=== PATIENT | male | born 1970 | race Caucasian/White ===

== ENCOUNTER → 2017-11-17 05:54 | Outpatient (CLI) | payer BC, SELFPAY ==
--- NOTE | 2017-11-17 17:54 | STRESSREP ---
Stress Test Report Pharmacologic myocardial perfusion stress test. 47-year-old man with a history of coronary artery disease status post right coronary artery stenting. Stress protocol: Resting EKG demonstrates normal sinus rhythm with rate of 59 beats minute resting blood pressure is 112/82 mmHg. 0.4 mg of regadenoson was infused per usual protocol followed by rapid intravenous saline flush injection. Continuous EKG monitoring was performed. Patient maintained sinus rhythm throughout the recording. At rest there were no ST or T-wave changes noted suggest abnormal flow reserve the maximum heart rate attained was 112 bpm which was 64% of maximum predicted heart rate the maximum workload attained was 1 metabolic equivalent. At rest there were no ST or T-wave changes noted suggest abnormal flow reserve at peak infusion no ST or T-wave changes were noted suggest abnormal flow reserve. The resting blood pressure is 112/82 mmHg. Myocardial perfusion protocol. 14.7 mCi of technetium 99m sestamibi was injected at rest. 0.4 mg of regadenoson was infused per usual protocol. At peak infusion 44.3 mCi of technetium 99m sestamibi was injected stress images were obtained stress and rest images were reconstructed and compared in the short axis vertical long and horizontal long axis. Gated images were also obtained Perfusion SPECT analysis: Review of the stress images demonstrate normal uptake of tracer noted in all areas of the myocardium. The resting images similarly demonstrate normal uptake of tracer noted in all areas of the myocardium. No reversibility is noted suggest ischemia no previous infarct is noted. Gated SPECT analysis: The gated ejection fraction is 71%. Conclusion: Normal pharmacologic myocardial perfusion stress test. Preserved ejection fraction.
== END ==
PROVIDERS: Family Provider Family Medicine; PCP Family Medicine; Visit Provider Physician Assistant Medical
DX: I25.111 Atherosclerotic heart disease of native 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 (principal); R06.00 Dyspnea, unspecified; R06.02 Shortness of breath
CPT/HCPCS: 78452; 93017; A9500; A4216; J2785

== ENCOUNTER → 2018-05-17 10:12 | Outpatient (CLI) | payer BC, SELFPAY ==
[2017-05-09 14:31] VITALS: BMI 34.3
[2018-05-17 10:46] LABS: Erythrocyte Sedimentation Rate 6 mm/hr (0-15)
[2018-05-17 10:49] LABS: Absolute Neutrophil Count 8.4 X10^3/uL (2.0-7.7); Basophil# 0.03 X10^3/uL; Basophil% 0.2 % (0-1); Eosinophil# 0.53 X10^3/uL; Eosinophils% 4.4 % (0-5); Hematocrit 48.1 % (40-54); Hemoglobin 16.3 g/dl (13.0-16.5); Lymphocyte % 16.5 % (19-41); Mean Corp Hgb Conc 33.9 g/gl (32-36); Mean Corpuscular Hgb 30.6 pg (27.0-32.0); Mean Corpuscular Volume 90.4 fL (80-94); Mean Platelet Vol. 10.5 fl (6.2-12.0); Monocyte# 1.13 X10^3/uL; Monocyte% 9.3 % (0-10); Neutrophil # 8.44 X10^3/uL (2.7-7.7); Neutrophil % 69.5 % (47-70); Platelet Count 207 K/mm3 (150-450); RBC Distribution Width CV 12.2 % (11.6-14.6); RBC Distribution Width SD 40.2 fl (35.1-43.9); Red Blood Count 5.32 M/mm3 (4.6-6.2); White Blood Count 12.1 K/mm3 (4.4-11.0)
[2018-05-17 10:50] LABS: POSITIVE COUNT NO; POSITIVE DIFFERENTIAL NO; POSITIVE MORPHOLOGY NO
[2018-05-17 11:13] LABS: CRP < 2.90 mg/L (0.0-3.0)
== END ==
PROVIDERS: Family Provider Family Medicine; PCP Family Medicine; Referring Provider Specialist; Visit Provider Specialist
DX: Z96.651 Presence of right artificial knee joint (principal)
CPT/HCPCS: 36415; 85025; 85652; 86140

== ENCOUNTER 2018-06-19 19:33 | Emergency (ER) | payer BC, SELFPAY ==
[2018-06-19] VITALS (7 sets, daily range): BP systolic 150; BP diastolic 93; PULSE 90–98; RESP 18–28; TEMP 36.6; O2SAT 93–96; BMI 36.3
--- NOTE | 2018-06-19 19:39 | EKG12_ITS ---
Test Reason : SOB Blood Pressure : / mmHG Vent. Rate : 089 BPM Atrial Rate : 089 BPM P-R Int : 152 ms QRS Dur : 092 ms QT Int : 378 ms P-R-T Axes : 031 085 057 degrees QTc Int : 459 ms Normal sinus rhythm Incomplete right bundle branch block Borderline ECG Confirmed by ZUHAIR WILSON, SLIM ([id number]), editor index ANA BYRD ([id number] on 06/22/2018 3:28:15 PM Referred By: VY Confirmed By:SLIM MOFFETT MD
--- NOTE | 2018-06-19 19:57 | RAD_ITS ---
STUDY: X-RAY CHEST REASON FOR EXAM: Male, 48 years old. Shortness of breath TECHNIQUE: Single AP portable view of the chest. COMPARISON: Previous study of 11/04/2016 FINDINGS: The lungs are clear and expanded. There is no demonstrated pleural abnormality. Normal size heart. Normal mediastinum and jalen. Normal visualized pulmonary arteries. Normal visualized aortic arch and descending thoracic aorta. Normal visualized thoracic spine. Normal visualized ribs, clavicles, and shoulders. There is no demonstrated abnormality of the visualized soft tissue structures of the upper abdomen. RAD/Chest 1 View (Portable) IMPRESSION: Normal x-ray examination of the chest. Electronically Signed: Edd Casillas MD at 20:24 EST , Service support ,
--- NOTE | 2018-06-19 19:57 | ED.RN ---
THIS RN CALLS TO NOTIFY RADIOLOGY OF PT X-RAY.
[2018-06-19] MEDS: 0.9% Normal Saline 1,000 ML 999 ML IV (20:30)
[2018-06-19] MEDS: MethylPREDNISolone 125 MG/2 ML Vial IV (20:30)
[2018-06-19] MEDS: Ipratropium/Albuterol Sulfate 3 ML AMPUL.NEB INHALATION (20:40)
[2018-06-19] MEDS: Albuterol 2.5 MG/3 ML VIAL.NEB. INHALATION ×3 (20:40→20:53)
--- NOTE | 2018-06-19 20:48 | ED.VISSUMM ---
- ER Visit Summary Date of Service: 06/19/18 Chief Complaint: Shortness of breath History of Present Illness: The patient is a 48 M presents to the emergency department with cough and shortness of breath. The patient does have a history of prior myocardial infarction. He has had stents placed. He follows with Dr. Michel. Patient is a long-standing smoker. He does not think he is been diagnosed with COPD. He states today, he began to have cough and dyspnea. He had scant production of sputum. He denies any fevers or chills. He just feels like he cannot catch his breath. He states with the change in weather comments made his symptoms worse. He denies orthopnea or leg edema. He has no history of pulmonary embolus. Physical Examination: Vital signs reviewed General: Well-nourished, well-developed Head: Normocephalic, atraumatic Eyes: Pupils equal and reactive, extraocular muscles intact Neck, supple, no lymphadenopathy Heart: Regular rate and rhythm Respiratory: No distress, wheezing in all lu Abdomen: Soft, nontender, nondistended, no peritoneal signs Back: Nontender Extremities: Nontender, no edema, no cords Skin: Normal color no rash Neuro: Alert and oriented, no focal or lateralizing deficits Test Results: [] Emergency Department Course and Treatment: The patient's symptoms do seem primarily respiratory. EKG was obtained. There is no acute ischemic change. The patient had symptoms for greater than 12 hours. His cardiac enzymes are normal. X-ray shows no evidence of volume overload, focal infiltrate, pneumothorax, or other dangerous process. Patient was given nebulized breathing treatments and steroids. On reevaluation, he was markedly improved. He has no tachypnea. He has had no hypoxia. At this time, I do feel the patient is safe for outpatient therapy. I am going to treat him with an inhaler, steroids, and doxycycline. He was counseled concerning symptoms and reasons to return. He will be discharged home. Treatment Plan: [] Disposition: Discharge Impression: 1. Acute infectious bronchitis with bronchospasm This note was generated with [employer] software. It may contain incorrect words, spelling, and punctuation that were not noted in review of the chart prior to signing ED Disposition - Plan for ED Patient: Chief Complaint: Shortness of Breath Instructions: ED Upper Resp Infec Abx Tx Prescriptions: Albuterol Inhaler [Ventolin Hfa] 2 puff INHALATION Q4H PRN PRN #1 inhaler PRN Reason: Wheezing Prednisone [Deltasone] 40 mg PO DAILY #10 tab Doxycycline 100 mg PO BID #20 cap Referrals: Kana Barreto DO [Primary Care Provider] -
[2018-06-19 20:52] LABS: Absolute Lymphocyte Count 1.29 X10^3/ul (0.83-4.51); Absolute Neutrophil Count 8.1 X10^3/uL (2.0-7.7); Basophil# 0.03 X10^3/uL; Basophil% 0.3 % (0-1); Eosinophil# 0.54 X10^3/uL; Hematocrit 46.6 % (40-54); Hemoglobin 15.9 g/dl (13.0-16.5); Lymphocyte # 1.29 X10^3/ul (4.0); Lymphocyte % 11.9 % (19-41); Mean Corp Hgb Conc 34.1 g/gl (32-36); Mean Corpuscular Hgb 30.9 pg (27.0-32.0); Mean Corpuscular Volume 90.5 fL (80-94); Mean Platelet Vol. 10.6 fl (6.2-12.0); Monocyte# 0.89 X10^3/uL; Monocyte% 8.2 % (0-10); Neutrophil # 8.09 X10^3/uL (2.7-7.7); Neutrophil % 74.3 % (47-70); POSITIVE COUNT NO; POSITIVE DIFFERENTIAL NO; POSITIVE MORPHOLOGY NO; Platelet Count 194 K/mm3 (150-450); RBC Distribution Width CV 12.2 % (11.6-14.6); RBC Distribution Width SD 40.3 fl (35.1-43.9); Red Blood Count 5.15 M/mm3 (4.6-6.2); White Blood Count 10.9 K/mm3 (4.4-11.0)
[2018-06-19 21:09] LABS: Anion Gap 8 (5-15); BUN 18 mg/dL (7-18); BUN/Creat Ratio 18.2 RATIO (10-20); Calcium,Total 8.1 mg/dL (8.5-10.1); Chloride 107 mmol/L (98-107); Creatinine, Serum 0.99 mg/dL (0.70-1.30); EST Glomerular Filtration Rate 86 mL/min (>60); Est Glom Filt Rate - Afr Amer 104 mL/min (>60); Estimated Creatinine Clearance 100.16 ml/min; Glucose 105 mg/dL (74-106); Potassium 3.8 mmol/L (3.5-5.1); Sodium Level 140 mmol/L (136-145)
[2018-06-19] MEDS: Doxycycline 100 MG CAPSULE PO (22:08)
== END 2018-06-19 22:09 | disposition home or self-care (01) ==
LOC: ED 21:13
PROVIDERS: Emergency Provider Emergency Medicine; Family Provider Family Medicine; PCP Family Medicine
DX: J20.9 Acute bronchitis, unspecified (principal); I25.10 Atherosclerotic heart disease of native coronary artery without angina pectoris; I10 Essential (primary) hypertension; F17.200 Nicotine dependence, unspecified, uncomplicated; I25.2 Old myocardial infarction; Z95.5 Presence of coronary angioplasty implant and graft
CPT/HCPCS: 71045; 80048; 84484; 85025; 87804; 93005; 94640; 94760; 96361; 96374; 99283; J7030; A4216

== ENCOUNTER → 2019-03-28 12:39 | Outpatient (CLI) | payer BC, SELFPAY ==
[2019-03-28 12:21] VITALS: BMI 35.5
--- NOTE | 2019-03-28 12:42 | RAD_ITS ---
STUDY: X-RAY CHEST REASON FOR EXAM: Male, 49 years old. Cough and chest congestion. TECHNIQUE: PA and lateral views of the chest. COMPARISON: Comparison is made with prior study dated June 19, 2018. FINDINGS: The lungs are clear and expanded. Scattered calcified granulomas. There is no demonstrated pleural abnormality. Normal size heart. Normal mediastinum and jalen. Normal visualized pulmonary arteries. Normal visualized aortic arch and descending thoracic aorta. There are degenerative changes of the visualized thoracic spine. Normal visualized ribs, clavicles, and shoulders. There is no demonstrated abnormality of the visualized soft tissue structures of the upper abdomen. RAD/Chest PA and Lateral IMPRESSION: No acute abnormality is seen. Electronically Signed: Carlos Alberto Burgess, at 13:48 EST , Service support ,
== END ==
LOC: HPRAD 12:39
PROVIDERS: Family Provider Family Medicine; PCP Family Medicine; Referring Provider Physician Assistant; Visit Provider Physician Assistant
DX: R09.89 Other specified symptoms and signs involving the circulatory and respiratory systems (principal)
CPT/HCPCS: 71046

== ENCOUNTER 2019-03-28 14:02 | Observation (INO) | payer BC, SELFPAY ==
[2019-03-28] VITALS (10 sets, daily range): BP systolic 107–139; BP diastolic 70–102; PULSE 54–68; RESP 16–23; TEMP 36.2–36.7; O2SAT 96–100; BMI 35.5; BMI 35.3; BMI 34.9; BMI 35.0
--- NOTE | 2019-03-28 14:44 | EKG12_ITS ---
Test Reason : Blood Pressure : / mmHG Vent. Rate : 060 BPM Atrial Rate : 060 BPM P-R Int : 180 ms QRS Dur : 134 ms QT Int : 498 ms P-R-T Axes : 013 048 074 degrees QTc Int : 498 ms Normal sinus rhythm with sinus arrhythmia Non-specific intra-ventricular conduction block Cannot rule out Septal infarct , age undetermined Abnormal ECG Confirmed by ZUHAIR WILSON, SLIM ([id number]), manuscript editor WENDY CERON ([id number]) on 04/02/2019 2:35:33 PM Referred By: Brady Spencer Confirmed By:SLIM MOFFETT MD
[2019-03-28 14:56] LABS: Absolute Lymphocyte Count 2.32 X10^3/uL (0.83-4.51); Absolute Neutrophil Count 4.6 X10^3/uL (2.0-7.7); Basophil% 1.2 % (0-1); Eosinophil# 0.57 X10^3/uL; Eosinophils% 6.7 % (0-5); Hematocrit 50.1 % (40-54); Hemoglobin 17.1 g/dL (13.0-16.5); Lymphocyte # 2.32 X10^3/ul (4.0); Lymphocyte % 27.3 % (19-41); Mean Corp Hgb Conc 34.1 g/dL (32-36); Mean Corpuscular Hgb 30.9 pg (27.0-32.0); Mean Corpuscular Volume 90.4 fL (80-94); Mean Platelet Vol. 10.6 fl (6.2-12.0); Monocyte# 0.86 X10^3/uL; Monocyte% 10.1 % (0-10); NRBC Flagged by Analyzer 0 % (0-5); Neutrophil # 4.61 X10^3/uL (2.7-7.7); Neutrophil % 54.2 % (47-70); Platelet Count 211 K/mm3 (150-450); RBC Distribution Width CV 11.6 % (11.6-14.6); RBC Distribution Width SD 38.4 fl (35.1-43.9); Red Blood Count 5.54 M/mm3 (4.6-6.2); White Blood Count 8.5 K/mm3 (4.4-11.0)
[2019-03-28 15:10] LABS: Anion Gap 11 (5-15); BUN 14 mg/dL (7-18); BUN/Creat Ratio 14.8 RATIO (10-20); Calcium,Total 8.9 mg/dL (8.5-10.1); Chloride 105 mmol/L (98-107); Creatinine, Serum 0.95 mg/dL (0.70-1.30); EST Glomerular Filtration Rate 90 mL/min (>60); Est Glom Filt Rate - Afr Amer 109 mL/min (>60); Estimated Creatinine Clearance 103.24 ml/min; Glucose 91 mg/dL (74-106); Potassium 4.3 mmol/L (3.5-5.1); Sodium Level 141 mmol/L (136-145)
[2019-03-28] MEDS: 0.9% Normal Saline 1,000 ML 150 ML IV (15:30)
--- NOTE | 2019-03-28 15:55 | EKG12_ITS ---
Test Reason : CP Blood Pressure : / mmHG Vent. Rate : 061 BPM Atrial Rate : 061 BPM P-R Int : 196 ms QRS Dur : 134 ms QT Int : 468 ms P-R-T Axes : 028 056 069 degrees QTc Int : 471 ms Normal sinus rhythm Non-specific intra-ventricular conduction block Cannot rule out Anteroseptal infarct , age undetermined Abnormal ECG Confirmed by ZUHAIR WILSON, SLIM ([id number]), commissioning editor WENDY CERON ([id number]) on 04/02/2019 2:36:05 PM Referred By: Brady Spencer Confirmed By:SLIM MOFFETT MD
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
--- NOTE | 2019-03-28 16:47 | EKG12_ITS ---
Test Reason : CP ADMIT Blood Pressure : / mmHG Vent. Rate : 060 BPM Atrial Rate : 060 BPM P-R Int : 192 ms QRS Dur : 136 ms QT Int : 502 ms P-R-T Axes : 019 046 069 degrees QTc Int : 502 ms Normal sinus rhythm Non-specific intra-ventricular conduction block , LBBB Cannot rule out Anteroseptal infarct , age undetermined Abnormal ECG Confirmed by ZUHAIR WILSON, SLIM ([id number]), video editor WENDY CERON ([id number]) on 04/02/2019 3:04:18 PM Referred By: Brady Spencer Confirmed By:SLIM MOFFETT MD
--- NOTE | 2019-03-28 16:50 | NURSING ---
Pt c/o of chest pressure 5/10. Called for EKG.
[2019-03-28] MEDS: Nitroglycerin (INPATIENT USE) 0.4 MG TAB.SUBL SUBLINGUAL (16:55)
[2019-03-28 17:11] LABS: Magnesium 1.9 mg/dL (1.6-2.6)
[2019-03-28] MEDS: 0.9% Normal Saline 1,000 ML 125 ML IV (17:35)
[2019-03-28] MEDS: Carvedilol 6.25 MG Tablet PO (21:02)
[2019-03-28] MEDS: Atorvastatin Calcium 80 MG Tablet PO (21:02)
[2019-03-29] VITALS (8 sets, daily range): BP systolic 104–140; BP diastolic 51–74; PULSE 51–64; RESP 17–18; TEMP 36.4; O2SAT 93–96
[2019-03-29] MEDS: 0.9% Normal Saline 1,000 ML 125 ML IV (01:38)
--- NOTE | 2019-03-29 05:55 | EKG12_ITS ---
Test Reason : AM EKG Blood Pressure : / mmHG Vent. Rate : 062 BPM Atrial Rate : 062 BPM P-R Int : 214 ms QRS Dur : 124 ms QT Int : 470 ms P-R-T Axes : 041 022 074 degrees QTc Int : 477 ms Sinus rhythm with 1st degree A-V block Anteroseptal infarct , age undetermined Abnormal ECG , LBBB When compared with ECG of 28-MAR-2019 16:56, MANUAL COMPARISON REQUIRED, DATA IS UNCONFIRMED Confirmed by ZUHAIR WILSON, SLIM ([id number]), pictures editor WENDY CERON ([id number]) on 04/02/2019 3:06:55 PM Referred By: Brady Spencer Confirmed By:SLIM MOFFETT MD
[2019-03-29 06:27] LABS: Absolute Lymphocyte Count 1.66 X10^3/uL (0.83-4.51); Basophil# 0.05 X10^3/uL; Basophil% 0.7 % (0-1); Eosinophil# 0.51 X10^3/uL; Eosinophils% 7.2 % (0-5); Hematocrit 46.4 % (40-54); Hemoglobin 15.5 g/dL (13.0-16.5); Lymphocyte # 1.66 X10^3/ul (4.0); Lymphocyte % 23.4 % (19-41); Mean Corp Hgb Conc 33.4 g/dL (32-36); Mean Corpuscular Hgb 30.9 pg (27.0-32.0); Mean Corpuscular Volume 92.4 fL (80-94); Mean Platelet Vol. 10.7 fl (6.2-12.0); Monocyte# 0.83 X10^3/uL; Monocyte% 11.7 % (0-10); NRBC Flagged by Analyzer 0 % (0-5); Neutrophil % 56.6 % (47-70); Platelet Count 174 K/mm3 (150-450); RBC Distribution Width CV 11.9 % (11.6-14.6); RBC Distribution Width SD 40.4 fl (35.1-43.9); Red Blood Count 5.02 M/mm3 (4.6-6.2); White Blood Count 7.1 K/mm3 (4.4-11.0)
[2019-03-29] MEDS: Aspirin E.C. 81 MG Tablet PO (06:33)
[2019-03-29] MEDS: Clopidogrel Bisulfate 75 MG Tablet PO (06:33)
[2019-03-29] MEDS: Lisinopril 5 MG Tablet PO (06:33)
[2019-03-29 06:44] LABS: Anion Gap 9 (5-15); BUN 11 mg/dL (7-18); BUN/Creat Ratio 13.2 RATIO (10-20); Calcium,Total 8.3 mg/dL (8.5-10.1); Chloride 109 mmol/L (98-107); Cholesterol 107 mg/dL (200); Creatinine, Serum 0.83 mg/dL (0.70-1.30); EST Glomerular Filtration Rate 105 mL/min (>60); Est Glom Filt Rate - Afr Amer 126 mL/min (>60); Estimated Creatinine Clearance 118.17 ml/min; Glucose 102 mg/dL (74-106); High Density Lipoprotein 32 mg/dL; Potassium 4.3 mmol/L (3.5-5.1); Sodium Level 142 mmol/L (136-145); Triglycerides 132 mg/dL; Very Low Density Lipoprotein 26 mg/dL (5-40)
--- NOTE | 2019-03-29 11:07 | STRESSREP ---
Stress Test Report Myocardial perfusion stress test. 49-year-old male with a history of chest pain. Stress protocol: Resting EKG demonstrates sinus bradycardia with a rate of 56 bpm left bundle branch block is noted resting blood pressures 136/70 mmHg. The patient exercised according to regular Jamil protocol for a total duration of 6 minutes the maximum heart rate attained was 150 bpm which was 87% of maximum predicted heart rate maximum workload was 7 metabolic equivalents. At rest there were no ST or T wave changes noted suggest ischemia the patient maintained left bundle branch block throughout the recording. The resting blood pressures 136/70 with a peak blood pressure 160/62 no clinical angina was noted. Patient did have severe dyspnea noted necessitating termination of the chest. There was minimal chest discomfort noted. The resting blood pressure was 136/70 peak blood pressure 160/62. Myocardial perfusion protocol. 14.5 mCi of technetium 99m sestamibi was injected at rest. Patient exercised according to regular Jamil protocol for 6 minutes at peak exercise 45.0 mCi of technetium 99 sestamibi was injected stress images were obtained stress and rest images are reconstructed and compared in the short axis vertical and horizontal long axis. Gated images was obtained Perfusion SPECT analysis: Review of the stress images demonstrate normal uptake of tracer noted in all rest myocardium the rest images no demonstrate normal uptake of tracer noted in all rest myocardium. No reversibility is no suggest ischemia no previous infarct is noted per Gated SPECT analysis: The gated ejection fraction is noted to be 73%. Conclusion: Exercise myocardial perfusion stress test with no evidence of ischemia noted at a moderate workload. Preserved ejection fraction. Left bundle branch block. Minimal chest discomfort of unknown significance.
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
[2019-03-29] MEDS: Carvedilol 6.25 MG Tablet PO (12:24)
[2019-03-29] MEDS: Isosorbide Mononitrate 60 MG Tablet PO (12:24)
[2019-03-29] MEDS: Pantoprazole Sodium 40 MG Tablet PO (12:24)
[2019-03-29] MEDS: Celecoxib 200 MG Capsule PO (12:24)
--- NOTE | 2019-03-29 13:19 | DCINST_ITS ---
- Discharge Diagnoses Current Active Problems: Current Active and Chronic Problems (Last Reviewed 03/28/19 @ 16:08 by Salima Almaguer MD) HTN (hypertension) (Chronic) Obesity (BMI 30-39.9) (Chronic) Tobacco use (Chronic) Chest pain (Acute) You will use the following diet at home:: Cardiac Your food should be the consistency of: Regular Your liquids should be the consistency of: Regular/Thin Weight Bearing Status: Weight bearing as tolerated Call your doctor if you observe: Fever of 101 or Higher, Shortness of breath, Swelling in the ankles, Chest pain Instructions: What Is Angina?, Heart Attack, Angina, Taking Long-Acting Nitroglycerin Allergies/Adverse Reactions: Allergies No Known Allergies Allergy (Verified 03/28/19 14:11) Medications to take at Discharge nitroglycerin 0.4 mg sublingual tablet 0.4 mg SUBLINGUAL Q5M PRN #25 tab 01/04/18 carvedilol 6.25 mg tablet 6.25 mg PO BID #180 tab 03/29/18 clopidogrel 75 mg tablet 75 mg PO DAILY #90 tab 03/29/18 lisinopril 5 mg tablet 5 mg PO DAILY #90 tab 03/29/18 pantoprazole 40 mg tablet,delayed release 40 mg PO DAILY #90 tab 03/29/18 Albuterol Inhaler [Ventolin Hfa] 2 puff INHALATION Q4H PRN PRN #1 inhaler 06/19/18 Celecoxib [Celebrex] 200 mg PO DAILY 06/19/18 aspirin 81 mg tablet,delayed release 81 mg PO DAILY 06/28/18 atorvastatin 80 mg tablet 80 mg PO QHS #10 tab 07/27/18 Acetaminophen [Tylenol] 1,000 mg PO Q8H PRN PRN 03/28/19 Isosorbide Mononitrate [Imdur] 60 mg PO DAILY 03/28/19 Please follow up with your Primary Care Physician in: one week Test Results: Test results from this visit will be discussed in further detail at your follow- up appointment, if applicable. Please Follow Up With: Albert Michel MD When: 2-4 weeks; call office for appointment Proposed Discharge Date: 03/29/19
--- NOTE | 2019-03-29 13:21 | PCM.DC.SUM ---
Discharge Date and Diagnosis - Problem List Patient Problems: Active and Suspected Problems (Last Reviewed 03/28/19 @ 16:08 by Salima Almaguer MD) Chest pain (Acute) Date of Admission: 03/28/19 Date of Discharge: 03/29/19 - Primary Discharge Diagnosis Active and Suspected Problems (Last Reviewed 03/28/19 @ 16:08 by Salima Almaguer MD) Chest pain (Acute) - Secondary Discharge Diagnosis Chronic Problems (Last Reviewed 03/28/19 @ 16:08 by Salima Almaguer MD) HTN (hypertension) (Chronic) Obesity (BMI 30-39.9) (Chronic) Tobacco use (Chronic) Presence of stent in coronary artery (Chronic 03/04/16) [id number]-[id number] RCA w/ 4.0 x 23 mm and 4.0 x 12 mm Xience Alpine RX & MERCY-Mid RCA w/ 4.0 x 8 mm Xience Alpine RX Stent 02/23/16 Atherosclerotic heart disease of [place] 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 (Chronic) [id number]-[id number] RCA w/ 4.0 x 23 mm and 4.0 x 12 mm Xience Alpine RX & MERCY-Mid RCA w/ 4.0 x 8 mm Xience Alpine RX Stent 02/23/16 HLD (hyperlipidemia) (Chronic) Hospital Course and Treatment Imaging Results: 03/29/19 05:55 Nuclear Stress Test - Treadmil [NM] AM (NON MEDS) cardiology Operations: None Procedures: Nuclear stress test Summary of Care Provided: The patient is a 49 year old M is a 49-year-old male with an extensive past medical history as listed which includes CAD status post stents times during the RCA, hypertension hyperlipidemia. He was admitted through the ED on 03/28/2019 with a complaint of intermittent retrosternal chest pain of about 48 hours duration which was worsened with exertion and relieved by rest. He had initially thought it was due to bronchitis but symptoms persisted so he came into the ED. Chest x-ray was unremarkable and EKG showed no acute ST changes. He was started on aspirin and sublingual nitroglycerin. Troponins x3 were negative. Patient had a stress test done on 03/29/2019. Stress test was negative but patient however said that during stress test he was having chest pain and after stress test he still complained of having chest pain and chest pressure. Cardiology was therefore consulted in light of the persistent chest pain and history of CAD status post CABG. Cardiology reviewed patient's and thought it was an atypical chest pain and recommended medical management. His lisinopril was increased to 10 mg daily; he is to follow-up with his primary care doctor and cardiology within 1 week. Patient seen and examined prior to discharge. He still complained of mild chest pressure. Review of systems was otherwise negative. Labs and vitals reviewed. Home medications reviewed and reconciled. [] Patient Problems: Active and Suspected Problems (Last Reviewed 03/28/19 @ 16:08 by Salima Almaguer MD) Chest pain (Acute) - Physical Exam Vitals/I&O's: Vital Signs Temp Pulse Resp BP Pulse Ox 97.6 F L 64 18 140/72 H 95 03/29/19 12:05 03/29/19 12:05 03/29/19 12:05 03/29/19 12:05 03/29/19 12:05 Oxygen Flow Rate (L/min) 3 Oxygen Delivery Method Room Air Weight: 258 lb 6.108 oz Body Mass Index (BMI) 34.9 Intake and Output for Last 24 Hours 03/27/19 03/28/19 03/29/19 23:59 23:59 23:59 Intake Total 412.5 / 412.5 2560.00 / 2560.00 Balance 412.5 / 412.5 2560.00 / 2560.00 General: Alert, Oriented x3, Cooperative, No apparent distress HEENT: Atraumatic, PERRLA, EOMI, Normocephalic Oral: Moist Mucosa Neck: Supple, No JVD, Negative Carotid Bruits Lungs: Clear to auscultation, Normal air movement, No rhonchi, No wheeze, No rales Cardiovascular: Regular rate, Regular Rhythm, Normal S1, Normal S2, No murmurs Abdomen: Bowel Sounds Present, Soft, Non Tender, Non-Distended, No Hepato-splenomegaly Extremities: No clubbing, No cyanosis, No edema, Capillary Refill Less than 3 Seconds Skin: No rashes, No breakdown Musculoskeletal: No Tenderness to Palpation of Joints or Extremities Lymphatic: No Cervical, Supraclavicular, or Inguinal Adenopathy Neurological: Cranial nerves II-XII grossly intact, Neuro grossly intact, Motor Exam 5/5 strength throughout Psych/Mental Status: Normal Affect, Appropriate, Alert and oriented to time, place, person, mood and affect Laboratory Results 03/28/19 14:10: WBC 8.5, RBC 5.54, Hgb 17.1 H, Hct 50.1, MCV 90.4, MCH 30.9, MCHC 34.1, RDW Std Deviation 38.4, RDW Coeff of Ivan 11.6, Plt Count 211, MPV 10.6, Immature Gran % (Auto) 0.500, Neut % (Auto) 54.2, Lymph % (Auto) 27.3, [place] % (Auto) 10.1 H, Eos % (Auto) 6.7 H, Baso % (Auto) 1.2 H, Absolute Neuts (auto) 4.6, Absolute Lymphs (auto) 2.32, Nucleated RBC % 0 03/28/19 14:10: Sodium 141, Potassium 4.3, Chloride 105, Carbon Dioxide 25.0, Anion Gap 11, BUN 14, Creatinine 0.95, Estim Creat Clear Calc 103.24, Est GFR (MDRD) Af Amer 109, Est GFR (MDRD) Non-Af 90, BUN/Creatinine Ratio 14.8, Glucose 91, Calcium 8.9, Troponin I < 0.015 03/28/19 14:10: Magnesium 1.9 03/28/19 17:40: Troponin I < 0.015 03/28/19 20:42: Troponin I < 0.015 03/29/19 05:25: WBC 7.1, RBC 5.02, Hgb 15.5, Hct 46.4, MCV 92.4, MCH 30.9, MCHC 33.4, RDW Std Deviation 40.4, RDW Coeff of [place] 11.9, Plt Count 174, MPV 10.7, Immature Gran % (Auto) 0.400, Neut % (Auto) 56.6, Lymph % (Auto) 23.4, [place] % (Auto) 11.7 H, Eos % (Auto) 7.2 H, Baso % (Auto) 0.7, Absolute Neuts (auto) 4.0, Absolute Lymphs (auto) 1.66, Nucleated RBC % 0 03/29/19 05:25: Sodium 142, Potassium 4.3, Chloride 109 H, Carbon Dioxide 24.0, Anion Gap 9, BUN 11, Creatinine 0.83, Estim Creat Clear Calc 118.17, Est GFR (MDRD) Af Amer 126, Est GFR (MDRD) Non-Af 105, BUN/Creatinine Ratio 13.2, Glucose 102, Calcium 8.3 L, Triglycerides 132, Cholesterol 107, LDL Cholesterol 49, VLDL Cholesterol 26, HDL Cholesterol 32 L Current Medications Acetaminophen (Tylenol) 650 mg PO Q6H PRN PRN PRN Reason: Non-cardiac pain (mod-severe) Hydrocodone Bitart/Acetaminophen ([place] 5mg-325mg) 1 - 2 tablet PO Q4H PRN PRN PRN Reason: Pain Score 4-10/10 Al Hydroxide/Mg Hydroxide (Mylanta Ii) 15 - 30 ml PO Q4H PRN PRN PRN Reason: INDIGESTION Albuterol Sulfate (Ventolin Aerosols) 2.5 mg INHALATION Q2H PRN PRN PRN Reason: dyspnea, wheezing Aspirin (Ecotrin) 81 mg PO DAILYCM [facility] Last Admin: 03/29/19 06:33 Dose: 81 mg Documented by: Atorvastatin Calcium (Lipitor) 80 mg PO QHS [facility] Last Admin: 03/28/19 21:02 Dose: 80 mg Documented by: Carvedilol (Coreg) 6.25 mg PO BID [facility] Last Admin: 03/29/19 12:24 Dose: 6.25 mg Documented by: Celecoxib (Celebrex) 200 mg PO DAILY [facility] Last Admin: 03/29/19 12:24 Dose: 200 mg Documented by: Clopidogrel Bisulfate (Plavix) 75 mg PO DAILY [facility] Last Admin: 03/29/19 06:33 Dose: 75 mg Documented by: Dextrose (D50w Syringe) 0 gm IV X1 PRN; Protocol PRN Reason: Hypoglycemia Enoxaparin Sodium (Lovenox) 40 mg SC DAILY@1000 [facility] Last Admin: 03/29/19 12:19 Dose: Not Given Documented by: Glucagon () 1 mg IM .X1 PRN PRN Reason: Hypoglycemia Hydralazine HCl (Apresoline Iv) 10 mg IV Q4H PRN PRN PRN Reason: SBP > 160 Sodium Chloride () 1,000 mls @ 125 mls/hr IV .Q8H [facility] Last Infusion: 03/29/19 12:20 Dose: Infused Documented by: Isosorbide Mononitrate (Imdur) 60 mg PO DAILY [facility] Last Admin: 03/29/19 12:24 Dose: 60 mg Documented by: Lisinopril (Zestril) 10 mg PO DAILY [facility] Magnesium Hydroxide (Milk Of Magnesia) 30 ml PO DAILY PRN PRN Reason: Constipation Melatonin (Melatonin) 3 mg PO QHS PRN PRN PRN Reason: INSOMNIA Morphine Sulfate () 1 - 2 mg IV Q4H PRN PRN PRN Reason: Pain Score 1-10/10 Nitroglycerin (Nitrostat) 0.4 mg SUBLINGUAL Q5M PRN PRN Reason: CARDIAC/CHEST PAIN Last Admin: 03/28/19 16:55 Dose: 0.4 mg Documented by: Ondansetron HCl (Zofran) 4 mg IV Q8H PRN PRN PRN Reason: NAUSEA/VOMITING Pantoprazole Sodium (Protonix) 40 mg PO DAILY [facility] Last Admin: 03/29/19 12:24 Dose: 40 mg Documented by: Sodium Chloride () 10 - 40 ml IV UD PRN PRN Reason: SALINE FLUSH Throat Lozenges (Cepacol Sore Throat Lozenge) 1 lozenge MUCOUS MEM Q2H PRN PRN PRN Reason: Sore Throat/Cough Discharge Diet: Low fat/ Low Cholesterol Discharge Activity: Return to Normal Activity Weight Bearing Status: Weight bearing as tolerated Call your doctor if you observe: Fever of 101 or Higher, Shortness of breath, Swelling in the ankles, Chest pain Home Medications: Medications to take at Discharge nitroglycerin 0.4 mg sublingual tablet 0.4 mg SUBLINGUAL Q5M PRN #25 tab 01/04/18 carvedilol 6.25 mg tablet 6.25 mg PO BID #180 tab 03/29/18 clopidogrel 75 mg tablet 75 mg PO DAILY #90 tab 03/29/18 Albuterol Inhaler [Ventolin Hfa] 2 puff INHALATION Q4H PRN PRN #1 inhaler 06/19/18 Celecoxib [Celebrex] 200 mg PO DAILY 06/19/18 aspirin 81 mg tablet,delayed release 81 mg PO DAILY 06/28/18 atorvastatin 80 mg tablet 80 mg PO QHS #10 tab 07/27/18 Acetaminophen [Tylenol] 1,000 mg PO Q8H PRN PRN 03/28/19 Lisinopril [Zestril] 10 mg PO DAILY #30 tab 03/29/19 isosorbide mononitrate ER 60 mg tablet,extended release 24 hr 60 mg PO DAILY #90 tab 03/29/19 pantoprazole 40 mg tablet,delayed release 40 mg PO DAILY #90 tab 03/29/19 Following Prescrptions Were Given to Patient: Lisinopril [Zestril] 10 mg PO DAILY #30 tab Transmission Status: Sent to [facility]/pharmacy #[id number] Primary Care Physician: Kana Barreto DO [Primary Care Provider] - Please follow up with your Primary Care Physician in: one week Please Follow Up With: Albert Michel MD When: 2-4 weeks; call office for appointment Patient Instructions: What Is Angina?, Taking Long-Acting Nitroglycerin, Angina, Heart Attack Disposition: Home Minutes spent on discharge:: 40 Patient Condition:: Stable Medical Necessity - Tobacco Use Smoking Status: Current every day smoker Tobacco Use: Cigarettes Meaningful Use Info Meaningful Use Diagnoses (Choose all that apply): None applicable Code Visit OBSV E&M: 40193 Observation care discharge
== END 2019-03-29 13:20 | disposition home or self-care (01) ==
LOC: ED 16:03 → PCU 16:27
PROVIDERS: Admitting Provider Family Medicine; Emergency Provider Emergency Medicine; Family Provider Family Medicine; PCP Family Medicine; Visit Provider Student in an Organized Health Care Education/Training Program
DX: R07.89 Other chest pain (principal); I10 Essential (primary) hypertension; K21.9 Gastro-esophageal reflux disease without esophagitis; R06.09 Other forms of dyspnea; E78.5 Hyperlipidemia, unspecified; E66.9 Obesity, unspecified; I25.111 Atherosclerotic heart disease of native 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; M13.832 Other specified arthritis, left wrist; F17.210 Nicotine dependence, cigarettes, uncomplicated; I25.2 Old myocardial infarction; Z95.5 Presence of coronary angioplasty implant and graft; Z68.34 Body mass index [BMI] 34.0-34.9, adult; Z71.3 Dietary counseling and surveillance; Z79.899 Other long term (current) drug therapy; Z79.82 Long term (current) use of aspirin; Z79.02 Long term (current) use of antithrombotics/antiplatelets
CPT/HCPCS: 36415; 78452; 80048; 80061; 83735; 84484; 85025; 93005; 93017; 96360; 96361; 99218; 99251; 99283; A9500; J7030; A4216; G0378; G0463

== ENCOUNTER → 2020-07-02 15:07 | Outpatient (CLI) | payer BC, SELFPAY ==
[2020-07-02 14:38] VITALS: BMI 34.5
[2020-07-02 16:51] LABS: Absolute Lymphocyte Count 1.96 X10^3/uL (0.83-4.51); Absolute Neutrophil Count 4.1 X10^3/uL (2.0-7.7); Basophil# 0.07 X10^3/uL; Basophil% 0.9 % (0-1); Eosinophil# 0.61 X10^3/uL; Eosinophils% 7.9 % (0-5); Hematocrit 49.5 % (40-54); Hemoglobin 16.9 g/dL (13.0-16.5); Lymphocyte # 1.96 X10^3/ul (4.0); Lymphocyte % 25.5 % (19-41); Mean Corp Hgb Conc 34.1 g/dL (32-36); Mean Corpuscular Hgb 30.6 pg (27.0-32.0); Mean Corpuscular Volume 89.5 fL (80-94); Mean Platelet Vol. 10.8 fl (6.2-12.0); Monocyte% 11.7 % (0-10); NRBC Flagged by Analyzer 0 % (0-5); Neutrophil # 4.12 X10^3/uL (2.7-7.7); Neutrophil % 53.5 % (47-70); Platelet Count 251 K/mm3 (150-450); RBC Distribution Width CV 11.7 % (11.6-14.6); RBC Distribution Width SD 38.1 fl (35.1-43.9); Red Blood Count 5.53 M/mm3 (4.6-6.2); White Blood Count 7.7 K/mm3 (4.4-11.0)
[2020-07-02 17:40] LABS: AST(SGOT) 23 U/L (15-37); Alanine Aminotransfer ALT/SGPT 46 U/L (16-61); Alkaline Phosphatase 124 U/L (45-117); BUN 18 mg/dL (7-18); BUN/Creat Ratio 17.8 RATIO (10-20); Bilirubin, Direct 0.26 mg/dL (0.00-0.30); Chloride 107 mmol/L (98-107); Cholesterol 109 mg/dL (200); Creatinine, Serum 1.01 mg/dL (0.70-1.30); EST Glomerular Filtration Rate 83 mL/min (>60); Est Glom Filt Rate - Afr Amer 100 mL/min (>60); Globulin 3.2 g/dL (2.2-4.2); Glucose 86 mg/dL (74-106); Potassium 4.6 mmol/L (3.5-5.1); Protein, Total 7.2 g/dL (6.4-8.2); Sodium Level 137 mmol/L (136-145); Triglycerides 187 mg/dL
[2020-07-02 17:41] LABS: Anion Gap 4 (5-15); High Density Lipoprotein 41 mg/dL; Very Low Density Lipoprotein 37 mg/dL (5-40)
== END ==
LOC: LAB 15:09
PROVIDERS: PCP Family Medicine; Referring Provider Internal Medicine Cardiovascular Disease; Visit Provider Internal Medicine Cardiovascular Disease
DX: R07.9 Chest pain, unspecified (principal); E78.5 Hyperlipidemia, unspecified; Z95.5 Presence of coronary angioplasty implant and graft
CPT/HCPCS: 36415; 80048; 80061; 80076; 85025

== ENCOUNTER → 2020-07-15 07:04 | Outpatient (CLI) | payer BC, SELFPAY ==
[2020-07-02 14:38] VITALS: BMI 34.5
--- NOTE | 2020-07-15 12:45 | STRESSREP ---
Stress Test Report Exercise myocardial perfusion stress test. 50-year-old man with a history of coronary disease status post previous angioplasty and stenting of the right coronary artery, history of hypertension, hyperlipidemia. Stress protocol: Resting KG demonstrates normal sinus rhythm with a rate of 67 bpm normal intervals are noted resting blood pressure is 102/70 mmHg. The patient exercised according to regular Jmail protocol for a total duration of 7 minutes and 15 seconds. The maximum heart rate attained was 142 bpm which was 83% of maximum predicted heart rate the maximum workload was 8.9 metabolic equivalents. Patient maintained sinus rhythm throughout the recording. He did develop a rate dependent bundle branch block. EKG changes noted with a bundle branch block were present the test was terminated due to knee pain and dyspnea. Patient however did experience mild chest discomfort. The peak blood pressure was 140/80 mmHg with was a good blood pressure response to exercise. Myocardial perfusion protocol. 15.0 mCi of technetium 99m sestamibi was injected at rest. The patient exercised according to regular Jamil protocol for a total duration of 7 minutes and 15 seconds at peak exercise 44.0 mCi of technetium 99m sestamibi was injected stress images were obtained stress and rest images were reconstructed and compared in the short axis vertical long horizontal long axis. Gated images were also obtained Perfusion SPECT analysis: Review of the stress images demonstrate a mild amount of perfusion defect noted in the mid anterior wall. This is present on the stress and resting images to a similar extent. No obvious reversibility is noted suggest ischemia. The above is likely secondary to the bundle branch block defect. No previous infarct is noted. Gated SPECT analysis: The gated ejection fraction is 66%. Conclusion: Exercise myocardial perfusion stress test with no obvious ischemia noted. Rate dependent bundle branch block noted. Mild chest discomfort of questionable significance.
== END ==
LOC: CVS 07:06
PROVIDERS: Referring Provider Internal Medicine Cardiovascular Disease; Visit Provider Internal Medicine Cardiovascular Disease
DX: R07.9 Chest pain, unspecified (principal); Z95.5 Presence of coronary angioplasty implant and graft
CPT/HCPCS: 78452; 93017; A9500; A4216

== ENCOUNTER → 2020-07-23 11:48 | Outpatient (CLI) | payer BC, SELFPAY ==
--- NOTE | 2020-07-23 11:52 | RAD_ITS ---
STUDY: X-RAY - CERVICAL SPINE REASON FOR EXAM: Male, 50 years old. Cervical pain, radicular pain right TECHNIQUE: 3 view(s) of the cervical spine were obtained. COMPARISON: None FINDINGS: Normal anterior atlantoaxial articulation. Normal odontoid process. There is straightening of the normal cervical lordosis. Spondylolysis at the C5-C6 and C6-C7 levels. There is multi-level degenerative disc disease with multilevel disc space narrowing. Normal visualized intervertebral neuroforamina. The soft tissue structures are unremarkable. RAD/Cerv Spine 2 or 3 Views IMPRESSION: Straightening of the normal cervical lordosis. Spondylosis at the C5-C6 and C6-7 level with disc space narrowing at the C5-C6 and C6-C7 levels. Electronically Signed: Carlos Alberto Burgess MD at 15:32 EST , Service support ,
--- NOTE | 2020-07-23 11:55 | RAD_ITS ---
STUDY: X-RAY CHEST REASON FOR EXAM: Male, 50 years old. Shoulder pain TECHNIQUE: PA and lateral views of the chest. COMPARISON: Comparison is made with prior study dated 03/28/2019. FINDINGS: Hyperinflation. The lungs are clear. Scattered calcified granulomas. There is no demonstrated pleural abnormality. Normal size heart. Normal mediastinum and jalen. Normal visualized pulmonary arteries. Normal visualized aortic arch and descending thoracic aorta. There are degenerative changes of the visualized thoracic spine. Normal visualized ribs, clavicles, and shoulders. There is no demonstrated abnormality of the visualized soft tissue structures of the upper abdomen. RAD/Chest PA and Lateral IMPRESSION: Hyperinflation. The lungs are clear. Electronically Signed: Carlos Alberto Burgess MD at 15:30 EST , Service support ,
== END ==
PROVIDERS: PCP Internal Medicine; Referring Provider Internal Medicine; Visit Provider Internal Medicine
DX: M54.12 Radiculopathy, cervical region (principal); M54.2 Cervicalgia; M25.519 Pain in unspecified shoulder
CPT/HCPCS: 71046; 72040

== ENCOUNTER 2020-12-05 09:32 | Emergency (ER) | payer BC, SELFPAY ==
[2020-12-05 09:34] VITALS: BP 148/107; PULSE 71; RESP 16; TEMP 36.7; O2SAT 94; BMI 34.5
--- NOTE | 2020-12-05 10:27 | RAD_ITS ---
STUDY: X-RAY - RIGHT HAND REASON FOR EXAM: Male, 50 years old. pain TECHNIQUE: 3 view(s) of the hand. COMPARISON: None. FINDINGS: Normal radiocarpal articulation. Normal distal radioulnar joint. Demineralized visualized carpal bones. Normal carpal articulations Normal carpometacarpal articulation of the thumb. Normal second through fifth carpometacarpal joints. Demineralized metacarpi. Normal metacarpophalangeal joint of the thumb. Normal interphalangeal joint of the thumb. Normal proximal and distal phalanges of the thumb. Normal metacarpophalangeal joints of the second through fifth fingers. There is diffuse articular joint space narrowing of the proximal and distal interphalangeal joints of the second through fifth fingers, but without erosive changes or periarticular soft tissue swelling. Normal phalanges of the second through fifth fingers. The soft tissue structures are unremarkable. RAD/Hand Min 3 Views IMPRESSION: No evidence of acute osseous abnormality. Degenerative changes as above. Electronically Signed: Rony Diaz DO at 10:47 EDT , Service support ,
--- NOTE | 2020-12-05 11:20 | EDS_ITS ---
HPI History of Present Illness Chief Complaint: Upper Extremity Injury Narrative Narrative: Patient presenting for evaluation secondary to right hand pain. Patient states that while he was at work today where he frequently uses his hands he started to notice that he had some swelling and pain over the dorsum of his right hand. This is located between the metacarpals of his long digit and index finger. There are some swelling and pinpoint pain. No numbness, no weakness. Patient denies that there was any sort of specific injury that may have caused this. Patient also states that he deals with significant neck issues from cervical radiculopathy, but does not state that this pain radiates from his neck or his shoulder but rather is located directly in his hand. He denies any infectious signs or symptoms. Review of systems otherwise negative. PFSH PFSH Medical History Acute non-ST segment elevation myocardial infarction Atherosclerotic heart disease of [place] coronary artery without angina pectoris BBB (bundle branch block) Chest pain Essential (primary) hypertension HLD (hyperlipidemia) Obesity Obesity (BMI 30-39.9) Tobacco use Home Medications albuterol sulfate 2 puff INHALATION Q4H PRN PRN #1 inhaler 06/19/18 [Rx Last Taken 03/28/19] celecoxib 200 mg PO DAILY 06/19/18 [History Last Taken 03/28/19] aspirin 81 mg tablet,delayed release 81 mg PO DAILY 06/28/18 [History Last Taken 03/28/19] acetaminophen 1,000 mg PO Q8H PRN PRN 03/28/19 [History Last Taken 03/28/19] isosorbide mononitrate 60 mg tablet,extended release 24 hr 60 mg PO DAILY #90 tab 03/17/20 [Rx Last Taken Unknown] pantoprazole 40 mg tablet,delayed release 40 mg PO DAILY #90 tab 03/17/20 [Rx Last Taken Unknown] atorvastatin 80 mg tablet 80 mg PO QHS #90 tab 04/15/20 [Rx Last Taken Unknown] carvedilol 6.25 mg tablet 6.25 mg PO BID #180 tab 04/15/20 [Rx Last Taken Unknown] clopidogrel 75 mg tablet 75 mg PO DAILY #90 tab 04/17/20 [Rx Last Taken Unknown] prednisone 10 mg tablet 10 mg PO DAILY #21 tab 07/22/20 [Rx Last Taken Unknown] lisinopril 10 mg tablet 10 mg PO DAILY #90 tab 08/03/20 [Rx Last Taken Unknown] nitroglycerin 0.4 mg sublingual tablet See Rx Instructions .ROUTE .COMPLEX #25 tab 10/22/20 [Rx Last Taken Unknown] tramadol 50 mg PO Q8H PRN 3 Days #9 tab 12/05/20 [Rx Last Taken Unknown] Allergy/AdvReac Type Severity Reaction Status Date / Time No Known Allergies Allergy Verified 12/05/20 09:48 Family History Father CAD (coronary artery disease) Mother CVA (cerebral vascular accident) CAD (coronary artery disease) Surgical History History of carpal tunnel release History of knee replacement History of left heart catheterization (11/04/16) Presence of stent in coronary artery (03/04/16) Social History Smoking Status: Current every day smoker tobacco type: cigarettes alcohol intake: never substance use type: does not use 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 ROS ROS ED Constitutional Constitutional ED: Denies chills or fever(s) ENT ENT ED: Denies rhinorrhea Cardiovascular Cardiovascular: Denies chest pain Respiratory/Chest Respiratory/Chest: Denies cough or dyspnea Gastrointestinal Gastrointestinal: Denies abdominal pain, diarrhea, nausea or vomiting Genitourinary Genitourinary ED: Denies dysuria or hematuria Musculoskeletal Musculoskeletal: Reports other Details: Right hand pain ; Denies back pain Integumentary Denies rash Neurologic Neurologic: Denies paresthesias or weakness Psychiatric Psychiatric: Denies depression Endocrine Endocrinology: Denies fatigue Allergic/Immunologic Allergic/Immunologic ED: Denies urticaria EXAM Physical Exam Const Vital Signs: 12/05/20 09:34 Temperature 98.0 F Temperature Source Temporal Pulse Rate 71 Respiratory Rate 16 Blood Pressure 148/107 H Blood Pressure Mean 120 Pulse Ox 94 Oxygen Delivery Method Room Air Positive well nourished and well developed General Appearance ED: well developed and NAD HEENT Reports moist mucous membranes Negative for trauma or tenderness Eyes EOMs intact bilaterally Neck no lymphadenopathy, supple and no JVD Chest Wall inspection of chest normal Resp normal respiratory effort and clear to auscultation bilaterally Cardio regular rate, regular rhythm, no murmurs and peripheral pulses 2+ throughout GI normal to inspection, nondistended, normoactive bowel sounds, non-tender and no masses Palpation: soft Back/Spine normal to inspection Extremity Extremity Narrative: Examination the patient's right hand shows a focal area of swelling and tenderness between the metacarpals for the long digit and index finger on the dorsum of the hand. There is no evidence of fluctuance or induration. No skin changes. No lymphangitic streaking. Normal range of motion of the fingers although the patient does have some increased pain with hyperflexion of the fingers. Normal capillary refill, normal pulses. General Extremety ED: Negative for tenderness Neuro oriented x3 and no sensory deficits noted Sensorium / Orientation: alert Motor Exam: strength 5/5 throughout Psych mental status grossly normal Skin no rashes or lesions noted MDM MDM MDM Narrative Medical decision making narrative: Patient presented secondary to right hand pain. Radiographs are obtained by my personal review as well as radiology these did not demonstrate any evidence of acute fracture. Patient has some focal swelling of his hand, this does not seem to be a vascular issue and infectious issue and there is no fracture on x-ray this likely is more soft tissue and more associated with maybe has frequent use or an element of some arthritis. Patient was placed in an Ap wrap for comfort. Patient is already on Celebrex, and has a history of heart disease will be placed on a short course of tramadol for pain control. Patient will follow up as needed. Radiography Diagnostic Testing: Radiology Impression Hand X-Ray 12/05/20 10:27 IMPRESSION: No evidence of acute osseous abnormality. Degenerative changes as above. Electronically Signed: Rony Diaz DO at 10:47 EDT , Service support , Discharge Plan Triage Chief Complaint: Upper Extremity Injury ED Provider: Hussein Hernandez Dx/Rx/DC Orders Clinical Impression: Contusion of hand, right Instructions: ED Contusion, Upper Extremity Prescriptions: New tramadol 50 mg tablet 50 mg PO Q8H PRN (Reason: pain) 3 Days Qty: 9 RF: 0 No Action aspirin [Adult Low Dose Aspirin] 81 mg tablet,delayed release (DR/EC) 81 mg PO DAILY RF: 0 prednisone 10 mg tablet 10 mg PO DAILY Qty: 21 RF: 0 celecoxib 200 MG capsule 200 mg PO DAILY RF: 0 albuterol sulfate 1 INHALER inhaler 2 puff inhalation Q4H PRN PRN (Reason: Wheezing) Qty: 1 RF: 0 acetaminophen 500 MG tablet 1,000 mg PO Q8H PRN PRN (Reason: Pain Score 1-10/10) RF: 0 pantoprazole 40 mg tablet,delayed release (DR/EC) 40 mg PO DAILY Qty: 90 RF: 3 isosorbide mononitrate 60 mg tablet extended release 24 hr 60 mg PO DAILY Qty: 90 RF: 3 carvedilol 6.25 mg tablet 6.25 mg PO BID Qty: 180 RF: 3 atorvastatin 80 mg tablet 80 mg PO QHS Qty: 90 RF: 3 clopidogrel 75 mg tablet 75 mg PO DAILY Qty: 90 RF: 3 lisinopril 10 mg tablet 10 mg PO DAILY Qty: 90 RF: 3 nitroglycerin 0.4 mg tablet, sublingual See Rx Instructions .ROUTE .COMPLEX Qty: 25 RF: 3 Primary Care Provider: Alyse Bui Referrals: Alyse Bui MD [Primary Care Provider] - As Needed Disposition Disposition: Home, Self Care
== END 2020-12-05 11:31 | disposition home or self-care (01) ==
PROVIDERS: Emergency Provider Emergency Medicine; PCP Internal Medicine
DX: S60.221A Contusion of right hand, initial encounter (principal); X58.XXXA Exposure to other specified factors, initial encounter; Y93.9 Activity, unspecified; Y92.9 Unspecified place or not applicable; Y99.9 Unspecified external cause status; M54.12 Radiculopathy, cervical region; I25.10 Atherosclerotic heart disease of native coronary artery without angina pectoris; I10 Essential (primary) hypertension; E78.5 Hyperlipidemia, unspecified; E66.9 Obesity, unspecified; F17.210 Nicotine dependence, cigarettes, uncomplicated; Z79.82 Long term (current) use of aspirin; Z79.02 Long term (current) use of antithrombotics/antiplatelets; Z79.52 Long term (current) use of systemic steroids; Z79.1 Long term (current) use of non-steroidal anti-inflammatories (NSAID); Z79.899 Other long term (current) drug therapy; I25.2 Old myocardial infarction; Z95.5 Presence of coronary angioplasty implant and graft
CPT/HCPCS: 73130; 99282

== ENCOUNTER → 2021-10-27 | Outpatient (CLI) | payer BC, SELFPAY ==
[2021-10-27 09:34] LABS: AST(SGOT) 17 U/L (15-37); Alanine Aminotransfer ALT/SGPT 43 U/L (16-61); Albumin, Serum 3.7 g/dL (3.2-5.0); Alkaline Phosphatase 122 U/L (45-117); Cholesterol 124 mg/dL (200); Globulin 3.1 g/dL (2.2-4.2); High Density Lipoprotein 40 mg/dL; Protein, Total 6.8 g/dL (6.4-8.2); Triglycerides 120 mg/dL; Very Low Density Lipoprotein 24 mg/dL (5-40)
== END | disposition home or self-care (01) ==
PROVIDERS: PCP Internal Medicine; Referring Provider Internal Medicine Cardiovascular Disease; Visit Provider Internal Medicine Cardiovascular Disease
DX: E78.00 Pure hypercholesterolemia, unspecified (principal)
CPT/HCPCS: 36415; 80061; 80076

== ENCOUNTER → 2022-03-28 | Outpatient (CLI) | payer BC, SELFPAY ==
--- NOTE | 2022-03-28 14:07 | VDLE_ITS ---
Reason For Study: Pain RIGHT GSV is normal. CFV is compressible, spontaneous, phasic, competent and demonstrates normal augmentation. FV is compressible, spontaneous, phasic, competent and demonstrates normal augmentation. POP V is compressible, spontaneous, phasic, competent and demonstrates normal augmentation. T/P Trunk is compressible. PTV is compressible. RT PerV is compressible. Procedure This is a venous duplex using B-mode, color flow and spectral Doppler. Exam performed in department. A preliminary report was called and/or faxed to Mariana FISHER. VL/Venous Duplex US, Unilateral Interpretation Summary There is no evidence of right lower extremity deep vein thrombosis. Right great saphenous vein appears patent and compressible segmentally. Ordering Physician: Mariana Allen Referring Physician: Alyse Bui Performed By: Ashwini Barreto, RASHMI, RVT
[2022-03-28 14:16] LABS: Absolute Lymphocyte Count 2.11 X10^3/uL (0.83-4.51); Absolute Neutrophil Count 4.9 X10^3/uL (2.0-7.7); Basophil# 0.06 X10^3/uL; Basophil% 0.7 % (0-1); Eosinophil# 0.37 X10^3/uL; Eosinophils% 4.5 % (0-5); Hematocrit 47.4 % (40-54); Hemoglobin 16.5 g/dL (13.0-16.5); Lymphocyte # 2.11 X10^3/ul (0.83-4.51); Lymphocyte % 25.4 % (19-41); Mean Corp Hgb Conc 34.8 g/dL (32-36); Mean Corpuscular Hgb 31.8 pg (27.0-32.0); Mean Corpuscular Volume 91.3 fL (80-94); Mean Platelet Vol. 9.6 fl (6.2-12.0); Monocyte# 0.83 X10^3/uL; NRBC Flagged by Analyzer 0 % (0-5); Neutrophil % 58.9 % (47-70); Platelet Count 234 K/mm3 (150-450); RBC Distribution Width SD 40.2 fl (35.1-43.9); Red Blood Count 5.19 M/mm3 (4.6-6.2); White Blood Count 8.3 K/mm3 (4.4-11.0)
[2022-03-28 14:20] LABS: Erythrocyte Sedimentation Rate 11 mm/hr (0-20)
[2022-03-28 14:47] LABS: CRP < 2.90 mg/L (0.0-3.0)
== END | disposition home or self-care (01) ==
PROVIDERS: PCP Internal Medicine; Referring Provider Physician Assistant Surgical; Visit Provider Physician Assistant Surgical
DX: M17.11 Unilateral primary osteoarthritis, right knee (principal); M25.461 Effusion, right knee; M79.661 Pain in right lower leg; Z96.651 Presence of right artificial knee joint
CPT/HCPCS: 36415; 85025; 85652; 86140; 93971

== ENCOUNTER → 2022-11-15 | Outpatient (CLI) | payer BC, SELFPAY ==
[2022-11-15 12:09] LABS: AST(SGOT) 23 U/L (15-37); Alanine Aminotransfer ALT/SGPT 46 U/L (16-61); Albumin, Serum 3.9 g/dL (3.2-5.0); Alkaline Phosphatase 128 U/L (45-117); Bilirubin, Direct 0.33 mg/dL (0.00-0.30); Cholesterol 114 mg/dL (200); Globulin 3.5 g/dL (2.2-4.2); High Density Lipoprotein 37 mg/dL; Protein, Total 7.4 g/dL (6.4-8.2); Triglycerides 159 mg/dL; Very Low Density Lipoprotein 32 mg/dL (5-40)
== END | disposition home or self-care (01) ==
LOC: LAB 10:47
PROVIDERS: PCP Internal Medicine; Referring Provider Nurse Practitioner Gerontology; Visit Provider Nurse Practitioner Gerontology
DX: E78.00 Pure hypercholesterolemia, unspecified (principal)
CPT/HCPCS: 36415; 80061; 80076

== ENCOUNTER → 2023-01-06 | Outpatient (CLI) | payer BC, SELFPAY ==
[2023-01-06 15:00] LABS: Absolute Lymphocyte Count 1.79 X10^3/uL (0.83-4.51); Absolute Neutrophil Count 5.5 X10^3/uL (2.0-7.7); Basophil# 0.05 X10^3/uL; Basophil% 0.6 % (0-1); Eosinophil# 0.46 X10^3/uL; Eosinophils% 5.2 % (0-5); Hematocrit 48.9 % (40-54); Hemoglobin 16.1 g/dL (13.0-16.5); Lymphocyte # 1.79 X10^3/ul (0.83-4.51); Lymphocyte % 20.1 % (19-41); Mean Corp Hgb Conc 32.9 g/dL (32-36); Mean Corpuscular Hgb 30.6 pg (27.0-32.0); Mean Corpuscular Volume 92.8 fL (80-94); Mean Platelet Vol. 10.3 fl (6.2-12.0); Monocyte# 1.02 X10^3/uL; Monocyte% 11.5 % (0-10); NRBC Flagged by Analyzer 0 % (0-5); Neutrophil # 5.49 X10^3/uL (2.7-7.7); Neutrophil % 61.7 % (47-70); Platelet Count 212 K/mm3 (150-450); RBC Distribution Width CV 12.1 % (11.6-14.6); RBC Distribution Width SD 41.5 fl (35.1-43.9); Red Blood Count 5.27 M/mm3 (4.6-6.2); White Blood Count 8.9 K/mm3 (4.4-11.0)
[2023-01-06 15:11] LABS: Erythrocyte Sedimentation Rate 8 mm/hr (0-20)
[2023-01-06 15:31] LABS: CRP < 2.90 mg/L (0.0-3.0)
== END | disposition home or self-care (01) ==
LOC: LAB 14:03
PROVIDERS: PCP Internal Medicine; Referring Provider Physician Assistant Surgical; Visit Provider Physician Assistant Surgical
DX: T84.84XA Pain due to internal orthopedic prosthetic devices, implants and grafts, initial encounter (principal); Z96.651 Presence of right artificial knee joint; M25.461 Effusion, right knee; X58.XXXA Exposure to other specified factors, initial encounter
CPT/HCPCS: 36415; 85025; 85652; 86140

== ENCOUNTER → 2023-01-09 | Outpatient (CLI) | payer BC, SELFPAY ==
--- NOTE | 2023-01-09 10:22 | RAD_ITS ---
INDICATION: pain -- STAT EXAMINATION/TECHNIQUE: X-RAY - XR Spine Lumbar 2 or 3 Views COMPARISON: No relevant prior comparison study available FINDINGS: VERTEBRAE: Preserved vertebral body height. There is multilevel endplate spondylosis. No fracture. No spondylolisthesis. Preservation of the normal lumbar lordosis. No significant facet arthropathy. DISCS: There is multilevel degenerative disc disease. INCLUDED ABDOMEN: Included bowel gas pattern is non-obstructive. RAD/Lumbar Spine 2 or 3 Views IMPRESSION: Multilevel degenerative disc disease. Electronically Signed: Beatris Mendieta MD at 11:17 EDT ,
--- NOTE | 2023-01-09 10:22 | RAD_ITS ---
INDICATION: pain -- STAT EXAMINATION/TECHNIQUE: X-RAY - XR Hip Unilateral with Pelvis when performed; 2-3 Views COMPARISON: Lumbar spine dated January 09, 2023 FINDINGS: PELVIC BONES: No displaced fracture, destructive or sclerotic lesions. Note that overlapping bowel shadows may however obscure fine detail. There are degenerative changes of the sacroiliac joints. No widening of the pubic symphysis. HIPS: There are degenerative changes of the hips. SOFT TISSUES: No soft tissue swelling or gas. RAD/HIP, UNI W/ Pelvis 2-3 Views IMPRESSION: Degenerative changes. Electronically Signed: Beatris Mendieta MD at 11:20 EDT ,
== END | disposition home or self-care (01) ==
PROVIDERS: PCP Internal Medicine; Referring Provider Physician Assistant; Visit Provider Physician Assistant
DX: M54.50 Low back pain, unspecified (principal); M25.551 Pain in right hip
CPT/HCPCS: 72100; 73502

== ENCOUNTER → 2023-02-28 | Outpatient (CLI) | payer BC, SELFPAY ==
--- NOTE | 2023-02-28 06:37 | MRI_ITS ---
INDICATION: SPINAL STENOSIS, RADICULOPATHY EXAMINATION: MRI - MR Spine Lumbar W/O Contrast TECHNIQUE: Multiplanar and multisequence MR images of the lumbar spine. IV Contrast Dosage and Agent: None. COMPARISON: None. FINDINGS: VERTEBRAE: Vertebral body heights are preserved. Moderate spondylosis throughout the lumbar spine. VERTEBRAL ALIGNMENT: No spondylolisthesis. There is preservation of the normal lumbar lordosis. CORD: Normal position and signal intensity of the conus medullaris. L1/L2: Moderate disc desiccation and loss of disc space height, mild disc bulging, mild bilateral facet arthropathy, moderate bilateral neural foraminal encroachment. L2/L3: Moderate disc desiccation and loss of disc space height, moderate disc bulging, mild bilateral facet arthropathy and ligamentous hypertrophy, mild central stenosis, moderate bilateral neural foraminal encroachment. L3/L4: Moderate disc desiccation, mild loss of disc space height, moderate disc bulging, moderate bilateral facet arthropathy and ligamentous hypertrophy, moderate central stenosis, severe right and moderate left neural foraminal encroachment. L4/L5: Moderate disc desiccation and loss of disc space height, mild disc bulging, moderate bilateral facet arthropathy and ligamentous hypertrophy, mild central stenosis, moderate bilateral neural foraminal encroachment. L5/S1: Moderate disc desiccation, slight retrolisthesis L5 on S1, severe loss of disc space height, mild pseudobulge, moderate bilateral facet arthropathy, severe bilateral neural foraminal encroachment. SOFT TISSUES: Unremarkable. MRI/Spine Lumbar (Routine) IMPRESSION: Mild disc bulging L1-2, moderate disc bulging L2-3, moderate disc bulging L3-4, mild disc bulging L4-5 and mild pseudobulge L5-S1. Multilevel degenerative disc disease, central stenosis, facet arthropathy and neural foraminal encroachment as above. Electronically Signed: Fransico Verdugo MD at 10:23 EDT ,
== END | disposition home or self-care (01) ==
PROVIDERS: PCP Internal Medicine; Referring Provider Orthopaedic Surgery; Visit Provider Orthopaedic Surgery
DX: M48.061 Spinal stenosis, lumbar region without neurogenic claudication (principal); M54.16 Radiculopathy, lumbar region; M51.36 Other intervertebral disc degeneration, lumbar region
CPT/HCPCS: 72148

== ENCOUNTER 2023-09-13 16:08 | Emergency (ER) | payer BC, SELFPAY ==
[2023-09-13 16:11] VITALS: BP 111/79; PULSE 76; RESP 15; TEMP 36.8; O2SAT 94; BMI 35.2
--- NOTE | 2023-09-13 17:16 | EDS_ITS ---
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 BBB (bundle branch block) Contusion of hand, right Essential (primary) hypertension HLD (hyperlipidemia) Lumbosacral radiculopathy Lumbosacral strain Obesity Staphylococcal infection of skin Strain of right hip Tobacco use Home Medications albuterol sulfate 90 mcg/actuation aerosol inhaler 2 puff inhalation Q4H PRN PRN Wheezing ##1 06/19/18 [Rx Last Taken 03/28/19] celecoxib 200 mg capsule 200 mg PO DAILY 06/19/18 [History Last Taken 03/28/19] aspirin 81 mg tablet,delayed release (Adult Low Dose Aspirin) 81 mg PO DAILY 06/28/18 [History Last Taken 03/28/19] acetaminophen 500 mg tablet 1,000 mg PO Q8H PRN PRN Pain Score 1-02/2803/28/19 [History Last Taken 03/28/19] nitroglycerin 0.4 mg sublingual tablet See Rx Instructions .Route .COMPLEX #25 tabs 07/25/22 [Rx Last Taken Unknown] lisinopril 10 mg tablet 10 mg PO DAILY #90 tabs 10/03/22 [Rx Last Taken Unknown] atorvastatin 80 mg tablet 80 mg PO QHS #90 tabs 10/24/22 [Rx Last Taken Unknown] isosorbide mononitrate 60 mg tablet,extended release 24 hr See Rx Instructions .Route .COMPLEX #90 tabs 11/11/22 [Rx Last Taken Unknown] carvedilol 6.25 mg tablet 6.25 mg PO BID blood pressure #180 tabs 11/15/22 [Rx Last Taken Unknown] prednisone 10 mg tablet 10 mg PO DIRECTED #30 tabs 01/09/23 [Rx Last Taken Unknown] cyclobenzaprine 10 mg tablet 10 mg PO TID PRN muscle spasm #20 tabs 01/16/23 [Rx Last Taken Unknown] pantoprazole 40 mg tablet,delayed release See Rx Instructions .Route .COMPLEX #90 tabs 03/02/23 [Rx Last Taken Unknown] oxycodone-acetaminophen 5 mg-325 mg tablet (Percocet) 1 tab PO Q6H PRN pain 3 days #12 tabs 09/13/23 [Rx Last Taken Unknown] Allergy/AdvReac Type Severity Reaction Status Date / Time No Known Allergies Allergy Verified 09/13/23 16:14 Family History (Reviewed 05/08/23 @ 11:06 by Tiffany Dyson ADJUNCT SOCIOLOGY PROFESSOR, ADJUNCT SOCIOLOGY PROFESSOR-C) Father CAD (coronary artery disease) Mother CVA (cerebral vascular accident) CAD (coronary artery disease) Surgical History History of carpal tunnel release History of fusion of cervical spine History of knee replacement History of left heart catheterization (11/04/16) Social History Smoking Status: Current every day smoker tobacco type: cigarettes alcohol intake: never substance use type: does not use additional 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 States he was getting of his car he noted severe back pain. No trauma or falls. Denies recent surgery to the back. Denies fully catheterization. States he was supposed to follow-up with a surgeon at the end of 2022 but never scheduled an appointment. Patient denies any saddle anesthesia, urinary tension, bowel or bladder incontinence, lower extremity weakness, fever or IV drug use, no recent spinal manipulation or surgery, no recent urinary catheterization. REVIEW OF SYSTEMS: All other systems reviewed and are negative except as noted in the history of present illness. At least 10 review of systems reviewed and are negative except as noted in history of present illness. PHYSICAL EXAM: Nursing triage notes reviewed, Vital signs reviewed Constitutional: please see mdm HENT: MMM Eyes: Pupils equal round and reactive to light, Extraocular muscles intact Neck: No stridor, no JVD, full neck ROM Lungs: Clear to auscultation, No wheezing or rales. No increased work of breathing, no conversational dyspnea, no accessory muscle use, no nasal flaring. No respiratory distress noted Heart: Regular rate and rhythm, No murmurs, No rubs and No gallops, 2+ distal pulses (radial, femoral, posterior tibial) in all extremities Abdomen: Soft, there is no tenderness, rigidity, rebound or guarding, no obvious peritoneal signs, no palpable pulsatile abdominal masses, no auscultated abdominal bruit : No CVAT Extremities: No edema Back: No midline step-offs or deformities Neuro: Intact sensation L1-S1 dermatomal distributions. Intact 5/5 strength in hip flexion (T12-L3). Knee extension (L2-L4). Ankle dorsiflexion (L4-L5). Ankle plantar flexion (S1). Great toe extension (L5). 2+ patellar and Achilles DTRs. Skin: No rash or lesions noted MEDICAL DECISION MAKING: Chief Complaint: Back pain External records reviewed: Imaging reviewed: MRI of the lumbar spine from February 2023 shows mild disc bulging at L1-L4, mild degenerative disc disease, central stenosis, facet arthropathy and neuroforaminal encroachment Factors affecting care: Herniated disc, chronic back pain, hypertension Social determinants of health: No IV drug use History obtained from others: none Consults: none ALL IMAGES (IF OBTAINED) HAVE BEEN PERSONALLY REVIEWED AND INTERPRETED BY MYSELF. MDM Narrative: The patient was hemodynamically stable, afebrile nontoxic-appearing. No focal neurologic deficits noted in the lower extremities. No IV step-offs deformities noted to the spine. Patient was treated with symptomatic therapy with oral narcotics, IM corticosteroids and topical lidocaine. I considered the following differential diagnosis: Musculoskeletal back pain, space-occupying lesion of the spinal (epidural abscess, epidural hematoma), cauda equina, conus medullaris, fracture dislocation, AAA, nephrolithiasis, pyelonephritis, aortic dissection I consider obtaining advanced imaging of the spine including MRI however thought this was not clinically indicated given low Red flag score and no focal deficits. The patient presented complaining of back pain. There was no history of recent fall or trauma. There was no evidence to support genitourinary etiology. There is also no evidence to suggest vascular pathology such as AAA dissection. No fevers or other evidence to suspect infectious processes, abscess, osteomyelitis etc. The patient?s neurological exam is normal with normal motor and sensory. There is no saddle paresthesias reported and no bowel or bladder incontinence or retention. I suspect the pain is mechanical in nature. Clinical suspicion, plan of care and management was discussed with the patient. The patient was instructed to follow up with their health care provider. The patient was also instructed to return if the pain worsened, changed, or developed weakness or bowel or bladder trouble. The patient agreed with plan. I completed a structured, evidence-based clinical evaluation to screen for acute non-traumatic spinal emergencies. The patient has a normal detailed neurologic exam and red flag historical factors were negative. The evidence indicates that the patient is very low risk for an acute spinal emergency and this is consistent with my clinical intuition. The risk of further workup is higher than the likelihood of the patient having a spinal epidural abscess or other dangerous emergency spinal condition. It is, therefore, in the patient?s best interest not to do additional emergent testing at this time. Shared Decision-Making I have discussed with the patient my clinical impression and the result of an evidence-based clinical evaluation to screen for spinal epidural abscess and other spinal emergencies, as well as the risk of further testing and hospitalization. The evidence shows that the risk for an acute spinal emergency is less than 1%. Although the risk of an acute spinal emergency has not been completely eliminated, the risks of further testing likely exceed any potential benefit, and the patient agrees with not pursuing further emergent evaluation for causes of back pain at this time. The patient and/or family, caregivers express understanding. The patient and/or family, caregivers agrees with the plan. Total critical care time today provided was at least 0 minutes. This excludes separately billable procedures. Critical care time (if documented) is secondary to the patient having high probability of clinically significant/life threatening deterioration in the patient's condition which required my urgent intervention. Impression: 1. Acute on chronic low back pain 2. Lumbar herniated disc Disposition: Discharge home Wellington Sage DO Discharge Plan Triage Chief Complaint: Back ED Provider: Wellington Sage Dx/Rx/DC Orders Clinical Impression: Herniated disc Instructions: ED Herniated Intervertebral Disk Prescriptions: New oxycodone-acetaminophen [Percocet] 5-325 mg tablet 1 tab PO Q6H PRN (Reason: pain) 3 Days Qty: 12 0RF No Action aspirin [Adult Low Dose Aspirin] 81 mg tablet,delayed release (DR/EC) 81 mg PO DAILY prednisone 10 mg tablet 10 mg PO DIRECTED Qty: 30 0RF Rx Instructions: 4 tablets daily x3 days, then 3 tablets daily x3 days, then 2 tablets daily x3 days, then 1 tablet daily x3 days. cyclobenzaprine 10 mg tablet 10 mg PO TID PRN (Reason: muscle spasm) Qty: 20 0RF Rx Instructions: To be taken only AFTER work hours on workdays; no driving or operating heavy equipment while on this medication celecoxib 200 MG capsule 200 mg PO DAILY albuterol sulfate 1 INHALER inhaler 2 puff inhalation Q4H PRN PRN (Reason: Wheezing) Qty: 1 0RF acetaminophen 500 MG tablet 1,000 mg PO Q8H PRN PRN (Reason: Pain Score 1-10/10) nitroglycerin 0.4 mg tablet, sublingual See Rx Instructions .ROUTE .COMPLEX Qty: 25 3RF Dose Instruction: DISSOLVE 1 TABLET UNDER TONGUE EVERY 5 MINUTES NEEDED FOR CHEST PAIN Rx Instructions: DISSOLVE 1 TABLET UNDER TONGUE EVERY 5 MINUTES NEEDED FOR CHEST PAIN lisinopril 10 mg tablet 10 mg PO DAILY Qty: 90 3RF atorvastatin 80 mg tablet 80 mg PO QHS Qty: 90 3RF isosorbide mononitrate 60 mg tablet extended release 24 hr See Rx Instructions .ROUTE .COMPLEX Qty: 90 3RF Dose Instruction: TAKE 1 TABLET DAILY Rx Instructions: TAKE 1 TABLET DAILY carvedilol 6.25 mg tablet 6.25 mg PO BID Qty: 180 3RF pantoprazole 40 mg tablet,delayed release (DR/EC) See Rx Instructions .ROUTE .COMPLEX Qty: 90 3RF Dose Instruction: TAKE 1 TABLET DAILY FOR INDIGESTION Rx Instructions: TAKE 1 TABLET DAILY FOR INDIGESTION Stand Alone Forms: ED Work / School Excuse Primary Care Provider: Alyse Bui Referrals: Brady Bradshaw MD [Med Staff - Active Staff] - Activity Restrictions/Additional Instructions: Thank you for trusting us with your care today! Your presentation today is likely secondary to herniated disc. Please take Tylenol (2 pills, 650 mg), ibuprofen (2 pills, 400 mg) every 6 hours as needed for pain and fever control. If this above regimen does not control your pain please take Percocet as often every 6 hours for breakthrough pain. Please return to the emergency department if your symptoms change or worsen. Specifically develop bowel or bladder incontinence, urinary retention, loss of movement or sensation in the legs. Please follow with your orthopedic surgery for further outpatient evaluation and management. Disposition Disposition: Home, Self Care Discharge Date/Time: 09/13/23 19:17
[2023-09-13 17:17] VITALS: BP 121/98; PULSE 76
[2023-09-13] MEDS: Oxycodone/Apap 5/325 Tablet PO (17:27)
[2023-09-13] MEDS: Lidocaine 5% Patch 1 PATCH TOPICAL (17:27)
[2023-09-13] MEDS: dexAMETHasone 10 MG/ML Vial 6 MG IM (17:28)
[2023-09-13 18:31] VITALS: BP 127/89; PULSE 61; RESP 14; TEMP 36.1; O2SAT 100
== END 2023-09-13 19:17 | disposition home or self-care (01) ==
PROVIDERS: Emergency Provider Emergency Medicine; PCP Internal Medicine; Visit Provider Emergency Medicine
DX: M51.26 Other intervertebral disc displacement, lumbar region (principal); M51.36 Other intervertebral disc degeneration, lumbar region; G89.29 Other chronic pain; I10 Essential (primary) hypertension; E78.5 Hyperlipidemia, unspecified; I25.2 Old myocardial infarction; F17.210 Nicotine dependence, cigarettes, uncomplicated; Z79.82 Long term (current) use of aspirin; Z79.899 Other long term (current) drug therapy
CPT/HCPCS: 96372; 99282

== ENCOUNTER → 2023-11-30 | Outpatient (CLI) | payer BC, SELFPAY ==
--- NOTE | 2023-11-30 16:00 | CT_ITS ---
INDICATION: R hepatic lobe lesion, left complex renal cyst -- Multiphasic CT to evaluate lesions liver, left kid COMPARISON: None provided. IV Contrast dosage and agent: 100 cc Isovue-300 IV. A radiation dose optimization technique was used for this scan. RADIATION DOSAGE (If Supplied By Facility): CTDIvol/DLP = ( 25.55 ) / ( 3093.83 ) mGy/mGycm FINDINGS: Multiphase serial CT axial images through the abdomen only, pelvis excluded, with coronal and sagittal reformatted series. Noncontrast, arterial, venous, and delayed axial series provided. PANCREAS: No peripancreatic fat stranding. BOWEL/MESENTERY: No dilated bowel loops. No significant free fluid. No free air. GALLBLADDER: No pericholecystic fat stranding. LIVER/STOMACH: There is a large multilobulated hypoattenuating posterior hepatic lesion measuring up to 8 x 5 cm, with peripheral filling of contrast which fills in on delayed imaging which appears most consistent with hemangioma. Similar appearing subtle 3 cm central hepatic lobe lesion, with similar enhancement characteristics. Anterior hepatic cyst. URINARY COLLECTING SYSTEM/ KIDNEYS: No obstructing ureteral calculus. Hypoattenuating left 5 cm interpolar renal lesion containing heterogeneously enhancing soft tissue components. APPENDIX: Normal caliber gas containing appendix. LUNG BASES: Unremarkable. BONES: T10 left posterior vertebral body subtle [address]/Abdomen W/WO IV Contrast IMPRESSION: 5 cm left renal lesion suspicious for possible multicystic malignancy as above, to include renal cell carcinoma. T10 left posterior vertebral body subtle 8 mm sclerotic lesion, to include possible metastatic process. 8 cm and 3 cm lesions with enhancement characteristics consistent with hepatic hemangiomas. Electronically Signed: Nav Peck MD at 23:25 EDT ,
[2023-11-30 16:19] LABS: CREATININE FINGERSTICK < 1.0 mg/dL (0.70-1.30); EGFR FINGERSTICK > 60.0000 mL/min (>60)
== END | disposition home or self-care (01) ==
LOC: CT 15:43
PROVIDERS: PCP Internal Medicine; Referring Provider Internal Medicine; Visit Provider Internal Medicine
DX: K76.9 Liver disease, unspecified (principal); N28.9 Disorder of kidney and ureter, unspecified
CPT/HCPCS: 74170; Q9967

== ENCOUNTER → 2024-01-15 | Outpatient (CLI) | payer BC, SELFPAY ==
--- NOTE | 2024-01-15 08:08 | NM_ITS ---
CLINICAL: 53-year-old male with history of renal cell carcinoma. WHOLE BODY 99m Tc MDP RADIONUCLIDE BONE SCINTIGRAPHY COMPARISON: None available FINDINGS: Following the intravenous administration of 26.6 mCi of 99m Tc MDP, whole body bone images reveal: 1. Increased tracer uptake is noted in the 11th rib posteriorly on the right. 2. Facilitated radiopharmaceutical concentration is noted in the acromioclavicular compartments of both shoulders, the glenohumeral compartment of the left shoulder, the bilateral wrists and hands, the ninth and 10th thoracic vertebra posteriorly on the right, the dorsal medial compartments of both ankles. 3. Enhanced radiotracer is defined in the distal left femoral diaphysis. 4. The remaining skeletal structures are scintigraphically unremarkable with normal-appearing renal images and urinary bladder activity identified. Relatively intense uptake is noted in the primarily medial compartment of the left knee articulation. The presumed asymptomatic right knee arthroplasty appears relatively scintigraphically unremarkable. There is increased uptake noted in the left anterior chest wall at the costochondral junction consistent with trauma-focal inflammation. NM/Bone Scan Whole Body IMPRESSION: 1. The increase in tracer uptake noted in the right 11th posterior rib and distal left femoral diaphysis likely represent previous trauma-fracture. Plain film radiography correlation may be of benefit. 2. Degenerative arthritis is defined in the bilateral shoulders, right and left wrists, the hands bilaterally, the lower thoracic spine and bilateral ankle articulations. 3. Large articulation synovitis, internal derangement is demonstrated in the left knee. 4. There is no definitive scintigraphic evidence of skeletal metastatic disease on the current examination. Electronically Signed: Damir Peña DO at 9:40 EDT ,
== END | disposition home or self-care (01) ==
LOC: NM 08:08
PROVIDERS: PCP Internal Medicine; Referring Provider Urology; Visit Provider Urology
DX: R93.7 Abnormal findings on diagnostic imaging of other parts of musculoskeletal system (principal)
CPT/HCPCS: 78306; A9503

== ENCOUNTER → 2024-01-16 | Outpatient (CLI) | payer BC, SELFPAY ==
[2024-01-16 15:11] LABS: AST(SGOT) 20 U/L (15-37); Alanine Aminotransfer ALT/SGPT 41 U/L (16-61); Albumin, Serum 3.7 g/dL (3.2-5.0); Alkaline Phosphatase 114 U/L (45-117); Bilirubin, Direct 0.31 mg/dL (0.00-0.30); Cholesterol 120 mg/dL (200); Globulin 3.3 g/dL (2.2-4.2); High Density Lipoprotein 41 mg/dL; Triglycerides 132 mg/dL; Very Low Density Lipoprotein 26 mg/dL (5-40)
== END | disposition home or self-care (01) ==
LOC: LAB 13:39
PROVIDERS: PCP Internal Medicine; Referring Provider Nurse Practitioner Gerontology; Visit Provider Nurse Practitioner Gerontology
DX: E78.5 Hyperlipidemia, unspecified (principal)
CPT/HCPCS: 36415; 80061; 80076

== ENCOUNTER 2024-01-31 15:10 | Observation (INO) | payer BC, SELFPAY ==
[2024-01-19 16:04] LABS: Hematocrit 44.5 % (40-54); Hemoglobin 14.9 g/dL (13.0-16.5); Mean Corp Hgb Conc 33.5 g/dL (32-36); Mean Corpuscular Hgb 30.2 pg (27.0-32.0); Mean Corpuscular Volume 90.1 fL (80-94); Platelet Count 226 K/mm3 (150-450); RBC Distribution Width CV 12.3 % (11.6-14.6); Red Blood Count 4.94 M/mm3 (4.6-6.2); White Blood Count 8.3 K/mm3 (4.4-11.0)
[2024-01-19 16:34] LABS: Anion Gap 3 (5-15); BUN 17 mg/dL (7-18); BUN/Creat Ratio 16.7 RATIO (10-20); Calcium,Total 9.1 mg/dL (8.5-10.1); Chloride 110 mmol/L (98-107); Creatinine, Serum 1.02 mg/dL (0.70-1.30); EST Glomerular Filtration Rate 81 mL/min (>60); Est Glom Filt Rate - Afr Amer 98 mL/min (>60); Glucose 123 mg/dL (74-106); Sodium Level 139 mmol/L (136-145)
[2024-01-31] VITALS (19 sets, daily range): BP systolic 80–103; BP diastolic 53–72; PULSE 52–80; RESP 14–20; TEMP 35.9–36.8; O2SAT 87–99; BMI 35.1; BMI 36.1
[2024-01-31] MEDS: Lactated Ringers 1,000 ML 15 ML IV ×2 (06:40→11:16)
--- NOTE | 2024-01-31 07:19 | PCM.PRE.AN2 ---
ASA Classification* ASA Classification ASA Classification: 3 Assessment & Plan Anesthesia* Anesthesia Assessment Anesthesia Assessment: Discussed sedation and/or anesthesia options, risks, benefits, and alternatives with patient/parents/legal guardian/POA. Questions invited. The patient/parents/legal guardian/POA seems to understand and agrees to proceed with anesthesia plan. Reviewed the physical assessment, medical history, allergy history and patient home medications list prior to surgery/procedure/anesthetic and documented any changes. Performed airway and anesthesia risk assessments. Anesthesia Type Anesthesia Type: General Anesthesia Focused Assessment* Temperature: 97.5 F Pulse Rate: 80 Blood Pressure: 102/72 Respiratory Rate: 16 Pulse Ox: 95 Airway Assessment Mouth opens: >3 cm Mallampati Score: II Focused Labs Anesthesia Preop lab: CBC WBC 8.3 K/mm3 (4.4-11.0) 01/19/24 15:47 RBC 4.94 M/mm3 (4.6-6.2) 01/19/24 15:47 Hgb 14.9 g/dL (13.0-16.5) 01/19/24 15:47 Hct 44.5 % (40-54) 01/19/24 15:47 Plt Count 226 K/mm3 (150-450) 01/19/24 15:47 CHEMISTRY Potassium 4.0 mmol/L (3.5-5.1) 01/19/24 15:47 Sodium 139 mmol/L (136-145) 01/19/24 15:47 Magnesium 1.9 mg/dL (1.6-2.6) 03/28/19 14:10 BUN 17 mg/dL (7-18) 01/19/24 15:47 Creatinine 1.02 mg/dL (0.70-1.30) 01/19/24 15:47 Glucose 123 mg/dL (74-106) H 01/19/24 15:47 COAG PT 12.5 SECONDS (11.7-14.9) 02/22/16 10:40 Pre-Assessment Diagnosis/Proposed Procedure Planned Operative Procedure(s): LAP ROBOTIC PARTIAL NEPHRECTOMY LEFT Anesthesia History Anesthesia History - advertising designer: Anesthesia History - advertising designer Hx Hospitalization No 01/17/24 09:02 Any Problems With Anesthesia No 01/17/24 09:02 Cholinesterase deficiency No 01/17/24 09:02 You/Your Family Experience No 01/17/24 09:02 fever (hyperthermia) with Relationship Recent Exposure to Contagious No 01/31/24 06:27 Disease Does patient have nerve No 01/17/24 09:02 stimulator Patient instructed to have device shut off --Does patient have Pacemaker No 01/31/24 06:29 or ICD? When Was Last Pacemaker Check QUESTION #4 FULL TEXT: You/Your Family Experience fever (hyperthermia) with Anesthesia Last Oral Intake Last Oral intake: Last Oral Intake NPO since 04:30 01/31/24 06:29 Meds taken in AM with sips of Yes 01/31/24 06:29 water? Meds patient instructed to SEE MAR 01/31/24 06:29 take am of surgery PONV PONV - advertising designer: PONV - advertising designer Female No 01/17/24 09:02 HX of Motion Sickness No 01/17/24 09:02 HX of N/V After Surgery No 01/17/24 09:02 Non-Smoker No 01/17/24 09:02 Duration of Surgery greater Yes 01/17/24 09:02 than 60 minutes Number of Risk Factors 1 01/17/24 09:02 PONV Score Low Risk 01/17/24 09:02 Height & Weight Height & Weight: Anesthesia: Height & Weight Height 6 ft 01/31/24 06:29 Weight: 117.48 kg 01/31/24 06:29 Body Mass Index (BMI) 35.1 01/31/24 06:29 Respiratory Assessment Respiratory Assessment - advertising designer: Respiratory Tract Infection Hx - advertising designer Hx Respiratory Tract Infection No 01/17/24 09:02 STOP Sleep Apnea STOP Sleep Apnea - advertising designer: STOP Sleep Apnea - advertising designer Hx Hypertension Yes: CONTROLLED WITH MEDS 01/17/24 09:02 Hx Sleep Apnea No 01/17/24 09:02 CPAP BIPAP Do you snore loudly (louder Yes 01/17/24 09:02 than talking or can be heard Do you often feel tired/ No 01/17/24 09:02 fatigued/ sleepy during daytime? Has anyone observed you stop No 01/17/24 09:02 breathing during sleep? STOP Results Positive 01/17/24 09:02 QUESTION #5 FULL TEXT : Do you snore loudly (louder than talking or can be heard through closed doors)? Tobacco Use History Tobacco Use History - advertising designer: Tobacco Use History - advertising designer Tobacco Use Smoking Status Current every day smoker 01/17/24 09:02 Hx Tobacco Use Yes 01/17/24 09:02 Years Smoking Packs Smoked per Day Smoking Cessation Date was within the last 15 years Hx Smoking Cessation Date Hx Smoking Cessation Yes 01/17/24 09:02 Counseling Hematologic Medial History Hematologic Hx - advertising designer: Hematologic Medical Hx - stripping shovel oiler Hx of Blood Transfusion No 01/17/24 09:02 Hx of Transfusion in last 3 No 01/17/24 09:02 Months Date of Last Transfusion (if within last 3 months) Ever experience any problems No 01/17/24 09:02 with transfusion(s)? Specify any problems Hx of Preganancy in last 3 N/A 01/17/24 09:02 Months Nurse Filling Out Transfusion DSCHRIBER 01/17/24 09:02 & Questions: Date: 01/17/24 01/17/24 09:02 Time: 09:03 01/17/24 09:02 Patient unable to answer at this time (ie. confused, unrespo /Reproduction History /Reproductive History - advertising designer: /Reproductive Hx- advertising designer Hx Now No 01/17/24 09:02 Gestational Age (in weeks): EDC: Hx Hx Para Hx Section SAB No 01/17/24 09:02 Active Medications Active Medications: Current Medications Generic Name Dose Route Start Last Admin Trade Name Freq PRN Reason Stop Dose Admin Cefazolin Sodium 3 gm/ Sodium 115 mls @ 150 mls/hr 01/31/24 08:00 Chloride IV 01/31/24 08:45 PREOP ONE Lactated Ringer's 1,000 mls @ 15 mls/hr 01/31/24 06:30 01/31/24 06:40 IV 15 mls/hr .Q48H MARIE Administration PFSH Medical History (Updated 01/17/24 @ 09:14 by Kira Browning) Wears glasses Cancer History of steroid therapy Arthritis History of renal disease High cholesterol Injury of head and neck Gastric reflux Smoker Injury of back Leg cramps History of pain when walking History of edema History of stress test Cardiology follow-up encounter Hypertension Pain Liver hemangioma Strain of right hip Lumbosacral radiculopathy Lumbosacral strain Arthritis of right hand Contusion of hand, right BBB (bundle branch block) Staphylococcal infection of skin Atherosclerotic heart disease of [place] coronary artery without angina pectoris Essential (primary) hypertension Tobacco use Obesity Acute non-ST segment elevation myocardial infarction HLD (hyperlipidemia) Home Medications ?Medication ?Instructions ?Recorded ?Last Taken ?Type albuterol sulfate 90 mcg/actuation 2 puff inhalation Q4H PRN PRN 06/19/18 03/28/19 Rx aerosol inhaler Wheezing ##1 aspirin 81 mg tablet,delayed 81 mg PO DAILY 06/28/18 01/21/24 History release (Adult Low Dose Aspirin) acetaminophen 500 mg tablet 1,000 mg PO Q8H PRN PRN Pain Score 03/28/19 03/28/19 History 1-02/28 atorvastatin 80 mg tablet 80 mg PO QHS #90 TABLETS 10/27/23 Unknown Rx carvedilol 6.25 mg tablet 6.25 mg PO BID for blood pressure 10/27/23 01/31/24 04:30 Rx #180 TABLETS lisinopril 10 mg tablet 10 mg PO DAILY #90 TABLETS 10/27/23 01/31/24 04:30 Rx isosorbide mononitrate 60 mg 60 mg PO DAILY #90 TABLETS 12/05/23 Unknown Rx tablet,extended release 24 hr gabapentin 300 mg capsule 300 mg PO TID PRN PRN pain 01/16/24 Unknown History nitroglycerin 0.4 mg sublingual 0.4 mg sublingual PRN PRN chest 01/17/24 Unknown History tablet pain pantoprazole 40 mg tablet,delayed 40 mg PO DAILY 01/17/24 01/31/24 04:30 History release Allergy/AdvReac Type Severity Reaction Status Date / Time No Known Allergies Allergy Verified 01/31/24 06:25 Family History (Reviewed 01/16/24 @ 13:04 by Tiffany Dyson HOTSHOT SUPERINTENDENT, HOTSHOT SUPERINTENDENT-C) Father CAD (coronary artery disease) Mother CVA (cerebral vascular accident) CAD (coronary artery disease) Surgical History (Updated 01/17/24 @ 09:14 by Kira Browning) History of coronary artery stent placement Hx of hand surgery History of fusion of cervical spine History of left heart catheterization (11/04/16) History of knee replacement History of carpal tunnel release Social History (Reviewed 01/16/24 @ 13:04 by Tiffany Dyson HOTSHOT SUPERINTENDENT, HOTSHOT SUPERINTENDENT-C) Smoking Status: Current every day smoker tobacco type: cigarettes alcohol intake: never substance use type: does not use 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
--- NOTE | 2024-01-31 08:00 | KID_PTH ---
PATIENT: ELMER ARBOLEDA LOC: MS3 U#:[id number] AGE/SX: 53/M ROOM: LA319 RE01/31/[address]: Dr. Dallas Chapin MD : 1970 BED: 1 DIS: 02/02/2024 SPEC #: [id number] RECD: 01/31/24 11:44 STATUS: ALEXANDRE ZAIDI #: [id number] MARCELINO: 01/31/24 08:[address]: Dallas Chapin DEPT: SURGICAL PATHOLOGY RECD BY: Becka Horner ENTERED: 01/31/24 12:11 SP TYPE: KIDNEY OTHR DR: Dr. Alyse Bui MD Tissues: Kidney, NOS Procedures: Surgery Specimen Level V HEADER OPERATION: Laparoscopic robotic partial nephrectomy PRE-OP DIAGNOSIS: Left renal mass TISSUE SUBMITTED: Left renal mass, ruptured on removal MICROSCOPIC DIAGNOSIS Left renal mass, partial nephrectomy: Clear cell renal cell carcinoma. Mature adipose tissue, free of carcinoma. See cancer synoptic report below. 02/02/2024 COMMENT RENAL CANCER SUMMARY Procedure - Partial nephrectomy Specimen laterality - Left kidney Tumor size - 4.0 x 2.0 x 1.5cm Tumor focality - Single focus of carcinoma Histologic type - Clear cell renal cell carcinoma Sarcomatoid features- Not identified Rhabdoid features- Not identified Associated epithelial lesions - None Histologic grade - Grade 1 (G1) Necrosis- Not present Tumor extension- Tumor confined to kidney Tumor configuration - Cystic Margins - Uninvolved by carcinoma Lymph vascular invasion - Not identified Regional lymph nodes - No lymph nodes found Non-neoplastic kidney- Mild chronic inflammation NOTE: The tumor has a cystic component. PATHOLOGIC STAGE: p1a Nx Mx The above summary is in compliance with [employer] [employer] (CAP) Cancer Protocols Checklist and [place] Joint Committee on Cancer (AJCC), Staging Manual, 8th Ed. Case has been reviewed in consultation with Dr. Contreras who concurs with the above diagnosis. IDC:[id number] MICROSCOPIC DESCRIPTION Slides are reviewed. GROSS DESCRIPTION Received in fixative is one container labeled with the patient's name and designated Left renal mass. The specimen consists of an irregular portion of kidney measuring 4.0 x 3.0 x 2.5cm. Also present in the container is a detached piece of adipose tissue measuring 4.5 x 2.5 x 1.0cm. Also present in the container are multiple blood clots mixed with a fragment of black stone. The blood clot measures 1.5 x 1.0 x 0.1cm and the black stone measures 0.4cm in greatest dimension. Presumed parenchymal resection margin is inked black. The rest of the specimen is inked blue. Sections reveal a multilobulated cystic mass measuring 4.0 x 2.0 x 1.5cm. A section of the detached adipose tissue do not reveal any mass lesions. Market Development Director sections are submitted in nine cassettes as follows: 1-8- partial nephrectomy specimen from one end to another, entirely submitted, 9- detached piece of adipose tissue. 02/01/2024 TC:0 CPT:58141
[2024-01-31] MEDS: Cefazolin 3 GM in 0.9% Normal Saline (100mL Bag) 100 ML IV (08:12)
--- NOTE | 2024-01-31 08:21 | HP.PCM_ITS ---
HPI - General General Date of Service: 01/31/24 Chief Complaint: Left renal mass HPI Narrative ELMER ARBOLEAD, is a 53 M who presents for a left partial nephrectomy for a solid left renal mass. [facility] Medical History (Updated 01/17/24 @ 09:14 by Kira Browning) Wears glasses Cancer History of steroid therapy Arthritis History of renal disease High cholesterol Injury of head and neck Gastric reflux Smoker Injury of back Leg cramps History of pain when walking History of edema History of stress test Cardiology follow-up encounter Hypertension Pain Liver hemangioma Strain of right hip Lumbosacral radiculopathy Lumbosacral strain Arthritis of right hand Contusion of hand, right BBB (bundle branch block) Staphylococcal infection of skin Atherosclerotic heart disease of [place] coronary artery without angina pectoris Essential (primary) hypertension Tobacco use Obesity Acute non-ST segment elevation myocardial infarction HLD (hyperlipidemia) Home Medications ?Medication ?Instructions ?Recorded ?Last Taken ?Type albuterol sulfate 90 mcg/actuation 2 puff inhalation Q4H PRN PRN 06/19/18 03/28/19 Rx aerosol inhaler Wheezing ##1 aspirin 81 mg tablet,delayed 81 mg PO DAILY 06/28/18 01/21/24 History release (Adult Low Dose Aspirin) acetaminophen 500 mg tablet 1,000 mg PO Q8H PRN PRN Pain Score 03/28/19 03/28/19 History 1-02/28 atorvastatin 80 mg tablet 80 mg PO QHS #90 TABLETS 10/27/23 Unknown Rx carvedilol 6.25 mg tablet 6.25 mg PO BID for blood pressure 10/27/23 01/31/24 04:30 Rx #180 TABLETS lisinopril 10 mg tablet 10 mg PO DAILY #90 TABLETS 10/27/23 01/31/24 04:30 Rx isosorbide mononitrate 60 mg 60 mg PO DAILY #90 TABLETS 12/05/23 Unknown Rx tablet,extended release 24 hr gabapentin 300 mg capsule 300 mg PO TID PRN PRN pain 01/16/24 Unknown History nitroglycerin 0.4 mg sublingual 0.4 mg sublingual PRN PRN chest 01/17/24 Unknown History tablet pain pantoprazole 40 mg tablet,delayed 40 mg PO DAILY 01/17/24 01/31/24 04:30 History release Allergy/AdvReac Type Severity Reaction Status Date / Time No Known Allergies Allergy Verified 01/31/24 06:25 Family History (Reviewed 01/16/24 @ 13:04 by Tiffany Dyson [employer], REPRESENTATIVE [employer]) Father CAD (coronary artery disease) Mother CVA (cerebral vascular accident) CAD (coronary artery disease) Surgical History (Updated 01/17/24 @ 09:14 by Kira Browning) History of coronary artery stent placement Hx of hand surgery History of fusion of cervical spine History of left heart catheterization (11/04/16) History of knee replacement History of carpal tunnel release Social History (Reviewed 01/16/24 @ 13:04 by Tiffany Dyson [employer]PRESENT[employer], REPRESENTATIVE [employer]-C) Smoking Status: Current every day smoker tobacco type: cigarettes alcohol intake: never substance use type: does not use additional 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
[2024-01-31] MEDS: Bupivacaine Mpf 0.5% 30 ML VIAL (10:40)
--- NOTE | 2024-01-31 10:50 | OP.PCM_ITS ---
Report of Operation Date of Procedure: 01/31/24 Pre-Operative Diagnosis: Left renal mass Post-Operative Diagnosis: The same Surgery/Procedure Performed:: Laparoscopic robotic assisted left partial nephrectomy Description of Surgical Findings:: Patient presented to [facility] for a laparoscopic robotic assisted left partial nephrectomy. We talked about the options of management for the patient's renal mass. The patient had a renal mass. We discussed with the patient that there is always a possible metastatic disease development after this procedure and the patient understands that more treatments such as chemotherapy or oral chemotherapy may be necessary for further development of metastatic disease which may not be curable. We discussed the risks of the procedure including the risk of general anesthetic, bleeding, infection, blood transfusion, formation of hernias, recurrence of cancer in the local area, development of lymphoceles, chylous ascites, and lymph fluid collection in the renal bed. After full discussion with the patient, the patient was marked, and the patient was taken back to the operating room. Patient was taken back to the operating room was placed for supine on the table and underwent general endotracheal intubation. A Clarke catheter was placed into the bladder. The patient side was recognized and marked. A timeout procedure was performed. I identified the patient the side of the surgery and the surgery that was planned to be performed. Once the patient was under general anesthetic then the patient was placed in modified lateral flank position on the patient and I had the patient's. I then infiltrated the skin with 1/2 percent Marcaine and a small incision in the skin and use a Veress needle to introduce the Veress needle into the peritoneal cavity and filled the peritoneal cavity with CO2 gas. I then placed the camera trocar under direct visualization. I then placed a right arm robotic trocar. Then if necessary scissors were used to dissect any adhesions. And then the left arm trocar was placed and a fourth robotic trocar was placed. After the trocars were placed I placed an air seal port between the #1 arm and the camera for the pizza hut assistant to use during the case. Then the robot was docked and I placed scissors and prograsp and the robotic arms and proceeded first by incising the white line of Toldt and reflecting the colon off the kidney I started superiorly above the kidney reflecting the spleen of the kidney and worked all the way inferiorly after the colon was completely reflected off the kidneys fascia was grabbed and elevated and we started reflecting the mesentery of the colon off the kidney until I was able to get underneath the kidney and the inferior tail of the Gerota's fascia and I could see the gonadal vein and the ureter I went underneath the gonadal vein and the ureter and then start tracing up towards the hilum of the kidney. At this point then the fourth arm was docked and used the long Fenestrated grasper on the fourth arm to allow retraction of the kidney superiorly this allowed me to use the right and left arm to then continue the meticulous dissection toward the renal hilum it came across the gonadal vein and this was taken with clips. I dissected until I encountered the renal vein and saw bound pulse of the renal artery. A cross lumbar vein was then transected and ligated with clips. Then behind the renal vein I dissected extensive and meticulous dissection was done to identify the main renal artery. The renal artery was then prepared for temporary bulldog placement by complete dissection of the main renal artery. I then proceeded with the dissection of the kidney and proceeded with identifying the left renal mass. First the Gerota fascia was incised over the area of the renal mass and then dissected down to the capsule of the kidney and then reflected the fat off the kidney all the way superiorly until I was able to get all the fat off the kidney surrounding the mass. Then we used endoscopic ultrasound an ultrasound probe was dropped into the patient's abdomen using the ProGrasp I then carefully did ultrasonography of the kidney to identify the renal mass. Once the mass was identified then I circumferentially scored around the mass edges making sure the edges were there rescored were clear of any tumor inferior to the ultrasound. Then once the tumor was identified the ultrasound confirmed the location and all the edges of the tumor were scored, Then we went for the dissection of the tumor using sharp dissection left and electrocautery dissection I dissected deep into the parenchyma underneath the tumor major with a wide dissection and then came underneath the tumor reflecting the tumor off the kidney as we went underneath the tumor and on the other side of the dissection. Once the tumor was removed in its entirety then the tumor was placed in an Endo Catch bag. This off clamp resection. We then used extensive cauterization to cauterize the base of resection site and then I ran the base of the resection site with a V-Loc stitch and also closed any potential opening into the collecting system while this was done. Then at this point then we closed the kidney over itself using 0 Vicryl stitch in a running fashion using interrupted clips to allow compression of the parenchyma together as we ran the suture from end and then we placed a clip and we would perform a renophary repair of the kidney pulling the edges together using the large clips. Once this was completed then the whole defect was closed then at this point time was marked and we removed, we checked the excision site and there was no bleeding from the excision site. The tumor was then also placed in an Endo Catch bag immediately. We then positioned the kidney back up in the lateral side making sure that it was properly secured and then we extracted the tumor through the extraction site. The extraction site was then closed primarily we went back inside the abdomen after 10 minutes of extraction to check for any bleeding and there was no bleeding from the kidney. We all the sponges and needles were accounted for. We then undocked the robot we removed all the ports under direct visualization and then we closed any ports that were 10 to 12 mm in size. We then closed all the subcuticular incisions with stitches patient's anesthetic is currently being reversed and he is being taken back to the PACU in good condition. Surgeon: Dallas Chapin Type of Anesthesia: General Specimen's removed: left renal mass Estimated Blood Loss (mL): 700 Admit VTE Documentation VTE Present on Admission: No VTE Mechan Device Prophylaxis: SCD's VTE Pharm Prophylaxis ordered?: No
--- NOTE | 2024-01-31 10:53 | PCM.DC ---
Discharge Instructions Diet Discharge Diet: No restrictions Activity Discharge Activity: May Not Drive (while taking narcotic pain medications.) Lifting Restrictions: no lifting for 6 weeks. Dressing / Incision Call your doctor if you observe: Fever of 101 or Higher Follow Up Care Please Follow Up With: Dallas Chapin MD When: Call [phone] for an appointment Test Results: Test results from this visit will be discussed in further detail at your follow-up appointment, if applicable. Discharge Plan Admission Primary Reason for Your Visit: Left partial nephrectomy Attending Provider: Dallas Chapin Primary Care Provider: Alyse Bui Instructions Print Language: Citizen Of [place] Discharge Orders/Prescriptions Prescriptions: Continued gabapentin 300 mg capsule 300 mg PO TID PRN PRN (Reason: pain) albuterol sulfate 1 INHALER inhaler 2 puff inhalation Q4H PRN PRN (Reason: Wheezing) Qty: 1 0RF acetaminophen 500 MG tablet 1,000 mg PO Q8H PRN PRN (Reason: Pain Score 1-10/10) pantoprazole 40 mg tablet,delayed release (DR/EC) 40 mg PO DAILY Rx Instructions: TAKE 1 TABLET DAILY FOR INDIGESTION nitroglycerin 0.4 mg tablet, sublingual 0.4 mg sublingual PRN PRN (Reason: chest pain) Rx Instructions: DISSOLVE 1 TABLET UNDER TONGUE EVERY 5 MINUTES NEEDED FOR CHEST PAIN carvedilol 6.25 mg tablet 6.25 mg PO BID Qty: 180 3RF lisinopril 10 mg tablet 10 mg PO DAILY Qty: 90 3RF atorvastatin 80 mg tablet 80 mg PO QHS Qty: 90 3RF isosorbide mononitrate 60 mg tablet extended release 24 hr 60 mg PO DAILY Qty: 90 3RF Held aspirin [Adult Low Dose Aspirin] 81 mg tablet,delayed release (DR/EC) 81 mg PO DAILY Hold Instructions: Resume on 02/14/24. Referrals / Follow Up: Dallas Chapin MD [Med Staff - Active Staff] - Alyse Bui MD [Primary Care Provider] - Disposition Disposition (needs filled in before D/C Order can be placed): Home, Self Care
--- NOTE | 2024-01-31 11:20 | PCM.POST.ANE ---
Anesthesia: Postop Eval I Current Vital Signs Temperature: 97.1 F Pulse Rate: 72 Blood Pressure: 85/57 Respiratory Rate: 16 Pulse Ox: 90 Oxygen Delivery Method: Nasal Cannula Oxygen Flow Rate (L/min): 4 Assessment Airway patent: Yes Spontaneous unlabored respirations: Yes Mental status: Awake nausea: No Vomiting: No Anesthesia Complication: No Fluid Hydration Crystalloid volume administer (ml): 1,400 Total IV fluid infused: 1,400 Progress Note Anesthesia document: Postop Eval 1 completed: Yes
--- NOTE | 2024-01-31 12:41 | PCM.POSTANE2 ---
Anesthesia Postop Eval I Sum Postop Eval Completion status Anesthesia document: Postop Eval 1 completed: Yes Anesthesia Postop Eval I Summary Anesthesia Postop Eval I Summary: Anesthesia Postop Eval I: Assessment Summary Airway patent Yes 01/31/24 11:22 [email or web address] Spontaneous unlabored Yes 01/31/24 11:22 [email or web address] respirations Mental status Awake 01/31/24 11:22 [email or web address] nausea No 01/31/24 11:22 [email or web address] Vomiting No 01/31/24 11:22 [email or web address] Anesthesia Postop Eval I: Fluid Summary Crystalloid volume administer 1,400 01/31/24 11:22 [email or web address] (ml) Colloids volume administered ( ml) Blood Product volume administered (ml) Total IV fluid infused 1,400 01/31/24 11:22 [email or web address] Anesthesia Postop Eval I: Summary Notes Anesthesia Complication No 01/31/24 11:22 [email or web address] Anesthesia Complication Comment: Post-operative progress note Anesthesia: Postop Eval II Evaluation Mental status: Awake Pain Level: 0 nausea: No Vomiting: No
[2024-01-31] MEDS: 0.9% Normal Saline (1000mL) 1,000 ML 125 ML IV ×3 (13:12→21:28)
[2024-01-31] MEDS: Ketorolac 15 MG/ML Vial IV ×3 (13:12→23:43)
[2024-01-31] MEDS: Ondansetron 4 MG/2 ML Vial IV (13:35)
[2024-01-31] MEDS: oxyCODONE 5 MG Tablet PO ×2 (14:03→22:12)
[2024-01-31] MEDS: Lactated Ringers 1,000 ML 999 ML IV (15:05)
[2024-01-31] MEDS: Atorvastatin Calcium 80 MG Tablet PO (21:28)
[2024-01-31] MEDS: Docusate Sodium 100 MG Capsule 200 MG PO (21:28)
[2024-01-31] MEDS: Gabapentin 300 MG Capsule PO (22:11)
[2024-01-31] MEDS: Acetaminophen 500 MG Tablet 1000 MG PO (22:12)
[2024-01-31] MEDS: Albuterol 2.5 MG/3 ML VIAL.NEB. INHALATION (22:29)
[2024-02-01] VITALS (9 sets, daily range): BP systolic 95–116; BP diastolic 57–70; PULSE 67–101; RESP 16–24; TEMP 36.3–37.2; O2SAT 94–97
[2024-02-01] MEDS: oxyCODONE 5 MG Tablet PO ×2 (03:02→21:12)
[2024-02-01] MEDS: Ketorolac 15 MG/ML Vial IV ×4 (05:56→23:49)
[2024-02-01] MEDS: Albuterol 2.5 MG/3 ML VIAL.NEB. INHALATION ×3 (06:39→21:38)
[2024-02-01 07:20] LABS: Hematocrit 40.6 % (40-54); Hemoglobin 13.1 g/dL (13.0-16.5); Mean Corp Hgb Conc 32.3 g/dL (32-36); Mean Corpuscular Hgb 30.2 pg (27.0-32.0); Mean Corpuscular Volume 93.5 fL (80-94); Mean Platelet Vol. 10.5 fl (6.2-12.0); Platelet Count 191 K/mm3 (150-450); RBC Distribution Width CV 12.4 % (11.6-14.6); RBC Distribution Width SD 42.7 fl (35.1-43.9); Red Blood Count 4.34 M/mm3 (4.6-6.2); White Blood Count 13.4 K/mm3 (4.4-11.0)
--- NOTE | 2024-02-01 07:27 | PCM.PN.GU ---
Subjective Subjective Status post left partial nephrectomy complete removal of tumor, this morning has more gas pain than anything hemoglobin is stable blood pressure is coming back up back up. We can Hep-Lock IV fluids ambulate DC Clarke. Dulcolax suppository to get the bowels moving regular diet as tolerated may be home tomorrow Objective Data Objective Data Vital Signs: Vital Signs Temp Pulse Resp BP Pulse Ox O2 Del Method O2 Flow Rate 98.2 F 68 18 106/70 97 Nasal Cannula 2 02/01/24 05:55 02/01/24 06:40 02/01/24 06:40 02/01/24 05:55 02/01/24 06:40 02/01/24 06:40 02/01/24 06:40 Oxygen Flow Rate (L/min) 2 Oxygen Delivery Method Nasal Cannula Weight: 120.9 kg Body Mass Index (BMI) 36.1 Intake & Output: Intake and Output for Last 24 Hours 01/30/24 01/31/24 02/01/24 23:59 23:59 23:59 Intake Total 3548.33 / 3548.33 300 / 300 Output Total 450 / 450 450 / 450 Balance 3098.33 / 3098.33 -150 / -150 Lab / Micro Data 02/01/24 06:52 01/19/24 15:47 Labs: Laboratory Results - last 24 hr 02/01/24 06:52: WBC 13.4 H, RBC 4.34 L, Hgb 13.1, Hct 40.6, MCV 93.5, MCH 30.2, MCHC 32.3, RDW Std Deviation 42.7, RDW Coeff of Ivan 12.4, Plt Count 191, MPV 10.5
[2024-02-01 07:48] LABS: Anion Gap 5 (5-15); BUN 19 mg/dL (7-18); BUN/Creat Ratio 19.9 RATIO (10-20); Calcium,Total 8.7 mg/dL (8.5-10.1); Chloride 106 mmol/L (98-107); Creatinine, Serum 0.95 mg/dL (0.70-1.30); EST Glomerular Filtration Rate 88 mL/min (>60); Est Glom Filt Rate - Afr Amer 106 mL/min (>60); Estimated Creatinine Clearance 120.73 ml/min; Glucose 141 mg/dL (74-106); Potassium 4.4 mmol/L (3.5-5.1); Sodium Level 135 mmol/L (136-145)
[2024-02-01] MEDS: Pantoprazole Sodium 40 MG Tablet PO (10:50)
[2024-02-01] MEDS: Carvedilol 6.25 MG Tablet PO ×2 (10:59→21:02)
[2024-02-01] MEDS: 0.9% Saline Lock 10 ML Syringe IV ×3 (12:08→23:50)
--- NOTE | 2024-02-01 12:14 | NURSING ---
pt's abd noted to be softer, less firm but remains distended. pt states feels abd gurgling more states passing flatus. encouraged ambulation
[2024-02-01] MEDS: Acetaminophen 500 MG Tablet 1000 MG PO (13:20)
--- NOTE | 2024-02-01 15:09 | CHAPLAIN ---
Type of Pastoral Visit _x__ Initial Visit ___ Follow-up Visit ___ On-call Visit ___ General Patient Visit ___ Spiritual Assessment ___ Family Conference ___ Bereavement ___ Rapid Response ___ Code Blue ___ Other (describe below) Pastoral Care Referral From _x__ Patient ___ Family ___ Nurse ___ Physician ___ [place] [facility] Technician ___ Watch Dial Stoner ___ Other (describe below) Sacrament/Intervention _x__ Active listening ___ Anointing ___ Protestant ___ Bereavement ___ Communion ___ Deborah exploration ___ _x__ Life review ___ Prayer ___ Reconciliation ___ Sacrament of Sick _x__ Supportive presence ___ Wedding ___ Other (describe below) Pastoral Comments patient is sleepy but asks for time to talk since I am so bored; pt speaks of having family and friends send out prayer requests for his recovery so I am good; pt acknowledges that his concern is for 'not finding cancer anywhere else'; pt is expressive of thankfulness for support given
[2024-02-01] MEDS: Atorvastatin Calcium 80 MG Tablet PO (21:02)
[2024-02-01] MEDS: Docusate Sodium 100 MG Capsule 200 MG PO (21:02)
[2024-02-02 03:00] VITALS: BP 111/65; PULSE 81; RESP 18; TEMP 36.6; O2SAT 94
[2024-02-02] MEDS: 0.9% Saline Lock 10 ML Syringe IV (05:11)
[2024-02-02] MEDS: Ketorolac 15 MG/ML Vial IV (05:11)
[2024-02-02 07:38] VITALS: O2SAT 94
--- NOTE | 2024-02-02 07:56 | PCM.DC.SUM ---
Providers Date of Admission: 01/31/24 Date of Discharge: 02/02/24 Primary Care Physician: Dr. Alyse Bui MD Reason For Visit: Lap Robotic Partial Nephrectomy Medications at Discharge Home Medications albuterol sulfate 90 mcg/actuation aerosol inhaler 2 puff inhalation Q4H PRN PRN Wheezing ##1 06/19/18 aspirin 81 mg tablet,delayed release (Adult Low Dose Aspirin) 81 mg PO DAILY 06/28/18 acetaminophen 500 mg tablet 1,000 mg PO Q8H PRN PRN Pain Score 1-02/2803/28/19 atorvastatin 80 mg tablet 80 mg PO QHS #90 TABLETS 10/27/23 carvedilol 6.25 mg tablet 6.25 mg PO BID for blood pressure #180 TABLETS 10/27/23 lisinopril 10 mg tablet 10 mg PO DAILY #90 TABLETS 10/27/23 isosorbide mononitrate 60 mg tablet,extended release 24 hr 60 mg PO DAILY #90 TABLETS 12/05/23 gabapentin 300 mg capsule 300 mg PO TID PRN PRN pain 01/16/24 nitroglycerin 0.4 mg sublingual tablet 0.4 mg sublingual PRN PRN chest pain 01/17/24 pantoprazole 40 mg tablet,delayed release 40 mg PO DAILY 01/17/24 Hospital Course Summary of Care Provided Hospital Course: pt had a left partial nephrectomy, discharge on post op day # 2 in stable condition, amsha reg diet, vital stable, passing flatus. Physical Exam Const alert and oriented x3 General Appearance: cooperative HEENT normocephalic and head/scalp atraumatic Eyes PERRL and EOMs intact bilaterally Neck supple, no JVD and no carotid bruits Resp normal respiratory effort, normal air movement and clear to auscultation bilaterally Cardio regular rate and no murmurs GI normal to inspection, nondistended, normoactive bowel sounds and soft to palpation Extremity normal capillary refill General Extremity: no tenderness to palpation of joints or extremities; Negative for edema Skin no rashes or lesions noted and no wounds General Skin Exam: no breakdown Neuro CN's II-XII intact bilaterally Psych affect normal Appearance: appropriate Weight / BMI Weight Weight: 120.9 kg Body Mass Index (BMI) 36.1 ABG / Lab / Microbiology Data 02/01/24 06:52 02/01/24 06:52 D/C Instructions Discharge Diet: No restrictions May resume sexual activity in: No Restrictions Lifting Restrictions: no heavy lifting Call your doctor if you observe: Fever of 101 or Higher Cleanse incision/area with: Soap & Water Please Follow Up With: Dallas Chapin MD When: Call [phone] for an appointment Meaningful Use Info Meaningful Use Meaningful Use Diagnoses (Choose all that apply): None applicable Ischemic Stroke Statin Dosing Therapy Reference: STATIN DOSE THERAPY REFERENCE: * Patients > 75 years receive moderate or high dose statin therapy. * Patients 75 years or YOUNGER should receive HIGH intensity statin dose unless contraindicated. You will be required to document reason for non-treatment if statin daily dose does not meet guidelines. HIGH DOSE STATIN THERAPY DAILY Atorvastatin > than or = to 40 mg Rosuvastatin > than or = to 20 mg Amlodipine + Atorvastatin > than or = to 2.5/40 mg Ezetimibe + Simvastatin 10/80 mg Simvastatin 80mg Discharge Plan Admission Admit Date/Time: 01/31/24 15:10 Primary Reason for Your Visit: Left partial nephrectomy Attending Provider: Dallas Chapin Primary Care Provider: Alyse Bui Discharge Orders/Prescriptions Prescriptions: Continued gabapentin 300 mg capsule 300 mg PO TID PRN PRN (Reason: pain) albuterol sulfate 1 INHALER inhaler 2 puff inhalation Q4H PRN PRN (Reason: Wheezing) Qty: 1 0RF acetaminophen 500 MG tablet 1,000 mg PO Q8H PRN PRN (Reason: Pain Score 1-10/10) pantoprazole 40 mg tablet,delayed release (DR/EC) 40 mg PO DAILY Rx Instructions: TAKE 1 TABLET DAILY FOR INDIGESTION nitroglycerin 0.4 mg tablet, sublingual 0.4 mg sublingual PRN PRN (Reason: chest pain) Rx Instructions: DISSOLVE 1 TABLET UNDER TONGUE EVERY 5 MINUTES NEEDED FOR CHEST PAIN carvedilol 6.25 mg tablet 6.25 mg PO BID Qty: 180 3RF lisinopril 10 mg tablet 10 mg PO DAILY Qty: 90 3RF atorvastatin 80 mg tablet 80 mg PO QHS Qty: 90 3RF isosorbide mononitrate 60 mg tablet extended release 24 hr 60 mg PO DAILY Qty: 90 3RF Held aspirin [Adult Low Dose Aspirin] 81 mg tablet,delayed release (DR/EC) 81 mg PO DAILY Hold Instructions: Resume on 02/14/24. Referrals / Follow Up: Dallas Chapin MD [Med Staff - Active Staff] - Alyse Bui MD [Primary Care Provider] - Disposition Disposition (needs filled in before D/C Order can be placed): Home, Self Care
--- NOTE | 2024-02-02 07:59 | DCINST_ITS ---
Discharge Instructions Diet Discharge Diet: No restrictions Activity May resume sexual activity in: No Restrictions Lifting Restrictions: no heavy lifting Additional Activity Instructions:: use OTC tylenol and Ibuprofen for pain prn Dressing / Incision Call your doctor if you observe: Fever of 101 or Higher Cleanse incision/area with: Soap & Water Follow Up Care Please Follow Up With: Dallas Chapin MD Test Results: Test results from this visit will be discussed in further detail at your follow- up appointment, if applicable. Discharge Plan Admission Admit Date/Time: 01/31/24 15:10 Primary Reason for Your Visit: Left partial nephrectomy Attending Provider: Dallas Chapin Primary Care Provider: Alyse Bui Discharge Orders/Prescriptions Prescriptions: Continued gabapentin 300 mg capsule 300 mg PO TID PRN PRN (Reason: pain) albuterol sulfate 1 INHALER inhaler 2 puff inhalation Q4H PRN PRN (Reason: Wheezing) Qty: 1 0RF acetaminophen 500 MG tablet 1,000 mg PO Q8H PRN PRN (Reason: Pain Score 1-10/10) pantoprazole 40 mg tablet,delayed release (DR/EC) 40 mg PO DAILY Rx Instructions: TAKE 1 TABLET DAILY FOR INDIGESTION nitroglycerin 0.4 mg tablet, sublingual 0.4 mg sublingual PRN PRN (Reason: chest pain) Rx Instructions: DISSOLVE 1 TABLET UNDER TONGUE EVERY 5 MINUTES NEEDED FOR CHEST PAIN carvedilol 6.25 mg tablet 6.25 mg PO BID Qty: 180 3RF lisinopril 10 mg tablet 10 mg PO DAILY Qty: 90 3RF atorvastatin 80 mg tablet 80 mg PO QHS Qty: 90 3RF isosorbide mononitrate 60 mg tablet extended release 24 hr 60 mg PO DAILY Qty: 90 3RF Held aspirin [Adult Low Dose Aspirin] 81 mg tablet,delayed release (DR/EC) 81 mg PO DAILY Hold Instructions: Resume on 02/14/24. Referrals / Follow Up: Dallas Chapin MD [Med Staff - Active Staff] - Alyse Bui MD [Primary Care Provider] - Disposition Disposition (needs filled in before D/C Order can be placed): Home, Self Care
[2024-02-02] MEDS: Docusate Sodium 100 MG Capsule 200 MG PO (08:31)
[2024-02-02] MEDS: Pantoprazole Sodium 40 MG Tablet PO (08:32)
[2024-02-02] MEDS: Carvedilol 6.25 MG Tablet PO (08:32)
[2024-02-02] MEDS: Isosorbide Mononitrate 60 MG Tablet PO (08:32)
[2024-02-02] MEDS: Lisinopril 10 MG Tablet PO (08:32)
[2024-02-02 08:54] VITALS: BP 126/89; PULSE 81; RESP 18; TEMP 36.7; O2SAT 94
--- NOTE | 2024-02-02 10:34 | PHA.DC.MR.R ---
[facility] has performed discharge medication reconciliation for this patient. The patient's discharge medication list was reviewed for discrepancies and discrepancies were resolved. Medications at Discharge Home Medications albuterol sulfate 90 mcg/actuation aerosol inhaler 2 puff inhalation Q4H PRN PRN Wheezing ##1 06/19/18 aspirin 81 mg tablet,delayed release (Adult Low Dose Aspirin) 81 mg PO DAILY 06/28/18 acetaminophen 500 mg tablet 1,000 mg PO Q8H PRN PRN Pain Score 1-02/2803/28/19 atorvastatin 80 mg tablet 80 mg PO QHS #90 TABLETS 10/27/23 carvedilol 6.25 mg tablet 6.25 mg PO BID for blood pressure #180 TABLETS 10/27/23 lisinopril 10 mg tablet 10 mg PO DAILY #90 TABLETS 10/27/23 isosorbide mononitrate 60 mg tablet,extended release 24 hr 60 mg PO DAILY #90 TABLETS 12/05/23 gabapentin 300 mg capsule 300 mg PO TID PRN PRN pain 01/16/24 nitroglycerin 0.4 mg sublingual tablet 0.4 mg sublingual PRN PRN chest pain 01/17/24 pantoprazole 40 mg tablet,delayed release 40 mg PO DAILY 01/17/24
[2024-02-02 10:35] VITALS: O2SAT 92; O2SAT 94
--- NOTE | 2024-02-02 11:20 | CASEMGMT ---
LOLY JIMENEZ NOTE: Discharge order is in. LOLY JIMENEZ to room. Introduced self and role. Pt resting in bed. Questions answered. He has been using a walker while in the hospital and wrapping his knees w/kerri wraps. He states he uses a cane @ home and gets around okay w/use of unloading brace to lt knee. He states he eventually will be getting a knee replacement at some time, but nothing is scheduled yet. He denies wanting/needing a walker, stating he may get one in the future but does not want to get one now. He has been working w/PT @ his workplace a couple times a week and plans to resume with them once he is back to work. His will be taking him home today. He denies having any discharge needs. Shelley VELA RN, CM
[2024-02-02] MEDS: Acetaminophen 500 MG Tablet 1000 MG PO (12:16)
== END 2024-02-02 12:20 | disposition home or self-care (01) ==
LOC: MS3 15:24
PROVIDERS: Anesthesiology; Admitting Provider Urology; PCP Internal Medicine; Referring Provider Urology; Visit Provider Urology
PROC: (CPT 50543; principal; 2024-01-31 07:40)
DX: C64.2 Malignant neoplasm of left kidney, except renal pelvis (principal); E78.00 Pure hypercholesterolemia, unspecified; Z79.82 Long term (current) use of aspirin; I10 Essential (primary) hypertension; I25.10 Atherosclerotic heart disease of native coronary artery without angina pectoris; K21.9 Gastro-esophageal reflux disease without esophagitis; E66.9 Obesity, unspecified; Z79.899 Other long term (current) drug therapy; F17.210 Nicotine dependence, cigarettes, uncomplicated; Z68.35 Body mass index [BMI] 35.0-35.9, adult
CPT/HCPCS: 50543; S2900; 00862; 36415; 80048; 85027; 88307; 94640; 94668; 96361; 96374; 96375; 96376; 99221; J7030; J7120; A4216; G0378; J2405

== ENCOUNTER 2024-02-20 10:25 | Day surgery (SDC) | payer BC, SELFPAY ==
[2024-02-20] VITALS (21 sets, daily range): BP systolic 98–123; BP diastolic 50–95; PULSE 70–101; RESP 10–26; TEMP 36.1–36.7; O2SAT 90–96; BMI 35.9; BMI 35.2
--- NOTE | 2024-02-20 10:52 | CT_ITS ---
STUDY: CT ABDOMEN AND PELVIS WITH CONTRAST REASON FOR EXAM: Male, 54 years old. ACUTE POST PROCEDURAL PAIN RADIATION DOSAGE (If Supplied By Facility): CTDIvol = ( 18.96 ) mGy, DLP = ( 2593.29 ) mGycm TECHNIQUE: Transaxial images were obtained from the dome of the diaphragm to the symphysis pubis without oral contrast. IV 100mL Isovue-300 was administered. Sagittal and coronal images were reconstructed. Individualized dose optimization techniques were used for this CT. COMPARISON: Comparison is made with prior study November 30, 2023. FINDINGS: The visualized lung bases are unremarkable. Coronary artery calcification. Stable 8 signed by 5 cm multilobulated hypoechoic nodular density in the posterior aspect of the right lobe of the liver inferiorly and medially. There is peripheral filling suggestive of possible hemangioma. Similar-appearing enhancing nodular density seen in the central aspect of the right lobe of the liver. Stable small anterior medial cyst in the right lobe of the liver. Normal gallbladder and extrahepatic biliary system. Normal spleen. Normal pancreas. Normal bilateral adrenal glands. Normal right kidney. Postoperative changes are seen along the lateral aspect of the left kidney. There is a large 18.5 cm x 11 cm x 14.2 cm fluid collection in the left retroperitoneum. With the patient''s history of recent surgery, this most likely represents a urinoma. There is a small hiatal hernia. Normal small intestine. There are scattered colonic diverticula consistent with diverticulosis. The appendix is visualized and appears normal. Normal abdominal aorta. Normal inferior vena cava. Normal retroperitoneum. Normal urinary bladder. Normal abdominal wall. Stable 8mm sclerotic density in the left posterior aspect of the T10 vertebrae. CT/Abdomen/Pelvis WITH Contrast IMPRESSION: Status post partial nephrectomy along the lateral aspect of the left kidney with evidence of a 18.5 cm x 11 cm x 14.2 cm fluid collection in the left retroperitoneum suggestive of a postoperative urinoma. The remainder of the examination is unchanged. Electronically Signed: Carlos Alberto Burgess MD at 12:13 EDT ,
[2024-02-20] MEDS: 0.9% Normal Saline (250mL Bag) 250 ML 15 ML IV (14:12)
[2024-02-20] MEDS: Midazolam 2 MG/2 ML Syringe IV ×2 (14:13→14:33)
[2024-02-20] MEDS: fentaNYL 100 MCG/2 ML Ampul IV ×2 (14:15→14:35)
[2024-02-20] MEDS: Lidocaine 2% (20 ml mdv) 20 ML Vial INFILT (14:25)
--- NOTE | 2024-02-20 15:06 | PRO.PCM_ITS ---
Procedure Report Date of Procedure: 02/20/24 Assessment & Plan Assessment/Plan (1) Urinoma: PLAN: PROCEDURE: CT DIRECTED ABSCESS DRAINAGE, left abdominal urinoma ORDERING PROVIDER: Dr. Chapin INDICATION: Male, 54 years old. Urinoma. PROVIDER: EMMA Toussaint CONSENT: Written informed consent was obtained having explained the risks, benefits and alternatives in detail with the patient and who accepted the risks and agreed to proceed. Laboratory review and clinical assessment was performed. PRE-PROCEDURE SEDATION ASSESSMENT: Current history and physical dictated by referring physician and reviewed. No clinical changes since date of exam. Patient has a Mallampati Score of Class 2 and ASA Class of 3. PROCEDURAL SEDATION PROTOCOL: The Drugs used were: 3 mg Versed, IV, and 75 mcg Fentanyl, IV. The sedation time was: 42 minutes, starting at 1413 and terminated at 1455. The procedural sedation protocol was independently monitored by the department nurse. RADIATION DOSAGE (Supplied By Facility): CTDIvol = 38.89 mGy, DLP = 1102.09 mGy.cm Individualized dose optimization techniques were used for this CT. TECHNIQUE CT sections were made through the abdomen and pelvis revealing a urinoma occupying the left side of the abdominal cavity. The skin surface was prepped with chlorhexidine and draped in a sterile fashion. Puncture of this collection was performed with a 8 Mont[place]atian catheter and fluid was aspirated. Drainage catheter was then inserted into the collection and formed into position. Additional fluid was aspirated for a total of approximately 2000 cc of clear yellow colored fluid. The catheter was sutured into position to allow for continued drainage. Followup CT sections reveals good position of the catheter. IMPRESSION: CT directed drainage of a left abdominal urinoma using CT image guidance and image documentation as described. Procedural Sedation protocol utilized with independent monitoring by the department nurse. Procedures Radiology Radiology CT Procedures: 87169 Image guided catheter drainage
[2024-02-20] MEDS: Lactated Ringers 1,000 ML 15 ML IV (15:32)
--- NOTE | 2024-02-20 15:46 | PRE.ANES_ITS ---
ASA Classification* ASA Classification ASA Classification: 3 and E Assessment & Plan Anesthesia* Anesthesia Assessment Anesthesia Assessment: Discussed sedation and/or anesthesia options, risks, benefits, and alternatives with patient/parents/legal guardian/POA. Questions invited. The patient/parents/legal guardian/POA seems to understand and agrees to proceed with anesthesia plan. Reviewed the physical assessment, medical history, allergy history and patient home medications list prior to surgery/procedure/anesthetic and documented any changes. Performed airway and anesthesia risk assessments. Anesthesia Type Anesthesia Type: MAC History Source History Obtained from:: Patient and Chart Anesthesia Focused Assessment* Temperature: 98.1 F Pulse Rate: 70 Blood Pressure: 121/59 Respiratory Rate: 16 Pulse Ox: 94 Oxygen Delivery Method: Room Air Airway Assessment Mouth opens: 2 cm Mallampati Score: IV Teeth Condition: Intact Neck Range of motion (ROM): Limited ROM (Patient has cervical spine fusion. Does not recall exact levels.) Focused Labs Anesthesia Preop lab: CBC WBC 13.4 K/mm3 (4.4-11.0) H 02/01/24 06:52 RBC 4.34 M/mm3 (4.6-6.2) L 02/01/24 06:52 Hgb 13.1 g/dL (13.0-16.5) 02/01/24 06:52 Hct 40.6 % (40-54) 02/01/24 06:52 Plt Count 191 K/mm3 (150-450) 02/01/24 06:52 CHEMISTRY Potassium 4.4 mmol/L (3.5-5.1) 02/01/24 06:52 Sodium 135 mmol/L (136-145) L 02/01/24 06:52 Magnesium 1.9 mg/dL (1.6-2.6) 03/28/19 14:10 BUN 19 mg/dL (7-18) H 02/01/24 06:52 Creatinine 0.95 mg/dL (0.70-1.30) 02/01/24 06:52 Glucose 141 mg/dL (74-106) H 02/01/24 06:52 COAG PT 12.5 SECONDS (11.7-14.9) 02/22/16 10:40 Pre-Assessment Diagnosis/Proposed Procedure Planned Operative Procedure(s): CYSTOSCOPY LEFT, WILLOUGHBY INSERTION Anesthesia History Anesthesia History - hospitality coordinator: Anesthesia History - hospitality coordinator Hx Hospitalization Yes: 01/31/24-02/02/24 FOR 02/20/24 12:33 SURGERY Any Problems With Anesthesia No 02/20/24 12:33 Cholinesterase deficiency No 02/20/24 12:33 You/Your Family Experience No 02/20/24 12:33 fever (hyperthermia) with Relationship Recent Exposure to Contagious No 02/20/24 15:33 Disease Does patient have nerve No 02/20/24 12:33 stimulator Patient instructed to have device shut off --Does patient have Pacemaker No 02/20/24 15:33 or ICD? When Was Last Pacemaker Check QUESTION #4 FULL TEXT: You/Your Family Experience fever (hyperthermia) with Anesthesia Last Oral Intake Last Oral intake: Last Oral Intake NPO since 07:45 02/20/24 15:33 Meds taken in AM with sips of Yes 02/20/24 15:33 water? Meds patient instructed to take am of surgery Any additional information?: Yes NPO since: 07:45 (Patient has cereal at 7:45 AM) PONV PONV - hospitality coordinator: PONV - hospitality coordinator Female No 02/20/24 12:33 HX of Motion Sickness No 02/20/24 12:33 HX of N/V After Surgery No 02/20/24 12:33 Non-Smoker No 02/20/24 12:33 Duration of Surgery greater Yes 02/20/24 12:33 than 60 minutes Number of Risk Factors 1 02/20/24 12:33 PONV Score Low Risk 02/20/24 12:33 Height & Weight Height & Weight: Anesthesia: Height & Weight Height 6 ft 02/20/24 15:33 Weight: 118.026 kg 02/20/24 15:33 Body Mass Index (BMI) 35.2 02/20/24 15:33 Respiratory Assessment Respiratory Assessment - hospitality coordinator: Respiratory Tract Infection Hx - hospitality coordinator Hx Respiratory Tract Infection No 02/20/24 12:33 STOP Sleep Apnea STOP Sleep Apnea - hospitality coordinator: STOP Sleep Apnea - hospitality coordinator Hx Hypertension Yes 02/20/24 12:33 Hx Sleep Apnea No 02/20/24 12:33 CPAP BIPAP Do you snore loudly (louder Yes 02/20/24 12:33 than talking or can be heard Do you often feel tired/ Yes 02/20/24 12:33 fatigued/ sleepy during daytime? Has anyone observed you stop No 02/20/24 12:33 breathing during sleep? STOP Results Positive 02/20/24 12:33 QUESTION #5 FULL TEXT : Do you snore loudly (louder than talking or can be heard through closed doors)? Tobacco Use History Tobacco Use History - hospitality coordinator: Tobacco Use History - hospitality coordinator Tobacco Use Smoking Status Current every day smoker 02/20/24 13:34 Hx Tobacco Use Yes 02/20/24 12:33 Years Smoking Packs Smoked per Day Smoking Cessation Date was within the last 15 years Hx Smoking Cessation Date Hx Smoking Cessation Yes 02/20/24 12:33 Counseling Hematologic Medial History Hematologic Hx - hospitality coordinator: Hematologic Medical Hx - summer counselor Hx of Blood Transfusion No 02/20/24 12:33 Hx of Transfusion in last 3 No 02/20/24 12:33 Months Date of Last Transfusion (if within last 3 months) Ever experience any problems No 02/20/24 12:33 with transfusion(s)? Specify any problems Hx of Preganancy in last 3 N/A 02/20/24 12:33 Months Nurse Filling Out Transfusion [id number] 02/20/24 12:33 & Questions: Date: 02/20/24 02/20/24 12:33 Time: 12:43 02/20/24 12:33 Patient unable to answer at this time (ie. confused, unrespo /Reproduction History /Reproductive History - hospitality coordinator: /Reproductive Hx- hospitality coordinator Hx Now No 02/20/24 12:33 Gestational Age (in weeks): EDC: Hx Hx Para Hx Section SAB No 02/20/24 12:33 Active Medications Active Medications: Current Medications Generic Name Dose Route Start Last Admin Trade Name Freq PRN Reason Stop Dose Admin Fentanyl Citrate 25 - 50 mcg 02/20/24 13:14 02/20/24 14:35 Fentanyl 100 Mcg/2 Ml Ampul IV 02/20/24 23:59 25 mcg UD PRN Administration Procedural Pain Control Flumazenil 0.2 mg 02/20/24 13:14 Flumazenil 0.5 Mg/5 Ml Vial IV Q1M PRN Respirations <10 per minute Sodium Chloride 250 mls @ 15 mls/hr 02/20/24 13:15 02/20/24 14:12 IV 02/20/24 23:59 15 mls/hr .[id number] MARIE Administration Lactated Ringer's 1,000 mls @ 15 mls/hr 02/20/24 15:30 02/20/24 15:32 IV 15 mls/hr .Q48H MARIE Administration Midazolam HCl 1 - 2 mg 02/20/24 13:14 02/20/24 14:33 Midazolam 2 Mg/2 Ml Syringe IV 02/20/24 23:59 1 mg UD PRN Administration Procedural Sedation Naloxone HCl 0.02 mg 02/20/24 13:14 Naloxone 0.02mg/0.5ml Syringe Kit IV Q1M PRN Respiratory Depression Ondansetron HCl 4 mg 02/20/24 13:14 Ondansetron 4 Mg/2 Ml Vial IV X1 PRN NAUSEA/VOMITING Sodium Chloride 10 - 40 ml 02/20/24 13:32 0.9% Saline Lock 10 Ml Syringe IV UD PRN SALINE FLUSH PFSH Medical History Wears glasses Cancer History of steroid therapy Arthritis History of renal disease High cholesterol Injury of head and neck Gastric reflux Smoker Injury of back Leg cramps History of pain when walking History of edema History of stress test Cardiology follow-up encounter Hypertension Pain Liver hemangioma Strain of right hip Lumbosacral radiculopathy Lumbosacral strain Arthritis of right hand Contusion of hand, right BBB (bundle branch block) Staphylococcal infection of skin Atherosclerotic heart disease of [place] coronary artery without angina pectoris Essential (primary) hypertension Tobacco use Obesity Acute non-ST segment elevation myocardial infarction HLD (hyperlipidemia) Home Medications ?Medication ?Instructions ?Recorded ?Last Taken ?Type albuterol sulfate 90 mcg/actuation 2 puff inhalation Q4H PRN PRN 06/19/18 03/28/19 Rx aerosol inhaler Wheezing ##1 aspirin 81 mg tablet,delayed 81 mg PO DAILY 06/28/18 01/21/24 History release (Adult Low Dose Aspirin) acetaminophen 500 mg tablet 1,000 mg PO Q8H PRN PRN Pain Score 03/28/19 03/28/19 History 1-02/28 atorvastatin 80 mg tablet 80 mg PO QHS #90 TABLETS 10/27/23 Unknown Rx carvedilol 6.25 mg tablet 6.25 mg PO BID for blood pressure 10/27/23 02/20/24 07:30 Rx #180 TABLETS lisinopril 10 mg tablet 10 mg PO DAILY #90 TABLETS 10/27/23 02/20/24 07:30 Rx isosorbide mononitrate 60 mg 60 mg PO DAILY #90 TABLETS 12/05/23 02/20/24 07:30 Rx tablet,extended release 24 hr gabapentin 300 mg capsule 300 mg PO TID PRN PRN pain 01/16/24 01/31/24 History nitroglycerin 0.4 mg sublingual 0.4 mg sublingual PRN PRN chest 01/17/24 Unknown History tablet pain pantoprazole 40 mg tablet,delayed 40 mg PO DAILY 01/17/24 02/20/24 07:30 History release Allergy/AdvReac Type Severity Reaction Status Date / Time No Known Allergies Allergy Verified 02/20/24 12:29 Family History Father CAD (coronary artery disease) Mother CVA (cerebral vascular accident) CAD (coronary artery disease) Surgical History History of coronary artery stent placement Hx of hand surgery History of fusion of cervical spine History of left heart catheterization (11/04/16) History of knee replacement History of carpal tunnel release Social History Smoking Status: Current every day smoker tobacco type: cigarettes alcohol intake: never substance use type: does not use 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
[2024-02-20] MEDS: Cefazolin 2 GM in 0.9% Normal Saline (100mL Bag) 100 ML IV (16:16)
[2024-02-20] MEDS: Lidocaine Jelly 2% 20 ML Syringe (URO-JET) 1 APPLIC (16:25)
--- NOTE | 2024-02-20 16:43 | HP.PCM_ITS ---
HPI - General General Date of Service: 02/20/24 Chief Complaint: Urine leak HPI Narrative ELMER ARBOLEDA, is a 54 M who presents back to my office today with severe pain we have a CAT scan that demonstrated he had a large urinoma and ureteral leak he had a partial nephrectomy 3 weeks for a cancer of the kidney and he is developed the postop urine leak today we placed the drain percutaneously by radiology and IR placed a stent and a Clarke catheter to decompress the kidney system and hopefully the leak will heal on its own with decompression. FORMERLY [facility], [facility] Medical History Wears glasses Cancer History of steroid therapy Arthritis History of renal disease High cholesterol Injury of head and neck Gastric reflux Smoker Injury of back Leg cramps History of pain when walking History of edema History of stress test Cardiology follow-up encounter Hypertension Pain Liver hemangioma Strain of right hip Lumbosacral radiculopathy Lumbosacral strain Arthritis of right hand Contusion of hand, right BBB (bundle branch block) Staphylococcal infection of skin Atherosclerotic heart disease of [place] coronary artery without angina pectoris Essential (primary) hypertension Tobacco use Obesity Acute non-ST segment elevation myocardial infarction HLD (hyperlipidemia) Home Medications ?Medication ?Instructions ?Recorded ?Last Taken ?Type albuterol sulfate 90 mcg/actuation 2 puff inhalation Q4H PRN PRN 06/19/18 03/28/19 Rx aerosol inhaler Wheezing ##1 aspirin 81 mg tablet,delayed 81 mg PO DAILY 06/28/18 01/21/24 History release (Adult Low Dose Aspirin) acetaminophen 500 mg tablet 1,000 mg PO Q8H PRN PRN Pain Score 03/28/19 03/28/19 History -02/28 atorvastatin 80 mg tablet 80 mg PO QHS #90 TABLETS 10/27/23 Unknown Rx carvedilol 6.25 mg tablet 6.25 mg PO BID for blood pressure 10/27/23 02/20/24 07:30 Rx #180 TABLETS lisinopril 10 mg tablet 10 mg PO DAILY #90 TABLETS 10/27/23 02/20/24 07:30 Rx isosorbide mononitrate 60 mg 60 mg PO DAILY #90 TABLETS 12/05/23 02/20/24 07:30 Rx tablet,extended release 24 hr gabapentin 300 mg capsule 300 mg PO TID PRN PRN pain 08/27/24 09/11/24 History nitroglycerin 0.4 mg sublingual 0.4 mg sublingual PRN PRN chest 01/17/24 Unknown History tablet pain pantoprazole 40 mg tablet,delayed 40 mg PO DAILY 01/17/24 02/20/24 07:30 History release ciprofloxacin HCl 500 mg tablet 500 mg PO DAILY #14 tabs 02/20/24 Unknown Rx (Cipro) oxycodone 5 mg tablet 5 mg PO Q6H PRN pain 7 days #20 02/20/24 Unknown Rx tabs Allergy/AdvReac Type Severity Reaction Status Date / Time No Known Allergies Allergy Verified 02/20/24 12:29 Family History Father CAD (coronary artery disease) Mother CVA (cerebral vascular accident) CAD (coronary artery disease) Surgical History History of coronary artery stent placement Hx of hand surgery History of fusion of cervical spine History of left heart catheterization (11/04/16) History of knee replacement History of carpal tunnel release Social History Smoking Status: Current every day smoker tobacco type: cigarettes alcohol intake: never substance use type: does not use 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 Vital Signs Vital Signs Vital Signs: 02/20/24 13:34 02/20/24 13:34 02/20/24 14:12 Temperature Temperature Source Pulse Rate 71 71 Respiratory Rate 17 26 H Respiratory Effort Normal Non-Labored Respiratory Pattern Normal Blood Pressure 98/70 123/83 H Blood Pressure Mean 79 Blood Pressure Source Monitor Blood Pressure Position Semi-Fowlers Blood Pressure Location Right Arm Baseline BP 98/70 Pulse Ox 94 Oxygen Delivery Method Room Air Room Air Oxygen Flow Rate (L/min) EtCo2 (Normal 35-45 , high quality CPR 10-20 & ROSC>/=40mmHg 32 33 02/20/24 14:15 02/20/24 14:20 02/20/24 14:25 Temperature Temperature Source Pulse Rate 71 80 79 Respiratory Rate 24 H 18 19 H Respiratory Effort Respiratory Pattern Blood Pressure 123/81 H 114/84 H 112/82 H Blood Pressure Mean Blood Pressure Source Blood Pressure Position Blood Pressure Location Baseline BP Pulse Ox Oxygen Delivery Method Room Air Room Air Nasal Cannula Oxygen Flow Rate (L/min) 2 EtCo2 (Normal 35-45 , high quality CPR 10-20 & ROSC>/=40mmHg 32 33 30 02/20/24 14:30 02/20/24 14:35 02/20/24 14:40 Temperature Temperature Source Pulse Rate 74 84 79 Respiratory Rate 12 20 H 13 Respiratory Effort Respiratory Pattern Blood Pressure 116/87 H 115/86 H 114/77 Blood Pressure Mean Blood Pressure Source Blood Pressure Position Blood Pressure Location Baseline BP Pulse Ox Oxygen Delivery Method Nasal Cannula Nasal Cannula Nasal Cannula Oxygen Flow Rate (L/min) 2 2 2 EtCo2 (Normal 35-45 , high quality CPR 10-20 & ROSC>/=40mmHg 30 33 34 02/20/24 14:45 02/20/24 14:50 02/20/24 14:55 Temperature Temperature Source Pulse Rate 81 78 79 Respiratory Rate 16 25 H 10 L Respiratory Effort Respiratory Pattern Blood Pressure 113/82 H 115/79 109/81 H Blood Pressure Mean Blood Pressure Source Blood Pressure Position Blood Pressure Location Baseline BP Pulse Ox Oxygen Delivery Method Nasal Cannula Nasal Cannula Nasal Cannula Oxygen Flow Rate (L/min) 2 2 2 EtCo2 (Normal 35-45 , high quality CPR 10-20 & ROSC>/=40mmHg 33 33 30 02/20/24 15:00 02/20/24 15:05 02/20/24 15:10 Temperature Temperature Source Pulse Rate Respiratory Rate Respiratory Effort Respiratory Pattern Normal Blood Pressure Blood Pressure Mean Blood Pressure Source Blood Pressure Position Blood Pressure Location Baseline BP 98/70 Pulse Ox Oxygen Delivery Method Room Air Room Air Oxygen Flow Rate (L/min) EtCo2 (Normal 35-45 , high quality CPR 10-20 & ROSC>/=40mmHg 31 34 02/20/24 15:10 02/20/24 15:33 02/20/24 15:33 Temperature 98.1 F Temperature Source Temporal Pulse Rate 70 Respiratory Rate 16 Respiratory Effort Respiratory Pattern Normal Blood Pressure 121/59 H Blood Pressure Mean 79 Blood Pressure Source Monitor Blood Pressure Position Semi-Fowlers Blood Pressure Location Right Arm Baseline BP Pulse Ox 94 Oxygen Delivery Method Room Air Room Air Oxygen Flow Rate (L/min) EtCo2 (Normal 35-45 , high quality CPR 10-20 & ROSC>/=40mmHg 30 02/20/24 16:05 Temperature 98.1 F Temperature Source Pulse Rate 70 Respiratory Rate 16 Respiratory Effort Respiratory Pattern Blood Pressure 121/59 H Blood Pressure Mean Blood Pressure Source Blood Pressure Position Blood Pressure Location Baseline BP Pulse Ox 94 Oxygen Delivery Method Room Air Oxygen Flow Rate (L/min) 2 EtCo2 (Normal 35-45 , high quality CPR 10-20 & ROSC>/=40mmHg Weight Weight: 118.026 kg Body Mass Index (BMI) 35.2 Results Imaging Radiology Impression Abdomen/Pelvis CT 02/20/24 10:52 IMPRESSION: Status post partial nephrectomy along the lateral aspect of the left kidney with evidence of a 18.5 cm x 11 cm x 14.2 cm fluid collection in the left retroperitoneum suggestive of a postoperative urinoma. The remainder of the examination is unchanged. Electronically Signed: Carlos Alberto Burgess MD at 12:13 EDT ,
--- NOTE | 2024-02-20 16:44 | DCINST_ITS ---
Discharge Instructions Diet Discharge Diet: No restrictions and Light diet - advance as tolerated Activity Discharge Activity: May Not Drive and May Not Shower Weight Bearing Status: Weight bearing as tolerated Additional Activity Instructions:: no lifting Dressing / Incision Catheter: Clarke to leg bag and Clarke to large bag Drain: [place] Additional Dressing/Incision Instructions:: JAREN drain care, keep to suction and keep dry keep track of JAREN output Follow Up Care Please Follow Up With: Dallas Chapin MD When: call [phone] for follow up appt. Test Results: Test results from this visit will be discussed in further detail at your follow- up appointment, if applicable. Discharge Plan Admission Primary Reason for Your Visit: urine leak Attending Provider: Dallas Chapin Primary Care Provider: Alyse Bui Instructions Patient Instructions: Demian Chávez Drain Tube Dc, Post Op Drain Emptying Steps Print Language: Syriac Discharge Orders/Prescriptions Prescriptions: New ciprofloxacin HCl [Cipro] 500 mg tablet 500 mg PO DAILY Qty: 14 0RF oxycodone 5 mg tablet 5 mg PO Q6H PRN (Reason: pain) 7 Days Qty: 20 0RF Continued aspirin [Adult Low Dose Aspirin] 81 mg tablet,delayed release (DR/EC) 81 mg PO DAILY gabapentin 300 mg capsule 300 mg PO TID PRN PRN (Reason: pain) albuterol sulfate 1 INHALER inhaler 2 puff inhalation Q4H PRN PRN (Reason: Wheezing) Qty: 1 0RF acetaminophen 500 MG tablet 1,000 mg PO Q8H PRN PRN (Reason: Pain Score 1-10/10) pantoprazole 40 mg tablet,delayed release (DR/EC) 40 mg PO DAILY Rx Instructions: TAKE 1 TABLET DAILY FOR INDIGESTION nitroglycerin 0.4 mg tablet, sublingual 0.4 mg sublingual PRN PRN (Reason: chest pain) Rx Instructions: DISSOLVE 1 TABLET UNDER TONGUE EVERY 5 MINUTES NEEDED FOR CHEST PAIN carvedilol 6.25 mg tablet 6.25 mg PO BID Qty: 180 3RF lisinopril 10 mg tablet 10 mg PO DAILY Qty: 90 3RF atorvastatin 80 mg tablet 80 mg PO QHS Qty: 90 3RF isosorbide mononitrate 60 mg tablet extended release 24 hr 60 mg PO DAILY Qty: 90 3RF Referrals / Follow Up: Dallas Chapin MD [Med Staff - Active Staff] - Alyse Bui MD [Primary Care Provider] - Disposition Disposition (needs filled in before D/C Order can be placed): Home, Self Care
--- NOTE | 2024-02-20 16:45 | PCM.OPRPT ---
Report of Operation Date of Procedure: 02/20/24 Pre-Operative Diagnosis: Urinoma and urine leak Post-Operative Diagnosis: The same Surgery/Procedure Performed:: Cystoscopy retrograde pyelogram and left stent placement Description of Surgical Findings:: Indication is a 54-year-old male who had a solid mass in the left kidney underwent a left robotic partial nephrectomy about 3 weeks ago he was discharged in good condition 2 days after the surgery he then presented to my office a week later was more pain than usual we decided to watch it and then he called back still having severe pain so we did a CAT scan of the follow-up and the CAT scan demonstrated he had a large urinoma consistent with a urine leak he underwent a CT-guided placement of a drain in the fluid pocket neck to the kidney and today working to place a stent and a Murphy catheter to decompress his urinary system to allow the leak to heal spontaneously Patient was taken back to the operating room after smooth induction of anesthesia he was placed supine on the table and is then placed in dorsolithotomy position. The urethro and penis were prepped and draped in usual sterile fashion placed lidocaine jelly into the urethra went into the bladder with a 21 Cameroonian rigid cystourethroscope the entire length urethra prostate was normal I then cannulated the left ureteral orifice with a wire and a Pollick catheter performed a retrograde pyelogram to see contrast going up to the kidney it filled the renal pelvis initially and then as a filled the mucousy contrast extra extravasating from the top of the upper pole of the left kidney where the leak was. I then advanced a wire and I coiled the wire in the kidney renal pelvis and then over the wire I placed a stent on the left side it was a 6 Cameroonian by 26 cm stent and then pulled the wire and the stent coiled in the kidney renal pelvis and in the bladder once the stent was in good position then we confirmed by fluoroscopy the stent was in the renal pelvis and also stent in the bladder and then I put a Murphy catheter in the bladder to decompress everything and the patient will go home with a Murphy catheter and the stent for at least 10 days to let this decompress and hopefully heal the urine leak he will be home sent home with antibiotics and instructions to take care of the MYLES drain and the Murphy catheter.. Surgeon: Dallas Chapin Type of Anesthesia: General Drains: myles drain and stent and murphy Admit VTE Documentation VTE Present on Admission: No VTE Mechan Device Prophylaxis: SCD's VTE Pharm Prophylaxis ordered?: No
--- NOTE | 2024-02-20 16:51 | PCM.POST.ANE ---
Anesthesia: Postop Eval I Current Vital Signs Temperature: 97.3 F Pulse Rate: 100 Blood Pressure: 117/95 Respiratory Rate: 18 Pulse Ox: 95 Oxygen Delivery Method: Room Air Assessment Airway patent: Yes Spontaneous unlabored respirations: Yes Mental status: Awake and Calm nausea: No Vomiting: No Anesthesia Complication: No Fluid Hydration Crystalloid volume administer (ml): 250 Total IV fluid infused: 250 Progress Note Anesthesia document: Postop Eval 1 completed: Yes
--- NOTE | 2024-02-20 18:04 | POSTOPAN2_ITS ---
Anesthesia Postop Eval I Sum Postop Eval Completion status Anesthesia document: Postop Eval 1 completed: Yes Anesthesia Postop Eval I Summary Anesthesia Postop Eval I Summary: Anesthesia Postop Eval I: Assessment Summary Airway patent Yes 02/20/24 16:52 STATION [email or web address] Spontaneous unlabored Yes 02/20/24 16:52 STATION [email or web address].DANNY respirations Mental status Awake,Calm 02/20/24 16:52 STATION INSTALLER.ОЛЕГOBY nausea No 02/20/24 16:52 STATION INSTALLER.ОЛЕГOBGabriela Vomiting No 02/20/24 16:52 STATION INSTALLER.ОЛЕГOBGabriela Anesthesia Postop Eval I: Fluid Summary Crystalloid volume administer 250 02/20/24 16:52 STATION [email or web address] (ml) Colloids volume administered ( ml) Blood Product volume administered (ml) Total IV fluid infused 250 02/20/24 16:52 STATION [email or web address].DANNY Anesthesia Postop Eval I: Summary Notes Anesthesia Complication No 02/20/24 16:52 STATION [email or web address].DANNY Anesthesia Complication Comment: Post-operative progress note Anesthesia: Postop Eval II Evaluation Mental status: Awake and Calm Pain Level: 1 nausea: No Vomiting: No Complications Anesthesia Complication: No
--- NOTE | 2024-02-20 18:04 | PCM.POSTANE2 ---
Anesthesia Postop Eval I Sum Postop Eval Completion status Anesthesia document: Postop Eval 1 completed: Yes Anesthesia Postop Eval I Summary Anesthesia Postop Eval I Summary: Anesthesia Postop Eval I: Assessment Summary Airway patent Yes 02/20/24 16:52 CARE TRANSITION [email or web address] Spontaneous unlabored Yes 02/20/24 16:52 CARE TRANSITION [email or web address].[email or web address] respirations Mental status Awake,Calm 02/20/24 16:52 CARE TRANSITION MGR.ОЛЕГOBY nausea No 02/20/24 16:52 CARE TRANSITION MGR.ОЛЕГOBGabriela Vomiting No 02/20/24 16:52 CARE TRANSITION MGR.ОЛЕГOBGabriela Anesthesia Postop Eval I: Fluid Summary Crystalloid volume administer 250 02/20/24 16:52 CARE TRANSITION [email or web address] (ml) Colloids volume administered ( ml) Blood Product volume administered (ml) Total IV fluid infused 250 02/20/24 16:52 CARE TRANSITION [email or web address].[email or web address] Anesthesia Postop Eval I: Summary Notes Anesthesia Complication No 02/20/24 16:52 CARE TRANSITION MGR.DANNY Anesthesia Complication Comment: Post-operative progress note Anesthesia: Postop Eval II Evaluation Mental status: Awake and Calm Pain Level: 1 nausea: No Vomiting: No Complications Anesthesia Complication: No
== END 2024-02-20 18:17 | disposition home or self-care (01) ==
LOC: CT 11:46 → SDC 11:57 → AC 13:30
PROVIDERS: PCP Internal Medicine; Referring Provider Urology; Visit Provider Urology
PROC: (CPT 52332; principal; 2024-02-20 13:50)
DX: N36.8 Other specified disorders of urethra (principal); I25.10 Atherosclerotic heart disease of native coronary artery without angina pectoris; I25.2 Old myocardial infarction; I10 Essential (primary) hypertension; E78.00 Pure hypercholesterolemia, unspecified; F17.210 Nicotine dependence, cigarettes, uncomplicated; Z90.5 Acquired absence of kidney; Z95.5 Presence of coronary angioplasty implant and graft; Z79.82 Long term (current) use of aspirin; Z79.899 Other long term (current) drug therapy
CPT/HCPCS: 52332; 00910; 49406; 20501; 74177; 76000; 77012; 87070; 87075; 87205; 99156; 99157; J7050; J7120; Q9967; A4216; C1769; C2617; J2405

== ENCOUNTER 2024-02-24 09:32 | Emergency (ER) | payer BC, SELFPAY ==
[2024-02-24 09:33] VITALS: BP 146/74; PULSE 109; RESP 16; TEMP 36.5; O2SAT 100; BMI 34.9
--- NOTE | 2024-02-24 10:05 | CT_ITS ---
HISTORY: left flank pain, partial nephrectomy, urinoma drn. TECHNIQUE: Helically acquired images were obtained of the abdomen and pelvis after the intravenous administration of 100 mL Isovue-370. A radiation dose optimization technique was used for this scan. 470 images. COMPARISON: 02/20/2024, 11/30/2023. FINDINGS: LOWER CHEST: Lung bases clear. BOWEL: Bowel appendix nondilated. No significant focal inflammatory change observed. PERITONEUM: No significant ascites. LIVER: Stable 1.7 cm cyst in the left lobe. Unchanged 2.4 cm central and 6.7 cm right lobe hemangiomas. GALLBLADDER/BILIARY TREE: Gallbladder present. SPLEEN/PANCREAS/ADRENAL GLANDS: Unremarkable. KIDNEYS: 3.5 x 4.6 cm postoperative fluid collection in the left renal cortex, previously 3.8 x 4.3 cm, with a contiguous left lateral perinephric fluid collection extending posteriorly now with mild rim enhancement and drainage catheter placed. Left retroperitoneal fluid collection measures approximately 9.2 x 16.5 x 19.7 cm with persistent anterior displacement of the left kidney, previously 11 x 18.5 x 22.9 cm. Mild left perinephric and periureteral stranding with interval placement of left double-J ureteral stent. No hydronephrosis. Subcentimeter cortical cyst again seen more inferiorly. Small retroperitoneal lymph nodes without pathologic enlargement. Unremarkable right kidney. VESSELS: No abdominal aortic aneurysm. Mild atherosclerosis. PELVIC ORGANS: Clarke catheter in the partially decompressed bladder. ABDOMINAL WALL: Mild subcutaneous and intramuscular edema of the left flank. Small fat-containing inguinal hernias. BONES: Stable small sclerotic lesion in the left aspect of the T10 vertebral body. Degenerative change. CT/Abdomen/Pelvis W IV Cont ONLY IMPRESSION: Mildly decreased size of large left retroperitoneal postoperative fluid collection status post drainage catheter placement, which may represent a urinoma or abscess with mild rim enhancement and surrounding edema. Interval placement of left ureteral stent. No hydronephrosis. Electronically Signed: Rosa Vasquez MD at 11:40 EDT ,
--- NOTE | 2024-02-24 10:07 | ED.VIS.GI ---
HPI HPI - GI History of Present Illness Chief Complaint: Complaint Informant: patient and spouse/S.O. Narrative Narrative: 54-year-old male recently had a partial nephrectomy for a tumor on the left complicated by a urinoma that was drained with a CT-guided JAREN drain placement, then 4 days ago he had ureteral stent placement in order to help drain the kidney and allow the urine leak to heal. Over the past 2 days he has developed pain and now swelling in the left flank that he did not have after the stent placement. He has a Clarke catheter in and there is good flow of nonbloody urine, and he has been emptying the JAREN drain 3 or 4 times a day, with yellow nonbloody urine in that as well despite this pain and swelling developing. Today he had some sweats when the pain worsened, but he has had no nausea, vomiting, or fevers that he knows of. No anterior abdominal pain. [facility] Medical History Wears glasses Cancer History of steroid therapy Arthritis History of renal disease High cholesterol Injury of head and neck Gastric reflux Smoker Injury of back Leg cramps History of pain when walking History of edema History of stress test Cardiology follow-up encounter Hypertension Pain Liver hemangioma Strain of right hip Lumbosacral radiculopathy Lumbosacral strain Arthritis of right hand Contusion of hand, right BBB (bundle branch block) Staphylococcal infection of skin Atherosclerotic heart disease of alutiiq coronary artery without angina pectoris Essential (primary) hypertension Tobacco use Obesity Acute non-ST segment elevation myocardial infarction HLD (hyperlipidemia) Home Medications ?Medication ?Instructions ?Recorded ?Last Taken ?Type albuterol sulfate 90 mcg/actuation 2 puff inhalation Q4H PRN PRN 06/19/18 03/28/19 Rx aerosol inhaler Wheezing ##1 aspirin 81 mg tablet,delayed 81 mg PO DAILY 06/28/18 01/21/24 History release (Adult Low Dose Aspirin) acetaminophen 500 mg tablet 1,000 mg PO Q8H PRN PRN Pain Score 03/28/19 03/28/19 History 1-02/28 atorvastatin 80 mg tablet 80 mg PO QHS #90 TABLETS 10/27/23 Unknown Rx carvedilol 6.25 mg tablet 6.25 mg PO BID for blood pressure 10/27/23 02/20/24 07:30 Rx #180 TABLETS lisinopril 10 mg tablet 10 mg PO DAILY #90 TABLETS 10/27/23 02/20/24 07:30 Rx isosorbide mononitrate 60 mg 60 mg PO DAILY #90 TABLETS 12/05/23 02/20/24 07:30 Rx tablet,extended release 24 hr gabapentin 300 mg capsule 300 mg PO TID PRN PRN pain 01/16/24 01/31/24 History nitroglycerin 0.4 mg sublingual 0.4 mg sublingual PRN PRN chest 01/17/24 Unknown History tablet pain pantoprazole 40 mg tablet,delayed 40 mg PO DAILY 01/17/24 02/20/24 07:30 History release ciprofloxacin HCl 500 mg tablet 500 mg PO DAILY #14 tabs 02/20/24 Unknown Rx (Cipro) oxycodone 5 mg tablet 5 mg PO Q6H PRN pain 7 days #20 02/20/24 Unknown Rx tabs Allergy/AdvReac Type Severity Reaction Status Date / Time No Known Allergies Allergy Verified 02/24/24 09:35 Family History Father CAD (coronary artery disease) Mother CVA (cerebral vascular accident) CAD (coronary artery disease) Surgical History History of coronary artery stent placement Hx of hand surgery History of fusion of cervical spine History of left heart catheterization (11/04/16) History of knee replacement History of carpal tunnel release Social History Smoking Status: Current every day smoker tobacco type: cigarettes alcohol intake: never substance use type: does not use additional social history: 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 ROS ROS ED Constitutional Constitutional ED: Denies chills or fever(s) Eyes Eyes: Denies change in vision or diplopia ENT ENT ED: Denies rhinorrhea or sore throat Cardiovascular Cardiovascular: Denies chest pain or palpitations Respiratory/Chest Respiratory/Chest: Denies cough or dyspnea Gastrointestinal Gastrointestinal: Denies abdominal pain, diarrhea, nausea or vomiting Genitourinary Genitourinary ED: Reports as per HPI and flank pain; Denies dysuria or hematuria Musculoskeletal Musculoskeletal: Denies back pain or neck pain Integumentary Denies abscess or rash Neurologic Neurologic: Denies headache(s), paresthesias or weakness Psychiatric Psychiatric: Denies anxiety or suicidal thoughts EXAM Physical Exam Const Vital Signs: 02/24/24 09:33 02/24/24 11:32 02/24/24 13:00 Temperature 97.7 F L Temperature Source Oral Pulse Rate 109 H 76 81 Respiratory Rate 16 18 16 Blood Pressure 146/74 H 108/76 91/61 Blood Pressure Mean 98 86 71 Pulse Ox 100 90 94 Oxygen Delivery Method Room Air Room Air Room Air 02/24/24 15:00 Temperature Temperature Source Pulse Rate 76 Respiratory Rate 16 Blood Pressure 94/63 Blood Pressure Mean 73 Pulse Ox 95 Oxygen Delivery Method Room Air Positive well nourished and well developed General Appearance ED: well developed and NAD HEENT Reports moist mucous membranes normocephalic and atraumatic Eyes PERRL and EOMs intact bilaterally Neck full ROM and supple Resp normal respiratory effort and clear to auscultation bilaterally Cardio regular rate, regular rhythm and no murmurs GI non-tender and non-distended GI Narrative: Clarke catheter in place with transparent yellow urine flowing. JAREN drain in the left lateral abdomen, the site is benign and there is some small amount of clotted blood in the tubing and transparent yellow nonbloody urine in the JAREN bulb. There is some tenderness at the posterior aspect where this drain in search, and further back in the flank which is otherwise normal-appearing. The patient states that this area is swollen compared to normal. Auscultation: normoactive bowel sounds Palpation: soft Back/Spine General Back: CVA tenderness left (Normal on inspection) and other FROM Extremity normal to inspection General Extremety ED: Negative for edema, pulses abnormal or tenderness General Extremity: Negative for edema or pulses abnormal Neuro oriented x3, CN's II-XII intact bilaterally and no sensory deficits noted Sensorium / Orientation: awake and alert Motor Exam: strength 5/5 throughout Psych mental status grossly normal and thought process normal Skin no rashes or lesions noted and no wounds MDM MDM MDM Narrative Medical decision making narrative: Labs show mild leukocytosis, I performed a CT of the abdomen/pelvis with IV contrast given his recent urinoma, it shows that he has a large urinoma now, the drain is within it appropriately, when I revisit him clinically there is more urine in the bulb but only 5 or 10 cc, where the volume of the urinoma is probably a liter or more. There is some blood clot in the tubing of the drain, nursing tried to squeeze some of this out first, but this did not result in continued filling of the drain bulb. On the CT, the kidney is not distended, the stent is likely functioning well as he continues to have flow of urine from the Clarke. I reviewed the reports and the imaging of the CT and I agree with it. I think there is a problem with the drain is the bottom line. He presents on Monday when we do not have interventional radiology and urology is not available for consultation. Therefore, the patient requires transfer for interventional radiology to place a new drain. I discussed this with staff including medicine and urology at [facility], and they agree with me but they do not have interventional radiology on the weekends either and [place] [facility] [facility] who I then discussed with. Urology Dr. John at asked if I would try to unclog the drain by flushing it. I did this in a sterile fashion, after disconnecting the stopcock and the JAREN bulb from the tubing and then attempting to flush the tubing which I was unable to do, consistent with it being clogged on the inside. Everything was reattached. I discussed with Dr. Brady in the ED who accepts the patient ED to ED transfer. The wants to drive him, uncomfortable but that he is clinically and hemodynamically stable not septic. History & Record Review Additional record(s) reviewed:: Prior outpatient record (Operative reports) Lab Data Attestation: I reviewed the patient's lab results. Labs: Laboratory Results - last 24 hr 02/24/24 10:15 WBC 13.5 H RBC 4.51 L Hgb 13.3 Hct 39.8 L MCV 88.2 MCH 29.5 MCHC 33.4 RDW Std Deviation 40.3 RDW Coeff of Ivan 12.5 Plt Count 326 MPV 9.6 Immature Gran % (Auto) 1.000 H Neut % (Auto) 75.9 H Lymph % (Auto) 8.2 L Lea % (Auto) 11.9 H Eos % (Auto) 2.7 Baso % (Auto) 0.3 Absolute Neuts (auto) 10.3 H Absolute Lymphs (auto) 1.11 Nucleated RBC % 0 Differential Comment SCANNED Diff Path Review May foll Platelet Estimate ADEQUATE RBC Morphology NORM C+C Sodium 133 L Potassium 4.1 Chloride 100 Carbon Dioxide 26.0 Anion Gap 7 BUN 15 Creatinine 0.83 Estim Creat Clear Calc 134.21 Est GFR (MDRD) Af Amer 125 Est GFR (MDRD) Non-Af 103 BUN/Creatinine Ratio 18.2 Glucose 128 H Calcium 9.1 Radiography Diagnostic Testing: Clinical Impression(s) from Imaging Studies Abdomen/Pelvis CT 02/24/24 10:05 IMPRESSION: Mildly decreased size of large left retroperitoneal postoperative fluid collection status post drainage catheter placement, which may represent a urinoma or abscess with mild rim enhancement and surrounding edema. Interval placement of left ureteral stent. No hydronephrosis. 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 (mult) Discharge Plan Triage Chief Complaint: Complaint ED Provider: Matthew Trinh Dx/Rx/DC Orders Clinical Impression: Pararenal urinoma, Broken Demian-Chávez drain Prescriptions: No Action aspirin [Adult Low Dose Aspirin] 81 mg tablet,delayed release (DR/EC) 81 mg PO DAILY gabapentin 300 mg capsule 300 mg PO TID PRN PRN (Reason: pain) albuterol sulfate 1 INHALER inhaler 2 puff inhalation Q4H PRN PRN (Reason: Wheezing) Qty: 1 0RF acetaminophen 500 MG tablet 1,000 mg PO Q8H PRN PRN (Reason: Pain Score 1-10/10) pantoprazole 40 mg tablet,delayed release (DR/EC) 40 mg PO DAILY Rx Instructions: TAKE 1 TABLET DAILY FOR INDIGESTION nitroglycerin 0.4 mg tablet, sublingual 0.4 mg sublingual PRN PRN (Reason: chest pain) Rx Instructions: DISSOLVE 1 TABLET UNDER TONGUE EVERY 5 MINUTES NEEDED FOR CHEST PAIN ciprofloxacin HCl [Cipro] 500 mg tablet 500 mg PO DAILY Qty: 14 0RF oxycodone 5 mg tablet 5 mg PO Q6H PRN (Reason: pain) 7 Days Qty: 20 0RF carvedilol 6.25 mg tablet 6.25 mg PO BID Qty: 180 3RF lisinopril 10 mg tablet 10 mg PO DAILY Qty: 90 3RF atorvastatin 80 mg tablet 80 mg PO QHS Qty: 90 3RF isosorbide mononitrate 60 mg tablet extended release 24 hr 60 mg PO DAILY Qty: 90 3RF Primary Care Provider: Alyse Bui Referrals: Alyse Bui MD [Primary Care Provider] - Print Language: Indonesian Disposition Disposition: Acute Care Hospital Discharge Location: [facility]
[2024-02-24] MEDS: Ondansetron 4 MG/2 ML Vial IV (10:22)
[2024-02-24] MEDS: Morphine 4 MG/ML Syringe IV (10:23)
[2024-02-24 10:31] LABS: Absolute Lymphocyte Count 1.11 X10^3/uL (0.83-4.51); Absolute Neutrophil Count 10.3 X10^3/uL (2.0-7.7); Basophil# 0.04 X10^3/uL; Basophil% 0.3 % (0-1); Eosinophil# 0.37 X10^3/uL; Eosinophils% 2.7 % (0-5); Hematocrit 39.8 % (40-54); Hemoglobin 13.3 g/dL (13.0-16.5); Lymphocyte # 1.11 X10^3/ul (0.83-4.51); Lymphocyte % 8.2 % (19-41); Mean Corp Hgb Conc 33.4 g/dL (32-36); Mean Corpuscular Hgb 29.5 pg (27.0-32.0); Mean Corpuscular Volume 88.2 fL (80-94); Mean Platelet Vol. 9.6 fl (6.2-12.0); Monocyte# 1.61 X10^3/uL; Monocyte% 11.9 % (0-10); NRBC Flagged by Analyzer 0 % (0-5); Neutrophil # 10.28 X10^3/uL (2.7-7.7); Neutrophil % 75.9 % (47-70); POSITIVE DIFFERENTIAL YES; Platelet Count 326 K/mm3 (150-450); RBC Distribution Width CV 12.5 % (11.6-14.6); RBC Distribution Width SD 40.3 fl (35.1-43.9); Red Blood Count 4.51 M/mm3 (4.6-6.2); White Blood Count 13.5 K/mm3 (4.4-11.0)
[2024-02-24 10:35] LABS: Differential Indicated SCAN CRITERIA MET
[2024-02-24 10:44] LABS: Anion Gap 7 (5-15); BUN 15 mg/dL (7-18); BUN/Creat Ratio 18.2 RATIO (10-20); Calcium,Total 9.1 mg/dL (8.5-10.1); Chloride 100 mmol/L (98-107); Creatinine, Serum 0.83 mg/dL (0.70-1.30); EST Glomerular Filtration Rate 103 mL/min (>60); Est Glom Filt Rate - Afr Amer 125 mL/min (>60); Estimated Creatinine Clearance 134.21 ml/min; Glucose 128 mg/dL (74-106); Potassium 4.1 mmol/L (3.5-5.1); Sodium Level 133 mmol/L (136-145)
[2024-02-24 11:32] VITALS: BP 108/76; PULSE 76; RESP 18; O2SAT 90
[2024-02-24 11:32] LABS: Differential Comment SCANNED
[2024-02-24 11:33] LABS: Platelet Estimate ADEQUATE (ADEQ); Red Cell Morphology NORM C+C NORMAL (NORM C&C)
[2024-02-24 13:00] VITALS: BP 91/61; PULSE 81; RESP 16; O2SAT 94
--- NOTE | 2024-02-24 13:54 | NURSING ---
CALLED [facility] FOR TRANSFER TO [facility]
--- NOTE | 2024-02-24 13:57 | NURSING ---
FAXED FACESHEET TO [facility]
--- NOTE | 2024-02-24 14:21 | NURSING ---
CALLED [facility]
[2024-02-24 15:00] VITALS: BP 94/63; PULSE 76; RESP 16; O2SAT 95
[2024-02-24] MEDS: fentaNYL 100 MCG/2 ML Ampul 50 MCG IV (15:14)
[2024-02-24 17:00] VITALS: BP 97/67; PULSE 79; RESP 14; TEMP 36.8; O2SAT 96
--- NOTE | 2024-02-24 17:02 | NURSING ---
TRANSFER TO [facility]
[2024-02-26 13:56] LABS: Pathologist Review Reviewed
== END 2024-02-24 17:19 | disposition short-term general hospital (02) ==
PROVIDERS: Emergency Provider Emergency Medicine; PCP Internal Medicine; Visit Provider Emergency Medicine
DX: N28.89 Other specified disorders of kidney and ureter (principal); Z48.03 Encounter for change or removal of drains; I25.10 Atherosclerotic heart disease of native coronary artery without angina pectoris; I25.2 Old myocardial infarction; I10 Essential (primary) hypertension; E78.00 Pure hypercholesterolemia, unspecified; F17.210 Nicotine dependence, cigarettes, uncomplicated; Z90.5 Acquired absence of kidney; Z95.5 Presence of coronary angioplasty implant and graft; Z79.82 Long term (current) use of aspirin; Z79.899 Other long term (current) drug therapy
CPT/HCPCS: 74177; 80048; 85025; 96374; 96375; 99283; Q9967; A4216; J2405

== ENCOUNTER 2024-03-01 09:27 | Emergency (ER) | payer BC, SELFPAY ==
[2024-03-01 09:28] VITALS: BP 130/81; PULSE 99; RESP 18; TEMP 36.6; O2SAT 100
[2024-03-01 09:31] VITALS: BMI 35.4
[2024-03-01 09:44] LABS: Bacteria 0 SEEN /hpf (None Seen); Mucous, Urine 0 SEEN /hpf (<or=2+)
[2024-03-01 09:49] LABS: Color, Urine Yellow (Yellow); Glucose, Dipstick Normal (Normal); Ketone-Dipstick Negative (Negative); Leukocyte Esterase-Dipstick 100 /ul (Negative); Nitrite-Dipstick Negative (Negative); Occult Blood-Urine 25 /ul (Negative); Protein-Dipstick 15 mg/dl (Negative); Specific Gravity, Urine 1.015 (1.002-1.030); Urine Bilirubin Dipstick Negative (Negative); Urine Clarity Sl. Cloudy (Clear); Urine Urobilinogen Normal (Normal)
[2024-03-01 09:56] LABS: Red Blood Cells-Urine 0-5 SEEN /hpf (0-5); White Blood Cells 0-5 SEEN /hpf (0-5)
[2024-03-01 09:57] LABS: Squamous Epithelial Cells - UA 0-5 SEEN /hpf (0-5)
--- NOTE | 2024-03-01 10:06 | CT_ITS ---
STUDY: CT ABDOMEN AND PELVIS WITH CONTRAST REASON FOR EXAM: Male, 54 years old. hx of nephro tube, left flank pain. History of drainage of air are normal. RADIATION DOSAGE (If Supplied By Facility): CTDIvol = ( 18.51 ) mGy, DLP = ( 2227.39 ) mGycm TECHNIQUE: Transaxial images were obtained from the dome of the diaphragm to the symphysis pubis without oral contrast. IV 100mL Isovue-300 was administered. Sagittal and coronal images were reconstructed. Individualized dose optimization techniques were used for this CT. COMPARISON: Comparison made with prior study February 24, 2024. FINDINGS: The visualized lung bases are unremarkable. The visualized portions of the heart are within normal limits. Stable heterogeneous enhancement of the posterior aspect of the inferior right lobe of the liver suggestive of hemangioma. Normal gallbladder and extrahepatic biliary system. Normal spleen. Normal pancreas. Normal bilateral adrenal glands. Normal right kidney. A drainage catheter seen in the posterior left para renal space. The urinoma has decreased in size as compared to prior study. It presently measures 3.6 cm x 8.6 cm. Postsurgical changes are seen along the lateral midportion of the left kidney. A double-J stent catheter is seen with the proximal tip in the left renal pelvis and distal tip in the urinary bladder. Normal visualized stomach. Normal small intestine. There are multiple colonic diverticula consistent with diverticulosis. The appendix is visualized and appears normal. There is scattered atherosclerotic calcification of the abdominal aorta, without a demonstrated aneurysm. Normal inferior vena cava. Normal retroperitoneum. Normal urinary bladder. Prostatic enlargement with indentation of the bladder base. Normal abdominal wall. There are degenerative changes of the visualized lumbar spine. CT/Abdomen/Pelvis W IV Cont ONLY IMPRESSION: Interval decrease in size of the previously seen left posterior pararenal space are normal. A catheter drainage is seen at that site. Electronically Signed: Carlos Alberto Burgess MD at 11:41 EDT ,
[2024-03-01 10:26] LABS: Absolute Lymphocyte Count 1.58 X10^3/uL (0.83-4.51); Absolute Neutrophil Count 6.7 X10^3/uL (2.0-7.7); Basophil# 0.12 X10^3/uL; Basophil% 1.2 % (0-1); Eosinophil# 0.76 X10^3/uL; Eosinophils% 7.4 % (0-5); Hematocrit 38.8 % (40-54); Hemoglobin 12.3 g/dL (13.0-16.5); Lymphocyte # 1.58 X10^3/ul (0.83-4.51); Lymphocyte % 15.4 % (19-41); Mean Corp Hgb Conc 31.7 g/dL (32-36); Mean Corpuscular Volume 88.2 fL (80-94); Mean Platelet Vol. 9.3 fl (6.2-12.0); Monocyte# 1.01 X10^3/uL; Monocyte% 9.8 % (0-10); NRBC Flagged by Analyzer 0 % (0-5); Neutrophil # 6.67 X10^3/uL (2.7-7.7); Neutrophil % 64.8 % (47-70); Platelet Count 380 K/mm3 (150-450); RBC Distribution Width CV 12.9 % (11.6-14.6); RBC Distribution Width SD 41.9 fl (35.1-43.9); White Blood Count 10.3 K/mm3 (4.4-11.0)
[2024-03-01 10:45] LABS: ALB/GLOB Ratio 0.6 RATIO (0.9-2.4); AST(SGOT) 26 U/L (15-37); Alanine Aminotransfer ALT/SGPT 51 U/L (16-61); Albumin, Serum 2.7 g/dL (3.2-5.0); Alkaline Phosphatase 115 U/L (45-117); Anion Gap 5 (5-15); BUN 12 mg/dL (7-18); Calcium,Total 9.2 mg/dL (8.5-10.1); Chloride 105 mmol/L (98-107); Creatinine, Serum 0.75 mg/dL (0.70-1.30); EST Glomerular Filtration Rate 115 mL/min (>60); Est Glom Filt Rate - Afr Amer 139 mL/min (>60); Estimated Creatinine Clearance 149.51 ml/min; Globulin 4.2 g/dL (2.2-4.2); Glucose 102 mg/dL (74-106); Lipase 25 U/L (13-75); Potassium 4.3 mmol/L (3.5-5.1); Protein, Total 6.9 g/dL (6.4-8.2); Sodium Level 137 mmol/L (136-145); Troponin-I HS 4 pg/mL (3.0-78.0)
--- NOTE | 2024-03-01 11:13 | CON.PCM_ITS ---
Consult Date of Consult: 03/01/24 Reason for Consult 54-year-old male history of a renal mass which was cancer he underwent a partial nephrectomy, unfortunately developed a urine leak after the surgery and had a nephrostomy tube put in and then he was transferred to [facility] I was out of town and he had a larger tube put in which is draining much better however he can call me this morning he feels like he is has some more accumulation of fluid inside and on repeat CAT scan he does have a rim of urine fluid that is not being drained by the other nephrostomy tube so organ to have him come back to place the tube on Monday, there is no radiologist available to do the tube today I do not think it is an emergency situation I will do need to transfer him to another hospital have a tube put in but I have an arrangement done to have an outpatient procedure on Monday to have a guided placement of a another nephrostomy tube into that second urine spot. With drainage of both the spots and with the stent in and a Clarke catheter drainage were hoping to get him cured and get those urine leak to heal on its own spontaneously with drainage. Patient was agreeable with this plan he can go home and I will put an order and talk to radiology about having come back for a CT-guided placement of a drainage tube
[2024-03-01 11:15] VITALS: BP 167/146; PULSE 69; RESP 16; TEMP 37.1; O2SAT 98
[2024-03-01 12:00] VITALS: BP 102/86; PULSE 69; RESP 16; TEMP 36.6; O2SAT 98
--- NOTE | 2024-03-01 12:20 | EX.ED.DYSGE1 ---
HPI History of Present Illness Chief Complaint: Complaint Narrative Narrative: Patient is a 54-year-old male with a past medical history of renal cancer with recent partial nephrectomy by Dr. Chapin, hypertension, hyperlipidemia who presented to the emergency department the chief complaint of left-sided swelling. He states that he feels like his nephrostomy tube is not adequately working again. He states that he was recently had to be transferred up to [facility] Where they placed a larger nephrostomy tube. He states that he started noticed last night which prompted him to come here. He states that he did call Dr. Chapin office who advised him to come here for further evaluation management. Patient denies any fevers. [facility] Medical History Wears glasses Cancer History of steroid therapy Arthritis History of renal disease High cholesterol Injury of head and neck Gastric reflux Smoker Injury of back Leg cramps History of pain when walking History of edema History of stress test Cardiology follow-up encounter Hypertension Pain Liver hemangioma Strain of right hip Lumbosacral radiculopathy Lumbosacral strain Arthritis of right hand Contusion of hand, right BBB (bundle branch block) Staphylococcal infection of skin Atherosclerotic heart disease of eek coronary artery without angina pectoris Essential (primary) hypertension Tobacco use Obesity Acute non-ST segment elevation myocardial infarction HLD (hyperlipidemia) Home Medications ?Medication ?Instructions ?Recorded ?Last Taken ?Type albuterol sulfate 90 mcg/actuation 2 puff inhalation Q4H PRN PRN 06/19/18 03/28/19 Rx aerosol inhaler Wheezing ##1 aspirin 81 mg tablet,delayed 81 mg PO DAILY 06/28/18 01/21/24 History release (Adult Low Dose Aspirin) acetaminophen 500 mg tablet 1,000 mg PO Q8H PRN PRN Pain Score 03/28/19 03/28/19 History 1-02/28 atorvastatin 80 mg tablet 80 mg PO QHS #90 TABLETS 10/27/23 Unknown Rx carvedilol 6.25 mg tablet 6.25 mg PO BID for blood pressure 10/27/23 02/20/24 07:30 Rx #180 TABLETS lisinopril 10 mg tablet 10 mg PO DAILY #90 TABLETS 10/27/23 02/20/24 07:30 Rx isosorbide mononitrate 60 mg 60 mg PO DAILY #90 TABLETS 12/05/23 02/20/24 07:30 Rx tablet,extended release 24 hr gabapentin 300 mg capsule 300 mg PO TID PRN PRN pain 01/16/24 01/31/24 History nitroglycerin 0.4 mg sublingual 0.4 mg sublingual PRN PRN chest 01/17/24 Unknown History tablet pain pantoprazole 40 mg tablet,delayed 40 mg PO DAILY 01/17/24 02/20/24 07:30 History release ciprofloxacin HCl 500 mg tablet 500 mg PO DAILY #14 tabs 02/20/24 Unknown Rx (Cipro) oxycodone 5 mg tablet 5 mg PO Q6H PRN pain 7 days #20 02/20/24 Unknown Rx tabs Allergy/AdvReac Type Severity Reaction Status Date / Time No Known Allergies Allergy Verified 03/01/24 09:31 Family History Father CAD (coronary artery disease) Mother CVA (cerebral vascular accident) CAD (coronary artery disease) Surgical History History of coronary artery stent placement Hx of hand surgery History of fusion of cervical spine History of left heart catheterization (11/04/16) History of knee replacement History of carpal tunnel release Social History Smoking Status: Current every day smoker tobacco type: cigarettes alcohol intake: never substance use type: does not use additional 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 Patient states that his Clarke catheter and his nephrostomy tube is adequately draining Neurological: Denies numbness, weakness, tingling Musculoskeletal: Complains of left-sided swelling as noted above Skin: Denies rashes or lesions EXAM Physical Exam Narrative Exam Narrative: General: Patient lying in bed rest comfortably did not appear to be in acute distress Head: Atraumatic, normocephalic Eyes: PERRL bilateral, EOMI bilateral, no conjunctival injection noted Neck: Soft, supple, trach midline Cardiovascular: Regular rate and rhythm no murmurs gallops abdomen Respiratory: Clear to auscultation bilaterally no rales rhonchi or wheeze noted Abdomen: Soft, nondistended, nontender to palpation, bowel sounds present x 4 Extremities: +5/5 strength noted in the bilateral upper and lower extremities, no pedal edema on exam Neurological: Patient following commands knew that he was at [facility] years 24 Skin: Warm, dry, tact Const Vital Signs: 03/01/24 09:28 03/01/24 11:15 03/01/24 12:00 Temperature 98 F 98.8 F 98 F Temperature Source Oral Oral Oral Pulse Rate 99 69 69 Respiratory Rate 18 16 16 Blood Pressure 130/81 H 167/146 H 102/86 H Blood Pressure Mean 97 153 91 Pulse Ox 100 98 98 Oxygen Delivery Method Room Air Room Air Room Air MDM MDM MDM Narrative Medical decision making narrative: Patient is a 54-year-old male who presents to the emerged part with concern of nephrostomy tube complication. Once again he spoke with Dr. Chapin's office prior to arrival here. Patient will have workup performed here on the differential diagnose includes but not limited to UTI, pyelonephritis, dislodgment of the nephrostomy tube. Once workup obtained reviewed he will be reevaluated. Patient's CBC was reviewed and was largely unremarkable no evidence leukocytosis white blood cell normal at 10.3, hemoglobin stable 12.3, platelet count noted to be normal at 380. Patient's PT normal at 14 with a normal INR 1.1. Patient's sodium normal at 137, potassium was normal at 4.3, creatinine normal at 0.75. Patient's AST and ALT were 26 and 51 respectively. Patient's troponin normal at 4. Patient's EKG reviewed and showed evidence of a left bundle branch block with a rate of 81 bpm no scar Bosa criteria were met. Did compare this to a previous EKG from 07/02/2020. EKG at that point in time had similar appearance largely unchanged. Patient's CT abdomen pelvis with IV contrast reviewed and showed interval decrease in the size of the previously seen left posterior precarinal space are normal at catheter drainage is seen at that site. Patient's urine was reviewed and showed 100 leukocyte esterase 0-5 white cells and no bacteria seen no evidence of infection. Patient's urologist Dr. Chapin came down evaluated the patient at bedside and states that they will plan on having nephrostomy tube replacement on Monday and states that he can go home. Patient is agreeable this plan he was encouraged to return with worsening symptoms or any concerns. All question concerns answered he was discharged home in stable condition. Lab Data Labs: Laboratory Results - last 24 hr 03/01/24 03/01/24 09:39 10:18 WBC 10.3 RBC 4.40 L Hgb 12.3 L Hct 38.8 L MCV 88.2 MCH 28.0 MCHC 31.7 L RDW Std Deviation 41.9 RDW Coeff of Ivan 12.9 Plt Count 380 MPV 9.3 Immature Gran % (Auto) 1.400 H Neut % (Auto) 64.8 Lymph % (Auto) 15.4 L [place] % (Auto) 9.8 Eos % (Auto) 7.4 H Baso % (Auto) 1.2 H Absolute Neuts (auto) 6.7 Absolute Lymphs (auto) 1.58 Nucleated RBC % 0 Sodium 137 Potassium 4.3 Chloride 105 Carbon Dioxide 27.0 Anion Gap 5 BUN 12 Creatinine 0.75 Estim Creat Clear Calc 149.51 Est GFR (MDRD) Af Amer 139 Est GFR (MDRD) Non-Af 115 BUN/Creatinine Ratio 16.0 Glucose 102 Calcium 9.2 Total Bilirubin 0.30 AST 26 ALT 51 Alkaline Phosphatase 115 Troponin I High Sens 4 Total Protein 6.9 Albumin 2.7 L Globulin 4.2 Albumin/Globulin Ratio 0.6 L Lipase 25 Urine Color Yellow Urine Clarity Sl. Cloudy Urine pH 6.0 Ur Specific [place] 1.015 Urine Protein 15 H Urine Glucose (UA) Normal Urine Ketones Negative Urine Occult Blood 25 H Urine Nitrite Negative Urine Bilirubin Negative Urine Urobilinogen Normal Ur Leukocyte Esterase 100 H Urine RBC 0-5 SEEN Urine WBC 0-5 SEEN Ur Squamous Epith Cells 0-5 SEEN Urine Bacteria 0 SEEN Urine Mucus 0 SEEN Radiography Diagnostic Testing: Clinical Impression(s) from Imaging Studies Abdomen/Pelvis CT 03/01/24 10:06 IMPRESSION: Interval decrease in size of the previously seen left posterior pararenal space are normal. A catheter drainage is seen at that site. Electronically Signed: Carlos Alberto Burgess MD at 11:41 EDT , Discharge Plan Triage Chief Complaint: Complaint ED Provider: Carlos Villegas Dx/Rx/DC Orders Clinical Impression: Back pain Prescriptions: No Action aspirin [Adult Low Dose Aspirin] 81 mg tablet,delayed release (DR/EC) 81 mg PO DAILY gabapentin 300 mg capsule 300 mg PO TID PRN PRN (Reason: pain) albuterol sulfate 1 INHALER inhaler 2 puff inhalation Q4H PRN PRN (Reason: Wheezing) Qty: 1 0RF acetaminophen 500 MG tablet 1,000 mg PO Q8H PRN PRN (Reason: Pain Score 1-10/10) pantoprazole 40 mg tablet,delayed release (DR/EC) 40 mg PO DAILY Rx Instructions: TAKE 1 TABLET DAILY FOR INDIGESTION nitroglycerin 0.4 mg tablet, sublingual 0.4 mg sublingual PRN PRN (Reason: chest pain) Rx Instructions: DISSOLVE 1 TABLET UNDER TONGUE EVERY 5 MINUTES NEEDED FOR CHEST PAIN ciprofloxacin HCl [Cipro] 500 mg tablet 500 mg PO DAILY Qty: 14 0RF oxycodone 5 mg tablet 5 mg PO Q6H PRN (Reason: pain) 7 Days Qty: 20 0RF carvedilol 6.25 mg tablet 6.25 mg PO BID Qty: 180 3RF lisinopril 10 mg tablet 10 mg PO DAILY Qty: 90 3RF atorvastatin 80 mg tablet 80 mg PO QHS Qty: 90 3RF isosorbide mononitrate 60 mg tablet extended release 24 hr 60 mg PO DAILY Qty: 90 3RF Primary Care Provider: Alyse Bui Referrals: Alyse Bui MD [Primary Care Provider] - Activity Restrictions/Additional Instructions: Return with worsening symptoms or any other concerns. Follow-up on Monday to have your nephrostomy tube replaced. Follow-up with Print Language: Citizen Of [place] Disposition Disposition: Home, Self Care
[2024-03-01 12:21] LABS: International Normalized Ratio 1.1
[2024-03-01 12:22] LABS: Partial Thromboplast Time 33.3 Seconds (24.1-36.2)
[2024-03-01 12:32] VITALS: BP 102/86; PULSE 69; RESP 16; TEMP 36.6; O2SAT 98
== END 2024-03-01 12:37 | disposition home or self-care (01) ==
PROVIDERS: Emergency Provider Emergency Medicine; PCP Internal Medicine; Visit Provider Emergency Medicine
DX: Z43.6 Encounter for attention to other artificial openings of urinary tract (principal); I25.10 Atherosclerotic heart disease of native coronary artery without angina pectoris; I25.2 Old myocardial infarction; I10 Essential (primary) hypertension; E78.00 Pure hypercholesterolemia, unspecified; F17.210 Nicotine dependence, cigarettes, uncomplicated; Z90.5 Acquired absence of kidney; Z95.5 Presence of coronary angioplasty implant and graft; Z79.82 Long term (current) use of aspirin; Z79.899 Other long term (current) drug therapy
CPT/HCPCS: 74177; 80053; 81001; 83690; 84484; 85025; 85610; 85730; 87086; 93005; 99282; Q9967; A4216

== ENCOUNTER 2024-03-04 08:56 | Outpatient (CLI) | payer BC, SELFPAY ==
[2024-03-04] VITALS (17 sets, daily range): BP systolic 89–111; BP diastolic 55–79; PULSE 78–89; RESP 11–28; TEMP 36.2; O2SAT 92–96; BMI 34.5
[2024-03-04] MEDS: Midazolam 2 MG/2 ML Syringe IV ×3 (10:08→10:35)
[2024-03-04] MEDS: fentaNYL 100 MCG/2 ML Ampul IV ×3 (10:11→10:37)
[2024-03-04] MEDS: 0.9% Saline Lock 10 ML Syringe IV ×6 (10:11→10:37)
[2024-03-04] MEDS: Lidocaine 2% (20 ml mdv) 20 ML Vial INFILT (10:30)
--- NOTE | 2024-03-04 11:09 | PRO.PCM_ITS ---
Procedure Report Date of Procedure: 03/04/24 Assessment & Plan Assessment/Plan (1) Urinoma: PLAN: PROCEDURE: CT DIRECTED LEFT URINOMA DRAINAGE ORDERING PROVIDER: Dr. Chapin INDICATION: Male, 54 years old. Left sided urinoma PROVIDER: EMMA Toussaint CONSENT: Written informed consent was obtained having explained the risks, benefits and alternatives in detail with the patient who accepted the risks and agreed to proceed. Laboratory review and clinical assessment was performed. PRE-PROCEDURE SEDATION ASSESSMENT: Current history and physical dictated by referring physician and reviewed. No clinical changes since date of exam. Patient has a Mallampati Score of Class 3 and ASA Class of 3. PROCEDURAL SEDATION PROTOCOL: The Drugs used were: 4 mg Versed, IV, and 100 mcg Fentanyl, IV. The sedation time was: 42 minutes, starting at 1008 and terminated at 1050. The procedural sedation protocol was independently monitored by the department nurse. RADIATION DOSAGE (Supplied By Facility): CTDIvol = 21.23 mGy, DLP = 2178.28 mGy.cm Individualized dose optimization techniques were used for this CT. TECHNIQUE CT sections were made through the abdomen and pelvis revealing the left side urinoma. The skin surface was prepped with chlorhexidine and draped in a sterile fashion. Puncture of this collection was performed with a 10 Tamazight catheter. Confirmation of catheter placement was verified with CT sections; however, fluid was unable to be aspirated despite catheter repositioning. The catheter was removed and an OpSite was placed over the insertion tract. Suspect this collection to be loculated and more viscous. The patient's existing pigtail drain was also redressed with Skin-Prep and a stay fix dressing. Patient tolerated well. IMPRESSION: Attempted drainage of left abdominal urinoma using CT guidance. A telephone conversation was had with Dr. Chapin relaying this information. Procedural Sedation protocol utilized with independent monitoring by the department nurse. Procedures Radiology Radiology CT Procedures: 03160 Image guided catheter drainage
== END 2024-03-04 23:59 | disposition home or self-care (01) ==
PROVIDERS: PCP Internal Medicine; Referring Provider Urology; Visit Provider Urology
DX: N28.89 Other specified disorders of kidney and ureter (principal); Z90.5 Acquired absence of kidney; I25.10 Atherosclerotic heart disease of native coronary artery without angina pectoris; I25.2 Old myocardial infarction; I10 Essential (primary) hypertension; F17.210 Nicotine dependence, cigarettes, uncomplicated; Z95.5 Presence of coronary angioplasty implant and graft; Z79.82 Long term (current) use of aspirin; Z79.899 Other long term (current) drug therapy
CPT/HCPCS: 49406; 77012; 99156; 99157; A4216

== ENCOUNTER 2024-04-09 13:32 | Emergency (ER) | payer BC, SELFPAY ==
[2024-04-09 13:33] VITALS: BP 128/77; PULSE 83; RESP 18; TEMP 36.6; O2SAT 97; BMI 35.2
--- NOTE | 2024-04-09 14:15 | CT_ITS ---
STUDY: CT ABDOMEN AND PELVIS WITH CONTRAST REASON FOR EXAM: Male, 54 years old. Recent nephro tube removal now swelling in side RADIATION DOSAGE (If Supplied By Facility): CTDIvol = ( 16.40 ) mGy, DLP = ( 801853 ) mGycm TECHNIQUE: Transaxial images were obtained from the dome of the diaphragm to the symphysis pubis without oral contrast. IV 100mL Isovue-300 was administered. Sagittal and coronal images were reconstructed. Individualized dose optimization techniques were used for this CT. COMPARISON: Comparison is made with prior study March 01, 2024. FINDINGS: The visualized lung bases are unremarkable. Coronary artery calcifications. Stable heterogeneous enhancement along the posterior aspect of the inferior aspect of the right lobe of the liver suggestive of hemangioma. This is unchanged. Stable 1.4 cm cyst in the medial aspect of the right lobe of the liver anteriorly. Normal gallbladder and extrahepatic biliary system. Normal spleen. Normal pancreas. Normal bilateral adrenal glands. Normal right kidney. Stable postoperative changes are seen in the mid lateral portion of the left kidney with prior partial nephrectomy. A left-sided double-J stent catheter is seen. No significant hydronephrosis is seen. Mild degree of increased left perinephric stranding suggestive of postoperative change and prior percutaneous drainage. No evidence of pararenal fluid collection at this time. Normal visualized stomach. Normal small intestine. There are multiple colonic diverticula consistent with diverticulosis. The appendix is visualized and appears normal. Normal abdominal aorta. Normal inferior vena cava. Normal retroperitoneum. Diffuse bladder wall thickening. Normal abdominal wall. Normal osseous structures. CT/Abdomen/Pelvis W IV Cont ONLY IMPRESSION: The previously seen fluid collection the posterior left pararenal space has resolved. Minimal postoperative changes are seen in the surrounding perinephric fat. A left-sided double-J stent catheter is seen. No hydronephrosis present. Stable postoperative changes in the lateral midportion of the left kidney. Stable findings in the liver. Electronically Signed: Carlos Alberto Burgess MD at 15:01 EST ,
--- NOTE | 2024-04-09 14:16 | EDS_ITS ---
HPI History of Present Illness Chief Complaint: Flank Pain Narrative Narrative: Patient is a 54-year-old male with past medical history of hyperlipidemia, hypertension, renal cancer with removal and had nephrostomy tube in place that was removed last week he follows with Dr. Chapin who presents to the [facility] part with a chief complaint of left-sided swelling and pain. Patient states that on Monday they noted that he developed some swelling that had progressively worsened over the past few days. He states that he is having increasing pain as well he called his urologist and they advised him to come here for a CAT scan. Patient otherwise feels okay. [facility] Medical History Wears glasses Cancer History of steroid therapy Arthritis History of renal disease High cholesterol Injury of head and neck Gastric reflux Smoker Injury of back Leg cramps History of pain when walking History of edema History of stress test Cardiology follow-up encounter Hypertension Pain Liver hemangioma Strain of right hip Lumbosacral radiculopathy Lumbosacral strain Arthritis of right hand Contusion of hand, right BBB (bundle branch block) Staphylococcal infection of skin Atherosclerotic heart disease of [place] coronary artery without angina pectoris Essential (primary) hypertension Tobacco use Obesity Acute non-ST segment elevation myocardial infarction HLD (hyperlipidemia) Home Medications ?Medication ?Instructions ?Recorded ?Last Taken ?Type albuterol sulfate 90 mcg/actuation 2 puff inhalation Q4H PRN PRN 06/19/18 03/28/19 Rx aerosol inhaler Wheezing ##1 aspirin 81 mg tablet,delayed 81 mg PO DAILY 06/28/18 01/21/24 History release (Adult Low Dose Aspirin) acetaminophen 500 mg tablet 1,000 mg PO Q8H PRN PRN Pain Score 03/28/19 03/28/19 History 1-02/28 atorvastatin 80 mg tablet 80 mg PO QHS #90 TABLETS 10/27/23 Unknown Rx carvedilol 6.25 mg tablet 6.25 mg PO BID for blood pressure 10/27/23 02/20/24 07:30 Rx #180 TABLETS lisinopril 10 mg tablet 10 mg PO DAILY #90 TABLETS 10/27/23 02/20/24 07:30 Rx isosorbide mononitrate 60 mg 60 mg PO DAILY #90 TABLETS 12/05/23 02/20/24 07:30 Rx tablet,extended release 24 hr gabapentin 300 mg capsule 300 mg PO TID PRN PRN pain 01/16/24 01/31/24 History nitroglycerin 0.4 mg sublingual 0.4 mg sublingual PRN PRN chest 01/17/24 Unknown History tablet pain ciprofloxacin HCl 500 mg tablet 500 mg PO DAILY #14 tabs 02/20/24 Unknown Rx (Cipro) oxycodone 5 mg tablet 5 mg PO Q6H PRN pain 7 days #20 02/20/24 Unknown Rx tabs pantoprazole 40 mg tablet,delayed 40 mg PO DAILY for indigestion #90 03/04/24 Unknown Rx release TABLETS cephalexin 500 mg capsule 500 mg PO Q12H 5 days #10 caps 04/09/24 Unknown Rx Allergy/AdvReac Type Severity Reaction Status Date / Time No Known Allergies Allergy Verified 04/09/24 13:33 Family History Father CAD (coronary artery disease) Mother CVA (cerebral vascular accident) CAD (coronary artery disease) Surgical History History of coronary artery stent placement Hx of hand surgery History of fusion of cervical spine History of left heart catheterization (11/04/16) History of knee replacement History of carpal tunnel release Social History Smoking Status: Current every day smoker tobacco type: cigarettes alcohol intake: never substance use type: does not use 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 ROS ROS ED ROS Narrative Constitutional:, Chills denies any fevers, headaches, lightness, dizziness Cardiovascular: Denies chest pain or palpitations Respiratory: Denies coughing wheezing shortness of breath Abdomen: Denies abdominal pain nausea vomit diarrhea : Denies any urinary symptoms Neurological: Denies numbness, exam tingling Musculoskeletal: Complains of left-sided back pain and swelling as noted above Skin: Denies rashes or lesions EXAM Physical Exam Narrative Exam Narrative: General: Patient lying in bed rest comfortably did not appear to be in acute distress Head: Atraumatic, normocephalic Eyes: PERRL bilateral, EOMI blood, no conjunctival injection noted Neck: Soft, supple, trachea midline Cardiovascular: Regular rate and rhythm no murmurs gallops rubs noted Respiratory: Clear to auscultation bilaterally no rales rhonchi or wheezes noted Abdomen: Soft, nondistended, nontender to palpation, bowel sounds present x 4 Musculoskeletal: Patient had CVA tenderness noted on the left side, no midline tenderness palpation of the thoracolumbar spine no right-sided CVA tenderness Extremities: +5/5 strength noted in the bilateral lower extremities, no pedal edema noted on exam Neurological: Patient is following commands knew that he was at [facility] years Skin: Warm, dry, intact no rashes or lesions noted Const Vital Signs: 04/09/24 13:33 Temperature 97.8 F Temperature Source Temporal Pulse Rate 83 Respiratory Rate 18 Blood Pressure 128/77 H Blood Pressure Mean 94 Pulse Ox 97 Oxygen Delivery Method Room Air MDM MDM MDM Narrative Medical decision making narrative: Patient is a 54-year-old male who presents to the Emergency Department with a concern for needing a CAT scan from his urologist is a recommendation for swelling on the left side after nephrostomy tube removal. Patient's will have a workup performed here on the differential diagnose includes but not limited to UTI, pyelonephritis, abscess. Once workup is obtained reviewed he will be reevaluated Patient CBC reviewed and showed no evidence leukocytosis white blood count normal at 9.7, hemoglobin was 13.8, platelet count normal at 335. Patient's sodium normal at 137, potassium normal 4.4, creatinine normal at 0.86. Patient's AST and ALT are 23 and 40 respectively. Patient's lipase normal at 25, urinalysis reviewed and was significant for positive nitrates 500 leukocyte esterase with 25-50 white cells and 1+ bacteria we will place him on Keflex and this will be sent for culture he was advised to follow-up on this culture result with his urologist. Patient CT on pelvis IV contrast reviewed and showed previously seen fluid collection in the posterior left pararenal space has resolved. Minimal postoperative changes seen surrounding perinephric fat. A left-sided double-J stent catheter is seen. No hydronephrosis present. Stable postoperative changes in the lateral midportion of the left kidney. Stable findings in the liver. Did discuss case with Dr. Chapin who reviewed the scan and states that he feels that the swelling in sensation that he is feeling is distended. He states that he will have his office call the patient this week for stent removal. I discussed the results with the patient and he would like to go home at this point time. He states he does have an appointment on with Dr. Chapin and he is advised to follow-up at that appointment. He is encouraged return with worsening symptoms or other concerns. All question concerns answered he is discharged home in stable condition. Lab Data Labs: Laboratory Results - last 24 hr 04/09/24 04/09/24 13:46 14:40 WBC 9.7 RBC 4.98 Hgb 13.8 Hct 42.9 MCV 86.1 MCH 27.7 MCHC 32.2 RDW Std Deviation 42.0 RDW Coeff of Ivan 13.3 Plt Count 335 MPV 10.0 Immature Gran % (Auto) 0.600 Neut % (Auto) 61.9 Lymph % (Auto) 19.2 [place] % (Auto) 11.8 H Eos % (Auto) 5.9 H Baso % (Auto) 0.6 Absolute Neuts (auto) 6.0 Absolute Lymphs (auto) 1.86 Nucleated RBC % 0 Sodium 137 Potassium 4.4 Chloride 107 Carbon Dioxide 27.0 Anion Gap 4 L BUN 16 Creatinine 0.86 Estim Creat Clear Calc 130.06 Est GFR (MDRD) Af Amer 119 Est GFR (MDRD) Non-Af 98 BUN/Creatinine Ratio 18.5 Glucose 99 Calcium 9.2 Total Bilirubin 0.50 AST 23 ALT 40 Alkaline Phosphatase 123 H Total Protein 7.2 Albumin 3.1 L Globulin 4.1 Albumin/Globulin Ratio 0.8 L Lipase 25 Urine Color Yellow Urine Clarity Cloudy Urine pH 6.0 Ur Specific [place] 1.020 Urine Protein 30 H Urine Glucose (UA) Normal Urine Ketones Negative Urine Occult Blood 25 H Urine Nitrite Positive H Urine Bilirubin Negative Urine Urobilinogen Normal Ur Leukocyte Esterase 500 H Urine RBC 0-5 SEEN Urine WBC 25-50 SEEN Ur Squamous Epith Cells 0 SEEN Ur Renal Epithelial Cell 0-5 SEEN Urine Bacteria 1+ Urine Mucus 1+ Radiography Diagnostic Testing: Clinical Impression(s) from Imaging Studies Abdomen/Pelvis CT 04/09/24 14:15 IMPRESSION: The previously seen fluid collection the posterior left pararenal space has resolved. Minimal postoperative changes are seen in the surrounding perinephric fat. A left-sided double-J stent catheter is seen. No hydronephrosis present. Stable postoperative changes in the lateral midportion of the left kidney. Stable findings in the liver. Electronically Signed: Carlos Alberto Burgess MD at 15:01 EST , Discharge Plan Triage Chief Complaint: Flank Pain ED Provider: Carlos Villegas Dx/Rx/DC Orders Clinical Impression: Acute left flank pain, Urinary tract infection Prescriptions: New cephalexin 500 mg capsule 500 mg PO Q12H 5 Days Qty: 10 0RF No Action aspirin [Adult Low Dose Aspirin] 81 mg tablet,delayed release (DR/EC) 81 mg PO DAILY gabapentin 300 mg capsule 300 mg PO TID PRN PRN (Reason: pain) albuterol sulfate 1 INHALER inhaler 2 puff inhalation Q4H PRN PRN (Reason: Wheezing) Qty: 1 0RF acetaminophen 500 MG tablet 1,000 mg PO Q8H PRN PRN (Reason: Pain Score 1-10/10) nitroglycerin 0.4 mg tablet, sublingual 0.4 mg sublingual PRN PRN (Reason: chest pain) Rx Instructions: DISSOLVE 1 TABLET UNDER TONGUE EVERY 5 MINUTES NEEDED FOR CHEST PAIN ciprofloxacin HCl [Cipro] 500 mg tablet 500 mg PO DAILY Qty: 14 0RF oxycodone 5 mg tablet 5 mg PO Q6H PRN (Reason: pain) 7 Days Qty: 20 0RF carvedilol 6.25 mg tablet 6.25 mg PO BID Qty: 180 3RF lisinopril 10 mg tablet 10 mg PO DAILY Qty: 90 3RF atorvastatin 80 mg tablet 80 mg PO QHS Qty: 90 3RF isosorbide mononitrate 60 mg tablet extended release 24 hr 60 mg PO DAILY Qty: 90 3RF pantoprazole 40 mg tablet,delayed release (DR/EC) 40 mg PO DAILY Qty: 90 3RF Primary Care Provider: Alyse Bui Referrals: Alyse Bui MD [Primary Care Provider] - Activity Restrictions/Additional Instructions: Follow-up with Dr. Chapin at your scheduled appointment on . Follow-up on urine culture results with him or your primary care physician. Take antibiotics as prescribed. Return if worsening symptoms or other concerns. Your kidney does not appear to be leaking your CT showed no leak. Print Language: Welsh Disposition Disposition: Home, Self Care
[2024-04-09 14:18] LABS: Absolute Lymphocyte Count 1.86 X10^3/uL (0.83-4.51); Basophil# 0.06 X10^3/uL; Basophil% 0.6 % (0-1); Eosinophil# 0.57 X10^3/uL; Eosinophils% 5.9 % (0-5); Hematocrit 42.9 % (40-54); Hemoglobin 13.8 g/dL (13.0-16.5); Lymphocyte # 1.86 X10^3/ul (0.83-4.51); Lymphocyte % 19.2 % (19-41); Mean Corp Hgb Conc 32.2 g/dL (32-36); Mean Corpuscular Hgb 27.7 pg (27.0-32.0); Mean Corpuscular Volume 86.1 fL (80-94); Monocyte# 1.14 X10^3/uL; Monocyte% 11.8 % (0-10); NRBC Flagged by Analyzer 0 % (0-5); Neutrophil # 5.99 X10^3/uL (2.7-7.7); Neutrophil % 61.9 % (47-70); Platelet Count 335 K/mm3 (150-450); RBC Distribution Width CV 13.3 % (11.6-14.6); Red Blood Count 4.98 M/mm3 (4.6-6.2); White Blood Count 9.7 K/mm3 (4.4-11.0)
[2024-04-09 14:39] LABS: ALB/GLOB Ratio 0.8 RATIO (0.9-2.4); AST(SGOT) 23 U/L (15-37); Alanine Aminotransfer ALT/SGPT 40 U/L (16-61); Albumin, Serum 3.1 g/dL (3.2-5.0); Alkaline Phosphatase 123 U/L (45-117); Anion Gap 4 (5-15); BUN 16 mg/dL (7-18); BUN/Creat Ratio 18.5 RATIO (10-20); Calcium,Total 9.2 mg/dL (8.5-10.1); Chloride 107 mmol/L (98-107); Creatinine, Serum 0.86 mg/dL (0.70-1.30); EST Glomerular Filtration Rate 98 mL/min (>60); Est Glom Filt Rate - Afr Amer 119 mL/min (>60); Estimated Creatinine Clearance 130.06 ml/min; Globulin 4.1 g/dL (2.2-4.2); Glucose 99 mg/dL (74-106); Lipase 25 U/L (13-75); Potassium 4.4 mmol/L (3.5-5.1); Protein, Total 7.2 g/dL (6.4-8.2); Sodium Level 137 mmol/L (136-145)
[2024-04-09 14:51] LABS: Squamous Epithelial Cells - UA 0 SEEN /hpf (0-5)
[2024-04-09 14:52] LABS: Color, Urine Yellow (Yellow); Glucose, Dipstick Normal (Normal); Ketone-Dipstick Negative (Negative); Leukocyte Esterase-Dipstick 500 /ul (Negative); Nitrite-Dipstick Positive (Negative); Occult Blood-Urine 25 /ul (Negative); Protein-Dipstick 30 mg/dl (Negative); Urine Bilirubin Dipstick Negative (Negative); Urine Clarity Cloudy (Clear); Urine Urobilinogen Normal (Normal)
[2024-04-09 15:32] LABS: Bacteria 1+ /hpf (None Seen); Mucous, Urine 1+ /hpf (<or=2+); Red Blood Cells-Urine 0-5 SEEN /hpf (0-5); Renal Epithelial Cells 0-5 SEEN /hpf (0-5); White Blood Cells 25-50 SEEN /hpf (0-5)
[2024-04-09 15:33] VITALS: BP 107/69; PULSE 75; RESP 16; O2SAT 97
[2024-04-09 15:59] VITALS: BP 107/67; PULSE 75; RESP 16; TEMP 36.3; O2SAT 97
== END 2024-04-09 16:01 | disposition home or self-care (01) ==
PROVIDERS: Emergency Provider Emergency Medicine; PCP Internal Medicine; Visit Provider Emergency Medicine
DX: N39.0 Urinary tract infection, site not specified (principal); I10 Essential (primary) hypertension; I25.10 Atherosclerotic heart disease of native coronary artery without angina pectoris; I25.2 Old myocardial infarction; E78.00 Pure hypercholesterolemia, unspecified; F17.210 Nicotine dependence, cigarettes, uncomplicated; Z95.5 Presence of coronary angioplasty implant and graft; Z79.82 Long term (current) use of aspirin; Z79.899 Other long term (current) drug therapy; Z85.528 Personal history of other malignant neoplasm of kidney
CPT/HCPCS: 74177; 80053; 81001; 83690; 85025; 87077; 87086; 87088; 87186; 99283; Q9967

== ENCOUNTER 2024-04-26 10:21 | Day surgery (SDC) | payer BC, SELFPAY ==
[2024-04-26] VITALS (8 sets, daily range): BP systolic 83–113; BP diastolic 60–75; PULSE 77–89; RESP 16–18; TEMP 36.3–36.6; O2SAT 88–97; BMI 35.2
--- NOTE | 2024-04-26 11:46 | PCM.HP.STD ---
HPI - General General Date of Admission: 04/26/24 Chief Complaint: Urine leak HPI Narrative ELMER ARBOLEDA, is a 54 M who presents for removal of his stent he had a stent placed and a drain placed for urine leak after a partial nephrectomy the leak is now sealed off and jeb remove the stent today in the operating room. [facility] Medical History (Updated 04/17/24 @ 00:01 by Background Daeboni) Hx of malignant carcinoid tumor of kidney Wears glasses Cancer Arthritis History of renal disease High cholesterol Injury of head and neck Gastric reflux Smoker Injury of back Leg cramps History of pain when walking History of edema History of stress test Cardiology follow-up encounter Hypertension Pain Liver hemangioma Strain of right hip Lumbosacral radiculopathy Lumbosacral strain Arthritis of right hand Contusion of hand, right BBB (bundle branch block) Staphylococcal infection of skin Atherosclerotic heart disease of [place] coronary artery without angina pectoris Essential (primary) hypertension Tobacco use Obesity Acute non-ST segment elevation myocardial infarction HLD (hyperlipidemia) Home Medications ?Medication ?Instructions ?Recorded ?Last Taken ?Type albuterol sulfate 90 mcg/actuation 2 puff inhalation Q4H PRN PRN 06/19/18 03/28/19 Rx aerosol inhaler Wheezing ##1 aspirin 81 mg tablet,delayed 81 mg PO DAILY 06/28/18 04/12/24 History release (Adult Low Dose Aspirin) acetaminophen 500 mg tablet 1,000 mg PO Q8H PRN PRN Pain Score 03/28/19 03/28/19 History 1-02/28 atorvastatin 80 mg tablet 80 mg PO QHS #90 TABLETS 10/27/23 Unknown Rx carvedilol 6.25 mg tablet 6.25 mg PO BID for blood pressure 10/27/23 04/26/24 Rx #180 TABLETS lisinopril 10 mg tablet 10 mg PO DAILY #90 TABLETS 10/27/23 04/26/24 Rx isosorbide mononitrate 60 mg 60 mg PO DAILY #90 TABLETS 12/05/23 04/26/24 Rx tablet,extended release 24 hr gabapentin 300 mg capsule 300 mg PO TID PRN PRN pain 01/16/24 01/31/24 History nitroglycerin 0.4 mg sublingual 0.4 mg sublingual PRN PRN chest 01/17/24 Unknown History tablet pain pantoprazole 40 mg tablet,delayed 40 mg PO DAILY for indigestion #90 03/04/24 04/26/24 Rx release TABLETS Allergy/AdvReac Type Severity Reaction Status Date / Time No Known Allergies Allergy Verified 04/26/24 10:38 Family History Father CAD (coronary artery disease) Mother CVA (cerebral vascular accident) CAD (coronary artery disease) Surgical History (Updated 04/15/24 @ 08:43 by Kira Browning) History of cystoscopy History of coronary artery stent placement Hx of hand surgery History of fusion of cervical spine History of left heart catheterization (11/04/16) History of knee replacement History of carpal tunnel release Social History Smoking Status: Current every day smoker tobacco type: cigarettes alcohol intake: never substance use type: does not use 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
--- NOTE | 2024-04-26 11:50 | PRE.ANES_ITS ---
ASA Classification* ASA Classification ASA Classification: 3 Assessment & Plan Anesthesia* Anesthesia Assessment Anesthesia Assessment: Discussed sedation and/or anesthesia options, risks, benefits, and alternatives with patient/parents/legal guardian/POA. Questions invited. The patient/parents/legal guardian/POA seems to understand and agrees to proceed with anesthesia plan. Reviewed the physical assessment, medical history, allergy history and patient home medications list prior to surgery/procedure/anesthetic and documented any changes. Performed airway and anesthesia risk assessments. Anesthesia Type Anesthesia Type: MAC (GA bkup) Anesthesia Focused Assessment* Temperature: 97.9 F Pulse Rate: 89 Blood Pressure: 113/75 Respiratory Rate: 16 Pulse Ox: 97 Airway Assessment Mouth opens: >3 cm Mallampati Score: II Focused Labs Anesthesia Preop lab: CBC WBC 9.7 K/mm3 (4.4-11.0) 04/09/24 13:46 RBC 4.98 M/mm3 (4.6-6.2) 04/09/24 13:46 Hgb 13.8 g/dL (13.0-16.5) 04/09/24 13:46 Hct 42.9 % (40-54) 04/09/24 13:46 Plt Count 335 K/mm3 (150-450) 04/09/24 13:46 CHEMISTRY Potassium 4.4 mmol/L (3.5-5.1) 04/09/24 13:46 Sodium 137 mmol/L (136-145) 04/09/24 13:46 Magnesium 1.9 mg/dL (1.6-2.6) 03/28/19 14:10 BUN 16 mg/dL (7-18) 04/09/24 13:46 Creatinine 0.86 mg/dL (0.70-1.30) 04/09/24 13:46 Glucose 99 mg/dL (74-106) 04/09/24 13:46 COAG PT 14.0 SECONDS (11.7-14.9) 03/01/24 12:00 Pre-Assessment Diagnosis/Proposed Procedure Planned Operative Procedure(s): CYSTO RETROGRADE STENT REMOVAL LEFT Anesthesia History 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 When Was Last Pacemaker Check QUESTION #4 FULL TEXT: You/Your Family Experience fever (hyperthermia) with Anesthesia Last Oral Intake Last Oral intake: Last Oral Intake NPO since 07:45 04/26/24 10:41 Meds taken in AM with sips of Yes 04/26/24 10:41 water? Meds patient instructed to protonix, isosorbide, 04/26/24 10:41 take am of surgery lisinopril, coreg PONV PONV - petroleum geology faculty member: PONV - petroleum geology faculty member Female No 04/15/24 08:15 HX of Motion Sickness No 04/15/24 08:15 HX of N/V After Surgery No 04/15/24 08:15 Non-Smoker No 04/15/24 08:15 Duration of Surgery greater No 04/15/24 08:15 than 60 minutes Number of Risk Factors PONV Score Height & Weight Height & Weight: Anesthesia: Height & Weight Height 6 ft 04/26/24 10:41 Weight: 117.7 kg 04/26/24 10:41 Body Mass Index (BMI) 35.2 04/26/24 10:41 Respiratory Assessment Respiratory Assessment - petroleum geology faculty member: Respiratory Tract Infection Hx - petroleum geology faculty member Hx Respiratory Tract Infection No 04/15/24 08:15 STOP Sleep Apnea STOP Sleep Apnea - petroleum geology faculty member: STOP Sleep Apnea - petroleum geology faculty member Hx Hypertension Yes: CONTROLLED WITH MED 04/15/24 08:15 Hx Sleep Apnea No 04/15/24 08:15 CPAP BIPAP Do you snore loudly (louder Yes 04/15/24 08:15 than talking or can be heard Do you often feel tired/ No 04/15/24 08:15 fatigued/ sleepy during daytime? Has anyone observed you stop No 04/15/24 08:15 breathing during sleep? STOP Results Positive 04/15/24 08:15 QUESTION #5 FULL TEXT : Do you snore loudly (louder than talking or can be heard through closed doors)? 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 Specify any problems Hx of Preganancy in last 3 N/A 04/15/24 08:15 Months Nurse Filling Out Transfusion DSCHRIBER 04/15/24 08:15 & Questions: Date: 04/15/24 04/15/24 08:15 Time: 04/15/24 08:15 Patient unable to answer at this time (ie. confused, unrespo /Reproduction History /Reproductive History - petroleum geology faculty member: /Reproductive Hx- petroleum geology faculty member Hx Now Gestational Age (in weeks): EDC: Hx Hx Para Hx Section SAB No 04/15/24 08:15 Active Medications Active Medications: Current Medications Generic Name Dose Route Start Last Admin Trade Name Freq PRN Reason Stop Dose Admin Cefazolin Sodium 2 gm/ N/A 20 mls @ 400 mls/hr 04/26/24 12:35 IV 04/26/24 12:37 PREOP ONE PFSH Medical History Hx of malignant carcinoid tumor of kidney Wears glasses Cancer Arthritis History of renal disease High cholesterol Injury of head and neck Gastric reflux Smoker Injury of back Leg cramps History of pain when walking History of edema History of stress test Cardiology follow-up encounter Hypertension Pain Liver hemangioma Strain of right hip Lumbosacral radiculopathy Lumbosacral strain Arthritis of right hand Contusion of hand, right BBB (bundle branch block) Staphylococcal infection of skin Atherosclerotic heart disease of [place] coronary artery without angina pectoris Essential (primary) hypertension Tobacco use Obesity Acute non-ST segment elevation myocardial infarction HLD (hyperlipidemia) Home Medications ?Medication ?Instructions ?Recorded ?Last Taken ?Type albuterol sulfate 90 mcg/actuation 2 puff inhalation Q4H PRN PRN 06/19/18 03/28/19 Rx aerosol inhaler Wheezing ##1 aspirin 81 mg tablet,delayed 81 mg PO DAILY 06/28/18 04/12/24 History release (Adult Low Dose Aspirin) acetaminophen 500 mg tablet 1,000 mg PO Q8H PRN PRN Pain Score 03/28/19 03/28/19 History 1-02/28 atorvastatin 80 mg tablet 80 mg PO QHS #90 TABLETS 10/27/23 Unknown Rx carvedilol 6.25 mg tablet 6.25 mg PO BID for blood pressure 10/27/23 04/26/24 Rx #180 TABLETS lisinopril 10 mg tablet 10 mg PO DAILY #90 TABLETS 10/27/23 04/26/24 Rx isosorbide mononitrate 60 mg 60 mg PO DAILY #90 TABLETS 12/05/23 04/26/24 Rx tablet,extended release 24 hr gabapentin 300 mg capsule 300 mg PO TID PRN PRN pain 01/16/24 01/31/24 History nitroglycerin 0.4 mg sublingual 0.4 mg sublingual PRN PRN chest 01/17/24 Unknown History tablet pain pantoprazole 40 mg tablet,delayed 40 mg PO DAILY for indigestion #90 03/04/24 04/26/24 Rx release TABLETS Allergy/AdvReac Type Severity Reaction Status Date / Time No Known Allergies Allergy Verified 04/26/24 10:38 Family History Father CAD (coronary artery disease) Mother CVA (cerebral vascular accident) CAD (coronary artery disease) Surgical History History of cystoscopy History of coronary artery stent placement Hx of hand surgery History of fusion of cervical spine History of left heart catheterization (11/04/16) History of knee replacement History of carpal tunnel release Social History Smoking Status: Current every day smoker tobacco type: cigarettes alcohol intake: never substance use type: does not use 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
[2024-04-26] MEDS: Cefazolin 2 GM in Syringe IV (12:05)
--- NOTE | 2024-04-26 12:22 | PCM.DC ---
Discharge Instructions Diet Discharge Diet: No restrictions DC O2, CPAP, BIPAP needs Additional Home O2 Discharge instructions: No Dressing / Incision Discharge Activity: Return to Normal Activity and May Not Drive (while taking narcotic pain medications.) Dressing / Incision Call your doctor if you observe: Fever of 101 or Higher Follow Up Care Please Follow Up With: Dallas Chapin MD When: Call [phone] for an appointment Test Results: Test results from this visit will be discussed in further detail at your follow-up appointment, if applicable. Discharge Plan Admission Primary Reason for Your Visit: stent removal Attending Provider: Dallas Chapin Primary Care Provider: Alyse Bui Instructions Print Language: [place] Discharge Orders/Prescriptions Prescriptions: Continued aspirin [Adult Low Dose Aspirin] 81 mg tablet,delayed release (DR/EC) 81 mg PO DAILY gabapentin 300 mg capsule 300 mg PO TID PRN PRN (Reason: pain) albuterol sulfate 1 INHALER inhaler 2 puff inhalation Q4H PRN PRN (Reason: Wheezing) Qty: 1 0RF acetaminophen 500 MG tablet 1,000 mg PO Q8H PRN PRN (Reason: Pain Score 1-10/10) nitroglycerin 0.4 mg tablet, sublingual 0.4 mg sublingual PRN PRN (Reason: chest pain) Rx Instructions: DISSOLVE 1 TABLET UNDER TONGUE EVERY 5 MINUTES NEEDED FOR CHEST PAIN carvedilol 6.25 mg tablet 6.25 mg PO BID Qty: 180 3RF lisinopril 10 mg tablet 10 mg PO DAILY Qty: 90 3RF atorvastatin 80 mg tablet 80 mg PO QHS Qty: 90 3RF isosorbide mononitrate 60 mg tablet extended release 24 hr 60 mg PO DAILY Qty: 90 3RF pantoprazole 40 mg tablet,delayed release (DR/EC) 40 mg PO DAILY Qty: 90 3RF Referrals / Follow Up: Alyse Bui MD [Primary Care Provider] - Disposition Disposition (needs filled in before D/C Order can be placed): Home, Self Care
--- NOTE | 2024-04-26 12:22 | PCM.OPRPT ---
Operative Report (Standard) Operative Information Date of Procedure: 04/26/24 Pre-Operative Diagnosis: Status post left partial nephrectomy and urine leak with stent Post-Operative Diagnosis: The same Surgery/Procedure Performed: Cystoscopy and left stent removal product accountant: No Type of Anesthesia: MAC RN Documented Start/Stop Times: Operation Date: 04/26/24 12:35 Case Time Into Pre-Op 04/26/24 10:26 Anesthesia Start 04/26/24 12:05 Into Room 04/26/24 12:05 Procedure Start 04/26/24 12:17 Procedure End 04/26/24 12:20 Procedure Start Time: 12:17 Procedure Stop Time: 12:22 Select all DRAINS/GRAFTS/IMPLANTS that apply: None Estimated Blood Loss: None Specimen collected: No Description of surgery: This is a 54-year-old gentleman who underwent a partial nephrectomy about 8 weeks ago postop he developed a urine leak and required a drainage tube to control the leak and we also placed a stent after the leak stopped with the drainage tube was removed and the stent has now been and left in place to the kidney is healed up from the partial nephrectomy and the leak is healed up so remove the stent today, he was taken back to the operating room after smooth induction of a MAC local he was placed upon on the table the penis testicles were prepped and draped in usual sterile fashion went into the bladder with a 21 American rigid cystourethroscope I did have to dilate the meatus is very tight meatal area and then went to get through the meatus with the scope that I got inside the bladder I grabbed the stent with a grasper and then gently pulled the stent out of the bladder and the kidney. Patient anesthetic reversed and he is takeback to PACU condition I will see him for follow-up in about 6 weeks Surgical Findings: Very tight meatus had to dilate the meatus and then as did a cystoscopy and remove the left stent Complications Complications: No Admit VTE Documentation VTE Present on Admission: No VTE Mechan Device Prophylaxis: SCD's VTE Pharm Prophylaxis ordered?: No
--- NOTE | 2024-04-26 12:29 | PCM.POST.ANE ---
Anesthesia: Postop Eval I Current Vital Signs Temperature: 97.9 F Pulse Rate: 87 Blood Pressure: 83/69 Respiratory Rate: 18 Pulse Ox: 94 Assessment Airway patent: Yes Spontaneous unlabored respirations: Yes nausea: No Vomiting: No Anesthesia Complication: No Fluid Hydration Crystalloid volume administer (ml): 0 Total IV fluid infused: 0 Progress Note Anesthesia document: Postop Eval 1 completed: Yes
[2024-04-26] MEDS: Ketorolac 15 MG/ML Vial IV (13:08)
--- NOTE | 2024-04-26 13:33 | POSTOPAN2_ITS ---
Anesthesia Postop Eval I Sum Postop Eval Completion status Anesthesia document: Postop Eval 1 completed: Yes Anesthesia Postop Eval I Summary Anesthesia Postop Eval I Summary: Anesthesia Postop Eval I: Assessment Summary Airway patent Yes 04/26/24 12:29 CONDUCTOR AND ENGINEER.CSIR Spontaneous unlabored Yes 04/26/24 12:29 CONDUCTOR AND ENGINEER.CSIR respirations Mental status nausea No 04/26/24 12:29 CONDUCTOR AND ENGINEER.CSIR Vomiting No 04/26/24 12:29 CONDUCTOR AND ENGINEER.CSIR Anesthesia Postop Eval I: Fluid Summary Crystalloid volume administer 0 04/26/24 12:29 CONDUCTOR AND ENGINEER.CSIR (ml) Colloids volume administered ( ml) Blood Product volume administered (ml) Total IV fluid infused 0 04/26/24 12:29 CONDUCTOR AND ENGINEER.CSIR Anesthesia Postop Eval I: Summary Notes Anesthesia Complication No 04/26/24 12:29 CONDUCTOR AND ENGINEER.CSIR Anesthesia Complication Comment: Post-operative progress note Anesthesia: Postop Eval II Evaluation Mental status: Awake Pain Level: 0 nausea: No Vomiting: No
--- NOTE | 2024-04-26 13:33 | PCM.POSTANE2 ---
Anesthesia Postop Eval I Sum Postop Eval Completion status Anesthesia document: Postop Eval 1 completed: Yes Anesthesia Postop Eval I Summary Anesthesia Postop Eval I Summary: Anesthesia Postop Eval I: Assessment Summary Airway patent Yes 04/26/24 12:29 BRANCH CUSTOMER SERVICE REPRESENTATIVE.CSIR Spontaneous unlabored Yes 04/26/24 12:29 BRANCH CUSTOMER SERVICE REPRESENTATIVE.CSIR respirations Mental status nausea No 04/26/24 12:29 BRANCH CUSTOMER SERVICE REPRESENTATIVE.CSIR Vomiting No 04/26/24 12:29 BRANCH CUSTOMER SERVICE REPRESENTATIVE.CSIR Anesthesia Postop Eval I: Fluid Summary Crystalloid volume administer 0 04/26/24 12:29 BRANCH CUSTOMER SERVICE REPRESENTATIVE.CSIR (ml) Colloids volume administered ( ml) Blood Product volume administered (ml) Total IV fluid infused 0 04/26/24 12:29 BRANCH CUSTOMER SERVICE REPRESENTATIVE.CSIR Anesthesia Postop Eval I: Summary Notes Anesthesia Complication No 04/26/24 12:29 BRANCH CUSTOMER SERVICE REPRESENTATIVE.CSIR Anesthesia Complication Comment: Post-operative progress note Anesthesia: Postop Eval II Evaluation Mental status: Awake Pain Level: 0 nausea: No Vomiting: No
== END 2024-04-26 13:23 | disposition home or self-care (01) ==
LOC: SDC 10:22 → AC 10:27
PROVIDERS: PCP Internal Medicine; Referring Provider Urology; Visit Provider Urology
PROC: (CPT 52332; principal; 2024-04-26 12:25)
DX: Z46.6 Encounter for fitting and adjustment of urinary device (principal); I25.10 Atherosclerotic heart disease of native coronary artery without angina pectoris; E78.00 Pure hypercholesterolemia, unspecified; I10 Essential (primary) hypertension; I25.2 Old myocardial infarction; F17.210 Nicotine dependence, cigarettes, uncomplicated; Z90.5 Acquired absence of kidney; Z95.5 Presence of coronary angioplasty implant and graft; Z79.82 Long term (current) use of aspirin; Z79.899 Other long term (current) drug therapy
CPT/HCPCS: 52310; A4216; J2405

== ENCOUNTER 2024-06-17 14:09 | Observation (INO) | payer BC, SELFPAY ==
[2024-06-17] VITALS (23 sets, daily range): BP systolic 89–121; BP diastolic 51–73; PULSE 70–109; RESP 14–33; TEMP 36.8–37.7; O2SAT 88–94; BMI 35.5; BMI 34.9
[2024-06-17 15:33] LABS: Absolute Lymphocyte Count 0.54 X10^3/uL (0.83-4.51); Absolute Neutrophil Count 3.3 X10^3/uL (2.0-7.7); Basophil# 0.03 X10^3/uL; Basophil% 0.6 % (0-1); Eosinophil# 0.01 X10^3/uL; Eosinophils% 0.2 % (0-5); Hematocrit 43.6 % (40-54); Hemoglobin 14.4 g/dL (13.0-16.5); Lymphocyte # 0.54 X10^3/ul (0.83-4.51); Lymphocyte % 10.5 % (19-41); Mean Corpuscular Hgb 27.7 pg (27.0-32.0); Mean Corpuscular Volume 83.8 fL (80-94); Mean Platelet Vol. 9.5 fl (6.2-12.0); Monocyte# 1.23 X10^3/uL; Monocyte% 23.8 % (0-10); NRBC Flagged by Analyzer 0 % (0-5); Neutrophil # 3.31 X10^3/uL (2.7-7.7); Neutrophil % 64.1 % (47-70); POSITIVE DIFFERENTIAL YES; Platelet Count 204 K/mm3 (150-450); RBC Distribution Width CV 15.8 % (11.6-14.6); RBC Distribution Width SD 47.8 fl (35.1-43.9); White Blood Count 5.2 K/mm3 (4.4-11.0)
[2024-06-17 15:54] LABS: Anion Gap 6 (5-15); BUN 16 mg/dL (7-18); BUN/Creat Ratio 13.3 RATIO (10-20); Calcium,Total 9.2 mg/dL (8.5-10.1); Chloride 100 mmol/L (98-107); EST Glomerular Filtration Rate 67 mL/min (>60); Est Glom Filt Rate - Afr Amer 81 mL/min (>60); Estimated Creatinine Clearance 93.66 ml/min; Glucose 98 mg/dL (74-106); Potassium 3.9 mmol/L (3.5-5.1); Sodium Level 133 mmol/L (136-145)
--- NOTE | 2024-06-17 16:30 | EDS_ITS ---
HPI History of Present Illness Chief Complaint: Shortness of Breath PFSH [facility] Medical History Hx of malignant carcinoid tumor of kidney Wears glasses Cancer Arthritis History of renal disease High cholesterol Injury of head and neck Gastric reflux Smoker Injury of back Leg cramps History of pain when walking History of edema History of stress test Cardiology follow-up encounter Hypertension Pain Liver hemangioma Strain of right hip Lumbosacral radiculopathy Lumbosacral strain Arthritis of right hand Contusion of hand, right BBB (bundle branch block) Staphylococcal infection of skin Atherosclerotic heart disease of [place] coronary artery without angina pectoris Essential (primary) hypertension Tobacco use Obesity Acute non-ST segment elevation myocardial infarction HLD (hyperlipidemia) Home Medications ?Medication ?Instructions ?Recorded ?Last Taken ?Type aspirin 81 mg tablet,delayed 81 mg PO DAILY 06/28/18 06/17/24 History release (Adult Low Dose Aspirin) acetaminophen 500 mg tablet 1,000 mg PO Q8H PRN Pain Score 03/28/19 03/28/19 History 1 atorvastatin 80 mg tablet 80 mg PO QHS #90 TABLETS 10/27/23 06/16/24 Rx carvedilol 6.25 mg tablet 6.25 mg PO BID for blood pressure 10/27/23 06/17/24 Rx #180 TABLETS lisinopril 10 mg tablet 10 mg PO DAILY #90 TABLETS 10/27/23 06/17/24 Rx isosorbide mononitrate 60 mg 60 mg PO DAILY #90 TABLETS 12/05/23 06/17/24 Rx tablet,extended release 24 hr gabapentin 300 mg capsule 300 mg PO TID PRN pain 01/16/24 06/17/24 History nitroglycerin 0.4 mg sublingual 0.4 mg sublingual PRN PRN chest 01/17/24 Unknown History tablet pain pantoprazole 40 mg tablet,delayed 40 mg PO DAILY for indigestion #90 03/04/24 06/17/24 Rx release TABLETS dibucaine 1 % rectal ointment 1 applic SC TID PRN hemorrhoids 06/13/24 06/17/24 Rx #28.4 grams albuterol sulfate 90 mcg/actuation 2 puff inhalation Q4H PRN Wheezing 06/17/24 Unknown History aerosol inhaler Allergy/AdvReac Type Severity Reaction Status Date / Time No Known Allergies Allergy Verified 05/30/24 11:18 Family History Father CAD (coronary artery disease) Mother CVA (cerebral vascular accident) CAD (coronary artery disease) Surgical History History of cystoscopy History of coronary artery stent placement Hx of hand surgery History of fusion of cervical spine History of left heart catheterization (11/04/16) History of knee replacement History of carpal tunnel release Social History Smoking Status: Current every day smoker tobacco type: cigarettes alcohol intake: never substance use type: does not use additional 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 EXAM Physical Exam Const Vital Signs: 06/17/24 14:10 06/17/24 16:44 06/17/24 16:44 Temperature 99.7 F H 100 F H Temperature Source Oral Oral Pulse Rate 109 H 98 Respiratory Rate 24 H 19 H Respiratory Effort Respiratory Depth Respiratory Pattern Blood Pressure 105/73 114/69 Blood Pressure Mean 83 84 Pulse Ox 91 92 Oxygen Delivery Method Room Air Room Air Room Air Oxygen Flow Rate (L/min) 06/17/24 16:44 06/17/24 16:46 06/17/24 17:05 Temperature Temperature Source Pulse Rate Respiratory Rate 20 H Respiratory Effort Short of Breath Respiratory Depth Shallow Respiratory Pattern Tachypnea Blood Pressure Blood Pressure Mean Pulse Ox 92 88 Oxygen Delivery Method Room Air Room Air Room Air Oxygen Flow Rate (L/min) 06/17/24 17:05 06/17/24 17:16 06/17/24 17:45 Temperature Temperature Source Pulse Rate 90 86 Respiratory Rate 16 16 Respiratory Effort Respiratory Depth Respiratory Pattern Blood Pressure 100/58 L Blood Pressure Mean 72 Pulse Ox 94 Oxygen Delivery Method Nasal Cannula Oxygen Flow Rate (L/min) 2 06/17/24 18:00 06/17/24 18:15 06/17/24 18:30 Temperature Temperature Source Pulse Rate 84 84 79 Respiratory Rate 14 14 23 H Respiratory Effort Respiratory Depth Respiratory Pattern Blood Pressure 89/58 L 108/51 L 98/64 Blood Pressure Mean 69 68 74 Pulse Ox Oxygen Delivery Method Oxygen Flow Rate (L/min) 06/17/24 18:45 06/17/24 19:00 06/17/24 19:00 Temperature Temperature Source Pulse Rate 79 84 83 Respiratory Rate 24 H 16 32 H Respiratory Effort Respiratory Depth Respiratory Pattern Blood Pressure 98/53 L 104/63 108/63 Blood Pressure Mean 68 76 77 Pulse Ox 93 Oxygen Delivery Method Oxygen Flow Rate (L/min) 06/17/24 19:15 06/17/24 19:30 06/17/24 19:45 Temperature Temperature Source Pulse Rate 84 79 80 Respiratory Rate 27 H 26 H 22 H Respiratory Effort Respiratory Depth Respiratory Pattern Blood Pressure 99/58 L Blood Pressure Mean 71 Pulse Ox Oxygen Delivery Method Oxygen Flow Rate (L/min) 06/17/24 19:47 06/17/24 20:00 06/17/24 20:15 Temperature Temperature Source Pulse Rate 82 78 77 Respiratory Rate 30 H 33 H 22 H Respiratory Effort Respiratory Depth Respiratory Pattern Blood Pressure 112/65 104/58 L 100/57 L Blood Pressure Mean 77 72 70 Pulse Ox Oxygen Delivery Method Oxygen Flow Rate (L/min) 06/17/24 20:30 06/17/24 20:45 06/17/24 20:45 Temperature 98.6 F Temperature Source Pulse Rate 75 75 73 Respiratory Rate 28 H 22 H 27 H Respiratory Effort Respiratory Depth Respiratory Pattern Blood Pressure 108/58 L 100/58 L 100/58 L Blood Pressure Mean 72 72 71 Pulse Ox 91 Oxygen Delivery Method Oxygen Flow Rate (L/min) 06/17/24 21:00 Temperature Temperature Source Pulse Rate 78 Respiratory Rate 24 H Respiratory Effort Respiratory Depth Respiratory Pattern Blood Pressure 102/73 Blood Pressure Mean 83 Pulse Ox Oxygen Delivery Method Oxygen Flow Rate (L/min) [facility] MDM MDM Narrative Medical decision making narrative: HISTORY OF PRESENT ILLNESS: 54-year-old male presents with shortness of breath, productive cough, fever and nausea. Notes began in the last 24 hours. He notes symptoms are worse with exertion. Denies leg swelling. Denies any bleeding diathesis. The patient denies recent surgery in the last 4 weeks or immobilization in the last 3 days, denies previous diagnosis of DVT or PE, hemoptysis, unilateral leg swelling or malignancy with treatment the last 6 months or palliative. No estrogen use noted. REVIEW OF SYSTEMS: Pertinent positives: As per HPI Pertinent negatives: Chest pain PHYSICAL EXAM: Nursing triage notes reviewed, Vital signs reviewed Constitutional: please see mdm HENT: MMM Eyes: Pupils equal round and reactive to light, Extraocular muscles intact Neck: No stridor, no JVD, full neck ROM Lungs: Clear to auscultation, No wheezing or rales. No increased work of breathing, no conversational dyspnea, no accessory muscle use, no nasal flaring. No respiratory distress noted Heart: Regular rate and rhythm, No murmurs, No rubs and No gallops, 2+ distal pulses (radial, femoral, posterior tibial) in all extremities Abdomen: Soft, there is no tenderness, rigidity, rebound or guarding, no obvious peritoneal signs, no palpable pulsatile abdominal masses, no auscultated abdominal bruit : No CVAT Extremities: No edema Neuro: Alert, no new focal neurological deficits, cranial nerves II through XII intact, 5/5 strength in all present extremities. Intact sensation to light touch in all present extremities Skin: No rash or lesions noted MEDICAL DECISION MAKING: Chief Complaint: As per HPI External records reviewed: Reviewed prior cardiovascular testing. Stress test from 2020 showed no obvious ischemia Factors affecting care: hypertension, lipidemia, kidney cancer, CAD status post stents Social determinants of health: Tobacco abuse History obtained from others: none Consults: Internal medicine MDM Narrative: Patient was initially tachycardic with a rate of 109, tachypneic with a respiratory rate of 24, borderline febrile. Saturating 91% room air at rest. Exam with out focal lung findings During the patient's ED course he desaturated to 88%. Which necessitated supplemental oxygen. The patient is not on supple oxygen at home. I considered the following differential diagnosis: COVID/flu/RSV/pneumo kate/other viral URI ALL IMAGES (IF OBTAINED) HAVE BEEN PERSONALLY REVIEWED AND INTERPRETED BY MYSELF. Labs including BMP, CBC, COVID flu RSV were obtained in triage secondary to poor department of dynamics including high volume and high acuity. CBC with no leukocytosis, no anemia or thrombocytopenia BMP with mild hyponatremia otherwise no significant electrolyte abnormalities, no sign of metabolic acidosis or endorgan hypoperfusion, no ABDON COVID flu RSV are positive for flu A. Is the likely etiology of his complaints. I added a chest x-ray, troponin biomarkers. Treat the patient initially with albuterol breathing treatment per his request, Toradol, Zofran, 500 cc bolus. Initial troponin negative Delta troponin also negative. I have personally reviewed the patient's chest x-ray. Chest x-ray is unremarkable for pulmonary edema, pneumothorax, pneumonia or focal cardiopulmonary abnormality. Given hypoxia and influenza A he is high risk. Will attempt admit the patient to the hospitalist. Gave Tamiflu. Discussed case with hospitalist accepted patient's case. Recommended MedSurg observation. The patient and/or family, caregivers express understanding. The patient and/or family, caregivers agrees with the plan. Shared decision making: I will have a discussion with the patient and or visitors regarding risk/benefits of further testing or admission. They will be made aware of of the risk/benefits inherent in this decision they will be given the opportunity to voice understanding. Total critical care time today provided was at least 0 minutes. This excludes separately billable procedures. Critical care time (if documented) is secondary to the patient having high probability of clinically significant/life threatening deterioration in the patient's condition which required my urgent intervention. Impression: 1. Cough 2. Dyspnea 3. Influenza A Dispo: admit This note was generated with [employer] dictation software. It may contain incorrect words, spelling, and punctuation that were not noted in review of the chart prior to signing. Lab Data Labs: Laboratory Results - last 24 hr 06/17/24 06/17/24 06/17/24 15:20 17:16 19:37 WBC 5.2 RBC 5.20 Hgb 14.4 Hct 43.6 MCV 83.8 MCH 27.7 MCHC 33.0 RDW Std Deviation 47.8 H RDW Coeff of Ivan 15.8 H Plt Count 204 MPV 9.5 Immature Gran % (Auto) 0.800 Neut % (Auto) 64.1 Lymph % (Auto) 10.5 L [place] % (Auto) 23.8 H Eos % (Auto) 0.2 Baso % (Auto) 0.6 Absolute Neuts (auto) 3.3 Absolute Lymphs (auto) 0.54 L Nucleated RBC % 0 Sodium 133 L Potassium 3.9 Chloride 100 Carbon Dioxide 27.0 Anion Gap 6 BUN 16 Creatinine 1.20 Estim Creat Clear Calc 93.66 Est GFR (MDRD) Af Amer 81 Est GFR (MDRD) Non-Af 67 BUN/Creatinine Ratio 13.3 Glucose 98 Calcium 9.2 Troponin I High Sens 18 18 TSH 0.142 L Radiography Diagnostic Testing: Clinical Impression(s) from Imaging Studies Chest X-Ray 06/17/24 19:40 IMPRESSION: No acute findings in the chest. Electronically Signed: Barbara Bergman MD at 21:46 EST , Discharge Plan Disposition Disposition: Acute Care Hospital [facility] Discharge Date/Time: 06/17/24 21:53
--- NOTE | 2024-06-17 16:46 | EKG12_ITS ---
Test Reason : GENERAL Blood Pressure : */* mmHG Vent. Rate : 89 BPM Atrial Rate : 89 BPM P-R Int : 156 ms QRS Dur : 124 ms QT Int : 382 ms P-R-T Axes : * 48 74 degrees QTcB Int : 464 ms Normal sinus rhythm Anteroseptal infarct , age undetermined Abnormal ECG Confirmed by BRITNEY WILSON, JOSELO ([id number]), publication editor SHEBA FLORES ([id number]) on 06/19/2024 6:26:21 AM Referred By: Confirmed By: JOSELO TAN MD
[2024-06-17] MEDS: 0.9% Normal Saline (500mL Bag) 500 ML 999 ML IV (16:55)
[2024-06-17] MEDS: Ondansetron 4 MG/2 ML Vial IV (16:55)
[2024-06-17] MEDS: Ketorolac 15 MG/ML Vial IV (16:55)
[2024-06-17] MEDS: Ipratropium/Albuterol Sulfate 3 ML AMPUL.NEB INHALATION (17:15)
[2024-06-17 17:43] LABS: Troponin-I HS (w/2H Reflex) 18 pg/mL (3.0-78.0)
[2024-06-17 19:21] LABS: Reflex Troponin-HS? (from REC) Y
--- NOTE | 2024-06-17 19:40 | RAD_ITS ---
EXAM: XR CHEST, 1 VIEW CLINICAL INDICATION: SOB TECHNIQUE: Frontal view of the chest. COMPARISON: July 23, 2020, March 28, 2019. FINDINGS: LUNGS AND PLEURAL SPACES: Unremarkable. No consolidation or edema. No pneumothorax. No effusion. HEART: Unremarkable. Cardiac silhouette not enlarged. MEDIASTINUM: Central airways and mediastinal contour are unremarkable. BONES/JOINTS: A cervical spine and stabilization plate is partially included. No acute fracture. SOFT TISSUES: Unremarkable. RAD/Chest 1 View (Portable) IMPRESSION: No acute findings in the chest. Electronically Signed: Barbara Bergman MD at 21:46 EST ,
[2024-06-17 19:59] LABS: Troponin-I HS 18 pg/mL (3.0-78.0)
[2024-06-17] MEDS: Oseltamivir Phosphate 75 MG Capsule PO (20:16)
--- NOTE | 2024-06-17 20:29 | HP.PCM.HOS_ITS ---
[facility] - General General Date of Admission: 06/17/24 Date of Service: 06/17/24 Chief Complaint: SOB and Cough. HPI Narrative ELMER KERN, is a 54 M with a past medical history of essential hypertension; on carvedilol and lisinopril, hyperlipidemia; on atorvastatin, obesity; with BMI of 35.5 this admission, history of tobacco abuse, CAD; s/p non-ST elevation AR with previous stents x 3 (2016) on daily baby aspirin, ISMO and as needed sublingual NTG, history of negative NST (2020), history of neuropathy; on gabapentin 3 times daily, history of malignant carcinoid tumor of Left kidney; s/p resection (01/2024), history of cystoscopy; with nephrostomy tube placed due to urine leak into abdomen after surgery, history of liver hemangioma, history of hemorrhoids, history of staphylococcal skin infection, GERD; on pantoprazole and OA; with history of lumbosacral radiculopathy plus fusion of the cervical spine and strain who presents to [facility] ER complaining of shortness of breath and cough. Mr. Kern reports his symptoms began approximately 1 day prior to admission with a gradual-onset of dyspnea on exertion that progressed to shortness of breath at rest. He also admits to productive cough and mild fever of 100 ?F confirmed in ER along with nausea. He denies associated chills, vomiting, diarrhea, constipation, chest pain or headache but he does admit to being able to only smoke 2 cigarettes a day due to worsening dyspnea. In the ER his viral assay returned positive for influenza A along with clinical evidence of respiratory insufficiency with oxygen saturation of 88% at rest requiring initiation of supplemental oxygen in the setting of ongoing chronic tobacco abuse and he was then admitted to the general medical floor under observation status for ongoing care for status expected to be less than 2 midnights. [facility] Medical History Hx of malignant carcinoid tumor of kidney Wears glasses Cancer Arthritis History of renal disease High cholesterol Injury of head and neck Gastric reflux Smoker Injury of back Leg cramps History of pain when walking History of edema History of stress test Cardiology follow-up encounter Hypertension Pain Liver hemangioma Strain of right hip Lumbosacral radiculopathy Lumbosacral strain Arthritis of right hand Contusion of hand, right BBB (bundle branch block) Staphylococcal infection of skin Atherosclerotic heart disease of [place] coronary artery without angina pectoris Essential (primary) hypertension Tobacco use Obesity Acute non-ST segment elevation myocardial infarction HLD (hyperlipidemia) Home Medications ?Medication ?Instructions ?Recorded ?Last Taken ?Type aspirin 81 mg tablet,delayed 81 mg PO DAILY 06/28/18 06/17/24 History release (Adult Low Dose Aspirin) acetaminophen 500 mg tablet 1,000 mg PO Q8H PRN Pain Score 03/28/19 03/28/19 History 1 atorvastatin 80 mg tablet 80 mg PO QHS #90 TABLETS 10/27/23 06/16/24 Rx carvedilol 6.25 mg tablet 6.25 mg PO BID for blood pressure 10/27/23 06/17/24 Rx #180 TABLETS lisinopril 10 mg tablet 10 mg PO DAILY #90 TABLETS 10/27/23 06/17/24 Rx isosorbide mononitrate 60 mg 60 mg PO DAILY #90 TABLETS 12/05/23 06/17/24 Rx tablet,extended release 24 hr gabapentin 300 mg capsule 300 mg PO TID PRN pain 01/16/24 06/17/24 History nitroglycerin 0.4 mg sublingual 0.4 mg sublingual PRN PRN chest 01/17/24 Unknown History tablet pain pantoprazole 40 mg tablet,delayed 40 mg PO DAILY for indigestion #90 03/04/24 06/17/24 Rx release TABLETS dibucaine 1 % rectal ointment [address] TID PRN hemorrhoids 06/13/24 06/17/24 Rx #28.4 grams albuterol sulfate 90 mcg/actuation 2 puff inhalation Q4H PRN Wheezing 06/17/24 Unknown History aerosol inhaler Allergy/AdvReac Type Severity Reaction Status Date / Time No Known Allergies Allergy Verified 05/30/24 11:18 Family History Father CAD (coronary artery disease) Mother CVA (cerebral vascular accident) CAD (coronary artery disease) Surgical History History of cystoscopy History of coronary artery stent placement Hx of hand surgery History of fusion of cervical spine History of left heart catheterization (11/04/16) History of knee replacement History of carpal tunnel release Social History Smoking Status: Current every day smoker tobacco type: cigarettes alcohol intake: never substance use type: does not use additional 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 Eyes: Patient denies changes in vision or discharge from eyes. ENT: Patient denies runny nose, sore throat or ear pain. Resp: Patient admits to dyspnea on exertion that progressed to shortness of breath at rest complicated by productive cough as per HPI. CV: Patient denies chest pain, palpitations, heart racing or lower extremity edema. GI: Patient admits to nausea but he denies abdominal pain, vomiting, diarrhea or constipation. : Patient denies dysuria, hematuria or urinary frequency. MSK: Patient denies arthralgias or myalgias. Skin: Patient denies rash, abscess, wound or jaundice. Psych: Patient denies symptoms of uncontrolled depression or anxiety. Neuro: Patient admits to chronic sciatic-type pain with ambulation but he denies headache or focal neurologic deficits. Allergy: Patient denies lip swelling, tongue swelling or urticaria. Hematology: Patient denies easy bleeding or easy bruisability. Endocrinology: Patient denies polyuria, polydipsia or polyphagia. 14 point review of systems otherwise negative except for positives noted above in HPI. Vital Signs Vital Signs Vital Signs: 06/17/24 14:10 06/17/24 16:44 06/17/24 16:44 Temperature 99.7 F H 100 F H Temperature Source Oral Oral Pulse Rate 109 H 98 Respiratory Rate 24 H 19 H Respiratory Effort Respiratory Depth Respiratory Pattern Blood Pressure 105/73 114/69 Blood Pressure Mean 83 84 Pulse Ox 91 92 Oxygen Delivery Method Room Air Room Air Room Air Oxygen Flow Rate (L/min) 06/17/24 16:44 06/17/24 16:46 06/17/24 17:05 Temperature Temperature Source Pulse Rate Respiratory Rate 20 H Respiratory Effort Short of Breath Respiratory Depth Shallow Respiratory Pattern Tachypnea Blood Pressure Blood Pressure Mean Pulse Ox 92 88 Oxygen Delivery Method Room Air Room Air Room Air Oxygen Flow Rate (L/min) 06/17/24 17:05 06/17/24 17:16 06/17/24 19:00 Temperature Temperature Source Pulse Rate 90 84 Respiratory Rate 16 16 Respiratory Effort Respiratory Depth Respiratory Pattern Blood Pressure 104/63 Blood Pressure Mean 76 Pulse Ox 94 93 Oxygen Delivery Method Nasal Cannula Oxygen Flow Rate (L/min) 2 Weight Weight: 262 lb Body Mass Index (BMI) 35.5 Physical Exam Const alert, oriented x3 and no apparent distress Constitutional Narrative: Obese. General Appearance: cooperative HEENT normocephalic, head/scalp atraumatic, hearing grossly normal bilaterally and moist oral mucous membranes Eyes PERRL, EOMs intact bilaterally and conjunctivae normal Neck no lymphadenopathy and supple Resp Resp Narrative: Diminished breath sounds throughout. Cardio regular rate and regular rhythm GI normal to inspection, nondistended, normoactive bowel sounds, soft to palpation, non-tender and non-distended GI Narrative: Obese. Extremity normal to inspection, full ROM and no clubbing, cyanosis or edema Skin Skin Narrative: Patient has evidence of rash, abscess, wound or jaundice. Neuro oriented x3, CN's II-XII intact bilaterally, moves all extremities and no focal motor deficits Sensorium / Orientation: awake, alert, oriented to person, oriented to place and oriented to time Speech: speech normal Psych affect normal Results Medical Records Data Attestation: I reviewed the patient's medical records Lab / Micro Data Attestation: I reviewed the patient's lab results. 06/17/24 15:20 06/17/24 15:20 Labs: Laboratory Results - last 24 hr 06/17/24 15:20: WBC 5.2, RBC 5.20, Hgb 14.4, Hct 43.6, MCV 83.8, MCH 27.7, MCHC 33.0, RDW Std Deviation 47.8 H, RDW Coeff of Ivan 15.8 H, Plt Count 204, MPV 9.5, Immature Gran % (Auto) 0.800, Neut % (Auto) 64.1, Lymph % (Auto) 10.5 L, [place] % (Auto) 23.8 H, Eos % (Auto) 0.2, Baso % (Auto) 0.6, Absolute Neuts (auto) 3.3, A bsolute Lymphs (auto) 0.54 L, Nucleated RBC % 0, Sodium 133 L, Potassium 3.9, Chloride 100, Carbon Dioxide 27.0, Anion Gap 6, BUN 16, Creatinine 1.20, Estim Creat Clear Calc 93.66, Est GFR (MDRD) Af Amer 81, Est GFR (MDRD) Non-Af 67, BUN/Creatinine Ratio 13.3, Glucose 98, Calcium 9.2 06/17/24 17:16: Troponin I High Sens 18 06/17/24 19:37: Troponin I High Sens 18 Micro: Microbiology 06/17/24 15:04 Mucosa - Nose SARS-CoV-2, Influenza & RSV (PCR) - Final Influenzae A Assessment & Plan Assessment/Plan (1) Influenza A: (2) Respiratory insufficiency: (3) Tobacco abuse: (4) Obesity (BMI 30-39.9): (5) History of coronary artery stent placement: (6) Essential (primary) hypertension: PLAN: Plan 1. Acute Influenza A - Admit to general medical floor under observation status plus enact droplet and contact precautions. Continue Tamiflu per protocol. Give vitamin D3, vitamin C and zinc to help boost immunity and hopefully speed recovery. Give Tylenol as needed for [id number] (level 1-5/10) pain or fever. Give [place] as needed for severe (level 6-10/10) pain. 2. Respiratory Insufficiency arising from #1 - Wean supplemental oxygen as tolerated. 3. Chronic Tobacco Abuse complicating #1 & #2 - Tobacco Cessation will be strongly encouraged with Nicotine patch offered to control cravings. 4. Obesity; with BMI of 35.5 this admission adding to the medical complexity of #1 - #3 - Weight loss will be recommended. Check TSH. This complicates his case and may hamper recovery. 5. CAD; s/p non-ST elevation AR with previous stents x 3 (2016) on daily baby aspirin, ISMO and as needed sublingual NTG with subsequent history of negative NST (2020) - Noted. Serailize troponin. Continue home medications as before. 6. Essential Hypertension; on carvedilol and lisinopril - Maintain current regimen pluys give hydralazine IV prn for systolic blood pressure > 160 mmHg. 7. Hyperlipidemia; on atorvastatin - Resume statin as previous. 8. History of neuropathy; on gabapentin 3 times daily - Continue gabapentin as before. 9. History of malignant carcinoid tumor of Left kidney; s/p resection (01/2024) - Noted. 10. History of cystoscopy; with nephrostomy tube placed due to urine leak into abdomen after surgery - Noted. 11. History of liver hemangioma - Noted. 12. History of hemorrhoids - Stable. 13. History of staphylococcal skin infection - Noted with no signs of recurrence. 14. GERD; on pantoprazole - Continue PPI. 15. OA; with history of lumbosacral radiculopathy plus fusion of the cervical spine and strain - Give Tylenol prn. 16. DVT prophylaxis - Lovenox 40 mg sq daily. Total time: Approximately (but not less than) 70 minutes. Charges/Coding Visit Charges OBSV E&M: 16094 Observ/hosp same date L2
[2024-06-17 21:38] LABS: Thyroid Stim Hormone (TSH) 0.142 uIU/mL (0.358-3.740)
[2024-06-17] MEDS: Acetaminophen 325 MG Tablet 650 MG PO (23:34)
[2024-06-17] MEDS: 0.9% Normal Saline (1000mL) 1,000 ML 70 ML IV (23:34)
[2024-06-17] MEDS: Atorvastatin Calcium 80 MG Tablet PO (23:35)
[2024-06-17 23:38] LABS: Troponin-I HS 14 pg/mL (3.0-78.0)
[2024-06-17] MEDS: 0.9% Saline Lock 10 ML Syringe IV (23:40)
[2024-06-18] VITALS (8 sets, daily range): BP systolic 104–143; BP diastolic 63–93; PULSE 73–98; RESP 14–18; TEMP 36.6–36.7; O2SAT 90–95; BMI 34.8
[2024-06-18] MEDS: guaiFENesin 10 ML UDC (200MG/10ML) 20 ML PO ×2 (03:48→09:51)
[2024-06-18 07:57] LABS: Absolute Lymphocyte Count 0.72 X10^3/uL (0.83-4.51); Absolute Neutrophil Count 2.3 X10^3/uL (2.0-7.7); Basophil# 0.02 X10^3/uL; Basophil% 0.5 % (0-1); Eosinophil# 0.03 X10^3/uL; Eosinophils% 0.8 % (0-5); Hematocrit 41.6 % (40-54); Hemoglobin 13.3 g/dL (13.0-16.5); Lymphocyte # 0.72 X10^3/ul (0.83-4.51); Lymphocyte % 19.3 % (19-41); Mean Corpuscular Hgb 27.1 pg (27.0-32.0); Mean Corpuscular Volume 84.7 fL (80-94); Mean Platelet Vol. 9.9 fl (6.2-12.0); Monocyte# 0.69 X10^3/uL; Monocyte% 18.5 % (0-10); NRBC Flagged by Analyzer 0 % (0-5); Neutrophil # 2.25 X10^3/uL (2.7-7.7); Neutrophil % 60.4 % (47-70); Platelet Count 171 K/mm3 (150-450); RBC Distribution Width CV 15.9 % (11.6-14.6); RBC Distribution Width SD 49.6 fl (35.1-43.9); Red Blood Count 4.91 M/mm3 (4.6-6.2); White Blood Count 3.7 K/mm3 (4.4-11.0)
[2024-06-18 08:41] LABS: ALB/GLOB Ratio 0.8 RATIO (0.9-2.4); AST(SGOT) 46 U/L (15-37); Alanine Aminotransfer ALT/SGPT 39 U/L (16-61); Albumin, Serum 2.8 g/dL (3.2-5.0); Alkaline Phosphatase 101 U/L (45-117); Anion Gap 8 (5-15); BUN 17 mg/dL (7-18); BUN/Creat Ratio 17.5 RATIO (10-20); Calcium,Total 8.4 mg/dL (8.5-10.1); Chloride 105 mmol/L (98-107); Creatinine, Serum 0.97 mg/dL (0.70-1.30); EST Glomerular Filtration Rate 85 mL/min (>60); Est Glom Filt Rate - Afr Amer 103 mL/min (>60); Estimated Creatinine Clearance 114.81 ml/min; Globulin 3.5 g/dL (2.2-4.2); Glucose 98 mg/dL (74-106); Magnesium 2.1 mg/dL (1.6-2.6); Phosphorus 3.8 mg/dL (2.5-4.9); Potassium 3.6 mmol/L (3.5-5.1); Protein, Total 6.3 g/dL (6.4-8.2); Sodium Level 136 mmol/L (136-145)
[2024-06-18] MEDS: Pantoprazole Sodium 40 MG Tablet PO (08:58)
[2024-06-18] MEDS: Cholecalciferol (Vit D3) 125 MCG CAPSULE (5,000 UNITS) PO (08:58)
[2024-06-18] MEDS: Isosorbide Mononitrate 60 MG Tablet PO (08:58)
[2024-06-18] MEDS: Ascorbic Acid 500 MG Tablet 1000 MG PO (08:58)
[2024-06-18] MEDS: Carvedilol 6.25 MG Tablet PO (08:58)
[2024-06-18] MEDS: Aspirin E.C. 81 MG Tablet PO (08:58)
[2024-06-18] MEDS: Zinc Sulfate 50 mg zinc (220 mg) ORAL capsule PO (08:58)
[2024-06-18] MEDS: Lisinopril 10 MG Tablet PO (08:58)
[2024-06-18] MEDS: Enoxaparin 40 MG/0.4 ML Syringe SC (08:59)
[2024-06-18] MEDS: Oseltamivir Phosphate 75 MG Capsule PO (08:59)
[2024-06-18 09:05] LABS: Free T3 1.8 pg/mL (2.18-3.98); T4 Free Direct 1.15 ng/dL (0.76-1.46)
[2024-06-18] MEDS: Acetaminophen 325 MG Tablet 650 MG PO (09:51)
--- NOTE | 2024-06-18 11:28 | CASEMGMT ---
Pt did not qualify for home oxygen. 6 cl=24. Pt to dc this date.
--- NOTE | 2024-06-18 11:32 | DCINST_ITS ---
Discharge Instructions Diet Discharge Diet: No restrictions DC O2, CPAP, BIPAP needs RN Home O2 Qualification: Home O2 Qualification: Is the patient on home oxygen No 06/18/24 08:24 Home O2 Qualification: AT REST 1- Pulse Ox at rest 94 06/18/24 08:24 Home O2 Qualification: WITH AMBULATION 1- Pulse Ox with ambulation 90 06/18/24 08:24 1- Oxygen Flow Rate with 0 06/18/24 08:24 ambulation Home O2 Discharge instructions: No Dressing / Incision Discharge Activity: Return to Normal Activity Return to work on:: 06/22/24 Weight Bearing Status: Full weight bearing Follow Up Care Test Results: Test results from this visit will be discussed in further detail at your follow- up appointment, if applicable. Discharge Plan Admission Admit Date/Time: 06/17/24 21:06 Primary Reason for Your Visit: influenza A Attending Provider: Fransico Cassidy Primary Care Provider: Alyse Bui Consulting Providers: Rich Pedraza Instructions Forms: Work / School Excuse Discharge Orders/Prescriptions Prescriptions: New oseltamivir 75 mg Capsule 75 mg PO BID Qty: 9 0RF Rx Instructions: start tonight prednisone 20 mg tablet 40 mg PO DAILY Qty: 14 0RF Rx Instructions: start today Continued aspirin [Adult Low Dose Aspirin] 81 mg tablet,delayed release (DR/EC) 81 mg PO DAILY gabapentin 300 mg capsule 300 mg PO TID PRN (Reason: pain) acetaminophen 500 MG tablet 1,000 mg PO Q8H PRN (Reason: Pain Score 1-10/10) nitroglycerin 0.4 mg tablet, sublingual 0.4 mg sublingual PRN PRN (Reason: chest pain) Rx Instructions: DISSOLVE 1 TABLET UNDER TONGUE EVERY 5 MINUTES NEEDED FOR CHEST PAIN albuterol sulfate 1 INHALER inhaler 2 puff inhalation Q4H PRN (Reason: Wheezing) carvedilol 6.25 mg tablet 6.25 mg PO BID Qty: 180 3RF lisinopril 10 mg tablet 10 mg PO DAILY Qty: 90 3RF atorvastatin 80 mg tablet 80 mg PO QHS Qty: 90 3RF isosorbide mononitrate 60 mg tablet extended release 24 hr 60 mg PO DAILY Qty: 90 3RF pantoprazole 40 mg tablet,delayed release (DR/EC) 40 mg PO DAILY Qty: 90 3RF dibucaine 1 % ointment 1 applic LA TID PRN (Reason: hemorrhoids) Qty: 28.4 1RF Referrals / Follow Up: Alyse Bui MD [Primary Care Provider] - See Referral Note (At your regular appointment time) Disposition Disposition (needs filled in before D/C Order can be placed): Home, Self Care
--- NOTE | 2024-06-18 11:41 | DS.PCM_ITS ---
Providers Date of Admission: 06/17/24 Date of Discharge: 06/18/24 Primary Care Physician: Dr. Alyse Bui MD Reason For Visit: ACUTE INFLUENZA A WITH RESPIRATORY INSUFFICIENCY Diagnosis Discharge Diagnosis (1) Influenza A: Status: Acute Code(s): J10.1 - Influenza due to other identified influenza virus with other respiratory manifestations (2) Respiratory insufficiency: Status: Acute Code(s): R06.89 - Other abnormalities of breathing (3) Tobacco abuse: Status: Acute Code(s): Z72.0 - Tobacco use (4) Obesity (BMI 30-39.9): Status: Acute Code(s): E66.9 - Obesity, unspecified (5) History of coronary artery stent placement: Status: Acute Code(s): Z95.5 - Presence of coronary angioplasty implant and graft (6) Essential (primary) hypertension: Status: Chronic Code(s): I10 - Essential (primary) hypertension Plan 1. Acute influenza A infection #2 hypoxia secondary to influenza A #3 coronary artery disease #4 essential hypertension Medications at Discharge Home Medications aspirin 81 mg tablet,delayed release (Adult Low Dose Aspirin) 81 mg PO DAILY 06/28/18 acetaminophen 500 mg tablet 1,000 mg PO Q8H PRN Pain Score 1-02/2803/28/19 atorvastatin 80 mg tablet 80 mg PO QHS #90 TABLETS 10/27/23 carvedilol 6.25 mg tablet 6.25 mg PO BID for blood pressure #180 TABLETS 10/27/23 lisinopril 10 mg tablet 10 mg PO DAILY #90 TABLETS 10/27/23 isosorbide mononitrate 60 mg tablet,extended release 24 hr 60 mg PO DAILY #90 TABLETS 12/05/23 gabapentin 300 mg capsule 300 mg PO TID PRN pain 01/16/24 nitroglycerin 0.4 mg sublingual tablet 0.4 mg sublingual PRN PRN chest pain 01/17/24 pantoprazole 40 mg tablet,delayed release 40 mg PO DAILY for indigestion #90 TABLETS 03/04/24 dibucaine 1 % rectal ointment 1 applic LA TID PRN hemorrhoids #28.4 grams 06/13/24 albuterol sulfate 90 mcg/actuation aerosol inhaler 2 puff inhalation Q4H PRN Wheezing 06/17/24 oseltamivir 75 mg capsule 75 mg PO BID #9 caps 06/18/24 prednisone 20 mg tablet 40 mg (2 x 20 mg) PO DAILY #14 tabs 06/18/24 Hospital Course Operations None Procedures None Summary of Care Provided Minutes Spent on Discharge: 30 Hospital Course: This 54-year-old white male was seen in emergency room at [facility] with a chief complaint of shortness of breath, productive cough, fever and nausea. His symptoms had started 24 hours prior. Labs obtained showed a normal CBC, patient's chemistry profile was remarkable for a sodium of 133 but was otherwise normal, patient's TSH was low at 0.142. Chest x-ray was obtained and showed no acute findings. Patient's pulse ox in the emergency room was noted to be 88% and he was placed on supplemental oxygen. Testing was positive for influenza A. Patient was placed in observation status on MedSurg 3, his oxygen was able to be weaned off and he was placed on Tamiflu. On 06/18/2024, patient was seen and examined: On examination he appeared in good health and spirits. Vital signs as documented. Skin warm and dry and without overt rashes. Neck without JVD, neck was supple, trachea midline, thyroid was normal. Lungs clear bilaterally, normal air movement was noted. Heart exam notable for regular rhythm, normal sounds and absence of murmurs, rubs or gallops. Abdomen unremarkable and without evidence of organomegaly, masses, or abdominal aortic enlargement. Bowel sounds are present, abdomen is not distended. Extremities nonedematous, no cyanosis was noted, no clubbing was noted. Neuro: Cranial nerves II through XII are grossly intact, no focal motor deficits were noted, sensation to light touch and pinprick intact, motor exam 5/5 throughout. Psych: Patient is alert and oriented x3, he does not appear anxious or depressed, he does not appear agitated. Patient was discharged home in stable condition on 06/18/2024 Weight / BMI Weight Weight: 116.7 kg Body Mass Index (BMI) 34.8 ABG / Lab / Microbiology Data 06/18/24 07:06 06/18/24 07:06 Laboratory: Laboratory Results - last 24 hr 06/17/24 15:20: TSH 0.142 L 06/17/24 19:37: Troponin I High Sens 18 06/17/24 23:10: Troponin I High Sens 14 06/18/24 07:06: WBC 3.7 L, RBC 4.91, Hgb 13.3, Hct 41.6, MCV 84.7, MCH 27.1, MCHC 32.0, RDW Std Deviation 49.6 H, RDW Coeff of Ivan 15.9 H, Plt Count 171, MPV 9.9, Immature Gran % (Auto) 0.500, Neut % (Auto) 60.4, Lymph % (Auto) 19.3, [place] % (Auto) 18.5 H, Eos % (Auto) 0.8, Baso % (Auto) 0.5, Absolute Neuts (auto) 2.3, Absolute Lymphs (auto) 0.72 L, Nucleated RBC % 0, Sodium 136, Potassium 3.6, Chloride 105, Carbon Dioxide 23.0, Anion Gap 8, BUN 17, Creatinine 0.97, Estim Creat Clear Calc 114.81, Est GFR (MDRD) Af Amer 103, Est GFR (MDRD) Non-Af 85, BUN/Creatinine Ratio 17.5, Glucose 98, Calcium 8.4 L, Phosphorus 3.8, Magnesium 2.1, Total Bilirubin 0.50, AST 46 H, ALT 39, Alkaline Phosphatase 101, Total Protein 6.3 L, Albumin 2.8 L, Globulin 3.5, Albumin/Globulin Ratio 0.8 L, Free T4 1.15, Free T3 pg/dL 1.8 L Microbiology: Microbiology 06/17/24 15:04 Mucosa - Nose SARS-CoV-2, Influenza & RSV (PCR) - Final Influenzae A Radiography Diagnostic Testing: Radiology Impression Chest X-Ray 06/17/24 19:40 IMPRESSION: No acute findings in the chest. Electronically Signed: Barbara Bergman MD at 21:46 EST , D/C Instructions Discharge Diet: No restrictions Return to work on: 06/22/24 Weight Bearing Status: Full weight bearing DC O2, CPAP, BIPAP Needs RN Home O2 Qualification: Home O2 Qualification: Is the patient on home oxygen No 06/18/24 08:24 Home O2 Qualification: AT REST 1- Pulse Ox at rest 94 06/18/24 08:24 Home O2 Qualification: WITH AMBULATION 1- Pulse Ox with ambulation 90 06/18/24 08:24 1- Oxygen Flow Rate with 0 06/18/24 08:24 ambulation Home O2 Discharge instructions: No Meaningful Use Info Meaningful Use Meaningful Use Diagnoses (Choose all that apply): None applicable Ischemic Stroke Statin Dosing Therapy Reference: STATIN DOSE THERAPY REFERENCE: * Patients > 75 years receive moderate or high dose statin therapy. * Patients 75 years or YOUNGER should receive HIGH intensity statin dose unless contraindicated. You will be required to document reason for non-treatment if statin daily dose does not meet guidelines. HIGH DOSE STATIN THERAPY DAILY Atorvastatin > than or = to 40 mg Rosuvastatin > than or = to 20 mg Amlodipine + Atorvastatin > than or = to 2.5/40 mg Ezetimibe + Simvastatin 10/80 mg Simvastatin 80mg Discharge Plan Admission Admit Date/Time: 06/17/24 21:06 Primary Reason for Your Visit: influenza A Attending Provider: Fransico Cassidy Primary Care Provider: Alyse Bui Consulting Providers: Rich Pedraza Instructions Forms: Work / School Excuse Discharge Orders/Prescriptions Prescriptions: New oseltamivir 75 mg Capsule 75 mg PO BID Qty: 9 0RF Rx Instructions: start tonight prednisone 20 mg tablet 40 mg PO DAILY Qty: 14 0RF Rx Instructions: start today Continued aspirin [Adult Low Dose Aspirin] 81 mg tablet,delayed release (DR/EC) 81 mg PO DAILY gabapentin 300 mg capsule 300 mg PO TID PRN (Reason: pain) acetaminophen 500 MG tablet 1,000 mg PO Q8H PRN (Reason: Pain Score 1-10/10) nitroglycerin 0.4 mg tablet, sublingual 0.4 mg sublingual PRN PRN (Reason: chest pain) Rx Instructions: DISSOLVE 1 TABLET UNDER TONGUE EVERY 5 MINUTES NEEDED FOR CHEST PAIN albuterol sulfate 1 INHALER inhaler 2 puff inhalation Q4H PRN (Reason: Wheezing) carvedilol 6.25 mg tablet 6.25 mg PO BID Qty: 180 3RF lisinopril 10 mg tablet 10 mg PO DAILY Qty: 90 3RF atorvastatin 80 mg tablet 80 mg PO QHS Qty: 90 3RF isosorbide mononitrate 60 mg tablet extended release 24 hr 60 mg PO DAILY Qty: 90 3RF pantoprazole 40 mg tablet,delayed release (DR/EC) 40 mg PO DAILY Qty: 90 3RF dibucaine 1 % ointment 1 applic LA TID PRN (Reason: hemorrhoids) Qty: 28.4 1RF Referrals / Follow Up: Alyse Bui MD [Primary Care Provider] - 06/20/24 9:30 am () Disposition Disposition (needs filled in before D/C Order can be placed): Home, Self Care Charges/Coding Visit Charges Inpatient E&M: 29146 Disch Hosp
--- NOTE | 2024-06-18 11:51 | PHA.DC_ITS ---
Pharmacy [facility] has performed discharge medication reconciliation and counseling for this patient. Patient counseled via telephone due to droplet precautions. Patient's prescriptions were sent to [facility] but he would like them filled at out retail pharmacy. I called retail and spoke to [place], he will call to transfer if able based on insurance and arrange meds to beds if necessary. 1. OSELTAMIVIR 75MG PO BID X 9 DOSES 2. PREDNISONE 40MG PO DAILYCM X 7 DAYS The patient's discharge medication list was reviewed for discrepancies and discrepancies were resolved. The patient was counseled on the following discharge medications and changes in medications for homegoing were reviewed. The Reason for Use, instructions for use, and potential side effects were reviewed for all new medications. The patient's questions regarding all of their medications were answered. The patient was able to verbally demonstrate an understanding of their discharge medications. Medications at Discharge Home Medications aspirin 81 mg tablet,delayed release (Adult Low Dose Aspirin) 81 mg PO DAILY 06/28/18 acetaminophen 500 mg tablet 1,000 mg PO Q8H PRN Pain Score 1-02/2803/28/19 atorvastatin 80 mg tablet 80 mg PO QHS #90 TABLETS 10/27/23 carvedilol 6.25 mg tablet 6.25 mg PO BID for blood pressure #180 TABLETS 10/27/23 lisinopril 10 mg tablet 10 mg PO DAILY #90 TABLETS 10/27/23 isosorbide mononitrate 60 mg tablet,extended release 24 hr 60 mg PO DAILY #90 TA BLETS 12/05/23 gabapentin 300 mg capsule 300 mg PO TID PRN pain 01/16/24 nitroglycerin 0.4 mg sublingual tablet 0.4 mg sublingual PRN PRN chest pain 01/17/24 pantoprazole 40 mg tablet,delayed release 40 mg PO DAILY for indigestion #90 TABLETS 03/04/24 dibucaine 1 % rectal ointment 1 applic MT TID PRN hemorrhoids #28.4 grams 06/13/24 albuterol sulfate 90 mcg/actuation aerosol inhaler 2 puff inhalation Q4H PRN Wheezing 06/17/24 oseltamivir 75 mg capsule 75 mg PO BID #9 caps 06/18/24 prednisone 20 mg tablet 40 mg (2 x 20 mg) PO DAILY #14 tabs 06/18/24
== END 2024-06-18 14:36 | disposition home or self-care (01) ==
LOC: ED 16:38 → MS3 21:18
PROVIDERS: Admitting Provider Internal Medicine; Emergency Provider Emergency Medicine; PCP Internal Medicine; Visit Provider Internal Medicine
DX: J10.1 Influenza due to other identified influenza virus with other respiratory manifestations (principal); E66.9 Obesity, unspecified; E78.00 Pure hypercholesterolemia, unspecified; I10 Essential (primary) hypertension; Z95.5 Presence of coronary angioplasty implant and graft; Z79.82 Long term (current) use of aspirin; Z68.35 Body mass index [BMI] 35.0-35.9, adult; E87.1 Hypo-osmolality and hyponatremia; I25.10 Atherosclerotic heart disease of native coronary artery without angina pectoris; K21.9 Gastro-esophageal reflux disease without esophagitis; Z79.899 Other long term (current) drug therapy; F17.210 Nicotine dependence, cigarettes, uncomplicated; R06.89 Other abnormalities of breathing
CPT/HCPCS: 99283; 36415; 71045; 80048; 80053; 83735; 84100; 84439; 84443; 84481; 84484; 85025; 87631; 93005; 94640; 94668; 94760; 96361; 96372; 96374; 96375; 99221; 99406; A4216; G0378; J2405

== ENCOUNTER → 2024-07-11 | Outpatient (CLI) | payer BC, SELFPAY ==
--- NOTE | 2024-07-11 10:31 | RAD_ITS ---
PROCEDURE: HAND MIN 3 VIEWS REASON FOR EXAM: Nontraumatic swelling and redness. TECHNIQUE: 3 view(s) of the left hand COMPARISON: None. FINDINGS: No visible fracture. No suspicious bone lesion. Normal alignment. Soft tissue swelling. Joint space narrowing of the proximal and distal interphalangeal joints as well as the 2nd and 3rd metacarpophalangeal joints in keeping with osteoarthritis. RAD/Hand Min 3 Views IMPRESSION: Soft tissue swelling. Osteoarthritis. Reading Location: [id number]
== END | disposition home or self-care (01) ==
LOC: MTRAD 10:30
PROVIDERS: PCP Internal Medicine; Referring Provider Physician Assistant Surgical; Visit Provider Physician Assistant Surgical
DX: S69.92XA Unspecified injury of left wrist, hand and finger(s), initial encounter (principal)
CPT/HCPCS: 73130

== ENCOUNTER → 2024-11-05 | Outpatient (CLI) | payer BC, SELFPAY ==
--- OUTSIDE RECORDS SUMMARY | 2024-11-05 06:27 | XMS RPT_ITS | CCD ---
Author Organization [facility] Care Team Providers Care Nail Expert Name Role Phone Harmeet Llamas Unavailable Unavailable Kana Barreto Unavailable Unavailable Kana Barreto Unavailable Unavailable TEOFILO MICHEL Primary Care Physician Dr. Damon Bui Primary Care Provider Dr. Damon Bui Referring Provider Dr. Albert Michel Attending Provider Dr. Damon Bui Primary Care Provider Dr. Damon Bui Referring Provider JUANI Dyson NP Attending Provider Tj FISHER, NATALIA Oneill Attending Provider Dr. Damon Bui Attending Provider DAMON BUI MD Primary Care Physician ZAK MUNIZ DO Attending UnavailDAMON Goldman MD Primary Care Unavailable ZAK MUNIZ DO Attending UnavailDAMON Goldman MD Primary Care Unavailable ZAK MUNIZ DO Attending UnavailDAMON Goldman MD Primary Care Unavailable Rod Saenz Attending Unavailable Damon Bui Primary Care Unavailable Damon Bui Referring Unavailable Damon Bui Primary Care Unavailable Tiffany Dyson NP Attending Unavailable Damon Bui Referring Unavailable Damon Bui Primary Care Unavailable Damon Bui Referring Unavailable Tiffany Dyson NP Attending Unavailable Dallas Chapin Consulting Unavailable Dallas Chapin Referring Unavailable Damon Bui Primary Care Unavailable Ursula Mcwilliams Attending Unavailable Ramya, Damon Primary Care Unavailable Kiel SETTER INDUCTION HEATING EQUIPMENT, Tiffany Attending Unavailable Kiel SETTER INDU[employer] HEATING EQUIPMENT, Tiffany Referring Unavailable Ramya, Damon Primary Care Unavailable Matthew Trinh Attending Unavailable Ramya, Damon Attending Unavailable Ramya, Damon Primary Care Unavailable Ramya, Damon Referring Unavailable Tavares, Dallas Bone Attending Unavailable Tavares, Teofilo Referring Unavailable Ramya, Damon Primary Care Unavailable Tavares, Dallas Bone Consulting Unavailable Tavares, Teofilo Referring Unavailable Ramya, Damon Primary Care Unavailable Ursula Mcwilliams Attending Unavailable Ramya, Damon Primary Care Unavailable Rich Pedraza Attending Unavailable Rich Pedraza Consulting Unavailable Rich Pedraza Admitting Unavailable Fransico Cassidy Attending Unavailable Fransico Cassidy Unavailable Rod Saenz Attending Unavailable Ramya, Damon Primary Care Unavailable Ramya, Damon Referring Unavailable Carlos Villegas Attending Unavailable Ramya, Damon Primary Care Unavailable Wellington Sage Attending Unavailable Ramya, Damon Primary Care Unavailable Ramya, Damon Primary Care Unavailable Carlos Villegas Attending Unavailable Rod Saenz Referring Unavailable Rod Saenz Attending Unavailable Ramya, Damon Primary Care Unavailable Ramya, Damon Primary Care Unavailable Rich Pedraza Consulting Unavailable Rich Pedraza Admitting Unavailable Fransico Cassidy Attending Unavailable TavaresDallas Admitting Unavailable Tavares, Dallas Bone Referring Unavailable Ramya, Damon Primary Care Unavailable TavaresDallas Attending Unavailable TavaresDallas Attending Unavailable Tavares, Teofilo Referring Unavailable Ramya, Damon Primary Care Unavailable Tavares, Dallas Bone Attending Unavailable Tavares, Teofilo Referring Unavailable Ramya, Damon Primary Care Unavailable Tavares, Dallas Bone Attending Unavailable Tavares, Teofilo Referring Unavailable Ramya, Damon Primary Care Unavailable RamyaDamon Attending Unavailable Ramya, Damon Primary Care Unavailable RamyaDamon Attending Unavailable Ramya, Damon Primary Care Unavailable Ramya, Damon Primary Care Unavailable RamyaLeelaen Attending Unavailable YVROSE WALLACE II Admitting Unavailable EDD HORTON Attending Unavailable RAMYADAMON Primary Care Unavailable Medications Current Medications Medication Drug Class(es) Dates Sig (Normalized) Sig (Original) acetaminophen 500 mg oral tablet (14 sources) Start: 10-05-2021 Tylenol Extra Strength 500 mg oral tablet Dose : 500 mg = 1 tab(s), Oral, q4h, PRN as needed for pain, # 100 tab(s), 0 Refill(s) Start Date: 10/05/21 Status: Ordered Start: 05-10-2017 End: 03-28-2019 take 1000 mg by mouth every eight hours as needed Acetaminophen Active 1000 MG PO EVERY 8 HOURS NEEDED March 28, 2019 4:14pm acetaminophen 325 mg / oxyCODONE hydrochloride 5 mg oral tablet (1 source) Opioid Agonist Start: 09-13-2023 take 1 tablet by mouth every six hours Oxycodone-Acetaminophen (Percocet) 5-325 mg tablet Active 1 TABLET PO EVERY 6 HOURS 12 September 13, 2023 Albuterol Sulfate (6 sources) beta2-Adrene rgic Agonist Start: 06-19-2018 take 1 puff(s) by inhalation every four hours as needed Albuterol Sulfate Active 2 PUFF INHALATION EVERY 4 HOURS NEEDED June 19, 2018 10:39pm Start: 06-19-2018 take 1 puff(s) by in halation every four hours as needed Albuterol Sulfate Active 2 PUFF INHALATION EVERY 4 HOURS NEEDED June 19, 2018 1:00am aspirin 81 mg delayed release oral tablet (18 sources) Platelet Aggregation Inhibitor, Nonsteroidal Anti-inflammatory Drug Start: 06-28-2018 Aspirin (Adult Lo w Dose Aspirin) 81 mg tablet,delayed release (DR/EC) Active 81 MG PO DAILY June 28, 2018 1:00am Start: 05-10-2017 End: 06-28-2018 take 325 mg by mouth twice daily at mealtime Aspirin Discontinued 325 MG PO TWICE DAILY WITH MEALS May 10, 2017 1:00am June 28, 2018 4:35pm Start: 02-27-2016 End: 05-10-2017 take 81 mg by mouth once daily Aspirin Discontinued 81 MG PO DAILY@0800 February 27, 2016 12:00am May 10, 2017 8:00am celecoxib 200 mg oral capsule (8 sources) Nonsteroidal Anti-inflammatory Drug Start: 06-19-2018 take 200 mg by mouth once daily Celecoxib Active 200 MG PO DAILY June 19, 2018 1:00am cyclobenzaprine hydrochloride 10 mg oral tablet (6 sources) Muscle Relaxant Start: 01-09-2023 End: 01-16-2023 take 10 mg by mouth once daily Cyclobenzaprine Active 10 MG PO THREE TIMES A DAY January 16, 2023 10:29am To be taken only AFTER work hours on workdays; no driving or operating heavy equipment while on this medication predniSONE 10 mg oral tablet (16 sources) Start: 07-22-2020 End: 01-16-2023 take 4 tablets by mouth once daily, then take 3 tablets by mouth once daily, then take 2 tablets by mouth once daily, then take 1 tablet by mouth once daily Prednisone Active 10 MG PO As Directed January 09, 2023 12:00am 4 tablets daily x3 days, then 3 tablets daily x3 days, then 2 tablets daily x3 days, then 1 tablet daily x3 days. Start: 06-19-2018 End: 06-28-2018 take 40 mg by mouth once daily at mealtime Prednisone Discontinued 40 MG PO DAILY June 19, 2018 1:00am June 28, 2018 4:35pm With food Completed/Discontinued Medications Medication Drug Class(es) Dates Sig (Normalized) Sig (Original) atorvastatin 80 mg oral tablet (20 sources) HMG-CoA Reductase Inhibitor Start: 02-27-2016 End: 10-24-2022 take 80 mg by mouth at bedtime Atorvastatin Discontinued 80 MG PO AT BEDTIME 90 April 29, 2021 2:02pm October 21, 2021 10:41am carvedilol 6.25 mg oral tablet (20 sources) alpha-Adrenergic Cristhian, beta-Adrenergic Cristhian Start: 02-27-2016 End: 11-15-2022 take 6.25 mg by mouth twice daily Carvedilol Discontinued 6.25 MG PO TWICE A DAY April 29, 2021 2:02pm October 21, 2021 10:41am cephalexin 500 mg oral capsule (6 sources) Cephalosporin Antibacterial Start: 06-29-2020 End: 07-06-2020 take 500 mg by mouth every twelve hours Cephalexin Discontinued 500 MG PO Q12H 14 June 29, 2020 1:00am July 06, 2020 1:03am clopidogrel 75 mg oral tablet (20 sources) P2Y12 Platelet Inhibitor Start: 07-31-2016 End: 05-08-2023 take 75 mg by mouth once daily Clopidogrel Discontinued 75 MG PO DAILY November 15, 2022 1:04pm May 08, 2023 12:09pm doxycycline monohydrate 100 mg oral capsule (6 sources) Tetracycline-class Drug Start: 05-10-2017 End: 06-28-2018 take 100 mg by mouth twice daily Doxycycline Monohydrate Discontinued 100 MG PO TWICE A DAY May 10, 2017 1:00am June 28, 2018 4:49pm 24 hr isosorbide mononitrate 60 mg extended release oral tablet (20 sources) Nitrate Vasodilator Start: 03-28-2019 End: 11-11-2022 take 60 mg by mouth once daily Isosorbide Mononitrate Discontinued 60 MG PO DAILY March 12, 2021 4:24pm October 21, 2021 10:41am Start: 03-29-2018 End: 06-28-2018 take 60 mg by mouth once daily Isosorbide Mononitrate Discontinued 60 MG PO DAILY March 29, 2018 5:51pm June 28, 2018 4:37pm Start: 07-31-2016 End: 03-29-2018 take 60 mg by mouth once daily Isosorbide Mononitrate Discontinued 60 MG PO DAILY March 29, 2018 5:49pm March 29, 2018 5:50pm lisinopril 10 mg oral tablet (20 sources) Angiotensin Converting Enzyme Inhibitor Start: 10-05-2021 lisinopril 5 mg oral tablet Dose : 5 mg = 1 tab(s), Oral, qDay, # 30 tab(s), 0 Refill(s) Start Date: 10/05/21 Status: Ordered Start: 03-29-2019 End: 10-03-2022 take 10 mg by mouth once daily Lisinopril Discontinued 10 MG PO DAILY September 01, 2022 8:18am October 03, 2022 12:44pm Start: 02-27-2016 End: 03-29-2019 take 5 mg by mouth once daily Lisinopril Discontinued 5 MG PO DAILY March 29, 2019 2:31pm March 29, 2019 2:55pm nitroglycerin 0.4 mg sublingual tablet (20 sources) Nitrate Vasodilator Start: 02-27-2016 End: 07-25-2022 Nitroglycerin Discontinued 0 .ROUTE .COMPLEX October 22, 2020 1:56pm July 25, 2022 5:59pm DISSOLVE 1 TABLET UNDER TONGUE EVERY 5 MINUTES NEEDED FOR CHEST PAIN oxyCODONE hydrochloride 5 mg oral tablet (6 sources) Opioid Agonist Start: 05-10-2017 End: 06-28-2018 take 5-10 mg by mouth every four hours as needed Oxycodone Discontinued 5 - 10 MG PO EVERY 4 HOURS NEEDED 80 May 10, 2017 1:00am June 28, 2018 4:36pm pantoprazole 40 mg delayed release oral tablet (20 sources) Proton Pump Inhibitor Start: 02-27-2016 End: 03-02-2023 take 40 mg by mouth once daily Pantoprazole Discontinued 40 MG PO DAILY 90 March 07, 2022 12:12pm March 02, 2023 8:11am ticagrelor 90 mg oral tablet (6 sources) Start: 06-28-2018 End: 06-28-2018 take 90 mg by mouth twice daily Ticagrelor Discontinued 90 MG PO TWICE A DAY June 28, 2018 1:00am June 28, 2018 4:49pm traMADol hydrochloride 50 mg oral tablet (6 sources) Opioid Agonist Start: 12-05-2020 End: 01-06-2021 take 50 mg by mouth every eight hours Tramadol Discontinued 50 MG PO Q8H 9 3 December 05, 2020 12:00am January 06, 2021 9:01am Problems Active Problems Problem Classification Problem Date Documented Date Episodic/Chronic Cancer of kidney and renal pelvis (1 source) Malignant neoplasm of unspecified kidney, except renal pelvis; Translations: [Malignant neoplasm of unspecified kidney, except renal pelvis] Onset: 06-20-2024 Chronic Conduction disorders (6 sources) Bundle branch block; Translations: [Nonspecific intraventricular block] 07-16-2020 Chronic Coronary atherosclerosis and other heart disease (7 sources) Coronary atherosclerosis; Translations: [Atherosclerotic heart disease of [place] coronary artery without angina pectoris] Onset: 09-02-2024 06-02-2020 Chronic Coronary atherosclerosis and other heart disease (7 sources) Presence of coronary angioplasty implant and graft; Translations: [Percutaneous transluminal coronary angioplasty status] Onset: 03-04-2016 Episodic Disorders of lipid metabolism (12 sources) Hyperlipidemia; Translations: [Hyperlipidemia, unspecified] Onset: 09-02-2024 Chronic Essential hypertension (13 sources) Essential hypertension; Translations: [Essential (primary) hypertension] Onset: 01-17-2024 Chronic Genitourinary symptoms and ill-defined conditions (2 sources) Encounter for fitting and adjustment of urinary device; Translations: [Encounter for attention to other artificial openings of urinary tract] Onset: 03-25-2024 Chronic Influenza (2 sources) Influenza due to other identified influenza virus with other respiratory manifestations; Translations: [Influenza due to other identified influenza virus with other respiratory manifestations] Onset: 06-18-2024 Episodic Nonspecific chest pain (6 sources) Chest pain; Translations: [Chest pain, unspecified] 06-02-2020 Episodic Osteoarthritis (6 sources) Arthritis of hand; Translations: [Primary osteoarthritis, right hand] 10-20-2021 Chronic Other diseases of kidney and ureters (1 source) Other specified disorders of kidney and ureter; Translations: [Other specified disorders of kidney and ureter] Onset: 04-11-2024 Chronic Other injuries and conditions due to external causes (1 source) Unspecified injury of left wrist, hand and finger(s), initial encounter; Translations: [Unspecified injury of left wrist, hand and finger(s), initial encounter] Onset: 07-23-2024 Episodic Other injuries and conditions due to external causes (1 source) Unspecified injury of unspecified wrist, hand and finger(s), initial encounter; Translations: [Unspecified injury of unspecified wrist, hand and finger(s), initial encounter] Onset: 07-11-2024 Episodic Other liver diseases (1 source) Liver disease, unspecified; Translations: [Liver disease, unspecified] Onset: 12-08-2023 Chronic Other lower respiratory disease (2 sources) Other abnormalities of breathing; Translations: [Other abnormalities of breathing] Onset: 06-18-2024 Episodic Other lower respiratory disease (1 source) Shortness of breath; Translations: [Shortness of breath] Onset: 07-10-2024 Episodic Other non-traumatic joint disorders (6 sources) Shoulder pain; Translations: [Pain in unspecified shoulder] 03-28-2019 Episodic Other non-traumatic joint disorders (6 sources) Pain in wrist; Translations: [Pain in unspecified wrist] 03-28-2019 Episodic Other nutritional; endocrine; and metabolic disorders (6 sources) Body mass index 30+ - obesity; Translations: [Obesity, unspecified] 10-20-2021 Chronic Other nutritional; endocrine; and metabolic disorders (2 sources) Obesity, unspecified; Translations: [Obesity, unspecified] Onset: 06-18-2024 Chronic Residual codes; unclassified (6 sources) Tobacco use and exposure - finding; Translations: [Tobacco use] 12-14-2019 Episodic Residual codes; unclassified (6 sources) Tobacco use; Translations: [Tobacco use disorder] Onset: 06-18-2024 11-15-2022 Episodic Skin and subcutaneous tissue infections (6 sources) Staphylococcal infection of skin; Translations: [Local infection of the skin and subcutaneous tissue, unspecified] 10-20-2021 Episodic Spondylosis; intervertebral disc disorders; other back problems (3 sources) Degeneration of lumbar intervertebral disc; Translations: [Displacement of lumbar intervertebral disc without myelopathy] 03-21-2023 Chronic Sprains and strains (14 sources) Strain of flexor muscle of hip; Translations: [Strain of muscle, fascia and tendon of right hip, initial encounter] 01-09-2023 Episodic Superficial injury; contusion (6 sources) Contusion of hand; Translations: [Contusion of right hand, initial encounter] 10-20-2021 Episodic Viral infection (1 source) COVID-19; Translations: [COVID-19] Onset: 05-30-2024 Past or Other Problems Problem Classification Problem Date Documented Date Episodic/Chronic Abdominal pain (2 sources) Unspecified abdominal pain; Translations: [Left lower quadrant pain] Onset: 03-20-2024 Episodic Complication of device; implant or graft (1 source) Other mechanical complication of other specified internal prosthetic devices, implants and grafts, initial encounter; Translations: [JAREN drain, broken, initial encounter] Onset: 02-24-2024 Episodic Other circulatory disease (1 source) Other specified symptoms and signs involving the circulatory and respiratory systems; Translations: [Other specified symptoms and signs involving the circulatory and respiratory systems] Onset: 05-30-2024 Episodic Other connective tissue disease (2 sources) Pain in left hand; Translations: [Pain in left hand] Onset: 01-05-2017 Episodic Other diseases of bladder and urethra (1 source) Other specified disorders of urethra; Translations: [Other specified disorders of urethra] Onset: 03-13-2024 Episodic Other diseases of kidney and ureters (1 source) Disorder of kidney and ureter, unspecified; Translations: [Disorder of kidney and ureter, unspecified] Onset: 12-06-2023 Episodic Other lower respiratory disease (1 source) Hypoxemia; Translations: [Hypoxia] Onset: 02-24-2024 Episodic Other nervous system disorders (1 source) Other acute postprocedural pain; Translations: [Other acute postprocedural pain] Onset: 03-13-2024 Episodic Other screening for suspected conditions (not mental disorders or infectious disease) (1 source) Abnormal findings on diagnostic imaging of other parts of musculoskeletal system; Translations: [Abnormal findings on diagnostic imaging of other parts of musculoskeletal system] Onset: 01-20-2024 Episodic Pneumonia (except that caused by tuberculosis or sexually transmitted disease) (1 source) Pneumonia, unspecified organism; Translations: [Pneumonia of both lungs due to infectious organism, unspecified part of lung] Onset: 02-24-2024 Episodic Spondylosis; intervertebral disc disorders; other back problems (15 sources) Lumbosacral radiculopathy; Translations: [Radiculopathy, lumbosacral region] Onset: 12-01-2023 01-09-2023 Episodic Results Test Name Value Interpretation Reference Range Facility Cardiology Visit Reporton Cardiology Visit Report [facility] [address] [place] [address] OFFICE VISIT Date of Service: 09/02/24 MR#: [id number] Acct: [id number] Name: ELMER ARBOLEDA Rep #: [id number] : 1970 Provider: JUANI chong Age/Sex: 54/M [place] [facility] [place]: Signed HPI HPI History of Present Illness Details: ELEMR ARBOLEDA, is a 54 M who presents to the office today for a cardiovascular follow-up visit. He is a gentleman with a history of coronary artery disease status post angioplasty and stenting of the right coronary artery in 2016. He also has a history of hypertension, hyperlipidemia, and tobacco abuse. His last catheterization in 2016 demonstrated no obstructive coronary lesions. He was admitted to the hospital in March of 2019 with chest discomfort. He ruled out for myocardial infarction it was atypical he underwent stress test with no evidence of ischemia 7 metabolic equivalents. From a cardiac standpoint, the patient is doing well. He denies any palpitations, chest pain, pressure or heaviness. He does acknowledge SOB with exertion-this is nothing new or worsening. He continues to smoke 1 pack/day. He denies Orthopnea, and PND. He does not have bleeding issues; no blood in urine, stool, or nosebleeds. He denies any decrease in energy level, myalgias, or claudication. He does not have edema, or sudden weight gain. He denies lightheadedness, dizziness, syncopal or near syncopal episodes, and headaches. He states he may be having knee surgery-unable to walk on treadmill. Intake Vital Signs 01/16/24 13:00 09/02/24 07:34 Height 6 ft 6 ft Weight: 254 lb BMI 34.4 BP 128/82 H Blood Pressure Location Lt brachial Position Sitting Respiration 18 Pulse 77 Pulse Source Monitor Pulse Oximetry (%) 93 Intake Visit Reasons: 6-9 M FU Lead Oxide Mill Tender Required: No Is patient in pain?: No Allergies No Known Allergies Allergy (Verified 09/02/24 09:48) Medications ???Medication ???Instructions ???Recorded ???Confirmed ???Type aspirin 81 mg tablet,delayed 81 mg PO DAILY 06/28/18 09/02/24 H istory release (Adult Low Dose Aspirin) acetaminophen 500 mg tablet 1,000 mg PO Q8H PRN Pain Score 12/0709/02/24 History 1-02/28 atorvastatin 80 mg tablet 80 mg PO QHS #90 TABLETS 10/27/23 09/02/24 Rx carvedilol 6.25 mg tablet 6.25 mg PO BID for blood pressure 10/27/23 09/02/24 Rx #180 TABLETS lisinopril 10 mg tablet 10 mg PO DAILY #90 TABLETS 4 09/02/24 Rx isosorbide mononitrate 60 mg 60 mg PO DAILY #90 TABLETS 4 09/02/24 Rx tablet,extended release 24 hr nitroglycerin 0.4 mg sublingual 0.4 mg sublingual PRN PRN chest 09/02/24 History tablet pain pantoprazole 40 mg tablet,delayed 40 mg PO DAILY for indigestion #9 0 03/04/24 09/02/24 Rx release TABLETS dibucaine 1 % rectal ointment [address] TID PRN hemorrhoids 09/02/24 Rx #28.4 grams albuterol sulfate 90 mcg/actuation 2 puff inhalation Q4H PRN Wheezi ng 06/17/24 09/02/24 History aerosol inhaler dextromethorphan-guaife nesin ER 60 1 tab PO Q12H PRN 09/02/2409/02 History mg-1,200 mg tab,extend release,12hr (Mucinex DM) Have you fallen in the past year?: No PFSH Medical History (Reviewed 09/02/24 @ 10:20 by Tiffany Dyson SETTER [employer]DU[employer]ATING [employer]MENT, SETTER INDU[employer] HEATING EQUIPMENT-C) Obesity (BMI 30-39.9) Tobacco abuse Respiratory insufficiency Influenza A 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 Wears glasses Cancer Arthritis History of renal disease High cholesterol Injury of head and neck Gastric reflux Smoker Injury of back Leg cramps History of pain when walking History of edema History of stress test Cardiology follow-up encounter Hypertension Pain Liver hemangioma Strain of right hip Lumbosacral radiculopathy Lumbosacral strain Arthritis of right hand Contusion of hand, right BBB (bundle branch block) Staphylococcal infection of skin Atherosclerotic heart disease of [place] coronary artery without angina pectoris Essential (primary) hypertension Tobacco use Obesity Acute non-ST segment elevation myocardial infarction HLD (hyperlipidemia) Surgical History (Reviewed 09/02/24 @ 10:20 by Tiffany Dyson SETTER [employer]DU[employer] HEATING EQUIPMENT, SETTER INDU[employer] HEATING EQUIPMENT-C) History of coronary artery stent placement (03/04/16) History of cystoscopy History of coronary artery stent placement Hx of hand surgery History of fusion of cervical spine History of left heart catheterization (11/04/16) History of knee replacement History of carpal tunnel release Family History (Reviewed 09/02/24 @ 10:20 by Tiffany Dyson [employer]MENT, SETTER [employer]MENT-C) Father CAD (coronary artery disease) Mother CVA (cerebral vascular accident) CAD (coronary artery disease) Social History ... Normal [facility] Hand Min 3 Viewson 5 Hand Min 3 Views [facility] Imaging Services [address] [place], [place] [id number] Hand Min 3 Views MR#: [id number] Acct: [id number] Name: ELMER ARBOLEDA Rep #: [id number] : 1970 M 54 From: Carlos Alberto ventura MD PCP: Dr. Damon Bui MD Status: REG CLI Study: Hand Min 3 Views Date of Exam: 07/11/24 Exam# [id number] Ordering Dr: Rod Avery PROCEDURE: HAND MIN 3 VIEWS REASON FOR EXAM: Nontraumatic swelling and redness. TECHNIQUE: 3 view(s) of the left hand COMPARISON: None. FINDINGS: No visible fracture. No suspicious bone lesion. Normal alignment. Soft tissue swelling. Joint space narrowing of the proximal and distal interphalangeal joints as well as the 2nd and 3rd metacarpophalangeal joints in keeping with osteoarthritis. RAD/Hand Min 3 Views IMPRESSION: Soft tissue swelling. Osteoarthritis. Reading Location: [id number] CC: NATALIA Leon; Dr. Damon Bui MD Outsole Tacker: Signed Normal [facility] Urgent Care Visit Reporton 0 07-11-2024 Urgent Care Visit Report [facility] [address], [address] [place] [address] OFFICE VISIT Date of Service: 07/11/24 MR#: [id number] Acct: [id number] Name: ELMER ARBOLEDA Rep #: [id number] : 1970 Provider: NATALIA Leon Age/Sex: 54/M Location: [facility] [place] Status: Signed Intake Vital Signs 06/20/24 09:35 07/11/24 10:28 Height 6 ft Weight: 263 lb BMI 35.6 BP 109/70 120/80 Blood Pressure Location Rt brachial Lt brachial Position Sitting Sitting Respiration 16 17 Pulse 86 84 Pulse Source Monitor NIBP Temp 97.8 F 98.6 F Temp Source Temporal Oral Pulse Oximetry (%) 92 98 Oxygen Delivery Method room air room air Intake Visit Reasons: L HAND INJURY Chief Complaint: left hand Lead Oxide Mill Tender Required: No Is patient in pain?: Yes Allergies No Known Allergies Allergy (Verified 07/11/24 10:29) Have you fallen in the past year?: No Nurse's Note: left hand pain, swelling, redness x 4 days worsening. pt believes he hit hand on something 4 days ago but cannot recall specifics to injury. 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 Wears glasses Cancer Arthritis History of renal disease High cholesterol Injury of head and neck Gastric reflux Smoker Injury of back Leg cramps History of pain when walking History of edema History of stress test Cardiology follow-up encounter Hypertension Pain Liver hemangioma Strain of right hip Lumbosacral radiculopathy Lumbosacral strain Arthritis of right hand Contusion of hand, right BBB (bundle branch block) Staphylococcal infection of skin Atherosclerotic heart disease of [place] coronary artery without angina pectoris Essential (primary) hypertension Tobacco use Obesity Acute non-ST segment elevation myocardial infarction HLD (hyperlipidemia) Surgical History (Updated 06/26/24 @ 00:02 by Alycia Anders) History of coronary artery stent placement (03/04/16) History of cystoscopy History of coronary artery stent placement Hx of hand surgery History of fusion of cervical spine History of left heart catheterization (11/04/16) History of knee replacement History of carpal tunnel release Family History Father CAD (coronary artery disease) Mother CVA (cerebral vascular accident) CAD (coronary artery disease) Social History Smoking Status: Current every day smoker tobacco type: cigarettes alcohol intake: never substance use type: does not use 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 Patient states that he may have injured it this past weekend however is unable to recall any specific trauma to the hand however states that 4 days ago started having pain and swelling around the base of his left middle finger. Patient denies numbness, tingling or loss range of motion to the hand. He does state having a history of trauma to the hand remotely. No other associated symptoms or alleviating/aggravating factors. ROS Const Constitutional: No other (As above) Exam Const General: cooperative and healthy appearing [facility] Head: normocephalic and atraumatic Ears: hearing grossly normal bilaterally Nose: external nose normal Face and sinus: normal facial exam and face symmetric Mouth: oral mucosae normal Throat: posterior oropharynx normal Musc Other: Pain to palpation base of the left middle finger along with soft tissue swelling and minor erythema. Appropriate sensation to light touch distally. Skin General: no rashes or lesions noted Neuro General: patient alert Psych Appearance: grossly normal Mental Status: mental status grossly normal Coding Level of Care Code Off vis,new,level 4 Diagnoses Arthritis of left hand M19.042 Assessment and Plan Assessment and Plan (1) Arthritis of left hand: Status: Acute Orders: Orders Hand Min 3 Views Today S69.90XA - Unspecified injury of unspecified wrist, hand and finger(s), initial encounter Medications: New methylprednisolone (Medrol (Jose Luis)) 4 mg PO PER PKG DIR 6 days 21 tabs 0RF Plan X-ray of the left hand 3 views read by myself finding no acute osseous abnormalities however there is quite a bit of osteoarthritis. Awaiting radiology interpretation at time of patient discharge. Medrol Dosepak as prescribed today. Patient had left middle finger placed in a splint and advised to wear it for the next 7 to (more content not included)... Normal [facility] MR/BMS.Bon 06-20-2024 MR/BMS.B [facility] [address] [place] [address] OFFICE VISIT Date of Service: 06/20/24 MR#: [id number] Acct: [id number] Name: ELMER ARBOLEDA Alexus Rep #: [id number] : 1970 Provider: Dr. Damon medeiros MD Age/Sex: 54/M Location: [facility] Status: Signed Intake Vital Signs 06/17/24 22:13 06/20/24 09:35 Height 6 ft 6 ft Weight: 263 lb BMI 35.6 BP 109/70 Blood Pressure Location Rt brachial Position Sitting Respiration 16 Pulse 86 Pulse Source Monitor Temp 97.8 F Temp Source Temporal Pulse Oximetry (%) 92 Oxygen Delivery Method room air Intake Visit Reasons: H Discharge FU Chief Complaint: [facility] discharge fu [employer] T[employer] Required: No Accompanied by: Self Is patient in pain?: No Allergies No Known Allergies Allergy (Verified 06/20/24 09:28) Medications ???Medication ???Instructions ???Recorded ???Confirmed ???Type aspirin 81 mg tablet,delayed 81 mg PO DAILY 06/28/18 06/20/24 H istory release (Adult Low Dose Aspirin) acetaminophen 500 mg tablet 1,000 mg PO Q8H PRN Pain Score 12/0706/20/24 History 1-02/28 atorvastatin 80 mg tablet 80 mg PO QHS #90 TABLETS 10/27/23 06/20/24 Rx carvedilol 6.25 mg tablet 6.25 mg PO BID for blood pressure 10/27/23 06/20/24 Rx #180 TABLETS lisinopril 10 mg tablet 10 mg PO DAILY #90 TABLETS 4 06/20/24 Rx isosorbide mononitrate 60 mg 60 mg PO DAILY #90 TABLETS 4 06/20/24 Rx tablet,extended release 24 hr gabapentin 300 mg capsule 300 mg PO TID PRN pain 01/16/24 History nitroglycerin 0.4 mg sublingual 0.4 mg sublingual PRN PRN chest 06/20/24 History tablet pain pantoprazole 40 mg tablet,delayed 40 mg PO DAILY for indigestion #9 0 03/04/24 06/20/24 Rx release TABLETS dibucaine 1 % rectal ointment [address] TID PRN hemorrhoids 06/20/24 Rx #28.4 grams albuterol sulfate 90 mcg/actuation 2 puff inhalation Q4H PRN Wheezi ng 06/17/24 06/20/24 History aerosol inhaler prednisone 20 mg tablet 40 mg (2 x 20 mg) PO DAILY #14 tab s 06/18/24 06/20/24 Rx dextromethorphan-guaife nesin ER 60 1 tab PO Q12H 06/20/24 06/20/24 History mg-1,200 mg tab,extend release,12hr (Mucinex DM) oseltamivir 75 mg capsule 75 mg PO BID 06/20/24 History PFSH Medical History (Updated 06/20/24 @ 10:[address] 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 Wears glasses Cancer Arthritis History of renal disease High cholesterol Injury of head and neck Gastric reflux Smoker Injury of back Leg cramps History of pain when walking History of edema History of stress test Cardiology follow-up encounter Hypertension Pain Liver hemangioma Strain of right hip Lumbosacral radiculopathy Lumbosacral strain Arthritis of right hand Contusion of hand, right BBB (bundle branch block) Staphylococcal infection of skin Atherosclerotic heart disease of [place] coronary artery without angina pectoris Essential (primary) hypertension Tobacco use Obesity Acute non-ST segment elevation myocardial infarction HLD (hyperlipidemia) Surgical History History of cystoscopy History of coronary artery stent placement Hx of hand surgery History of fusion of cervical spine History of left heart catheterization (11/04/16) History of knee replacement History of carpal tunnel release Family History Father CAD (coronary artery disease) Mother CVA (cerebral vascular accident) CAD (coronary artery disease) Social History Smoking Status: Current every day smoker tobacco type: cigarettes alcohol intake: never substance use type: does not use 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 Early in May, patient had COVID-19, was seen at urgent care. I was unaware of that. Subsequently, he developed abrupt onset respiratory infection, cough, dyspnea. He went to ER. He was admitted for observation status. Chest x-ray did not show any significant bothersome acute findings. He tested positive for influenza A. He was treated with Tamiflu, steroid. He continues to have a little bit of wheezing, and that has responded well he states to albuterol puffer. He is currently again finishing up Tamiflu and the steroid course. Still some tired and fatigued. Would like to go back to work on Monday. 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 Normal [facility] CBC W/Diff, Automatedon 05-23 Absolute Lymph 0.72 X10 3/uL Low 0.83-4.51 [facility] Comment on above: Performed By: #### L 100.0100, L501.2300, L501.5200, L500.4050 #### [facility] [address] [place], [address] Absolute Neut 2.3 X10 3/uL Normal 2.0-7.7 [facility] Comment on above: Performed By: #### L 100.0100, L501.2300, L501.5200, L500.4050 #### [facility] [address] [place], [address] Basophils/100 WBC (Bld) 0.5 % Normal 0-1 [facility] Comment on above: Performed By: #### L 100.0100, L501.2300, L501.5200, L500.4050 #### [facility] [address] [place], [address] Eosinophils/100 WBC (Bld) 0.8 % Normal 0-5 [facility] Comment on above: Performed By: #### L 100.0100, L501.2300, L501.5200, L500.4050 #### [facility] [address] [place], [address] Erythrocyte distribution width (RBC) [Ratio] 15.9 % High 11.6-14.6 [facility] Comment on above: Performed By: #### L 100.0100, L501.2300, L501.5200, L500.4050 #### [facility] [address] [place], [address] Hematocrit (Bld) [Volume fraction] 41.6 % Normal 40-54 [facility] Comment on above: Performed By: #### L 100.0100, L501.2300, L501.5200, L500.4050 #### [facility] [address] [place], [address] Hemoglobin (Bld) [Mass/Vol] 13.3 g/dL Normal 13.0-16.5 [facility] Comment on above: Performed By: #### L 100.0100, L501.2300, L501.5200, L500.4050 #### [facility] [address] [place], [address] IG% 0.500 Normal 0.0-0.9 [facility] Comment on above: Result Comment: IG% - Immature Granulocytes (promyelocytes, myelocytes and metamyelocytes) > 1% indicates that a LEFT SHIFT is Present. Performed By: #### L 100.0100, L501.2300, L501.5200, L500.4050 #### [facility] [address] [place], [address] Lymphocytes/100 WBC (Bld) 19.3 % Normal 19-41 [facility] Comment on above: Performed By: #### L 100.0100, L501.2300, L501.5200, L500.4050 #### [facility] [address] [place], [address] MCH (RBC) [Entitic mass] 27.1 pg Normal 27.0-32.0 [facility] Comment on above: Performed By: #### L 100.0100, L501.2300, L501.5200, L500.4050 #### [facility] [address] [place], [address] MCHC (RBC) [Mass/Vol] 32.0 g/dL Normal 32-36 [facility] Comment on above: Performed By: #### L 100.0100, L501.2300, L501.5200, L500.4050 #### [facility] [address] [place], [address] MCV (RBC) [Entitic vol] 84.7 fL Normal 80-94 [facility] Comment on above: Performed By: #### L 100.0100, L501.2300, L501.5200, L500.4050 #### [facility] [address] [place], [address] Monocytes/100 WBC (Bld) 18.5 % High 0-10 [facility] Comment on above: Performed By: #### L 100.0100, L501.2300, L501.5200, L500.4050 #### [facility] [address] [place], [address] Neutrophils/100 WBC (Bld) 60.4 % Normal 47-70 [facility] Comment on above: Performed By: #### L 100.0100, L501.2300, L501.5200, L500.4050 #### [facility] [address] [place], [address] Nucleated RBC (Bld) [#/Vol] 0 10*3/uL Normal 0-5 [facility] Comment on above: Performed By: #### L 100.0100, L501.2300, L501.5200, L500.4050 #### [facility] [address] [place], [address] Platelet mean volume (Bld) [Entitic vol] 9.9 fL Normal 6.2-12.0 [facility] Comment on above: Performed By: #### L 100.0100, L501.2300, L501.5200, L500.4050 #### [facility] [address] [place], [address] Platelets (Bld) [#/Vol] 171 10*3/uL Normal 150-450 [facility] Comment on above: Performed By: #### L 100.0100, L501.2300, L501.5200, L500.4050 #### [facility] [address] [place], [address] RBC (Bld) [#/Vol] 4.91 10*6/uL Normal 4.6-6.2 [facility] Comment on above: Performed By: #### L 100.0100, L501.2300, L501.5200, L500.4050 #### [facility] [address] [place], [address] RDW SD 49.6 fl High 35.1-43.9 [facility] Comment on above: Performed By: #### L 100.0100, L501.2300, L501.5200, L500.4050 #### [facility] [address] [place], [address] WBC (Bld) [#/Vol] 3.7 10*3/uL Low 4.4-11.0 [facility] Comment on above: Performed By: #### L 100.0100, L501.2300, L501.5200, L500.4050 #### [facility] [address] [place], [address] Comprehensive Metabolic [facility] 06-18-2024 Albumin [Mass/Vol] 2.8 g/dL Low 3.2-5.0 [facility] Comment on above: Performed By: #### L 100.0100, L501.2300, L501.5200, L500.4050 #### [facility] [address] [place], [address] Albumin/Globulin [Mass ratio] 0.8 {ratio} Low 0.9-2.4 [facility] Comment on above: Performed By: #### L 100.0100, L501.2300, L501.5200, L500.4050 #### [facility] [address] [place], [address] ALK P 101 U/L Normal 45-117 [facility] Comment on above: Performed By: #### L 100.0100, L501.2300, L501.5200, L500.4050 #### [facility] [address] [place], [address] ALT [Catalytic activity/Vol] 39 U/L Normal 16-61 [facility] Comment on above: Performed By: #### L 100.0100, L501.2300, L501.5200, L500.4050 #### [facility] [address] [place], [address] AST [Catalytic activity/Vol] 46 U/L High 15-37 [facility] Comment on above: Performed By: #### L 100.0100, L501.2300, L501.5200, L500.4050 #### [facility] [address] [place], [address] Bilirubin [Mass/Vol] 0.50 mg/dL Normal 0.20-1.00 [facility] Comment on above: Result Comment: For patients on eltrombopag therapy, use of Dimension [place] TBIL is not recommended. Performed By: #### L 100.0100, L501.2300, L501.5200, L500.4050 #### [facility] [address] [place], [address] BUN/CRE 17.5 RATIO Normal 10-20 [facility] Comment on above: Performed By: #### L 100.0100, L501.2300, L501.5200, L500.4050 #### [facility] [address] [place], [address] CA,Total 8.4 mg/dL Low 8.5-10.1 [facility] Comment on above: Performed By: #### L 100.0100, L501.2300, L501.5200, L500.4050 #### [facility] [address] [place], [address] Chloride [Moles/Vol] 105 mmol/L Normal 98-107 [facility] Comment on above: Performed By: #### L 100.0100, L501.2300, L501.5200, L500.4050 #### [facility] [address] [place], [address] CO2 [Moles/Vol] 23.0 mmol/L Normal 21.0-32.0 [facility] Comment on above: Performed By: #### L 100.0100, L501.2300, L501.5200, L500.4050 #### [facility] [address] [place], [address] Creatinine [Mass/Vol] 0.97 mg/dL Normal 0.70-1.30 [facility] Comment on above: Result Comment: The validity of the calculated GFR GFRAA in patients over 70 years has not been determined. Clinical correlation is essential. Performed By: #### L 100.0100, L501.2300, L501.5200, L500.4050 #### [facility] [address] [place], [address] ECRCL 114.81 ml/min Normal [facility] Comment on above: Performed By: #### L 100.0100, L501.2300, L501.5200, L500.4050 #### [facility] [address] [place], [address] EST GFR - AA 103 mL/min Normal >60 [facility] Comment on above: Result Comment: Afri can [place] GFR Calc Performed By: #### L 100.0100, L501.2300, L501.5200, L500.4050 #### [facility] [address] [place], [address] GAP 8 Normal 5-15 [facility] Comment on above: Performed By: #### L 100.0100, L501.2300, L501.5200, L500.4050 #### [facility] [address] [place], [address] GFR/1.73 sq M.predicted among non-blacks MDRD (S/P/Bld) [Vol rate/Area] 85 mL/min/{1.73_m2} Normal >60 [facility] Comment on above: Result Comment: Non- GFR Calc Performed By: #### L 100.0100, L501.2300, L501.5200, L500.4050 #### [facility] [address] [place], [address] Globulin (S) [Mass/Vol] 3.5 g/dL Normal 2.2-4.2 [facility] Comment on above: Performed By: #### L 100.0100, L501.2300, L501.5200, L500.4050 #### [facility] [address] [place], [address] Glucose [Mass/Vol] 98 mg/dL Normal 74-106 [facility] Comment on above: Performed By: #### L 100.0100, L501.2300, L501.5200, L500.4050 #### [facility] [address] [place], [address] Potassium [Moles/Vol] 3.6 mmol/L Normal 3.5-5.1 [facility] Comment on above: Performed By: #### L 100.0100, L501.2300, L501.5200, L500.4050 #### [facility] [address] [place], [address] Sodium [Moles/Vol] 136 mmol/L Normal 136-145 [facility] Comment on above: Performed By: #### L 100.0100, L501.2300, L501.5200, L500.4050 #### [facility] [address] [place], [address] T PROT 6.3 g/dL Low 6.4-8.2 [facility] Comment on above: Performed By: #### L 100.0100, L501.2300, L501.5200, L500.4050 #### [facility] [address] [place], [address] Urea nitrogen [Mass/Vol] 17 mg/dL Normal 7-18 [facility] Comment on above: Performed By: #### L 100.0100, L501.2300, L501.5200, L500.4050 #### [facility] [address] [place], [address] Discharge Instructionon 05-23 Discharge Instruction [facility] Medical Records Department [address] [place] [address] Instructions for Home/Discharge Instructions 06/18/24 1132 MR#: [id number] Acct: [id number] Name: ELMER ARBOLEDA Alexus Rep #: [id number] : 1970 54 From: Fransico Cassidy DO PCP: Dr. Damon Bui MD Status:ADM NICOLASA Discharge Instructions Diet Discharge Diet: No restrictions DC O2, CPAP, BIPAP needs RN Home O2 Qualification: Home O2 Qualification: Is the patient on home oxygen No 06/18/24 08:24 Home O2 Qualification: AT REST 1- Pulse Ox at rest 94 06/18/24 08:24 Home O2 Qualification: WITH AMBULATION 1- Pulse Ox with ambulation 90 06/18/24 08:24 1- Oxygen Flow Rate with 0 06/18/24 08:24 ambulation Home O2 Discharge instructions: No Dressing / Incision Discharge Activity: Return to Normal Activity Return to work on:: 06/22/24 Weight Bearing Status: Full weight bearing Follow Up Care Test Results: Test results from this visit will be discussed in further detail at your follow-up appointment, if applicable. Discharge Plan Admission Admit Date/Time: 06/17/24 21:06 Primary Reason for Your Visit: influenza A Attending Provider: Fransico Cassidy Primary Care Provider: Damon Bui Consulting Providers: Rich Pedraza Instructions Forms: Work / School Excuse Discharge Orders/Prescriptions Prescriptions: New oseltamivir 75 mg Capsule 75 mg PO BID Qty: 9 0RF Rx Instructions: start tonight prednisone 20 mg tablet 40 mg PO DAILY Qty: 14 0RF Rx Instructions: start today Continued aspirin [Adult Low Dose Aspirin] 81 mg tablet,delayed release (DR/EC) 81 mg PO DAILY gabapentin 300 mg capsule 300 mg PO TID PRN (Reason: pain) acetaminophen 500 MG tablet 1,000 mg PO Q8H PRN (Reason: Pain Score 1-10/10) nitroglycerin 0.4 mg tablet, sublingual 0.4 mg sublingual PRN PRN (Reason: chest pain) Rx Instructions: DISSOLVE 1 TABLET UNDER TONGUE EVERY 5 MINUTES NEEDED FOR CHEST PAIN albuterol sulfate 1 INHALER inhaler 2 puff inhalation Q4H PRN (Reason: Wheezing) carvedilol 6.25 mg tablet 6.25 mg PO BID Qty: 180 3RF lisinopril 10 mg tablet 10 mg PO DAILY Qty: 90 3RF atorvastatin 80 mg tablet 80 mg PO QHS Qty: 90 3RF isosorbide mononitrate 60 mg tablet extended release 24 hr 60 mg PO DAILY Qty: 90 3RF pantoprazole 40 mg tablet,delayed release (DR/EC) 40 mg PO DAILY Qty: 90 3RF dibucaine 1 % ointment [address] TID PRN (Reason: hemorrhoids) Qty: 28.4 1RF Referrals / Follow Up: Damon Bui MD [Primary Care Provider] - See Referral Note (At your regular appointment time) Disposition Disposition (needs filled in before D/C Order can be placed): Home, Self Care 06/18/24 1141 Fransico Cassidy DO CC: Dr. Rich Pedraza DO; Dr. Damon Bui MD Signed Normal [facility] Free T3on 06-18-2024 Free T3 [Mass/Vol] 1.8 pg/mL Low 2.18-3.98 [facility] Comment on above: Performed By: #### L 501.87279, L506.0400 #### [facility] [address] [place], [address] Magnesiumon 06-18-2024 Magnesium [Mass/Vol] 2.1 mg/dL Normal 1.6-2.6 [facility] Comment on above: Performed By: #### L 100.0100, L501.2300, L501.5200, L500.4050 ####[facility] [address] [place], [address] Phosphoruson 06-18-2024 Phosphate [Mass/Vol] 3.8 mg/dL Normal 2.5-4.9 [facility] Comment on above: Performed By: #### L 100.0100, L501.2300, L501.5200, L500.4050 #### [facility] [address] [place], [address] T4 Free Directon 06-18-2024 T4 FREE DIRECT 1.15 ng/dL Normal 0.76-1.46 [facility] Comment on above: Performed By: #### L 501.56805, L506.0400 #### [facility] [address] [place], [address] 12 Lead EKGon 06-17-2024 12 Lead EKG [facility] Services [address] [place] [address] 12 Lead EKG 06/17/24 1658 MR#: [id number] Acct: [id number] Name: ELMER ARBOLEDA Rep #: [id number] : 1970 54 From: Malvin Yanes MD Attending Dr: Dr. Fransico Cassidy DO Status: D IS NICOLASA Ordering Dr: Wellington Sage DO Date: 06/17/24 Location: [facility] [place] Sex: M C Admitted: 06/17/24 Test Reason : GENERAL Blood Pressure : */* mmHG Vent. Rate : 89 BPM Atrial Rate : 89 BPM P-R Int : 156 ms QRS Dur : 124 ms QT Int : 382 ms P-R-T Axes : * 48 74 degrees QTcB Int : 464 ms Normal sinus rhythm Anteroseptal infarct , age undetermined Abnormal ECG Confirmed by BRITNEY WILSON, JOSELO ([id number]), subeditor SHEBA FLORES ([id number]) on 06/19/2024 6:26:21 AM Referred By: Confirmed By: JOSELO YANES MD 06/19/24625 Date Malvin Yanes MD CC: Dr. Damon Bui MD; Dr. Fransico Cassidy DO; Dr. Wellington Sage DO Signed Normal [facility] Basic Metabolic Profile (BMP )on 06-17-2024 BUN/CRE 13.3 RATIO Normal 10-20 [facility] Comment on above: Performed By: #### L 501.81180, L506.0400 #### [facility] [address] [place], [address] CA,Total 9.2 mg/dL Normal 8.5-10.1 [facility] Comment on above: Performed By: #### L 501.77034, L506.0400 #### [facility] [address] [place], [address] Chloride [Moles/Vol] 100 mmol/L Normal 98-107 [facility] Comment on above: Performed By: #### L 501.83423, L506.0400 #### [facility] [address] [place], [address] CO2 [Moles/Vol] 27.0 mmol/L Normal 21.0-32.0 [facility] Comment on above: Performed By: #### L 501.60679, L506.0400 #### [facility] [address] [place], [address] Creatinine [Mass/Vol] 1.20 mg/dL Normal 0.70-1.30 [facility] Comment on above: Result Comment: The validity of the calculated GFR GFRAA in patients over 70 years has not been determined. Clinical correlation is essential. Performed By: #### L 501.74450, L506.0400 #### [facility] [address] [place], [address] ECRCL 93.66 ml/min Normal [facility] Comment on above: Performed By: #### L 501.17808, L506.0400 #### [facility] [address] [place], [address] EST GFR - AA 81 mL/min Normal >60 [facility] Comment on above: Result Comment: Afri can Trin[place] GFR Calc Performed By: #### L 501.28444, L506.0400 #### [facility] [address] [place], [address] GAP 6 Normal 5-15 [facility] Comment on above: Performed By: #### L 501.13281, L506.0400 #### [facility] [address] [place], [address] GFR/1.73 sq M.predicted among non-blacks MDRD (S/P/Bld) [Vol rate/Area] 67 mL/min/{1.73_m2} Normal >60 [facility] Comment on above: Result Comment: Non- GFR Calc Performed By: #### L 501.24777, L506.0400 #### [facility] [address] [place], [address] Glucose [Mass/Vol] 98 mg/dL Normal 74-106 [facility] Comment on above: Performed By: #### L 501.51855, L506.0400 #### [facility] [address] [place], [address] Potassium [Moles/Vol] 3.9 mmol/L Normal 3.5-5.1 [facility] Comment on above: Performed By: #### L 501.01520, L506.0400 #### [facility] [address] [place], [address] Sodium [Moles/Vol] 133 mmol/L Low 136-145 [facility] Comment on above: Performed By: #### L 501.58978, L506.0400 #### [facility] [address] [place], [address] Urea nitrogen [Mass/Vol] 16 mg/dL Normal 7-18 [facility] Comment on above: Performed By: #### L 501.36241, L506.0400 #### [facility] [address] [place], [address] CBC W/Diff, Automatedon 01-2 -2024 Absolute Lymph 0.54 X10 3/uL Low 0.83-4.51 [facility] Comment on above: Performed By: #### L 501.62639, L506.0400 #### [facility] [address] [place], [address] Absolute Neut 3.3 X10 3/uL Normal 2.0-7.7 [facility] Comment on above: Performed By: #### L 501.43860, L506.0400 #### [facility] [address] [place], [address] Basophils/100 WBC (Bld) 0.6 % Normal 0-1 [facility] Comment on above: Performed By: #### L 501.41690, L506.0400 #### [facility] [address] [place], [address] Eosinophils/100 WBC (Bld) 0.2 % Normal 0-5 [facility] Comment on above: Performed By: #### L 501.95221, L506.0400 #### [facility] [address] [place], [address] Erythrocyte distribution width (RBC) [Ratio] 15.8 % High 11.6-14.6 [facility] Comment on above: Performed By: #### L 501.57922, L506.0400 #### [facility] [address] [place], [address] Hematocrit (Bld) [Volume fraction] 43.6 % Normal 40-54 [facility] Comment on above: Performed By: #### L 501.01119, L506.0400 #### [facility] [address] [place], [address] Hemoglobin (Bld) [Mass/Vol] 14.4 g/dL Normal 13.0-16.5 [facility] Comment on above: Performed By: #### L 501.94216, L506.0400 #### [facility] [address] [place], [address] IG% 0.800 Normal 0.0-0.9 [facility] Comment on above: Result Comment: IG% - Immature Granulocytes (promyelocytes, myelocytes and metamyelocytes) > 1% indicates that a LEFT SHIFT is Present. Performed By: #### L 501.80953, L506.0400 #### [facility] [address] [place], [address] Lymphocytes/100 WBC (Bld) 10.5 % Low 19-41 [facility] Comment on above: Performed By: #### L 501.16306, L506.0400 #### [facility] [address] [place], [address] MCH (RBC) [Entitic mass] 27.7 pg Normal 27.0-32.0 [facility] Comment on above: Performed By: #### L 501.02450, L506.0400 #### [facility] [address] [place], [address] MCHC (RBC) [Mass/Vol] 33.0 g/dL Normal 32-36 [facility] Comment on above: Performed By: #### L 501.54090, L506.0400 #### [facility] [address] [place], [address] MCV (RBC) [Entitic vol] 83.8 fL Normal 80-94 [facility] Comment on above: Performed By: #### L 501.60279, L506.0400 #### [facility] [address] [place], [address] Monocytes/100 WBC (Bld) 23.8 % High 0-10 [facility] Comment on above: Performed By: #### L 501.86854, L506.0400 #### [facility] [address] [place], [address] Neutrophils/100 WBC (Bld) 64.1 % Normal 47-70 [facility] Comment on above: Performed By: #### L 501.28038, L506.0400 #### [facility] [address] [place], [address] Nucleated RBC (Bld) [#/Vol] 0 10*3/uL Normal 0-5 [facility] Comment on above: Performed By: #### L 501.58358, L506.0400 #### [facility] [address] [place], [address] Platelet mean volume (Bld) [Entitic vol] 9.5 fL Normal 6.2-12.0 [facility] Comment on above: Performed By: #### L 501.01956, L506.0400 #### [facility] [address] [place], [address] Platelets (Bld) [#/Vol] 204 10*3/uL Normal 150-450 [facility] Comment on above: Performed By: #### L 501.68458, L506.0400 #### [facility] [address] [place], [address] RBC (Bld) [#/Vol] 5.20 10*6/uL Normal 4.6-6.2 [facility] Comment on above: Performed By: #### L 501.53142, L506.0400 #### [facility] [address] [place], [address] RDW SD 47.8 fl High 35.1-43.9 [facility] Comment on above: Performed By: #### L 501.29938, L506.0400 #### [facility] [address] [place], [address] WBC (Bld) [#/Vol] 5.2 10*3/uL Normal 4.4-11.0 [facility] Comment on above: Performed By: #### L 501.75394, L506.0400 #### [facility] [address] [place], [address] Chest 1 View (Portable)on Chest 1 View (Portable) [facility] Imaging Services [address] [place] [address] Chest 1 View (Portable) MR#: [id number] Acct: [id number] Name: ELMER ARBOLEDA Alexus Rep #: [id number] : 1970 M 54 From: Barbara Bergman MD PCP: Dr. Damon Bui MD Status: ADM NICOLASA Study: Chest 1 View (Portable) Date of Exam: 06/17/24 Exam# [id number] Ordering Dr: [place] [id number] EXAM: XR CHEST, 1 VIEW CLINICAL INDICATION: SOB TECHNIQUE: Frontal view of the chest. COMPARISON: July 23, 2020, March 28, 2019. FINDINGS: LUNGS AND PLEURAL SPACES: Unremarkable. No consolidation or edema. No pneumothorax. No effusion. HEART: Unremarkable. Cardiac silhouette not enlarged. MEDIASTINUM: Central airways and mediastinal contour are unremarkable. BONES/JOINTS: A cervical spine and stabilization plate is partially included. No acute fracture. SOFT TISSUES: Unremarkable. RAD/Chest 1 View (Portable) IMPRESSION: No acute findings in the chest. Electronically Signed: Barbara Bergman MD at 21:46 EST Reading Location ID and State: [facility] / [place] Tel , Service support , CC: Dr. Damon Bui MD; Dr. Wellington Sage DO Outsole Tacker: Signed Normal [facility] Emergency Department Summary on 06-17-2024 Emergency Department Summary [facility] Medical Records Department [address] [place] [address] Emergency Department Summary 06/17/24 MR#: [id number] Acct: [id number] Name: ELMER ARBOLEDA Rep #: [id number] : 1970 54 From: Wellington Sage DO PCP: Dr. Damon Bui MD Status:ADM NICOLASA Location: [address] History of Present Illness Chief Complaint: Shortness of Breath [facility] Medical History Hx of malignant carcinoid tumor of kidney Wears glasses Cancer Arthritis History of renal disease High cholesterol Injury of head and neck Gastric reflux Smoker Injury of back Leg cramps History of pain when walking History of edema History of stress test Cardiology follow-up encounter Hypertension Pain Liver hemangioma Strain of right hip Lumbosacral radiculopathy Lumbosacral strain Arthritis of right hand Contusion of hand, right BBB (bundle branch block) Staphylococcal infection of skin Atherosclerotic heart disease of [place] coronary artery without angina pectoris Essential (primary) hypertension Tobacco use Obesity Acute non-ST segment elevation myocardial infarction HLD (hyperlipidemia) Home Medications ???Medication ???Instructions ???Recorded ???Last Taken ???Type aspirin 81 mg tablet,delayed 81 mg PO DAILY 06/28/18 06/17/24 History release (Adult Low Dose Aspirin) acetaminophen 500 mg tablet 1,000 mg PO Q8H PRN Pain Score 03/28/19 03/28/19 History 1 atorvastatin 80 mg tablet 80 mg PO QHS #90 TABLETS 10/27/23 06/16/24 Rx carvedilol 6.25 mg tablet 6.25 mg PO BID for blood pressure 10/27/23 06/17/24 Rx #180 TABLETS lisinopril 10 mg tablet 10 mg PO DAILY #90 TABLETS 10/27/23 06/17/24 Rx isosorbide mononitrate 60 mg 60 mg PO DAILY #90 TABLETS 12/05/23 06/17/24 Rx tablet,extended release 24 hr gabapentin 300 mg capsule 300 mg PO TID PRN pain 01/16/24 06/17/24 History nitroglycerin 0.4 mg sublingual 0.4 mg sublingual PRN PRN chest 01/17/24 Unknown History tablet pain pantoprazole 40 mg tablet,delayed 40 mg PO DAILY for indigestion #90 03/04/24 06/17/24 Rx release TABLETS dibucaine 1 % rectal ointment [address] TID PRN hemorrhoids 06/13/24 06/17/24 Rx #28.4 grams albuterol sulfate 90 mcg/actuation 2 puff inhalation Q4H PRN Wheezing 06/17/24 Unknown History aerosol inhaler Allergy/AdvReac Type Severity Reaction Status Date / Time No Known Allergies Allergy Verified 05/30/24 11:18 Family History Father CAD (coronary artery disease) Mother CVA (cerebral vascular accident) CAD (coronary artery disease) Surgical History History of cystoscopy History of coronary artery stent placement Hx of hand surgery History of fusion of cervical spine History of left heart catheterization (11/04/16) History of knee replacement History of carpal tunnel release Social History Smoking Status: Current every day smoker tobacco type: cigarettes alcohol intake: never substance use type: does not use 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 EXAM Physical Exam Const Vital Signs: 06/17/24 14:10 06/17/24 16:44 06/17/24 16:44 Temperature 99.7 F H 100 F H Temperature Source Oral Oral Pulse Rate 109 H 98 Respiratory Rate 24 H 19 H Respiratory Effort Respiratory Depth Respiratory Pattern Blood Pressure 105/73 114/69 Blood Pressure Mean 83 84 Pulse Ox 91 92 Oxygen Delivery Method Room Air Room Air Room Air Oxygen Flow Rate (L/min) 06/17/24 16:44 06/17/24 16:46 06/17/24 17:05 Temperature Temperature Source Pulse Rate Respiratory Rate 20 H Respiratory Effort Short of Breath Respiratory Depth Shallow Respiratory Pattern Tachypnea Blood Pressure Blood Pressure Mean Pulse Ox 92 88 Oxygen Delivery Method Room Air Room Air Room Air Oxygen Flow Rate (L/min) 06/17/24 17:05 06/17/24 17:16 06/17/24 17:45 Temperature Temperature Source Pulse Rate 90 86 Respiratory Rate 16 16 Respiratory Effort Respiratory Depth Respiratory Pattern Blood Pressure 100/58 L Blood Pressure Mean 72 Pulse Ox 94 Oxygen Delivery Method Nasal Cannula Oxygen Flow Rate (L/min) 2 06/17/24 18:00 06/17/24 18:15 06/17/24 18:30 Temperature Temperature Source Pulse Rate 84 84 79 Respiratory Rate 14 14 23 H Respiratory Effort Respiratory Depth Respiratory Pattern Blood Pressure 89/58 L 108/51 L 98/64 Blood Pressure Mean 69 68 74 Pulse Ox Oxygen Delivery Method Oxygen Flow Rate (L/min) 06/17/24 (more content not included)... Normal [facility] H AND P Exam - Hospitaliston 06-17-2024 H&P Exam - Hospitalist [facility] Medical Records Department [address] [place] [address] H P Exam - Hospitalist 06/17/242028 MR#: [id number] Acct: [id number] Name: ELMER ARBOLEDA Alexus Rep #: [id number] : 1970 54 From: Rich Pedraza DO PCP: Dr. Damon Bui MD Status:ADM NICOLASA Location: [place] [id number] HPI - General General Date of Admission: 06/17/24 Date of Service: 06/17/24 Chief Complaint: SOB and Cough. 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 Mr. Arboleda reports his symptoms began approximately 1 day prior to admission with a gradual-onset of dyspnea on exertion that progressed to shortness of breath at rest. He also admits to productive cough and mild fever of 100 ???F confirmed in ER along with nausea. He denies associated chills, vomiting, diarrhea, constipation, chest pain or headache but he does admit to being able to only smoke 2 cigarettes a day due to worsening dyspnea. In the ER his viral assay returned positive for influenza A along with clinical evidence of respiratory insufficiency with oxygen saturation of 88% at rest requiring initiation of supplemental oxygen in the setting of ongoing chronic tobacco abuse and he was then admitted to the general medical floor under observation status for ongoing care for status expected to be less than 2 midnights. FORMERLY [facility], [facility] Medical History Hx of malignant carcinoid tumor of kidney Wears glasses Cancer Arthritis History of renal disease High cholesterol Injury of head and neck Gastric reflux Smoker Injury of back Leg cramps History of pain when walking History of edema History of stress test Cardiology follow-up encounter Hypertension Pain Liver hemangioma Strain of right hip Lumbosacral radiculopathy Lumbosacral strain Arthritis of right hand Contusion of hand, right BBB (bundle branch block) Staphylococcal infection of skin Atherosclerotic heart disease of [place] coronary artery without angina pectoris Essential (primary) hypertension Tobacco use Obesity Acute non-ST segment elevation myocardial infarction HLD (hyperlipidemia) Home Medications ???Medication ???Instructions ???Recorded ???Last Taken ???Type aspirin 81 mg tablet,delayed 81 mg PO DAILY 06/28/18 06/17/24 History release (Adult Low Dose Aspirin) acetaminophen 500 mg tablet 1,000 mg PO Q8H PRN Pain Score 03/28/19 03/28/19 History 1 atorvastatin 80 mg tablet 80 mg PO QHS #90 TABLETS 10/27/23 06/16/24 Rx carvedilol 6.25 mg tablet 6.25 mg PO BID for blood pressure 10/27/23 06/17/24 Rx #180 TABLETS lisinopril 10 mg tablet 10 mg PO DAILY #90 TABLETS 10/27/23 06/17/24 Rx isosorbide mononitrate 60 mg 60 mg PO DAILY #90 TABLETS 12/05/23 06/17/24 Rx tablet,extended release 24 hr gabapentin 300 mg capsule 300 mg PO TID PRN pain 01/16/24 06/17/24 History nitroglycerin 0.4 mg sublingual 0.4 mg sublingual PRN PRN chest 01/17/24 Unknown History tablet pain pantoprazole 40 mg tablet,delayed 40 mg PO DAILY for indigestion #90 03/04/24 06/17/24 Rx release TABLETS dibucaine 1 % rectal ointment [address] TID PRN hemorrhoids 06/13/24 06/17/24 Rx #28.4 grams albuterol sulfate 90 mcg/actuation 2 puff inhalation Q4H PRN Wheezing 06/17/24 Unknown History aerosol inhaler Allergy/AdvReac Type Severity Reaction Status Date / Time No Known Allergies Allergy Verified 05/30/24 11:18 Family History Father CAD (coronary artery disease) Mother CVA (cerebral vascular accident) CAD (coronary artery disease) Surgical History History of cystoscopy History of coronary artery stent placement Hx of hand surgery History of fusion of cervical spine History of left heart catheterization (11/04/16) History of knee replacement History of carpal tunnel release Social History (Reviewed 06/17/24 @ 20:53 (more content not included)... Normal [facility] L501.4020on 06-17-2024 TROPONIN-I HS 14 pg/mL Normal 3.0-78.0 [facility] Comment on above: Order Comment: 1 Y Result Comment: Plea se Note: New Test Units and Gender Specific Reference Ranges. For more information see Policy Stat Procedure [place] High Sensitivity Troponin (TNIH) and attachments. Performed By: #### L 501.5425 #### [facility] [address] [place], [address] TROPONIN-I HS 18 pg/mL Normal 3.0-78.0 [facility] Comment on above: Result Comment: Plea se Note: New Test Units and Gender Specific Reference Ranges. For more information see Policy Stat Procedure [place] High Sensitivity Troponin (TNIH) and attachments. Performed By: #### L 501.97342, L506.0400 #### [facility] [address] [place], [address] L501.5425on 06-17-2024 TROPONIN-I HS 18 pg/mL Normal 3.0-78.0 [facility] Comment on above: Order Comment: 1 Y Result Comment: Plea se Note: New Test Units and Gender Specific Reference Ranges. For more information see Policy Stat Procedure [place] High Sensitivity Troponin (TNIH) and attachments. Performed By: #### L 501.5425 #### [facility] [address] 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 RESULTS READ BACK BY SAME. Pending SARS-CoV-2 (COVID 19) Negative INFLUENZA A A Positive A INFLUENZA B Negative RSV PCR Negative INFLUENZAE A Normal [facility] Comment on above: Performed By: #### L 501.9520 #### [facility] [address] [place], [place], [address] Thyroid Stim Hormone (TSH)on 06-17-2024 TSH 0.142 uIU/mL Low 0.358-3.740 [facility] Comment on above: Performed By: #### L 501.9520 #### [facility] [address] [place], [place], [address] Urgent Care Visit Reporton 0 05-30-2024 Urgent Care Visit Report [facility] [address] [place] [address] OFFICE VISIT Date of Service: 05/30/24 MR#: [id number] Acct: [id number] Name: ELMER ARBOLEDA Alexus Rep #: [id number] : 1970 Provider: NATALIA Leon Age/Sex: 54/M Location: [facility] Status: Signed Intake Vital Signs 04/26/24 10:41 Height 6 ft Intake Visit Reasons: POSSIBLE BRONCHITIS Accompanied by: Self Allergies No Known Allergies Allergy (Verified 05/30/24 11:18) Medications ???Medication ???Instructions ???Recorded ???Confirmed ???Type albuterol sulfate 90 mcg/actuation 2 puff inhalation Q4H PRN PRN 06/19/18 05/30/24 Rx aerosol inhaler Wheezing ##1 aspirin 81 mg tablet,delayed 81 mg PO DAILY 06/28/18 05/30/24 History release (Adult Low Dose Aspirin) acetaminophen 500 mg tablet 1,000 mg PO Q8H PRN PRN Pain Score 03/28/19 05/30/24 History -02/28 atorvastatin 80 mg tablet 80 mg PO QHS #90 TABLETS 10/27/23 05/30/24 Rx carvedilol 6.25 mg tablet 6.25 mg PO BID for blood pressure 10/27/23 05/30/24 Rx #180 TABLETS lisinopril 10 mg tablet 10 mg PO DAILY #90 TABLETS 10/27/23 05/30/24 Rx isosorbide mononitrate 60 mg 60 mg PO DAILY #90 TABLETS 12/05/23 05/30/24 Rx tablet,extended release 24 hr gabapentin 300 mg capsule 300 mg PO TID PRN PRN pain 01/16/24 05/30/24 History nitroglycerin 0.4 mg sublingual 0.4 mg sublingual PRN PRN chest 01/17/24 05/30/24 History tablet pain pantoprazole 40 mg tablet,delayed 40 mg PO DAILY for indigestion #90 03/04/24 05/30/24 Rx release TABLETS dexamethasone 6 mg tablet 6 mg PO DAILY #5 tabs 05/30/24 05/30/24 Rx Nurse's Note: Patient has stuffy nose, congestion with a cough. SOB and wheezing and no energy. This has been going on for 2 days. FOR[facility]LY [facility], [facility] Medical History Hx of malignant carcinoid tumor of kidney Wears glasses Cancer Arthritis History of renal disease High cholesterol Injury of head and neck Gastric reflux Smoker Injury of back Leg cramps History of pain when walking History of edema History of stress test Cardiology follow-up encounter Hypertension Pain Liver hemangioma Strain of right hip Lumbosacral radiculopathy Lumbosacral strain Arthritis of right hand Contusion of hand, right BBB (bundle branch block) Staphylococcal infection of skin Atherosclerotic heart disease of [place] coronary artery without angina pectoris Essential (primary) hypertension Tobacco use Obesity Acute non-ST segment elevation myocardial infarction HLD (hyperlipidemia) Surgical History History of cystoscopy History of coronary artery stent placement Hx of hand surgery History of fusion of cervical spine History of left heart catheterization (11/04/16) History of knee replacement History of carpal tunnel release Family History Father CAD (coronary artery disease) Mother CVA (cerebral vascular accident) CAD (coronary artery disease) Social History Smoking Status: Current every day smoker tobacco type: cigarettes alcohol intake: never substance use type: does not use 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 Patient denies fever, chills, sweats. No nausea, vomiting or diarrhea. No hemoptysis or difficulty breathing. No other associated symptoms or alleviating/aggravating factors. ROS Const Constitutional: No other (As above) Exam Const General: cooperative and well developed HENMT Head: normal to inspection and atraumatic Ears: hearing grossly normal bilaterally Nose: nasal discharge clear Face and sinus: normal facial exam Mouth: oral mucosae normal Throat: abnormal tonsil bilaterally hypertrophy 1+ Resp Effort Inspection: normal respiratory effort and no audible wheezes Auscultation: Bilateral: Clear to Auscultation Cardio Palpation: normal PMI Rate: regular rate Rhythm: regular rhythm Neuro General: patient alert and CN's II-XI intact bilaterally Psych Appearance: grossly normal Mental Status: mental status grossly normal Results POC BOAZ Covid FluAB PCR POC Boaz Covid PCR Detected Last Edit by Ludivina Mckeon MA on 05/30/24 11:38 POC BOAZ FLU NOT DETECTED FLU A B Last Edit by Ludivina Mckeon MA on 05/30/24 11:38 Coding Level of Care Code Off vis,new,level 3 Diagnoses COVID-19 U07.1 Assessment and Plan Assessment and Plan (1) COVID-19: Status: Acute Plan: Patient tested positive for COVID in the office to (more content not included)... Normal [facility] Discharge Instructionon 12-0 Discharge Instruction [facility] Medical Records Department [address] [place] [address] Instructions for Home/Discharge Instructions 04/26/24 1222 MR#: [id number] Acct: [id number] Name: ELMER ARBOLEDA Rep #: [id number] : 1970 54 From: Dallas Chapin MD PCP: Dr. Damon Bui MD Status:REG [facility] Discharge Instructions Diet Discharge Diet: No restrictions DC O2, CPAP, BIPAP needs Additional Home O2 Discharge instructions: No Dressing / Incision Discharge Activity: Return to Normal Activity and May Not Drive (while taking narcotic pain medications.) Dressing / Incision Call your doctor if you observe: Fever of 101 or Higher Follow Up Care Please Follow Up With: Dallas Chapin MD When: Call [phone] for an appointment Test Results: Test results from this visit will be discussed in further detail at your follow-up appointment, if applicable. Discharge Plan Admission Primary Reason for Your Visit: stent removal Attending Provider: Dallas Chapin Primary Care Provider: Damon Bui Instructions Print Language: Burkinan Discharge Orders/Prescriptions Prescriptions: Continued aspirin [Adult Low Dose Aspirin] 81 mg tablet,delayed release (DR/EC) 81 mg PO DAILY gabapentin 300 mg capsule 300 mg PO TID PRN PRN (Reason: pain) albuterol sulfate 1 INHALER inhaler 2 puff inhalation Q4H PRN PRN (Reason: Wheezing) Qty: 1 0RF acetaminophen 500 MG tablet 1,000 mg PO Q8H PRN PRN (Reason: Pain Score 1-10/10) nitroglycerin 0.4 mg tablet, sublingual 0.4 mg sublingual PRN PRN (Reason: chest pain) Rx Instructions: DISSOLVE 1 TABLET UNDER TONGUE EVERY 5 MINUTES NEEDED FOR CHEST PAIN carvedilol 6.25 mg tablet 6.25 mg PO BID Qty: 180 3RF lisinopril 10 mg tablet 10 mg PO DAILY Qty: 90 3RF atorvastatin 80 mg tablet 80 mg PO QHS Qty: 90 3RF isosorbide mononitrate 60 mg tablet extended release 24 hr 60 mg PO DAILY Qty: 90 3RF pantoprazole 40 mg tablet,delayed release (DR/EC) 40 mg PO DAILY Qty: 90 3RF Referrals / Follow Up: Damon Bui MD [Primary Care Provider] - Disposition Disposition (needs filled in before D/C Order can be placed): Home, Self Care 04/26/24 1222 Dallas Chapin MD CC: Dr. Damon Bui MD Signed [facility] MR/POSTOP.[facility] 04-26-2024 MR/POSTOP.[facility] Medical Records Department [address] [place] [address] Anesthesia Postop Eval I 04/26/24 1229 MR#: [id number] Acct: [id number] Name: ELMER ARBOLEDA Alexus Rep #: [id number] : 1970 54 From: Bhakti Washington PCP: Dr. Damon Bui MD Status:REG SDC Y Race: C Location: [place] [address] Anesthesia: Postop Eval I Current Vital Signs Temperature: 97.9 F Pulse Rate: 87 Blood Pressure: 83/69 Respiratory Rate: 18 Pulse Ox: 94 Assessment Airway patent: Yes Spontaneous unlabored respirations: Yes nausea: No Vomiting: No Anesthesia Complication: No Fluid Hydration Crystalloid volume administer (ml): 0 Total IV fluid infused: 0 Progress Note Anesthesia document: Postop Eval 1 completed: Yes 04/26/24 1230 Date Bhakti Hawkinsigner Signature: Date CC: Signed Normal [facility] MR/[id number] 04-26-2024 [facility] Medical Records Department [address] [place] [address] Anesthesia Postop Eval II 04/26/24 1333 MR#: [id number] Acct: [id number] Name: ELMER ARBOLEDA Rep #: [id number] : 1970 54 From: Jori Larios MD PCP: Dr. Damon Bui MD Status:[facility] Y Race: C Location: [facility] [place] Anesthesia Postop Eval I Sum Postop Eval Completion status Anesthesia document: Postop Eval 1 completed: Yes Anesthesia Postop Eval I Summary Anesthesia Postop Eval I Summary: Anesthesia Postop Eval I: Assessment Summary Airway patent Yes 04/26/24 12:29 LICENSED VETERINARY TECHNICIAN.CSIR Spontaneous unlabored Yes 04/26/24 12:29 LICENSED VETERINARY TECHNICIAN.CSIR respirations Mental status nausea No 04/26/24 12:29 LICENSED VETERINARY TECHNICIAN.CSIR Vomiting No 04/26/24 12:29 LICENSED VETERINARY TECHNICIAN.CSIR Anesthesia Postop Eval I: Fluid Summary Crystalloid volume administer 0 04/26/24 12:29 LICENSED VETERINARY TECHNICIAN.CSIR (ml) Colloids volume administered ( ml) Blood Product volume administered (ml) Total IV fluid infused 0 04/26/24 12:29 LICENSED VETERINARY TECHNICIAN.CSIR Anesthesia Postop Eval I: Summary Notes Anesthesia Complication No 04/26/24 12:29 LICENSED VETERINARY TECHNICIAN.CSIR Anesthesia Complication Comment: Post-operative progress note Anesthesia: Postop Eval II Evaluation Mental status: Awake Pain Level: 0 nausea: No Vomiting: No 04/26/24 1333 Date Jori Arita Signature: Date CC: Signed Normal [facility] Operative Reporton 4 Operative Report [facility] Medical Records Department [address] [place] [address] Operative Report 04/26/24 1222 MR#: [id number] Acct: [id number] Name: ELMER ARBOLEDA Rep #: [id number] : 1970 54 From: Dallas Chapin MD PCP: Dr. Damon Bui MD Status:[facility] Location: [place] [address] Operative Report (Standard) Operative Information Date of Procedure: 04/26/24 Pre-Operative Diagnosis: Status post left partial nephrectomy and urine leak with stent Post-Operative Diagnosis: The same Surgery/Procedure Performed: Cystoscopy and left stent removal automobile dealer: No Type of Anesthesia: MAC RN Documented Start/Stop Times: Operation Date: 04/26/24 12:35 Case Time Into Pre-Op 04/26/24 10:26 Anesthesia Start 04/26/24 12:05 Into Room 04/26/24 12:05 Procedure Start 04/26/24 12:17 Procedure End 04/26/24 12:20 Procedure Start Time: 12:17 Procedure Stop Time: 12:22 Select all DRAINS/GRAFTS/IMPLANTS that apply: None Estimated Blood Loss: None Specimen collected: No Description of surgery: This is a 54-year-old gentleman who underwent a partial nephrectomy about 8 weeks ago postop he developed a urine leak and required a drainage tube to control the leak and we also placed a stent after the leak stopped with the drainage tube was removed and the stent has now been and left in place to the kidney is healed up from the partial nephrectomy and the leak is healed up so remove the stent today, he was taken back to the operating room after smooth induction of a MAC local he was placed upon on the table the penis testicles were prepped and draped in usual sterile fashion went into the bladder with a 21 Armenian rigid cystourethroscope I did have to dilate the meatus is very tight meatal area and then went to get through the meatus with the scope that I got inside the bladder I grabbed the stent with a grasper and then gently pulled the stent out of the bladder and the kidney. Patient anesthetic reversed and he is takeback to PACU condition I will see him for follow-up in about 6 weeks Surgical Findings: Very tight meatus had to dilate the meatus and then as did a cystoscopy and remove the left stent Complications Complications: No Admit VTE Documentation VTE Present on Admission: No VTE Mechan Device Prophylaxis: SCD's VTE Pharm Prophylaxis ordered?: No 04/26/24 1224 Cosigner Signature (if applicable): CC: Dr. Dallas Chapin MD; Dr. Dmaon Bui MD Signed Normal [facility] Urine Cultureon 04-12-2024 [facility] Citrobacter freundii [place] Count 80,000-100,000 Enterococcus faecalis Enterococcus faecalis Citrobacter freundii: REACTION ceFAZolin Islt MANJU >=64 R Cefepime Islt MANJU <=0.12 Ciprofloxacin Islt MANJU <=0.25 S Gentamicin Islt MANJU <=1 S Imipenem Islt MANJU <=0.25 S levoFLOXacin Islt MANJU 0.25 S Nitrofurantoin Islt MANJU <=16 S Pip+Tazo Islt MANJU 16 I Tobramycin Islt MANJU <=1 S TMP SMX Islt MANJU <=20 S Enterococcus faecalis: REACTION Ampicillin Islt MANJU <=2 S Ciprofloxacin Islt MANJU <=0.5 Gentamicin Synergy Susc Islt SYN-S S levoFLOXacin Islt MANJU 1 S Linezolid Islt MANJU 2 S Nitrofurantoin Islt MANJU <=16 S Streptomycin High Pot Susc Islt SYN-S S Tetracycline Islt MANJU <=1 S Vancomycin Islt MANJU 1 S Normal [facility] Comment on above: Performed By: #### M 100.2200, L400.0001 ####[facility] [address] [place], [place], [address] Urine Cultureon 04-10-2024 [facility] DUPLICATE ORDER. PLE ASE SEE [id number] FOR RESULTS. Urine Culture Normal [facility] Comment on above: Performed By: #### L 501.5425 #### [facility] Laboratory [address] [place], [place], [id number] Abdomen/Pelvis W IV Cont ONL Yon 04-09-2024 Abdomen/Pelvis W IV Cont ONLY [facility] Imaging Services [address] [facility] [address] [place], [place] [address] Abdomen/Pelvis W IV Cont ONLY MR#: [id number] Acct: [id number] Name: ELMER ARBOLEDA Rep #: [id number] : 1970 M 54 From: Carlos Alberto ventura MD PCP: Dr. Damon Bui MD Status: REG ER Study: Abdomen/Pelvis W IV Cont ONLY Date of Exam: Exam# [id number] Ordering Dr: [place] [id number] STUDY: CT ABDOMEN AND PELVIS WITH CONTRAST REASON FOR EXAM: Male, 54 years old. Recent nephro tube removal now swelling in side RADIATION DOSAGE (If Supplied By Facility): CTDIvol = ( 16.40 ) mGy, DLP = ( 395696 ) mGycm TECHNIQUE: Transaxial images were obtained from the dome of the diaphragm to the symphysis pubis without oral contrast. IV 100mL Isovue-300 was administered. Sagittal and coronal images were reconstructed. Individualized dose optimization techniques were used for this CT. COMPARISON: Comparison is made with prior study March 01, 2024. FINDINGS: The visualized lung bases are unremarkable. Coronary artery calcifications. Stable heterogeneous enhancement along the posterior aspect of the inferior aspect of the right lobe of the liver suggestive of hemangioma. This is unchanged. Stable 1.4 cm cyst in the medial aspect of the right lobe of the liver anteriorly. Normal gallbladder and extrahepatic biliary system. Normal spleen. Normal pancreas. Normal bilateral adrenal glands. Normal right kidney. Stable postoperative changes are seen in the mid lateral portion of the left kidney with prior partial nephrectomy. A left-sided double-J stent catheter is seen. No significant hydronephrosis is seen. Mild degree of increased left perinephric stranding suggestive of postoperative change and prior percutaneous drainage. No evidence of pararenal fluid collection at this time. Normal visualized stomach. Normal small intestine. There are multiple colonic diverticula consistent with diverticulosis. The appendix is visualized and appears normal. Normal abdominal aorta. Normal inferior vena cava. Normal retroperitoneum. Diffuse bladder wall thickening. Normal abdominal wall. Normal osseous structures. CT/Abdomen/Pelvis W IV Cont ONLY IMPRESSION: The previously seen fluid collection the posterior left pararenal space has resolved. Minimal postoperative changes are seen in the surrounding perinephric fat. A left-sided double-J stent catheter is seen. No hydronephrosis present. Stable postoperative changes in the lateral midportion of the left kidney. Stable findings in the liver. Electronically Signed: Carlos Alberto Burgess MD at 15:01 EST Reading Location ID and State: [facility] / [place] , Service support , CC: Dr. Damon Bui MD; Dr. Carlos Villegas DO Outsole Tacker: Signed Normal [facility] CBC W/Diff, Automatedon 11- Absolute Lymph 1.86 X10 3/uL Normal 0.83-4.51 [facility] Comment on above: Performed By: #### L 501.2450, L500.4050, L100.0100 ####[facility] [address] [place], [address] Absolute Neut 6.0 X10 3/uL Normal 2.0-7.7 [facility] Comment on above: Performed By: #### L 501.2450, L500.4050, L100.0100 ####[facility] [address] [place], [address] Basophils/100 WBC (Bld) 0.6 % Normal 0-1 [facility] Comment on above: Performed By: #### L 501.2450, L500.4050, L100.0100 ####[facility] [address] [place], [address] Eosinophils/100 WBC (Bld) 5.9 % High 0-5 [facility] Comment on above: Performed By: #### L 501.2450, L500.4050, L100.0100 ####[facility] [address] [place], [address] Erythrocyte distribution width (RBC) [Ratio] 13.3 % Normal 11.6-14.6 [facility] Comment on above: Performed By: #### L 501.2450, L500.4050, L100.0100 ####[facility] [address] [place], [address] Hematocrit (Bld) [Volume fraction] 42.9 % Normal 40-54 [facility] Comment on above: Performed By: #### L 501.2450, L500.4050, L100.0100 ####[facility] [address] [place], [address] Hemoglobin (Bld) [Mass/Vol] 13.8 g/dL Normal 13.0-16.5 [facility] Comment on above: Performed By: #### L 501.2450, L500.4050, L100.0100 ####[facility] [address] [place], [address] IG% 0.600 Normal 0.0-0.9 [facility] Comment on above: Result Comment: IG% - Immature Granulocytes (promyelocytes, myelocytes and metamyelocytes) > 1% indicates that a LEFT SHIFT is Present. Performed By: #### L 501.2450, L500.4050, L100.0100 ####[facility] [address] [place], [address] Lymphocytes/100 WBC (Bld) 19.2 % Normal 19-41 [facility] Comment on above: Performed By: #### L 501.2450, L500.4050, L100.0100 ####[facility] [address] [place], [address] MCH (RBC) [Entitic mass] 27.7 pg Normal 27.0-32.0 [facility] Comment on above: Performed By: #### L 501.2450, L500.4050, L100.0100 ####[facility] [address] [place], [address] MCHC (RBC) [Mass/Vol] 32.2 g/dL Normal 32-36 [facility] Comment on above: Performed By: #### L 501.2450, L500.4050, L100.0100 ####[facility] [address] [place], [address] MCV (RBC) [Entitic vol] 86.1 fL Normal 80-94 [facility] Comment on above: Performed By: #### L 501.2450, L500.4050, L100.0100 ####[facility] [address] [place], [address] Monocytes/100 WBC (Bld) 11.8 % High 0-10 [facility] Comment on above: Performed By: #### L 501.2450, L500.4050, L100.0100 ####[facility] [address] [place], [address] Neutrophils/100 WBC (Bld) 61.9 % Normal 47-70 [facility] Comment on above: Performed By: #### L 501.2450, L500.4050, L100.0100 ####[facility] [address] [place], [address] Nucleated RBC (Bld) [#/Vol] 0 10*3/uL Normal 0-5 [facility] Comment on above: Performed By: #### L 501.2450, L500.4050, L100.0100 ####[facility] [address] [place], [address] Platelet mean volume (Bld) [Entitic vol] 10.0 fL Normal 6.2-12.0 [facility] Comment on above: Performed By: #### L 501.2450, L500.4050, L100.0100 ####[facility] [address] [place], [address] Platelets (Bld) [#/Vol] 335 10*3/uL Normal 150-450 [facility] Comment on above: Performed By: #### L 501.2450, L500.4050, L100.0100 ####[facility] [address] [place], [address] RBC (Bld) [#/Vol] 4.98 10*6/uL Normal 4.6-6.2 [facility] Comment on above: Performed By: #### L 501.2450, L500.4050, L100.0100 ####[facility] [address] [place], [address] RDW SD 42.0 fl Normal 35.1-43.9 [facility] Comment on above: Performed By: #### L 501.2450, L500.4050, L100.0100 ####[facility] [address] [place], [address] WBC (Bld) [#/Vol] 9.7 10*3/uL Normal 4.4-11.0 [facility] Comment on above: Performed By: #### L 501.2450, L500.4050, L100.0100 ####[facility] [address] [place], [address] Comprehensive Metabolic Prof ilon 04-09-2024 Albumin [Mass/Vol] 3.1 g/dL Low 3.2-5.0 [facility] Comment on above: Performed By: #### L 501.2450, L500.4050, L100.0100 ####[facility] [address] [place], [address] Albumin/Globulin [Mass ratio] 0.8 {ratio} Low 0.9-2.4 [facility] Comment on above: Performed By: #### L 501.2450, L500.4050, L100.0100 ####[facility] [address] [place], [address] ALK P 123 U/L High 45-117 [facility] Comment on above: Performed By: #### L 501.2450, L500.4050, L100.0100 ####[facility] [address] [place], [address] ALT [Catalytic activity/Vol] 40 U/L Normal 16-61 [facility] Comment on above: Performed By: #### L 501.2450, L500.4050, L100.0100 ####[facility] [address] [place], [address] AST [Catalytic activity/Vol] 23 U/L Normal 15-37 [facility] Comment on above: Performed By: #### L 501.2450, L500.4050, L100.0100 ####[facility] [address] [place], [address] Bilirubin [Mass/Vol] 0.50 mg/dL Normal 0.20-1.00 [facility] Comment on above: Result Comment: For patients on eltrombopag therapy, use of Dimension [place] TBIL is not recommended. Performed By: #### L 501.2450, L500.4050, L100.0100 ####[facility] [address] [place], [address] BUN/CRE 18.5 RATIO Normal 10-20 [facility] Comment on above: Performed By: #### L 501.2450, L500.4050, L100.0100 ####[facility] [address] [place], [address] CA,Total 9.2 mg/dL Normal 8.5-10.1 [facility] Comment on above: Performed By: #### L 501.2450, L500.4050, L100.0100 ####[facility] [address] [place], [address] Chloride [Moles/Vol] 107 mmol/L Normal 98-107 [facility] Comment on above: Performed By: #### L 501.2450, L500.4050, L100.0100 ####[facility] [address] [place], [address] CO2 [Moles/Vol] 27.0 mmol/L Normal 21.0-32.0 [facility] Comment on above: Performed By: #### L 501.2450, L500.4050, L100.0100 ####[facility] [address] [place], [address] Creatinine [Mass/Vol] 0.86 mg/dL Normal 0.70-1.30 [facility] Comment on above: Result Comment: The validity of the calculated GFR GFRAA in patients over 70 years has not been determined. Clinical correlation is essential. Performed By: #### L 501.2450, L500.4050, L100.0100 ####[facility] [address] [place], [address] ECRCL 130.06 ml/min Normal [facility] Comment on above: Performed By: #### L 501.2450, L500.4050, L100.0100 ####[facility] [address] [place], [address] EST GFR - AA 119 mL/min Normal >60 [facility] Comment on above: Result Comment: Afri can Trin[place] GFR Calc Performed By: #### L 501.2450, L500.4050, L100.0100 ####[facility] [address] [place], [address] GAP 4 Low 5-15 [facility] Comment on above: Performed By: #### L 501.2450, L500.4050, L100.0100 ####[facility] [address] [place], [address] GFR/1.73 sq M.predicted among non-blacks MDRD (S/P/Bld) [Vol rate/Area] 98 mL/min/{1.73_m2} Normal >60 [facility] Comment on above: Result Comment: Non- GFR Calc Performed By: #### L 501.2450, L500.4050, L100.0100 ####[facility] [address] [place], [address] Globulin (S) [Mass/Vol] 4.1 g/dL Normal 2.2-4.2 [facility] Comment on above: Performed By: #### L 501.2450, L500.4050, L100.0100 ####[facility] [address] [place], [address] Glucose [Mass/Vol] 99 mg/dL Normal 74-106 [facility] Comment on above: Performed By: #### L 501.2450, L500.4050, L100.0100 ####[facility] [address] [place], [address] Potassium [Moles/Vol] 4.4 mmol/L Normal 3.5-5.1 [facility] Comment on above: Performed By: #### L 501.2450, L500.4050, L100.0100 ####[facility] [address] [place], [address] Sodium [Moles/Vol] 137 mmol/L Normal 136-145 [facility] Comment on above: Performed By: #### L 501.2450, L500.4050, L100.0100 ####[facility] [address] [place], [address] T PROT 7.2 g/dL Normal 6.4-8.2 [facility] Comment on above: Performed By: #### L 501.2450, L500.4050, L100.0100 ####[facility] [address] [place], [address] Urea nitrogen [Mass/Vol] 16 mg/dL Normal 7-18 [facility] Comment on above: Performed By: #### L 501.2450, L500.4050, L100.0100 ####[facility] [address] [place], [address] Emergency Department Summary on 04-09-2024 Emergency Department Summary [facility] Medical Records Department [address] [place] [address] Emergency Department Summary 04/09/24 MR#: [id number] Acct: [id number] Name: ELMER ARBOLEDA Rep #: [id number] : 1970 54 From: Carlos Villegas DO PCP: Dr. Damon Bui MD Status:REG ER Location: ED HPI History of Present Illness Chief Complaint: Flank Pain Narrative Narrative: Patient is a 54-year-old male with past medical history of hyperlipidemia, hypertension, renal cancer with removal and had nephrostomy tube in place that was removed last week he follows with Dr. Chapin who presents to the emerged part with a chief complaint of left-sided swelling and pain. Patient states that on Monday they noted that he developed some swelling that had progressively worsened over the past few days. He states that he is having increasing pain as well he called his urologist and they advised him to come here for a CAT scan. Patient otherwise feels okay. [facility] Medical History Wears glasses Cancer History of steroid therapy Arthritis History of renal disease High cholesterol Injury of head and neck Gastric reflux Smoker Injury of back Leg cramps History of pain when walking History of edema History of stress test Cardiology follow-up encounter Hypertension Pain Liver hemangioma Strain of right hip Lumbosacral radiculopathy Lumbosacral strain Arthritis of right hand Contusion of hand, right BBB (bundle branch block) Staphylococcal infection of skin Atherosclerotic heart disease of [place] coronary artery without angina pectoris Essential (primary) hypertension Tobacco use Obesity Acute non-ST segment elevation myocardial infarction HLD (hyperlipidemia) Home Medications ???Medication ???Instructions ???Recorded ???Last Taken ???Type albuterol sulfate 90 mcg/actuation 2 puff inhalation Q4H PRN PRN 06/19/18 03/28/19 Rx aerosol inhaler Wheezing ##1 aspirin 81 mg tablet,delayed 81 mg PO DAILY 06/28/18 01/21/24 History release (Adult Low Dose Aspirin) acetaminophen 500 mg tablet 1,000 mg PO Q8H PRN PRN Pain Score 03/28/19 03/28/19 History -02/28 atorvastatin 80 mg tablet 80 mg PO QHS #90 TABLETS 10/27/23 Unknown Rx carvedilol 6.25 mg tablet 6.25 mg PO BID for blood pressure 10/27/23 02/20/24 07:30 Rx #180 TABLETS lisinopril 10 mg tablet 10 mg PO DAILY #90 TABLETS 10/27/23 02/20/24 07:30 Rx isosorbide mononitrate 60 mg 60 mg PO DAILY #90 TABLETS 12/05/23 02/20/24 07:30 Rx tablet,extended release 24 hr gabapentin 300 mg capsule 300 mg PO TID PRN PRN pain 01/16/24 01/31/24 History nitroglycerin 0.4 mg sublingual 0.4 mg sublingual PRN PRN chest 01/17/24 Unknown History tablet pain ciprofloxacin HCl 500 mg tablet 500 mg PO DAILY #14 tabs 02/20/24 Unknown Rx (Cipro) oxycodone 5 mg tablet 5 mg PO Q6H PRN pain 7 days #20 02/20/24 Unknown Rx tabs pantoprazole 40 mg tablet,delayed 40 mg PO DAILY for indigestion #90 03/04/24 Unknown Rx release TABLETS cephalexin 500 mg capsule 500 mg PO Q12H 5 days #10 caps 04/09/24 Unknown Rx Allergy/AdvReac Type Severity Reaction Status Date / Time No Known Allergies Allergy Verified 04/09/24 13:33 Family History Father CAD (coronary artery disease) Mother CVA (cerebral vascular accident) CAD (coronary artery disease) Surgical History History of coronary artery stent placement Hx of hand surgery History of fusion of cervical spine History of left heart catheterization (11/04/16) History of knee replacement History of carpal tunnel release Social History Smoking Status: Current every day smoker tobacco type: cigarettes alcohol intake: never substance use type: does not use 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 ROS ROS ED ROS Narrative Constitutional:, Chills denies any fevers, headaches, lightness, dizziness Cardiovascular: Denies chest pain or palpitations Respiratory: Denies coughing wheezing shortness of breath Abdomen: Denies abdominal pain nausea vomit diarrhea : Denies any urinary symptoms Neurological: Denies numbness, exam tingling Musculoskeletal: Complains of left-sided back pain and swelling as noted above Skin: Denies rashes or lesions EXAM Physical Exam Narrative Exam Narrative: General: Patient lying in bed rest comfortably did not appear to be in acute distress Head: Atraumatic, normocephalic Eyes: PERRL bilateral, EOMI blood, no conjunctival injection noted Neck: Soft, supple, trachea midline Cardiovascular: Regular rate and rhythm no murmurs gallops rubs noted Respiratory: Clear to auscultation bilaterally n (more content not included)... Normal [facility] Lipaseon 04-09-2024 Lipase [Catalytic activity/Vol] 25 U/L Normal 13-75 [facility] Comment on above: Result Comment: Raimundo lou note: LIPASE revised reference range effective 22. New Lipase methodology. Expected to produce lower values than the previous assay method. NEW Reference Range: 13 - 75 U/L Performed By: #### L 501.2450, L500.4050, L100.0100 ####[facility] [address] [place], [address] Urinalysis, Completeon 04-09 BACTERIA 1+ /hpf Normal None Seen [facility] Comment on above: Order Comment: JENNIFER CTOR TO SPECIFY Performed By: #### M 100.2200, L400.0001 ####[facility] [address] [place], [address] EPI,RENAL 0-5 SEEN Normal 0-[address] [place] [address] Comment on above: Order Comment: JENNIFER CTOR TO SPECIFY Performed By: #### M 100.2200, L400.0001 ####[facility] [address] [place], [address] Mucus Ql (Urine sed) 1+ /hpf Normal [facility] Comment on above: Order Comment: JENNIFER CTOR TO SPECIFY Performed By: #### M 100.2200, L400.0001 ####[facility] [address] [place], [address] RBC 0-5 SEEN Normal 0-5 [facility] Comment on above: Order Comment: JENNIFER CTOR TO SPECIFY Performed By: #### M 100.2200, L400.0001 ####[facility] [address] [place], [address] WBC 25-50 SEEN Normal 0-5 [facility] Comment on above: Order Comment: JENNIFER CTOR TO SPECIFY Performed By: #### M 100.2200, L400.0001 ####[facility] [address] [place], [address] EPI,SQUAMOUS 0 SEEN Normal 0-[address] [place] [address] Comment on above: Order Comment: COLLE CTOR TO SPECIFY Performed By: #### M 100.2200, L400.0001 ####[facility] [address] [place], [address] Procedure Reporton 4 Procedure Report [facility] Medical Records Department [address] [place] [address] Procedure Report 03/04/24 1109 MR#: [id number] Acct: [id number] Name: ELMER ARBOLEDA Rep #: [id number] : 1970 54 From: Ursula Mcwilliams [employer] PCP: Dr. Damon Bui MD Status:REG CLI Location: CT Procedure Report Date of Procedure: 03/04/24 Assessment Plan Assessment/Plan (1) Urinoma: PLAN: PROCEDURE: CT DIRECTED LEFT URINOMA DRAINAGE ORDERING PROVIDER: Dr. Chaipn INDICATION: Male, 54 years old. Left sided urinoma PROVIDER: EMMA Toussaint CONSENT: Written informed consent was obtained having explained the risks, benefits and alternatives in detail with the patient who accepted the risks and agreed to proceed. Laboratory review and clinical assessment was performed. PRE-PROCEDURE SEDATION ASSESSMENT: Current history and physical dictated by referring physician and reviewed. No clinical changes since date of exam. Patient has a Mallampati Score of Class 3 and ASA Class of 3. PROCEDURAL SEDATION PROTOCOL: The Drugs used were: 4 mg Versed, IV, and 100 mcg Fentanyl, IV. The sedation time was: 42 minutes, starting at 1008 and terminated at 1050. The procedural sedation protocol was independently monitored by the department nurse. RADIATION DOSAGE (Supplied By Facility): CTDIvol = 21.23 mGy, DLP = 2178.28 mGy.cm Individualized dose optimization techniques were used for this CT. TECHNIQUE CT sections were made through the abdomen and pelvis revealing the left side urinoma. The skin surface was prepped with chlorhexidine and aped in a sterile fashion. Puncture of this collection was performed with a 10 Armenian catheter. Confirmation of catheter placement was verified with CT sections; however, fluid was unable to be aspirated despite catheter repositioning. The catheter was removed and an OpSite was placed over the insertion tract. Suspect this collection to be loculated and more viscous. The patient's existing pigtail drain was also redressed with Skin-Prep and a stay fix dressing. Patient tolerated well. IMPRESSION: Attempted drainage of left abdominal urinoma using CT guidance. A telephone conversation was had with Dr. Chapin relaying this information. Procedural Sedation protocol utilized with independent monitoring by the department nurse. Procedures Radiology Radiology CT Procedures: 32054 Image guided catheter drainage 03/04/24 1125 Cosigner Signature (if applicable): CC: [employer]MENTJason Mcwilliams; Dr. Dallas Chapin MD; Dr. Damon Bui MD Signed Normal [facility] Urine Cultureon 03-02-2024 URC Culture exhibits no growth. Normal [facility] Comment on above: Performed By: #### L 501.5425 #### [facility] Laboratory [address] [facility] [place], [address] Abdomen/Pelvis W IV Cont ONL Yon 03-01-2024 Abdomen/Pelvis W IV Cont ONLY [facility] Imaging Services [address] [place] [address] Abdomen/Pelvis W IV Cont ONLY MR#: [id number] Acct: [id number] Name: ELMER ARBOLEDA Rep #: [id number] : 1970 M 54 From: Carlos Alberto ventura MD PCP: Dr. Damon Bui MD Status: REG ER Study: Abdomen/Pelvis W IV Cont ONLY Date of Exam: Exam# [id number] Ordering Dr: [place] [id number] STUDY: CT ABDOMEN AND PELVIS WITH CONTRAST REASON FOR EXAM: Male, 54 years old. hx of nephro tube, left flank pain. History of drainage of air are normal. RADIATION DOSAGE (If Supplied By Facility): CTDIvol = ( 18.51 ) mGy, DLP = ( 2227.39 ) mGycm TECHNIQUE: Transaxial images were obtained from the dome of the diaphragm to the symphysis pubis without oral contrast. IV 100mL Isovue-300 was administered. Sagittal and coronal images were reconstructed. Individualized dose optimization techniques were used for this CT. COMPARISON: Comparison made with prior study February 24, 2024. FINDINGS: The visualized lung bases are unremarkable. The visualized portions of the heart are within normal limits. Stable heterogeneous enhancement of the posterior aspect of the inferior right lobe of the liver suggestive of hemangioma. Normal gallbladder and extrahepatic biliary system. Normal spleen. Normal pancreas. Normal bilateral adrenal glands. Normal right kidney. A drainage catheter seen in the posterior left para renal space. The urinoma has decreased in size as compared to prior study. It presently measures 3.6 cm x 8.6 cm. Postsurgical changes are seen along the lateral midportion of the left kidney. A double-J stent catheter is seen with the proximal tip in the left renal pelvis and distal tip in the urinary bladder. Normal visualized stomach. Normal small intestine. There are multiple colonic diverticula consistent with diverticulosis. The appendix is visualized and appears normal. There is scattered atherosclerotic calcification of the abdominal aorta, without a demonstrated aneurysm. Normal inferior vena cava. Normal retroperitoneum. Normal urinary bladder. Prostatic enlargement with indentation of the bladder base. Normal abdominal wall. There are degenerative changes of the visualized lumbar spine. CT/Abdomen/Pelvis W IV Cont ONLY IMPRESSION: Interval decrease in size of the previously seen left posterior pararenal space are normal. A catheter drainage is seen at that site. Electronically Signed: Carlos Alberto Burgess MD at 11:41 EDT , CC: Dr. Damon Bui MD; Dr. Carlos Villegas DO Outsole Tacker: Signed Normal [facility] CBC W/Diff, Automatedon 10- Absolute Lymph 1.58 X10 3/uL Normal 0.83-4.51 [facility] Comment on above: Performed By: #### L 100.0100, L501.2450, L501.4020, L500.4050 ####[facility] [address] [place], [address] Absolute Neut 6.7 X10 3/uL Normal 2.0-7.7 [facility] Comment on above: Performed By: #### L 100.0100, L501.2450, L501.4020, L500.4050 ####[facility] [address] [place], [address] Basophils/100 WBC (Bld) 1.2 % High 0-1 [facility] Comment on above: Performed By: #### L 100.0100, L501.2450, L501.4020, L500.4050 ####[facility] [address] [place], [address] Eosinophils/100 WBC (Bld) 7.4 % High 0-5 [facility] Comment on above: Performed By: #### L 100.0100, L501.2450, L501.4020, L500.4050 ####[facility] [address] [place], [address] Erythrocyte distribution width (RBC) [Ratio] 12.9 % Normal 11.6-14.6 [facility] Comment on above: Performed By: #### L 100.0100, L501.2450, L501.4020, L500.4050 ####[facility] [address] [place], [address] Hematocrit (Bld) [Volume fraction] 38.8 % Low 40-54 [facility] Comment on above: Performed By: #### L 100.0100, L501.2450, L501.4020, L500.4050 ####[facility] [address] [place], [address] Hemoglobin (Bld) [Mass/Vol] 12.3 g/dL Low 13.0-16.5 [facility] Comment on above: Performed By: #### L 100.0100, L501.2450, L501.4020, L500.4050 ####[facility] [address] [place], [address] IG% 1.400 High 0.0-0.9 [facility] Comment on above: Result Comment: IG% - Immature Granulocytes (promyelocytes, myelocytes and metamyelocytes) > 1% indicates that a LEFT SHIFT is Present. Performed By: #### L 100.0100, L501.2450, L501.4020, L500.4050 ####[facility] [address] [place], [address] Lymphocytes/100 WBC (Bld) 15.4 % Low 19-41 [facility] Comment on above: Performed By: #### L 100.0100, L501.2450, L501.4020, L500.4050 ####[facility] [address] [place], [address] MCH (RBC) [Entitic mass] 28.0 pg Normal 27.0-32.0 [facility] Comment on above: Performed By: #### L 100.0100, L501.2450, L501.4020, L500.4050 ####[facility] [address] [place], [address] MCHC (RBC) [Mass/Vol] 31.7 g/dL Low 32-36 [facility] Comment on above: Performed By: #### L 100.0100, L501.2450, L501.4020, L500.4050 ####[facility] [address] [place], [address] MCV (RBC) [Entitic vol] 88.2 fL Normal 80-94 [facility] Comment on above: Performed By: #### L 100.0100, L501.2450, L501.4020, L500.4050 ####[facility] [address] [place], [address] Monocytes/100 WBC (Bld) 9.8 % Normal 0-10 [facility] Comment on above: Performed By: #### L 100.0100, L501.2450, L501.4020, L500.4050 ####[facility] [address] [place], [address] Neutrophils/100 WBC (Bld) 64.8 % Normal 47-70 [facility] Comment on above: Performed By: #### L 100.0100, L501.2450, L501.4020, L500.4050 ####[facility] [address] [place], [address] Nucleated RBC (Bld) [#/Vol] 0 10*3/uL Normal 0-5 [facility] Comment on above: Performed By: #### L 100.0100, L501.2450, L501.4020, L500.4050 ####[facility] [address] [place], [address] Platelet mean volume (Bld) [Entitic vol] 9.3 fL Normal 6.2-12.0 [facility] Comment on above: Performed By: #### L 100.0100, L501.2450, L501.4020, L500.4050 ####[facility] [address] [place], [address] Platelets (Bld) [#/Vol] 380 10*3/uL Normal 150-450 [facility] Comment on above: Performed By: #### L 100.0100, L501.2450, L501.4020, L500.4050 ####[facility] [address] [place], [address] RBC (Bld) [#/Vol] 4.40 10*6/uL Low 4.6-6.2 [facility] Comment on above: Performed By: #### L 100.0100, L501.2450, L501.4020, L500.4050 ####[facility] [address] [place], [address] RDW SD 41.9 fl Normal 35.1-43.9 [facility] Comment on above: Performed By: #### L 100.0100, L501.2450, L501.4020, L500.4050 ####[facility] [address] [place], [address] WBC (Bld) [#/Vol] 10.3 10*3/uL Normal 4.4-11.0 [facility] Comment on above: Performed By: #### L 100.0100, L501.2450, L501.4020, L500.4050 ####[facility] [address] [place], [address] Comprehensive Metabolic Prof kyon 03-01-2024 Albumin [Mass/Vol] 2.7 g/dL Low 3.2-5.0 [facility] Comment on above: Order Comment: 'TROP ' Serial specimen #1, #2 or #3: 1 Performed By: #### L 100.0100, L501.2450, L501.4020, L500.4050 ####[facility] [address] [place], [address] Albumin/Globulin [Mass ratio] 0.6 {ratio} Low 0.9-2.4 [facility] Comment on above: Order Comment: 'TROP ' Serial specimen #1, #2 or #3: 1 Performed By: #### L 100.0100, L501.2450, L501.4020, L500.4050 ####[facility] [address] [place], [address] ALK P 115 U/L Normal 45-117 [facility] Comment on above: Order Comment: 'TROP ' Serial specimen #1, #2 or #3: 1 Performed By: #### L 100.0100, L501.2450, L501.4020, L500.4050 ####[facility] [address] [place], [address] ALT [Catalytic activity/Vol] 51 U/L Normal 16-61 [facility] Comment on above: Order Comment: 'TROP ' Serial specimen #1, #2 or #3: 1 Performed By: #### L 100.0100, L501.2450, L501.4020, L500.4050 ####[facility] [address] [place], [address] AST [Catalytic activity/Vol] 26 U/L Normal 15-37 [facility] Comment on above: Order Comment: 'TROP ' Serial specimen #1, #2 or #3: 1 Performed By: #### L 100.0100, L501.2450, L501.4020, L500.4050 ####[facility] [address] [place], [address] Bilirubin [Mass/Vol] 0.30 mg/dL Normal 0.20-1.00 [facility] Comment on above: Order Comment: 'TROP ' Serial specimen #1, #2 or #3: 1 Result Comment: For patients on eltrombopag therapy, use of Dimension [place] TBIL is not recommended. Performed By: #### L 100.0100, L501.2450, L501.4020, L500.4050 ####[facility] [address] [place], [address] BUN/CRE 16.0 RATIO Normal 10-20 [facility] Comment on above: Order Comment: 'TROP ' Serial specimen #1, #2 or #3: 1 Performed By: #### L 100.0100, L501.2450, L501.4020, L500.4050 ####[facility] [address] [place], [address] CA,Total 9.2 mg/dL Normal 8.5-10.1 [facility] Comment on above: Order Comment: 'TROP ' Serial specimen #1, #2 or #3: 1 Performed By: #### L 100.0100, L501.2450, L501.4020, L500.4050 ####[facility] [address] [place], [address] Chloride [Moles/Vol] 105 mmol/L Normal 98-107 [facility] Comment on above: Order Comment: 'TROP ' Serial specimen #1, #2 or #3: 1 Performed By: #### L 100.0100, L501.2450, L501.4020, L500.4050 ####[facility] [address] [place], [address] CO2 [Moles/Vol] 27.0 mmol/L Normal 21.0-32.0 [facility] Comment on above: Order Comment: 'TROP ' Serial specimen #1, #2 or #3: 1 Performed By: #### L 100.0100, L501.2450, L501.4020, L500.4050 ####[facility] [address] [place], [address] Creatinine [Mass/Vol] 0.75 mg/dL Normal 0.70-1.30 [facility] Comment on above: Order Comment: 'TROP ' Serial specimen #1, #2 or #3: 1 Result Comment: The validity of the calculated GFR GFRAA in patients over 70 years has not been determined. Clinical correlation is essential. Performed By: #### L 100.0100, L501.2450, L501.4020, L500.4050 ####[facility] [address] [place], [address] ECRCL 149.51 ml/min Normal [facility] Comment on above: Order Comment: 'TROP ' Serial specimen #1, #2 or #3: 1 Performed By: #### L 100.0100, L501.2450, L501.4020, L500.4050 ####[facility] [address] [place], [address] EST GFR - AA 139 mL/min Normal >60 [facility] Comment on above: Order Comment: 'TROP ' Serial specimen #1, #2 or #3: 1 Result Comment: Afri can [place] GFR Calc Performed By: #### L 100.0100, L501.2450, L501.4020, L500.4050 ####[facility] [address] [place], [address] GAP 5 Normal 5-15 [facility] Comment on above: Order Comment: 'TROP ' Serial specimen #1, #2 or #3: 1 Performed By: #### L 100.0100, L501.2450, L501.4020, L500.4050 ####[facility] [address] [place], [address] GFR/1.73 sq M.predicted among non-blacks MDRD (S/P/Bld) [Vol rate/Area] 115 mL/min/{1.73_m2} Normal >60 [facility] Comment on above: Order Comment: 'TROP ' Serial specimen #1, #2 or #3: 1 Result Comment: Non- GFR Calc Performed By: #### L 100.0100, L501.2450, L501.4020, L500.4050 ####[facility] [address] [place], [address] Globulin (S) [Mass/Vol] 4.2 g/dL Normal 2.2-4.2 [facility] Comment on above: Order Comment: 'TROP ' Serial specimen #1, #2 or #3: 1 Performed By: #### L 100.0100, L501.2450, L501.4020, L500.4050 ####[facility] [address] [place], [address] Glucose [Mass/Vol] 102 mg/dL Normal 74-106 [facility] Comment on above: Order Comment: 'TROP ' Serial specimen #1, #2 or #3: 1 Result Comment: Fast ing Glucose result from 100 to 125 mg/dL suggests IMPAIRED HOMEOSTASIS per A.D.A. criteria. Performed By: #### L 100.0100, L501.2450, L501.4020, L500.4050 ####[facility] [address] [place], [address] Potassium [Moles/Vol] 4.3 mmol/L Normal 3.5-5.1 [facility] Comment on above: Order Comment: 'TROP ' Serial specimen #1, #2 or #3: 1 Performed By: #### L 100.0100, L501.2450, L501.4020, L500.4050 ####[facility] [address] [place], [address] Sodium [Moles/Vol] 137 mmol/L Normal 136-145 [facility] Comment on above: Order Comment: 'TROP ' Serial specimen #1, #2 or #3: 1 Performed By: #### L 100.0100, L501.2450, L501.4020, L500.4050 ####[facility] [address] [place], [address] T PROT 6.9 g/dL Normal 6.4-8.2 [facility] Comment on above: Order Comment: 'TROP ' Serial specimen #1, #2 or #3: 1 Performed By: #### L 100.0100, L501.2450, L501.4020, L500.4050 ####[facility] [address] [place], [address] Urea nitrogen [Mass/Vol] 12 mg/dL Normal 7-18 [facility] Comment on above: Order Comment: 'TROP ' Serial specimen #1, #2 or #3: 1 Performed By: #### L 100.0100, L501.2450, L501.4020, L500.4050 ####[facility] [address] [place], [address] Emergency Department Summary on 03-01-2024 Emergency Department Summary [facility] Medical Records Department [address] [place] [address] Emergency Department Summary 03/01/24 MR#: [id number] Acct: [id number] Name: ELMER ARBOLEDA Alexus Rep #: [id number] : 1970 54 From: Carlos Villegas DO PCP: Dr. Damon Bui MD Status:REG ER Location: ED HPI History of Present Illness Chief Complaint: Complaint Narrative Narrative: Patient is a 54-year-old male with a past medical history of renal cancer with recent partial nephrectomy by Dr. Chapin, hypertension, hyperlipidemia who presented to the emergency department the chief complaint of left-sided swelling. He states that he feels like his nephrostomy tube is not adequately working again. He states that he was recently had to be transferred up to [facility] Where they placed a larger nephrostomy tube. He states that he started noticed last night which prompted him to come here. He states that he did call Dr. Chapin office who advised him to come here for further evaluation management. Patient denies any fevers. [facility] Medical History Wears glasses Cancer History of steroid therapy Arthritis History of renal disease High cholesterol Injury of head and neck Gastric reflux Smoker Injury of back Leg cramps History of pain when walking History of edema History of stress test Cardiology follow-up encounter Hypertension Pain Liver hemangioma Strain of right hip Lumbosacral radiculopathy Lumbosacral strain Arthritis of right hand Contusion of hand, right BBB (bundle branch block) Staphylococcal infection of skin Atherosclerotic heart disease of [place] coronary artery without angina pectoris Essential (primary) hypertension Tobacco use Obesity Acute non-ST segment elevation myocardial infarction HLD (hyperlipidemia) Home Medications ???Medication ???Instructions ???Recorded ???Last Taken ???Type albuterol sulfate 90 mcg/actuation 2 puff inhalation Q4H PRN PRN 06/19/18 03/28/19 Rx aerosol inhaler Wheezing ##1 aspirin 81 mg tablet,delayed 81 mg PO DAILY 06/28/18 01/21/24 History release (Adult Low Dose Aspirin) acetaminophen 500 mg tablet 1,000 mg PO Q8H PRN PRN Pain Score 03/28/19 03/28/19 History 1-02/28 atorvastatin 80 mg tablet 80 mg PO QHS #90 TABLETS 10/27/23 Unknown Rx carvedilol 6.25 mg tablet 6.25 mg PO BID for blood pressure 10/27/23 02/20/24 07:30 Rx #180 TABLETS lisinopril 10 mg tablet 10 mg PO DAILY #90 TABLETS 10/27/23 02/20/24 07:30 Rx isosorbide mononitrate 60 mg 60 mg PO DAILY #90 TABLETS 12/05/23 02/20/24 07:30 Rx tablet,extended release 24 hr gabapentin 300 mg capsule 300 mg PO TID PRN PRN pain 01/16/24 01/31/24 History nitroglycerin 0.4 mg sublingual 0.4 mg sublingual PRN PRN chest 01/17/24 Unknown History tablet pain pantoprazole 40 mg tablet,delayed 40 mg PO DAILY 01/17/24 02/20/24 07:30 History release ciprofloxacin HCl 500 mg tablet 500 mg PO DAILY #14 tabs 02/20/24 Unknown Rx (Cipro) oxycodone 5 mg tablet 5 mg PO Q6H PRN pain 7 days #20 02/20/24 Unknown Rx tabs Allergy/AdvReac Type Severity Reaction Status Date / Time No Known Allergies Allergy Verified 03/01/24 09:31 Family History Father CAD (coronary artery disease) Mother CVA (cerebral vascular accident) CAD (coronary artery disease) Surgical History History of coronary artery stent placement Hx of hand surgery History of fusion of cervical spine History of left heart catheterization (11/04/16) History of knee replacement History of carpal tunnel release Social History Smoking Status: Current every day smoker tobacco type: cigarettes alcohol intake: never substance use type: does not use 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 Patient states that his Clarke catheter and his nephrostomy tube is adequately draining Neurological: Denies numbness, weakness, tingling Musculoskeletal: Complains of left-sided swelling as noted above Skin: Denies rashes or lesions EXAM Physical Exam Narrative Exam Narrative: General: Patient lying in bed rest comfortably did not appear to be in acute distress Head: Atraumatic, normocephalic Eyes: PERRL bilateral, EOMI bilateral, no conjunctival (more content not included)... Normal [facility] L501.4020on 03-01-2024 TROPONIN-I HS 4 pg/mL Normal 3.0-78.0 [facility] Comment on above: Order Comment: 'TROP ' Serial specimen #1, #2 or #3: 1 Result Comment: Raimundo lou Note: New Test Units and Gender Specific Reference Ranges. For more information see Policy Stat Procedure [place] High Sensitivity Troponin (TNIH) and attachments. Performed By: #### L 100.0100, L501.2450, L501.4020, L500.4050 ####[facility] [address] [place], [address] Lipaseon 03-01-2024 Lipase [Catalytic activity/Vol] 25 U/L Normal 13-75 [facility] Comment on above: Order Comment: 'TROP ' Serial specimen #1, #2 or #3: 1 Result Comment: Raimundo lou note: LIPASE revised reference range effective 22. New Lipase methodology. Expected to produce lower values than the previous assay method. NEW Reference Range: 13 - 75 U/L Performed By: #### L 100.0100, L501.2450, L501.4020, L500.4050 ####[facility] [address] [place], [address] Partial Thromboplast Timeon 03-01-2024 aPTT Coag (Bld) [Time] 33.3 s Normal 24.1-36.2 [facility] Comment on above: Performed By: #### L 501.14027, L506.0400 #### [facility] [address] [place], [address] Prothrombin Time w/INRon INR Coag (PPP) [Relative time] 1.1 {INR} Normal [facility] Comment on above: Performed By: #### L 501.80788, L506.0400 #### [facility] [address] [place], [address] PT Coag (PPP) [Time] 14.0 s Normal 11.7-14.9 [facility] Comment on above: Performed By: #### L 501.66137, L506.0400 #### [facility] [address] [place], [address] Urinalysis, Completeon 03-01 EPI,SQUAMOUS 0-5 SEEN Normal 0-5 [facility] Comment on above: Order Comment: 1 Y Performed By: #### L 501.5425 #### [facility] [address] [place], [address] RBC 0-5 SEEN Normal 0-5 [facility] Comment on above: Order Comment: 1 Y Performed By: #### L 501.5425 #### [facility] [address] [place], [address] WBC 0-5 SEEN Normal 0-5 [facility] Comment on above: Order Comment: 1 Y Performed By: #### L 501.5425 #### [facility] [address] [place], [address] BACTERIA 0 SEEN Normal None Seen [facility] Comment on above: Order Comment: 1 Y Performed By: #### L 501.5425 #### [facility] [address] [place], [address] Mucus Ql (Urine sed) 0 SEEN Normal [facility] Comment on above: Order Comment: 1 Y Performed By: #### L 501.5425 #### [facility] [address] [place], [place], [address] BRIEF OP NOTon 02-26-2024 BRIEF OP NOT HNO ID: [id number] Author: VALENTINA VILLANUEVA MD Service: Interventional Radiology Author Type: Physician Type: Brief Op Note Filed: 02/26/2024 17:04 Note Text: INTERVENTIONAL RADIOLOGY POST PROCEDURE NOTE DATE: 02/26/24 NAME: Elmer Arboleda LOG ID: [id number] Pre-Procedure Diagnosis: Left sided urinoma with decreased drainage from existing drainage catheter Juvenile Court Judge: Surgeon(s) and Role: * Valentina Villanueva MD, MD - Primary Procedure: Tube check / change / reposition / upsize Anesthesia: Local Findings: Moderate residual fluid collection. The pigtail portion of the tube is at the edge of the fluid collection and it is kinked at its pigtail portion. The existing tube was removed over a wire, and a new larger 12 Fr tube was placed in optimal position within the largest portion of the urinoma Estimated Blood Loss: Minimal Specimen: None Complications: None Post-Op/Post-Procedure Diagnosis: - Successful change and upsize of drainage catheter within a left sided urinoma Please see Radiology report for complete information Normal [facility] CBC W/Diff, Automatedon 10-0 PATH REV Reviewed Normal [facility] Comment on above: Result Comment: Neut rophilic leukocytosis. Clinical correlation necessary. Jamal Contreras M.D. 02/26/24 AMENDED REPORT 02/26/24 1356 PATH REV previously reported as: September Performed By: #### L 501.5425 #### [facility] [address] [place], [address] CBC panel Auto (Bld)on 02-25 Erythrocyte distribution width (RBC) [Ratio] 12.7 % Normal 11.5-15.0 [facility] Comment on above: Order Comment: Speci men Type: BLOOD SPECIMEN Ordering Facility: [facility] Address: [address] [place] [address] Performed By: #### 2 4321-2 #### [facility] CLIA [id number] [address] [place] Hematocrit (Bld) [Volume fraction] 36.2 % Low 39.0-51.0 [facility] Comment on above: Order Comment: Speci men Type: BLOOD SPECIMEN Ordering Facility: [facility] Address: [address] [place] [address] Performed By: #### 2 4321-2 #### [facility] CLIA [id number] [address] [place] Hemoglobin (Bld) [Mass/Vol] 12.3 g/dL Low 13.0-17.0 [facility] Comment on above: Order Comment: Speci men Type: BLOOD SPECIMEN Ordering Facility: [facility] Address: [address] [place] [address] Performed By: #### 2 4321-2 #### [facility] CLIA [id number] [address] [place] MCH (RBC) [Entitic mass] 30.0 pg Normal 26.0-34.0 [facility] Comment on above: Order Comment: Speci men Type: BLOOD SPECIMEN Ordering Facility: [facility] Address: [address] [place] [address] Performed By: #### 2 4321-2 #### [facility] CLIA [id number] [address] MCHC (RBC) [Mass/Vol] 34.0 g/dL Normal 30.5-36.0 [facility] Comment on above: Order Comment: Speci men Type: BLOOD SPECIMEN Ordering Facility: [facility] Address: [address] [place] [address] Performed By: #### 2 4321-2 #### [facility] CLIA [id number] [address] OF [facility] MCV (RBC) [Entitic vol] 88.3 fL Normal 80.0-100.0 [facility] Comment on above: Order Comment: Speci men Type: BLOOD SPECIMEN Ordering Facility: [facility] Address: [address] [place] [address] Performed By: #### 2 4321-2 #### [facility] CLIA [id number] [address] Nucleated RBC (Bld) [#/Vol] 10*3/uL Normal <0.01 [facility] Comment on above: Order Comment: Speci men Type: BLOOD SPECIMEN Ordering Facility: [facility] Address: [address] [place] [address] Performed By: #### 2 4321-2 #### [facility] CLIA [id number] [address] Platelet mean volume (Bld) [Entitic vol] 9.6 fL Normal 9.0-12.7 [facility] Comment on above: Order Comment: Speci men Type: BLOOD SPECIMEN Ordering Facility: [facility] Address: [address] [place] [address] Performed By: #### 2 4321-2 #### [facility] CLIA [id number] [address] [place] Platelets (Bld) [#/Vol] 331 10*3/uL Normal 150-400 [facility] Comment on above: Order Comment: Speci men Type: BLOOD SPECIMEN Ordering Facility: [facility] Address: [address] [place], [place] [address] Performed By: #### 2 4321-2 #### [facility] CLIA [id number] [address] RBC (Bld) [#/Vol] 4.10 10*6/uL Low 4.20-6.00 [facility] Comment on above: Order Comment: Speci men Type: BLOOD SPECIMEN Ordering Facility: [facility] Address: [address] [place], [place] [address] Performed By: #### 2 4321-2 #### [facility] CLIA [id number] [address] WBC (Bld) [#/Vol] 11.20 10*3/uL High 3.70-11.00 [facility] Comment on above: Order Comment: Speci men Type: BLOOD SPECIMEN Ordering Facility: [facility] Address: [address] [place], [place] [address] Performed By: #### 2 4321-2 #### [facility] CLIA [id number] [address] CNDSon 02-26-2024 CNDS HNO ID: [id number] Author: EDD HORTON DO Service: Hospital Medicine Author Type: Physician Type: Discharge Summary Filed: 02/26/2024 15:30 Note Text: DISCHARGE SUMMARY PATIENT NAME: Elmer Arboleda ADMISSION DATE: 02/24/2024 DISCHARGE DATE: 02/26/2024 ATTENDING PHYSICIAN: Edd Horton DO Code Status: Full Code Highest Readmission Risk Score: 14 The 30 day readmissions risk score is derived from an internally validated risk model which evaluates patient level characteristics, utilization history, medication orders and lab results up until the day of discharge. Patients with a score of 40 or above are considered highest risk for readmission. Specific patient level drivers will be listed at the bottom of the summary. CONSULTING TEAMS DURING HOSPITALIZATION: Hospital Medicine: [place] [facility] Surgery : Urology Treatment Team: Attending Provider: Edd Horton DO Primary Service: JENNIFER HUBBARD REASON FOR HOSPITALIZATION: JAREN drain pain DIAGNOSIS: Principal Problem (Resolved): Bronchitis (POA: Yes) Active Problems: Pararenal urinoma (POA: Unknown) Obesity Class III (BMI +/>40 or >35 with comorbidity) OPERATIONS DURING HOSPITALIZATION: None PROCEDURES DURING HOSPITALIZATION: No procedures performed HOSPITAL COURSE: Elmer Arboleda is a 54 year old male with history of CAD, HTN and HLD who presents to the hospital due to acutely worsening left flank pain. The patient had a partial nephrectomy (due to renal cancer) about a month ago. About a week ago, he developed severely left flank pain and imaging revealed fluid around his kidney. A JAREN drain was placed and the pain resolving with drainage. On Monday, the pain started to build up again and the drain appeared to stop working. He denies any dysuria, fevers, chills, nausea, vomiting or other abdominal pains. Pt feeling well. Cultures are negative. Will stop iv abx. Planned for JAREN drain adjustment today and dc home. Continue home medications. Follow up with pcp and urology. Dc with clarke per urology Transitions of Care Critical Issues: NEW BASELINE FOR PATIENT: home with self LABS AND PROCEDURES PENDING AT DISCHARGE: No pending results. PATIENT CONDITION AT DISCHARGE: Stable DISCHARGE DISPOSITION: Home with Self Care Discharge Physical Exam: VITAL SIGNS: BP 126/72 Pulse 79 Temp 36.8 ?C (98.2 ?F) (Oral) Resp 20 Ht 167.6 cm (5' 6) Wt 115.7 kg (255 lb) SpO2 93% BMI 41.16 kg/m? GENERAL: Alert, no distress, cooperative LUNGS: Lungs clear to auscultation, Good diaphragmatic excursion CARDIAC: Normal S1 and S2; no rubs, murmurs, or gallops ABDOMEN: Abdomen soft, non-tender, BS normal, No masses or organomegaly and L sided jaren drain INFORMATION PROVIDED TO PATIENT: WOUND/SURGICAL SITE CARE: No orders of the defined types were placed in this encounter. DIET: Resume pre-hospital diet ACTIVITY: Resume pre-hospital activity ALLERGIES No Known Allergies DISCHARGE MEDICATION: Medication List CONTINUE taking these medications acetaminophen 500 mg tablet Commonly known as: TYLENOL albuterol HFA 90 mcg/actuation inhaler Commonly known as: PROVENTIL HFA, VENTOLIN HFA aspirin, enteric coated 81 mg EC tablet Commonly known as: ASPIRIN, ENTERIC COATED atorvastatin 80 mg tablet Commonly known as: LIPITOR carvedilol 6.25 mg tablet Commonly known as: COREG CIPRO 500 mg tablet Generic drug: ciprofloxacin HCl gabapentin 300 mg capsule Commonly known as: NEURONTIN isosorbide mononitrate ER 60 mg 24 hr tablet Commonly known as: IMDUR lisinopril 10 mg tablet Commonly known as: ZESTRIL nitroglycerin sublingual 0.4 mg SL tablet Commonly known as: NITROQUICK oxyCODONE IR 5 mg immediate release tablet Commonly known as: ROXICODONE pantoprazole DR 40 mg tablet Commonly known as: PROTONIX FUTURE APPOINTMENTS: Follow Up with PCP: Damon Bui MD No future appointments. Follow Up Appointments Follow-Up Appointment When: In 1 week Damon Bui MD [phone] [address] PCP Requested Referral Follow-Up Appointment With: urology When: In 1 week The patient's risk for 30-day readmission is determined using the following contributing factors: Pt variables contributing to increased readmission risk: 15 Active Medication Orders 12 Most Recent BUN Result 9.2 First Resulted Calcium During Admission 1 Previous ED Visit (6 mos.)? 1 Number of Previous ED Visits (6 mos.) 1 Insurance - Private Coverage 1 Discharge Disposition - Home Plan of care discussed with Provider, RN, Patient I have performed the [id number] and relevant services for a total of >30 minutes. SIGNATURE: EDD HORTON DO, DATE: February 26, 2024 TIME: 3:[address] [facility] EXCHANGE ABSCESS/CYST CATHET Hema 02-26-2024 EXCHANGE ABSCESS/CYST CATHETER * * *Final Report* * * DATE OF EXAM: Feb 26 2024 4:31PM [facility] 2023 - EXCHANGE ABSCESS/CYST CATHETER / PROCEDURE REASON: Pararenal urinoma * * * * Physician Interpretation * * * * - IR ABSCESS/CYST EXISTING ABSCESS CATHETER INJECTION - DRAINAGE CATHETER EXCHANGE / REPOSITION / UPSIZE - MODERATE SEDATION CLINICAL DATA: Pararenal urinoma. Decreased output from existing drainage tube placed in outside institution. The referring physician has requested drainage catheter check and exchange and/or reposition and/or upsize if needed. COMPARISON: Outside CT of the abdomen and pelvis dated 02/24/2024. TECHNIQUE AND FINDINGS: The advantages, alternatives and possible complications of drainage catheter check, and exchange / reposition (including but not limited to bleeding, infection, sepsis, damage to surrounding organs, loss of access and need for new catheter placement, adverse reaction to intraprocedural medications and aggravation of underlying medical conditions, among others) were discussed with the patient who understood the discussion and provided consent for the procedure. Time out was performed prior to the study. Fluoroscopic evaluation of the left nephrostomy confirmed the presence of a drainage catheter in place. The catheter has several kinks at the pigtail portion of the tube. The surgical site was cleaned, prepped and draped. Maximal sterile barrier technique was used throughout the complete procedure. Local anesthesia was given to the soft tissues with lidocaine 1%. Contrast was gently injected into the fluid collection demonstrating the presence of a residual pocket of fluid that measures approximately 6.3 x 1.5 cm. cm. The existing drainage tube is not located within the largest / main portion of the residual pocket of fluid. Catheter reposition, exchange, an upsize was needed. The locking mechanism of the existing catheter was released. A 0.035 inches Amplatz guidewire was advanced into the fluid collection and the tube was removed. A 5 Fr Berenstein catheter and guidewire were advanced into the fluid collection and directed toward the largest portion of the residual pocket of fluid. Over the wire, a new 12 Fr self locking catheter was placed. The catheter was secured to the skin with a single stitch. The patient tolerated the procedure well and was discharged from the procedure room in stable condition. There were no immediate complications. MODERATE SEDATION: Under Dr. Nieves's supervision, Versed 2 mg and Fentanyl 100 micrograms were given intravenously for moderate conscious sedation. Heart rate, blood pressure and oxygen saturation were continuously monitored during the complete procedure by the IR physician and IR nurse. Moderate sedation physician-patient face time: 35 minutes. Cumulative dose: 258 mGy. Fluoroscopy time: 9:12 minutes. Estimated blood loss: Less than 5 cc. Medications: Lidocaine 1% 10 cc. Contrast: 20 mL of Omnipaque 300. IMPRESSION: 1. Successful exchange, reposition, and/or upsize of a drainage catheter in a urinoma at the left flank area as described above. 2. No immediate complications. NOTES: - Flushing of the drainage catheter with 10 cc of NS once a day is recommended. - F/U drain check in one week is advised. - Otherwise, drain check and possible tube removal can be performed in IR anytime when the net output of the tube is less than 10 cc (for at least 3 days) and/or if F/U imaging shows resolution or significant decrease of the fluid collection. - The decrease in the output of the tube also may be related to partial / complete obstruction or suboptimal position. This will require drain check to evaluate the need for exchange, reposition, or upsize of the tube. Outsole Tacker: PSCB Transcribe Date/Time: Feb 28 2024 3:08A Dictated by : VALENTINA VILLANUEVA MD This examination was interpreted and the report reviewed and electronically signed by: VALENTINA VILLANUEVA MD on Feb 28 2024 3:13AM EST [id number] Normal [facility] HISTORY PHYSICALon HISTORY PHYSICAL HNO ID: [id number] Author: VALENTINA VILLANUEVA MD Service: Interventional Radiology Author Type: Physician Type: H&P Filed: 02/26/2024 16:54 Note Text: UPDATED HISTORY AND PHYSICAL EXAMINATION Date: 02/26/24 Name: Elmer Arboleda PHYSICAL EXAM MUST BE COMPLETED ON ADMISSION The History and Physical (completed in the past 30 days) has been reviewed and the patient has been examined. The contents accurately reflect the patient's condition with the following additions or revisions since the HANDP was completed. Examination indicates no changes. This HANDP can be found in the Electronic Medical Record dated 02/25/24. Normal [facility] Basic metabolic 2000 panelon 02-25-2024 Anion gap [Moles/Vol] 10 mmol/L Normal 8-15 [facility] Comment on above: Order Comment: Specortiz bowling Type: BLOOD SPECIMEN Ordering Facility: [facility] Address: [address] [place], [place] [address] [address] Performed By: #### 2 4321-2 #### [facility] CLIA [id number] 1 [place] [address] [place] Calcium [Mass/Vol] 8.5 mg/dL Normal 8.5-10.2 [facility] Comment on above: Order Comment: Speci men Type: BLOOD SPECIMEN Ordering Facility: [facility] Address: [address] [place] [address] Performed By: #### 2 4321-2 #### [facility] CLIA [id number] [address] [place] Chloride [Moles/Vol] 101 mmol/L Normal 98-107 [facility] Comment on above: Order Comment: Speci men Type: BLOOD SPECIMEN Ordering Facility: [facility] Address: [address] [place] [address] Performed By: #### 2 4321-2 #### [facility] CLIA [id number] [address] [place] CO2 [Moles/Vol] 24 mmol/L Normal 22-30 [facility] Comment on above: Order Comment: Speci men Type: BLOOD SPECIMEN Ordering Facility: [facility] Address: [address] [place] [address] Performed By: #### 2 4321-2 #### [facility] CLIA [id number] [address] [place] Creatinine [Mass/Vol] 0.76 mg/dL Normal 0.73-1.22 [facility] Comment on above: Order Comment: Speci men Type: BLOOD SPECIMEN Ordering Facility: [facility] Address: [address] [place] [address] Performed By: #### 2 4321-2 #### [facility] CLIA [id number] [address] Creatinine and Glomerular filtration rate.predicted panel (S/P/Bld) 107 mL/min/1.73m??? Normal >=60 [facility] Comment on above: Order Comment: Speci men Type: BLOOD SPECIMEN Ordering Facility: [facility] Address: [address] [place] [address] Result Comment: Larisa mated Glomerular Filtration Rate (eGFR) is calculated using the 2020 CKD-EPI creatinine equation. This equation utilizes serum creatinine, sex, and age as parameters. The creatinine assay has traceable calibration to isotope dilution-mass spectrometry. Refer to KDIGO guidelines for clinical interpretation. In patients with unstable renal function, e.g. those with acute kidney injury, the eGFR may not accurately reflect actual GFR. Performed By: #### 2 4321-2 #### [facility] CLIA [id number] 1 [place] [address] [place] Glucose [Mass/Vol] 110 mg/dL High 74-99 [facility] Comment on above: Order Comment: Ryley bowling Type: BLOOD SPECIMEN Ordering Facility: [facility] Address: [address] [place] [address] Result Comment: The [place] Diabetes [employer] (ADA) provides guidance for cutoff values for fasting glucose and random glucose. The ADA defines fasting as no caloric intake for at least 8 hours. Fasting plasma glucose results between 100 to 125 mg/dL indicate increased risk for diabetes (prediabetes). Fasting plasma glucose results greater than or equal to 126 mg/dL meet the criteria for diagnosis of diabetes. In the absence of unequivocal hyperglycemia, results should be confirmed by repeat testing. In a patient with classic symptoms of hyperglycemia or hyperglycemic crisis, random plasma glucose results greater than or equal to 200 mg/dL meet the criteria for diagnosis of diabetes. Reference: Standards of Medical Care in Diabetes 2016, [place] [employer]. Diabetes Care. 2016.39(Suppl 1). Performed By: #### 2 4321-2 #### [facility] CLIA [id number] 1 [place] [address] [place] Potassium [Moles/Vol] 3.7 mmol/L Normal 3.7-5.1 [facility] Comment on above: Order Comment: Ryley bowling Type: BLOOD SPECIMEN Ordering Facility: [facility] Address: [address] [place] [address] Performed By: #### 2 4321-2 #### [facility] CLIA [id number] 1 [place] [address] [place] Sodium [Moles/Vol] 135 mmol/L Low 136-144 [facility] Comment on above: Order Comment: Ryley bowling Type: BLOOD SPECIMEN Ordering Facility: [facility] Address: [address] [place] [address] Performed By: #### 2 4321-2 #### [facility] CLIA [id number] [address] [place] [facility] Urea nitrogen [Mass/Vol] 12 mg/dL Normal 9-24 [facility] Comment on above: Order Comment: Speci men Type: BLOOD SPECIMEN Ordering Facility: [facility] Address: [address] [place] [address] Performed By: #### 2 4321-2 #### [facility] CLIA [id number] [address] CBC panel Auto (Bld)on 02-24 Erythrocyte distribution width (RBC) [Ratio] 12.5 % Normal 11.5-15.0 [facility] Comment on above: Order Comment: Speci men Type: BLOOD SPECIMEN Ordering Facility: [facility] Address: [address] [place] [address] Performed By: #### 5 8410-2 #### [facility] CLIA [id number] [address] Hematocrit (Bld) [Volume fraction] 36.2 % Low 39.0-51.0 [facility] Comment on above: Order Comment: Speci men Type: BLOOD SPECIMEN Ordering Facility: [facility] Address: [address] [place] [address] Performed By: #### 5 8410-2 #### [facility] CLIA [id number] [address] Hemoglobin (Bld) [Mass/Vol] 12.0 g/dL Low 13.0-17.0 [facility] Comment on above: Order Comment: Speci men Type: BLOOD SPECIMEN Ordering Facility: [facility] Address: [address] [place] [address] Performed By: #### 5 8410-2 #### [facility] CLIA [id number] [address] MCH (RBC) [Entitic mass] 29.6 pg Normal 26.0-34.0 [facility] Comment on above: Order Comment: Speci men Type: BLOOD SPECIMEN Ordering Facility: [facility] Address: [address] [place] [address] Performed By: #### 5 8410-2 #### [facility] CLIA [id number] [address] MCHC (RBC) [Mass/Vol] 33.1 g/dL Normal 30.5-36.0 [facility] Comment on above: Order Comment: Speci men Type: BLOOD SPECIMEN Ordering Facility: [facility] Address: [address] [place] [address] Performed By: #### 5 8410-2 #### [facility] CLIA [id number] [address] MCV (RBC) [Entitic vol] 89.2 fL Normal 80.0-100.0 [facility] Comment on above: Order Comment: Speci men Type: BLOOD SPECIMEN Ordering Facility: [facility] Address: [address] [place] [address] Performed By: #### 5 8410-2 #### [facility] CLIA [id number] [address] Nucleated RBC (Bld) [#/Vol] 10*3/uL Normal <0.01 [facility] Comment on above: Order Comment: Speci men Type: BLOOD SPECIMEN Ordering Facility: [facility] Address: [address] [place] [address] Performed By: #### 5 8410-2 #### [facility] CLIA [id number] [address] Platelet mean volume (Bld) [Entitic vol] 10.3 fL Normal 9.0-12.7 [facility] Comment on above: Order Comment: Speci men Type: BLOOD SPECIMEN Ordering Facility: [facility] Address: [address] [place] [address] Performed By: #### 5 8410-2 #### [facility] CLIA [id number] [address] [place] [address] [place] Platelets (Bld) [#/Vol] 309 10*3/uL Normal 150-400 [facility] Comment on above: Order Comment: Speci men Type: BLOOD SPECIMEN Ordering Facility: [facility] Address: [address] [place] [address] Performed By: #### 5 8410-2 #### [facility] CLIA [id number] [address] [place] [address] [place] RBC (Bld) [#/Vol] 4.06 10*6/uL Low 4.20-6.00 [facility] Comment on above: Order Comment: Speci men Type: BLOOD SPECIMEN Ordering Facility: [facility] Address: [address] [place] [address] Performed By: #### 5 8410-2 #### [facility] CLIA [id number] [address] [place] [address] [place] WBC (Bld) [#/Vol] 11.84 10*3/uL High 3.70-11.00 [facility] Comment on above: Order Comment: Speci men Type: BLOOD SPECIMEN Ordering Facility: [facility] Address: [address] [place] [address] Performed By: #### 5 8410-2 #### [facility] CLIA [id number] 1 [place] [address] [place] Culture, Anaerobic Any Sourc micaela 02-25-2024 CUAN No growth in 5 days. Normal [facility] Comment on above: Performed By: #### M 100.3000, M100.2000, M100.4001 ####[facility] [id number] [place], [place], [id number] ED NOTEon 02-25-2024 ED NOTE HNO ID: [id number] Author: YAZMIN PETERSON RN Service: ? Author Type: Registered Nurse Type: ED Notes Filed: 02/25/2024 01:32 Note Text: Patient is NPO per urology, water OK for medications. Normal [facility] ED NOTE HNO ID: [id number] Author: YAZMIN PETERSON RN Service: ? Author Type: Registered Nurse Type: ED Notes Filed: 02/25/2024 01:29 Note Text: Urology at bedside. [facility] ED NOTE HNO ID: [id number] Author: YAZMIN PETERSON RN Service: ? Author Type: Registered Nurse Type: ED Notes Filed: 02/25/2024 01:03 Note Text: This RN asked attending Dr. Harman for pain medication, awaiting orders. [facility] ED NOTE HNO ID: [id number] Author: YAZMIN PETERSON RN Service: ? Author Type: Registered Nurse Type: ED Notes Filed: 02/25/2024 00:47 Note Text: Patient still reporting 8/10 pain, resident notified. No orders received. [facility] HISTORY PHYSICALon HISTORY PHYSICAL HNO ID: [id number] Author: YVROSE WALLACE II, MD Service: Hospital Medicine Author Type: Physician Type: H&P Filed: 02/25/2024 05:07 Note Text: DEPARTMENT OF HOSPITAL MEDICINE HISTORY AND PHYSICAL EXAM SERVICE DATE: 02/25/2024 SERVICE TIME: 3:03 AM Primary Care Physician: Damon Bui MD NIGHT AND WEEKEND COVERAGE: From 7am - 7pm, please call Sound attending After 7pm, please call cross cover pager #[phone] ==== ASSESSMENT AND PLAN: 1) Left flank pain, JAREN drain malfunction, possible UTI Hx: partial nephrectomy, now with fluid collection - IR to replace drain - NS 75 cc/hr - ceftriaxone 1 g IV daily - CBC in am - BMP in am - IR consult for drain replacement 2) PNA vs bronchitis - Admit to Inpatient - tele - CBC in am - BMP in am - Robitussin 10 mL Q4H prn cough - azithromycin 500 mg IV daily - ceftriaxone 1 g IV daily 3) CV - Hx: CAD, HTN, HLD Home meds: - aspirin 81 mg PO daily - atorvastatin 80 mg PO at bedtime - carvedilol 6.25 mg PO BID - isosorbide mononitrate 60 mg PO daily - lisinopril 10 mg PO daily - monitor vitals ==== ==== Chief Complaint: left flank pain, cough HPI: Elmer Arboleda is a 54 year old male with history of CAD, HTN and HLD who presents to the hospital due to acutely worsening left flank pain. The patient had a partial nephrectomy (due to renal cancer) about a month ago. About a week ago, he developed severely left flank pain and imaging revealed fluid around his kidney. A JAREN drain was placed and the pain resolving with drainage. On Monday, the pain started to build up again and the drain appeared to stop working. He denies any dysuria, fevers, chills, nausea, vomiting or other abdominal pains. In addition to the above, the patient has had some coughing with yellow sputum over the last few days as well, but denies wheezing, shortness of breath, chest pain, palpitations or other complaints. Labs revealed WBCs of 13.41, Hgb of 13.0 and Na of 133, otherwise normal BMP. Trops was 17. CTPE showed bronchial wall thickening, (bronchitis?), bilateral pulmonary nodules, up to 6 mm. The ED gave 1.0L NS, 4 of morphine, Duoneb and started azithromycin and ceftriaxone. ####################### ####################### ####### ####################### ####################### ####### ####################### ####################### ####### OTHER HISTORY################ ###################### ####################### ####################### ####### ####################### ####################### ####### ####################### ####################### ####### ==== ROS: Negative except those noted in HPI above ==== PHYSICAL EXAM GENERAL: Alert, no distress, cooperative SKIN : Warm, dry intact, no open lesions, no rashes HEAD / SINUSES : Normocephalic, atraumatic, oral mucosa moist EYES : PERRLA, EOMI NECK : No jugulovenous distention, Supple, no adenopathy LUNGS : Lungs clear to auscultation, no wheezes, rhonchi, or rales CARDIAC : RRR, Normal S1 and S2; no rubs, murmurs, or gallops ABDOMEN : Abdomen soft, non - tender, BS normal, No masses or organomegaly left flank has JAREN tube in place, the flank is warm and tender, drain bulb has a small amount of clear fluid in it EXTREMITIES : Extremities normal, no deformities, edema, clubbing or skin discoloration NEURO : Sensation grossly intact, Cranial nerves II - XII intact, moves all 4 extremities, speech was clear and coherent - no chronic clarke ==== All pertinent labs, imaging, medical Hx, Surgical Hx, Family Hx, Social Hx, home medications, and allergies reviewed. See below. ==== Medical History: CAD HTN HLD ==== Surgical History: No Surgical History on file ==== Family History: No Family History on file ==== Social History: Tobacco History: Smoking status: Every Day Types: Cigarettes Vaping History: No history of file Alcohol and Substance Use: No history on file ==== HOME MEDICATIONS albuterol 2 mcg/actuation inhaler Q4H aspirin 81 mg PO daily atorvastatin 80 mg PO at bedtime carvedilol 6.25 mg PO BID isosorbide mononitrate 60 mg PO daily lisinopril 10 mg PO daily pantoprazole 40 mg PO daily ==== ALLERGIES None ==== VITALS BP: 106/68 HR: 90 RR: 25 Temp: 97.5 ==== LABS Na: 133 ( (more content not included)... Normal [facility] PT panel Coag (PPP)on 2023 INR Coag (PPP) [Relative time] 1.1 {INR} Normal 0.9-1.3 [facility] Comment on above: Order Comment: Ryley bowling Type: BLOOD SPECIMEN Ordering Facility: [facility] Address: [address] [place] [address] Result Comment: Meche min K Antagonist (VKA) Therapeutic Range: INR 2 to 3 (Target INR of 2.5) Note: For patients treated with VKA drugs, such as warfarin, the [place] [employer] 2012 Guideline recommends a therapeutic INR range of 2 to 3 (target INR of 2.5). This recommendation includes high-risk patients with antiphospholipid syndrome with previous arterial or venous thromboembolism, current-generation mechanical or bioprosthetic aortic heart valve replacement. Note: Patients with mechanical aortic valve replacement and additional risk factors for thromboembolic events (atrial fibrillation, previous thromboembolism, LV dysfunction, hypercoagulable conditions) or an older generation mechanical AVR (i.e., ball in-Cage) or any mechanical MVR should have a INR therapeutic range of 2.5 to 3.5 (target INR of 3). Marcia GH, et al. Chest 2012, 141:7S-47S Ramesh CAMARA et al. [facility] 2017, 70: 252-289 Performed By: #### 2 4321-2 #### [id number] [address] OF [facility] PT Coag (PPP) [Time] 11.4 s Normal 9.7-13.0 [facility] Comment on above: Order Comment: Speci men Type: BLOOD SPECIMEN Ordering Facility: [facility] Address: [address] [place] [address] Performed By: #### 2 4321-2 #### [facility] CLIA [id number] [address] ALLIED HEALTHon 02-24-2024 ALLIED HEALTH HNO ID: [id number] Author: MELISSA RENE RT(R) Service: Radiology Author Type: Utilization Engineer Type: Allied Health Filed: 02/24/2024 23:12 Note Text: Radiology Service Progress Note DATE OF SERVICE: February 24, 2024 TIME: 11:11 PM PATIENT IDENTITY VERIFICATION COMPLETED USING TWO (2) STANDARD IDENTIFIERS: Name and Date of confirmed by patient verbally and Name and Date of confirmed by identification band. FALL SCREENING: Has the patient had 2 falls in the last year or 1 fall with injury or currently using an Ambulatory Assistive Device (Walker, Cane, Wheelchair, Crutches, etc.)? Emergency Room Patient: Screened in ED PATIENT GENDER DATA: Male PATIENT RELEVANT IMPLANT DATA REVIEWED: Not Applicable PATIENT PRESENTS WITH AN IMPLANTABLE OR ATTACHED STEM ROLLER OPERATOR: No ALLERGIES: Reviewed and unchanged CONTRAST ALLERGY: NO. EXAM: CT -CONTRAST INDUCED NEPHROPATHY RISK FACTORS: Not applicable CREATININE: Creatinine Date Value Ref Range Status 02/24/2024 0.85 0.73 - 1.22 mg/dL Final 01/18/2021 0.84 0.5 - 1.4 MG/DL Final Comment: NOTE NEW NORMAL RANGE DUE TO REAGENT CHANGE Patients receiving either N-Acetylcysteine (NAC) or Metamizole prior to venipuncture, may have falsely depressed results. Estimated Glomerular Filtration Rate Date Value Ref Range Status 02/24/2024 103 >=60 mL/min/1.73m? Final Comment: Estimated Glomerular Filtration Rate (eGFR) is calculated using the 2020 CKD-EPI creatinine equation. This equation utilizes serum creatinine, sex, and age as parameters. The creatinine assay has traceable calibration to isotope dilution-mass spectrometry. Refer to KDIGO guidelines for clinical interpretation. In patients with unstable renal function, e.g. those with acute kidney injury, the eGFR may not accurately reflect actual GFR. eGFR- Date Value Ref Range Status 01/18/2021 Greater than 60 Final P.O.C.T. RESULTS: POC done: Yes, See Lab Tab February 24, 2024 TREATMENT: N/A and No Hydration needed. PERIPHERAL IV DATA: Inpatient - refer to LDA documentation RADIOLOGY DEPARTMENT: CT; Exam(s) Completed: PE Study SIGNATURE: Melissa Rene, RT(R) PATIENT NAME: Elmer Arboleda DATE: February 24, 2024 TIME: 11:[address] [facility] Abdomen/Pelvis W IV Cont ONL Yon 02-24-2024 Abdomen/Pelvis W IV Cont ONLY [facility] Imaging Services [address] [place] [address] [id number] Abdomen/Pelvis W IV Cont ONLY MR#: [id number] Acct: [id number] Name: ELMER ARBOLEDA Rep #: [id number] : 1970 M 54 From: Rosa thakur MD PCP: Dr. Damon Bui MD Status: REG ER Study: Abdomen/Pelvis W IV Cont ONLY Date of Exam: Exam# [id number] Ordering Dr: [place] [id number] HISTORY: left flank pain, partial nephrectomy, urinoma drn. TECHNIQUE: Helically acquired images were obtained of the abdomen and pelvis after the intravenous administration of 100 mL Isovue-370. A radiation dose optimization technique was used for this scan. 470 images. COMPARISON: 02/20/2024, 11/30/2023. FINDINGS: LOWER CHEST: Lung bases clear. BOWEL: Bowel appendix nondilated. No significant focal inflammatory change observed. PERITONEUM: No significant ascites. LIVER: Stable 1.7 cm cyst in the left lobe. Unchanged 2.4 cm central and 6.7 cm right lobe hemangiomas. GALLBLADDER/BILIARY TREE: Gallbladder present. SPLEEN/PANCREAS/ADRENAL GLANDS: Unremarkable. KIDNEYS: 3.5 x 4.6 cm postoperative fluid collection in the left renal cortex, previously 3.8 x 4.3 cm, with a contiguous left lateral perinephric fluid collection extending posteriorly now with mild rim enhancement and drainage catheter placed. Left retroperitoneal fluid collection measures approximately 9.2 x 16.5 x 19.7 cm with persistent anterior displacement of the left kidney, previously 11 x 18.5 x 22.9 cm. Mild left perinephric and periureteral stranding with interval placement of left double-J ureteral stent. No hydronephrosis. Subcentimeter cortical cyst again seen more inferiorly. Small retroperitoneal lymph nodes without pathologic enlargement. Unremarkable right kidney. VESSELS: No abdominal aortic aneurysm. Mild atherosclerosis. PELVIC ORGANS: Clarke catheter in the partially decompressed bladder. ABDOMINAL WALL: Mild subcutaneous and intramuscular edema of the left flank. Small fat-containing inguinal hernias. BONES: Stable small sclerotic lesion in the left aspect of the T10 vertebral body. Degenerative change. CT/Abdomen/Pelvis W IV Cont ONLY IMPRESSION: Mildly decreased size of large left retroperitoneal postoperative fluid collection status post drainage catheter placement, which may represent a urinoma or abscess with mild rim enhancement and surrounding edema. Interval placement of left ureteral stent. No hydronephrosis. Electronically Signed: Rosa Vasquez MD at 11:40 EDT , CC: Dr. Matthew Trinh MD; Dr. Damon Bui MD Outsole Tacker: Signed Normal [facility] Bacteria Ur Culton Bacteria identified Cx Nom (U) CULTURE, URINE: No growth (<1,000 CFU/ml) Normal [facility] Comment on above: Performed By: #### 6 30-4 ####[facility] [id number] [place] [address] [place] Basic Metabolic Profile (BMP )on 02-24-2024 BUN/CRE 18.2 RATIO Normal 03-10 [facility] Comment on above: Performed By: #### L 501.5425 #### [facility] [address] [place], [address] CA,Total 9.1 mg/dL Normal 8.5-10.1 [facility] Comment on above: Performed By: #### L 501.5425 #### [facility] [address] [place], [address] Chloride [Moles/Vol] 100 mmol/L Normal 98-107 [facility] Comment on above: Performed By: #### L 501.5425 #### [facility] [address] [place], [address] CO2 [Moles/Vol] 26.0 mmol/L Normal 21.0-32.0 [facility] Comment on above: Performed By: #### L 501.5425 #### [facility] [address] [place], [address] Creatinine [Mass/Vol] 0.83 mg/dL Normal 0.70-1.30 [facility] Comment on above: Result Comment: The validity of the calculated GFR GFRAA in patients over 70 years has not been determined. Clinical correlation is essential. Performed By: #### L 501.5425 #### [facility] [address] [place], [address] ECRCL 134.21 ml/min Normal [facility] Comment on above: Performed By: #### L 501.5425 #### [facility] [address] [place], [address] EST GFR - AA 125 mL/min Normal >60 [facility] Comment on above: Result Comment: Afri can [place] GFR Calc Performed By: #### L 501.5425 #### [facility] [address] [place], [address] GAP 7 Normal 5-15 [facility] Comment on above: Performed By: #### L 501.5425 #### [facility] [address] [place], [address] GFR/1.73 sq M.predicted among non-blacks MDRD (S/P/Bld) [Vol rate/Area] 103 mL/min/{1.73_m2} Normal >60 [facility] Comment on above: Result Comment: Non- GFR Calc Performed By: #### L 501.5425 #### [facility] [address] [place], [address] Glucose [Mass/Vol] 128 mg/dL High 74-106 [facility] Comment on above: Result Comment: Fast ing Glucose result greater than or equal to 126 mg/dL suggests DIABETES MELLITUS per A.D.A. criteria. Performed By: #### L 501.5425 #### [facility] [address] [place], [address] Potassium [Moles/Vol] 4.1 mmol/L Normal 3.5-5.1 [facility] Comment on above: Performed By: #### L 501.5425 #### [facility] [address] [place], [address] Sodium [Moles/Vol] 133 mmol/L Low 136-145 [facility] Comment on above: Performed By: #### L 501.5425 #### [facility] [address] [place], [address] Urea nitrogen [Mass/Vol] 15 mg/dL Normal 7-18 [facility] Comment on above: Performed By: #### L 501.5425 #### [facility] [address] [place], [address] Basic metabolic 2000 panelon 02-24-2024 Anion gap [Moles/Vol] 14 mmol/L Normal 8-15 [facility] Comment on above: Order Comment: Speci men Type: BLOOD SPECIMEN Ordering Facility: [facility] Address: [address] [place] [address] Performed By: #### 1 9123-9, 39522-9 #### [facility] CLIA [id number] [address] [place] [address] [place] Calcium [Mass/Vol] 9.2 mg/dL Normal 8.5-10.2 [facility] Comment on above: Order Comment: Speci men Type: BLOOD SPECIMEN Ordering Facility: [facility] Address: [address] [place] [address] Performed By: #### 1 9123-9, 02457-8 #### [facility] CLIA [id number] [address] [place] Chloride [Moles/Vol] 96 mmol/L Low 98-107 [facility] Comment on above: Order Comment: Speci men Type: BLOOD SPECIMEN Ordering Facility: [facility] Address: [address] [place] [address] Performed By: #### 1 9123-9, 21219-0 #### [facility] CLIA [id number] [address] [place] CO2 [Moles/Vol] 23 mmol/L Normal 22-30 [facility] Comment on above: Order Comment: Speci men Type: BLOOD SPECIMEN Ordering Facility: [facility] Address: [address] [place] [address] Performed By: #### 1 9123-9, 55404-3 #### [facility] CLIA [id number] [address] [place] Creatinine [Mass/Vol] 0.85 mg/dL Normal 0.73-1.22 [facility] Comment on above: Order Comment: Speci men Type: BLOOD SPECIMEN Ordering Facility: [facility] Address: [address] [place] [address] Performed By: #### 1 9123-9, 03329-3 #### [facility] CLIA [id number] [address] Creatinine and Glomerular filtration rate.predicted panel (S/P/Bld) 103 mL/min/1.73m??? Normal >=60 [facility] Comment on above: Order Comment: Speci men Type: BLOOD SPECIMEN Ordering Facility: [facility] Address: [address] [place] [address] Result Comment: Larisa mated Glomerular Filtration Rate (eGFR) is calculated using the 2020 CKD-EPI creatinine equation. This equation utilizes serum creatinine, sex, and age as parameters. The creatinine assay has traceable calibration to isotope dilution-mass spectrometry. Refer to KDIGO guidelines for clinical interpretation. In patients with unstable renal function, e.g. those with acute kidney injury, the eGFR may not accurately reflect actual GFR. Performed By: #### 1 9123-9, 31957-4 #### [facility] CLIA [id number] 1 [place] [address] [place] Glucose [Mass/Vol] 107 mg/dL High 74-99 [facility] Comment on above: Order Comment: Specortiz men Type: BLOOD SPECIMEN Ordering Facility: [facility] Address: [address] [place] [address] Result Comment: The [place] Diabetes Association (ADA) provides guidance for cutoff values for fasting glucose and random glucose. The ADA defines fasting as no caloric intake for at least 8 hours. Fasting plasma glucose results between 100 to 125 mg/dL indicate increased risk for diabetes (prediabetes). Fasting plasma glucose results greater than or equal to 126 mg/dL meet the criteria for diagnosis of diabetes. In the absence of unequivocal hyperglycemia, results should be confirmed by repeat testing. In a patient with classic symptoms of hyperglycemia or hyperglycemic crisis, random plasma glucose results greater than or equal to 200 mg/dL meet the criteria for diagnosis of diabetes. Reference: Standards of Medical Care in Diabetes 2016, [place] [employer]. Diabetes Care. 2016.39(Suppl 1). Performed By: #### 1 9123-9, 63927-4 #### [facility] CLIA [id number] 1 [place] [address] [place] Potassium [Moles/Vol] 4.3 mmol/L Normal 3.7-5.1 [facility] Comment on above: Order Comment: Ryley bowling Type: BLOOD SPECIMEN Ordering Facility: [facility] Address: [address] [place] [address] Performed By: #### 1 9123-9, 80086-0 #### [facility] CLIA [id number] [address] STATES [facility] Sodium [Moles/Vol] 133 mmol/L Low 136-144 [facility] Comment on above: Order Comment: Speci men Type: BLOOD SPECIMEN Ordering Facility: [facility] Address: [address] [place] [address] Performed By: #### 1 9123-9, 82851-5 #### [facility] CLIA [id number] [address] [place] Urea nitrogen [Mass/Vol] 16 mg/dL Normal 9-24 [facility] Comment on above: Order Comment: Speci men Type: BLOOD SPECIMEN Ordering Facility: [facility] Address: [address] [place] [address] Performed By: #### 1 9123-9, 69895-6 #### [facility] CLIA [id number] [address] STATES [facility] CBC W Auto Differential pane l (Bld)on 02-24-2024 Basophils (Bld) [#/Vol] 0.00 10*3/uL Normal <0.11 [facility] Comment on above: Order Comment: Speci men Type: BLOOD SPECIMEN Ordering Facility: [facility] Address: [address] [place] [address] Performed By: #### 5 7021-8 #### [facility] CLIA [id number] [address] [place] [address] STATES [facility] Basophils/100 WBC (Bld) 0.0 % Normal [facility] Comment on above: Order Comment: Speci men Type: BLOOD SPECIMEN Ordering Facility: [facility] Address: [address] [place] [address] Performed By: #### 5 7021-8 #### [facility] CLIA [id number] [address] STATES OF [facility] Differential cell count method Nom (Bld) Manual Normal [facility] Comment on above: Order Comment: Speci men Type: BLOOD SPECIMEN Ordering Facility: [facility] Address: [address] [place] [address] Performed By: #### 5 7021-8 #### [facility] CLIA [id number] [address] [place] Eosinophils (Bld) [#/Vol] 0.54 10*3/uL High <0.46 [facility] Comment on above: Order Comment: Speci men Type: BLOOD SPECIMEN Ordering Facility: [facility] Address: [address] [place] [address] Performed By: #### 5 7021-8 #### [facility] CLIA [id number] [address] [place] Eosinophils/100 WBC (Bld) 4.0 % Normal [facility] Comment on above: Order Comment: Speci men Type: BLOOD SPECIMEN Ordering Facility: [facility] Address: [address] [place] [address] Performed By: #### 5 7021-8 #### [facility] CLIA [id number] [address] Erythrocyte distribution width (RBC) [Ratio] 12.4 % Normal 11.5-15.0 [facility] Comment on above: Order Comment: Speci men Type: BLOOD SPECIMEN Ordering Facility: [facility] Address: [address] [place] [address] Performed By: #### 5 7021-8 #### [facility] CLIA [id number] [address] [place] Hematocrit (Bld) [Volume fraction] 38.6 % Low 39.0-51.0 [facility] Comment on above: Order Comment: Speci men Type: BLOOD SPECIMEN Ordering Facility: [facility] Address: [address] [place] [address] Performed By: #### 5 7021-8 #### [facility] CLIA [id number] [address] Hemoglobin (Bld) [Mass/Vol] 13.0 g/dL Normal 13.0-17.0 [facility] Comment on above: Order Comment: Speci men Type: BLOOD SPECIMEN Ordering Facility: [facility] Address: [address] [place] [address] Performed By: #### 5 7021-8 #### [facility] CLIA [id number] [address] [place] Lymphocytes (Bld) [#/Vol] 1.48 10*3/uL Normal 1.00-4.00 [facility] Comment on above: Order Comment: Speci men Type: BLOOD SPECIMEN Ordering Facility: [facility] Address: [address] [place] [address] Performed By: #### 5 7021-8 #### [facility] CLIA [id number] [address] Lymphocytes/100 WBC (Bld) 11.0 % Normal [facility] Comment on above: Order Comment: Speci men Type: BLOOD SPECIMEN Ordering Facility: [facility] Address: [address] [place] [address] Performed By: #### 5 7021-8 #### [facility] CLIA [id number] [address] MCH (RBC) [Entitic mass] 29.5 pg Normal 26.0-34.0 [facility] Comment on above: Order Comment: Speci men Type: BLOOD SPECIMEN Ordering Facility: [facility] Address: [address] [place] [address] Performed By: #### 5 7021-8 #### [facility] CLIA [id number] [address] STATES OF [facility] MCHC (RBC) [Mass/Vol] 33.7 g/dL Normal 30.5-36.0 [facility] Comment on above: Order Comment: Speci men Type: BLOOD SPECIMEN Ordering Facility: [facility] Address: [address] [place] [address] Performed By: #### 5 7021-8 #### [facility] CLIA [id number] [address] [place] MCV (RBC) [Entitic vol] 87.5 fL Normal 80.0-100.0 [facility] Comment on above: Order Comment: Speci men Type: BLOOD SPECIMEN Ordering Facility: [facility] Address: [address] [place] [address] Performed By: #### 5 7021-8 #### [facility] CLIA [id number] [address] [place] Monocytes (Bld) [#/Vol] 2.68 10*3/uL High <0.87 [facility] Comment on above: Order Comment: Speci men Type: BLOOD SPECIMEN Ordering Facility: [facility] Address: [address] [place] [address] Performed By: #### 5 7021-8 #### [facility] CLIA [id number] [address] Monocytes/100 WBC (Bld) 20.0 % Normal [facility] Comment on above: Order Comment: Speci men Type: BLOOD SPECIMEN Ordering Facility: [facility] Address: [address] [place] [address] Performed By: #### 5 7021-8 #### [facility] CLIA [id number] [address] [place] Neutrophils (Bld) [#/Vol] 8.72 10*3/uL High 1.45-7.50 [facility] Comment on above: Order Comment: Speci men Type: BLOOD SPECIMEN Ordering Facility: [facility] Address: [address] [place] [address] Performed By: #### 5 7021-8 #### [facility] CLIA [id number] [address] [place] Neutrophils/100 WBC (Bld) 65.0 % Normal [facility] Comment on above: Order Comment: Speci men Type: BLOOD SPECIMEN Ordering Facility: [facility] Address: [address] [place] [address] Performed By: #### 5 7021-8 #### [facility] CLIA [id number] 1 [place] [address] [place] Nucleated RBC (Bld) [#/Vol] 10*3/uL Normal <0.01 [facility] Comment on above: Order Comment: Speci men Type: BLOOD SPECIMEN Ordering Facility: [facility] Address: [address] [place] [address] Performed By: #### 5 7021-8 #### [facility] CLIA [id number] [address] [place] Nucleated RBC/100 WBC (Bld) [Ratio] 0.0 /[address] [facility] Comment on above: Order Comment: Speci men Type: BLOOD SPECIMEN Ordering Facility: [facility] Address: [address] [place] [address] Performed By: #### 5 7021-8 #### [facility] CLIA [id number] [address] [place] Platelet mean volume (Bld) [Entitic vol] 10.0 fL Normal 9.0-12.7 [facility] Comment on above: Order Comment: Speci men Type: BLOOD SPECIMEN Ordering Facility: [facility] Address: [address] [place] [address] Performed By: #### 5 7021-8 #### [facility] CLIA [id number] [address] [place] Platelets (Bld) [#/Vol] 354 10*3/uL Normal 150-400 [facility] Comment on above: Order Comment: Speci men Type: BLOOD SPECIMEN Ordering Facility: [facility] Address: [address] [place] [address] Performed By: #### 5 7021-8 #### [facility] CLIA [id number] 1 [place] [address] [place] Platelets Estimate (Bld) [#/Vol] Adequate Normal [facility] Comment on above: Order Comment: Speci men Type: BLOOD SPECIMEN Ordering Facility: [facility] Address: [address] [place] [address] Performed By: #### 5 7021-8 #### [facility] CLIA [id number] [address] RBC (Bld) [#/Vol] 4.41 10*6/uL Normal 4.20-6.00 [facility] Comment on above: Order Comment: Speci men Type: BLOOD SPECIMEN Ordering Facility: [facility] Address: [address] [place] [address] Performed By: #### 5 7021-8 #### [facility] CLIA [id number] [address] [place]OR[place] Reviewed: normal Normal [facility] Comment on above: Order Comment: Speci men Type: BLOOD SPECIMEN Ordering Facility: [facility] Address: [address] [place] [address] Performed By: #### 5 7021-8 #### [facility] CLIA [id number] [address] WBC (Bld) [#/Vol] 13.41 10*3/uL High 3.70-11.00 [facility] Comment on above: Order Comment: Speci men Type: BLOOD SPECIMEN Ordering Facility: [facility] Address: [address] [place] [address] Performed By: #### 5 7021-8 #### [facility] CLIA [id number] [address] CONSULTon 02-24-2024 CONSULT HNO ID: [id number] Author: TO JOHN MD Service: Urology Author Type: Resident Type: Consults Filed: 02/25/2024 16:30 Note Text: Attestation signed by To John MD at 02/25/2024 4:30 PM I saw and evaluated the patient. Discussed with the resident and agree with resident's findings and plan as documented in the resident's note. To John MD Urology Inpatient Consultation 02/24/2024 HISTORY OF PRESENT ILLNESS: The patient is a 54 year old male known to Dr. Werner for history of left renal mass s/p L partial nephrectomy. His postop course was complicated by a urine leak managed with IR drain placement and left ureteral stent placement. He came in with worsening left flank pain with return of fluid collection despite drain being in place. OSH workup unavailable, no digital or paper copy available to review. CT imaging reviewed: Large left flank fluid collection with drain in place, left stent in position On evaluation, pt is in NAD. States he's had significant L flank pain in the area of fluid collection with the last 2 days. Denies fever/chills, n/v, R flank pain, suprapubic pain, or dysuria, or hematuria. No other concerns than pain at this time. PAST MEDICAL HISTORY: PAST MEDICAL HISTORY Diagnosis Date BBB (bundle branch block) CAD (coronary artery disease) HLD (hyperlipidemia) HTN (hypertension) NSTEMI (non-ST elevated myocardial infarction) (HCC) PAST SURGICAL HISTORY: No past surgical history on file. ALLERGIES: ALLERGIES No Known Allergies HOME MEDICATIONS: (Not in a hospital admission) FAMILY HISTORY: No family history on file. Social History: Tobacco Use: Not on file Alcohol Use: Not on file ROS: Constitutional: negative for chills and fevers HEENT: no blurry vision or eye redness Respiratory: negative for hemoptysis and shortness of breath Cardiovascular: negative for dyspnea and syncope Gastrointestinal: negative for jaundice, nausea and vomiting Genitourinary:negative for dysuria and hematuria Hematologic/lymphatic: negative for bleeding Integumentary: no new bruises or lesions Musculoskeletal:negativ e for muscle weakness Neurological: negative for coordination problems and seizures All other systems negative PHYSICAL EXAM: VITALS: 02/24/24 1837 BP: 116/81 Pulse: (!) 96 Resp: 22 Temp: 36.4 ?C (97.5 ?F) TempSrc: Oral SpO2: (!) 94% Weight: 115.7 kg (255 lb) General: Alert, in no acute distress Head: Normocephalic, atraumatic Neck: supple, trachea is midline, no obvious masses Respiratory: normal effort, no audible wheezes Cardiovascular: regular pulse and no cyanosis Musculoskeletal: moving all extremities, normal tone Skin: warm and dry Psych: normal mood and affect, oriented Abdomen: soft, non distended, non tender, no organomegaly, no hernias : L flank NTP, R flank NTP, no suprapubic tenderness. Unable to feel buldge that pt describes near L flank of suspect urinoma. Tenderness to deep palpation in area DATA: LABS: BMP: . Glucose (MG/DL) Date Value 01/18/2021 107 Potassium (MMOL/L) Date Value 01/18/2021 4.9 Sodium (MMOL/L) Date Value 01/18/2021 140 Chloride (MMOL/L) Date Value 01/18/2021 106 CO2 (MMOL/L) Date Value 01/18/2021 24.0 Creatinine (MG/DL) Date Value 01/18/2021 0.84 BUN (MG/DL) Date Value 01/18/2021 24 Anion Gap (MMOL/L) Date Value 01/18/2021 10 Calcium (MG/DL) Date Value 01/18/2021 9.8 CBC: Hemoglobin (G/DL) Date Value 01/18/2021 16.8 Hematocrit (%) Date Value 01/18/2021 50.3 WBC (K/CUMM) Date Value 01/18/2021 5.4 Platelet Count (K/CU MM) Date Value 01/18/2021 196 Urinalysis: Specific Trosper, Ur Date Value Ref Range Status 02/24/2024 >1.040 (H) 1.005 - 1.030 Final Glucose, Urine Date Value Ref Range Status 02/24/2024 Negative Trace, Negative Final Bilirubin, Urine Date Value Ref Range Status 02/24/2024 Negative Negative Final Ketones, Urine Date Value Ref Range Status 02/24/2024 1+ (A) Negative, Trace Final Hemoglobin/Blood,Ur Date Value Ref Range Status 02/24/2024 3+ (A) Negative, Trace Final Protein, Urine Date Value Ref Range Status 02/24/2024 1+ (A) Trace, Negative Final Nitrites Date Value Ref Range Status 02/24/2024 Negative Negative Final WBC, Urine Date Value Ref Range Status 02/24/2024 11-25 /HPF (A) 0-5 /HPF Final Urine Culture: RADIOLOGY: CT imaging reviewed Problem List No active problems on problem list IMPRESSION: 54 year old male with left renal mass s/p L partial nephrectomy complicated by left urinoma with stent placement and drain placement. He now presents with worsening flank pain and reaccumulation of fluid despite drain being in appropriate position PLAN: - OSH workup (more content not included)... Normal 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 Technique: Spiral CT acquisition of the chest from the thoracic inlet to the upper abdomen following IV contrast. Axial 1 and 3 mm thick slices plus coronal and sagittal reformatted images. Contrast: 100 mL Omnipaque [address] Radiation dose: Integrated Dose-length product (DLP) for this visit = 398 mGy*cm CT Dose Reduction Employed: Automated exposure control(AEC) and iterative recon FINDINGS: Pulmonary embolism: Suboptimal contrast bolus degrades assessment at the distal segmental/subsegmental level. Otherwise, no evidence of acute pulmonary embolism. Main pulmonary artery is normal caliber. Lungs, pleura: Diffuse bronchial wall thickening with scattered mucous plugging. Bibasilar opacity, probably atelectasis. Scattered small nodules, largest 6 mm in the right lower lobe (5:154). No pleural effusion. Lower neck, nodes, mediastinum: Calcified left hilar nodes. No enlarged nodes. Heart, pericardium, thoracic vessels: Coronary artery and aortic atherosclerotic calcification. Aortic root appears dilated, 4.4 cm. No pericardial effusion. Upper abdomen: Liver lesions, better assessed on outside CT. Partially imaged extravasated perinephric contrast in the left upper in keeping with known urinoma. Bones/soft tissues: No acute findings. IMPRESSION: 1. Suboptimal contrast bolus, as above. Otherwise no acute pulmonary embolism. 2. Bronchial wall thickening, which can be seen with bronchitis. No consolidation. 3. Bilateral pulmonary nodules, up to 6 mm. Correlate with priors or attention on follow-up. Outsole Tacker: PSCB Transcribe Date/Time: Feb 24 2024 11:56P Dictated by : JOEY JACKSON MD This examination was interpreted and the report reviewed and electronically signed by: JOEY JACKSON MD on Feb 25 2024 12:15AM EST [id number] Normal [facility] ECG COMPLETEon 02-24-2024 ECG COMPLETE Ventricular Rate : 8 1 BPM Atrial Rate : 81 BPM P-R Interval : 160 ms QRS Duration : 122 ms Q-T Interval : 408 ms QTC Calculation(Bazett) : 473 ms Calculated P Lunenburg : 12 degrees Calculated R [place] : 3 degrees Calculated T [place] : 91 degrees NORMAL SINUS RHYTHM MINIMAL VOLTAGE CRITERIA FOR LVH, MAY BE NORMAL VARIANT ( Terrell product ) ANTEROSEPTAL INFARCT , AGE UNDETERMINED ABNORMAL ECG NO PREVIOUS ECGS AVAILABLE Confirmed by TANISHA LOGAN MD ([id number]) on 10/25/2024 6:37:41 PM NAME : ELMER ARBOLEDA PID : [id number] : 1970 Gender : Male Race : ORD : [id number] Procedure Date : Feb 24 2024 19:27:15 Edit Date : Oct 25 2024 18:37:45 Diagnosis: NORMAL SINUS RHYTHM MINIMAL VOLTAGE CRITERIA FOR LVH, MAY BE NORMAL VARIANT ( Scandia product ) ANTEROSEPTAL INFARCT , AGE UNDETERMINED ABNORMAL ECG NO PREVIOUS ECGS AVAILABLE Confirmed by TANISHA LOGAN MD ([id number]) on 10/25/2024 6:37:41 PM Test Reason : Chest Pain Location : 4 : [facility] Overread By : TANISHA LOGAN MD Edited By : TANISHA LOGAN MD Referred By : , Acquired by : YAZMIN PETERSON Normal [facility] ED NOTEon 02-24-2024 ED NOTE HNO ID: [id number] Author: YAZMIN PETERSON RN Service: ? Author Type: Registered Nurse Type: ED Notes Filed: 02/25/2024 00:46 Note Text: Patient complaining of pain, resident notified. No orders received. [facility] ED NOTE HNO ID: [id number] Author: YAZMIN PETERSON RN Service: ? Author Type: Registered Nurse Type: ED Notes Filed: 02/24/2024 21:26 Note Text: CT called at this time. [facility] ED NOTE HNO ID: [id number] Author: YAZMIN PETERSON RN Service: ? Author Type: Registered Nurse Type: ED Notes Filed: 02/24/2024 20:10 Note Text: Patient placed on 2L by attending Dr. Harman. [facility] ED NOTE HNO ID: [id number] Author: YAZMIN PETERSON RN Service: ? Author Type: Registered Nurse Type: ED Notes Filed: 02/24/2024 19:49 Note Text: Attending notified of patient receiving IV contrast once already today earlier at [place] in addition to the CT PE that is ordered. Attending Dr. Harman stated he would like to wait and see BMP results and go from there. He also requested that 1L of fluids be given. [facility] ED NOTE HNO ID: [id number] Author: YAZMIN PETERSON RN Service: ? Author Type: Registered Nurse Type: ED Notes Filed: 02/24/2024 19:46 Note Text: [facility] ED NOTE HNO ID: [id number] Author: YAZMIN PETERSON RN Service: ? Author Type: Registered Nurse Type: ED Notes Filed: 02/24/2024 19:31 Note Text: RT called for breathing tx [facility] ED NOTE HNO ID: [id number] Author: YAZMIN PETERSON RN Service: ? Author Type: Registered Nurse Type: ED Notes Filed: 02/24/2024 19:03 Note Text: Patient turned up to 5L NC by resident Physician Dr. Pyle for 94% O2 while on 2L [facility] ED NOTE HNO ID: [id number] Author: YAZMIN PETERSON RN Service: ? Author Type: Registered Nurse Type: ED Notes Filed: 02/24/2024 18:54 Note Text: Patient placed on 2L O@2for 91% oxygenation on RA. Normal [facility] ED PROV NOTEon 02-24-2024 ED PROV NOTE HNO ID: [id number] Author: JHONATAN HARMNA MD Service: Emergency Medicine Author Type: Resident Type: ED Provider Notes Filed: 03/19/2024 20:29 Note Text: Attestation signed by Jhonatan Harman MD at 03/19/2024 8:29 PM Attending Attestation Note: Chirinos findings confirmed. I evaluated the patient in conjunction with the resident physician. I personally examined the patient. I discussed the patient with the resident physician. I reviewed the resident physician's note. I was present for chirinos portions of and personally supervised any/all procedures. I personally saw the patient and performed a substantive portion of the visit including all aspects of the medical decision making. Signature: Jhonatan Harman MD Date: 03/19/2024 Time: 8:29 PM ED Provider Note Patient Name: Elmer Arboleda : 1970 SERVICE DATE: 02/24/24 History Patient presents with: Flank Pain: Pt sent from [place] for urology consult. Pt had L partial nephrectomy on 01/30. Last Monday a drain was placed at [place] for urinoma. Pt reports decreased output from drain x2 days as well as an increase in L flank pain. Pt denies fevers/n/v but does endorse chills today. Per family nursing was unable to flush drain at [place]. 54-year-old male presenting as a transfer from [place] for urology consult. 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 4 days ago, was seen for left flank pain at [place]. There was concern for extravasation of urine from his kidney, percutaneous nephrostomy tube was placed following drainage of roughly 2 L of urine from his abdomen. Today, having persistent left flank pain, chills, prompting evaluation at [place]. CT abdomen pelvis at the time showed fluid collection concerning for fluid versus abscess. On arrival to the ED, hypoxic on room air. Has had congestion, shortness of breath for a week. Per patient and significant other, long history of smoking -PCP was concerned that he could be developing COPD due to a persistent dry cough over the last several months. Given his cancer issues, this diagnosis was put on the back burner. Has pleuritic, nonlocalized chest pain, no nausea, vomiting, diaphoresis. PAST MEDICAL HISTORY Diagnosis Date BBB (bundle branch block) CAD (coronary artery disease) HLD (hyperlipidemia) HTN (hypertension) Left renal mass NSTEMI (non-ST elevated myocardial infarction) (HCC) No past surgical history on file. No family history on file. Social History Tobacco Use Smoking status: Every Day Types: Cigarettes Smokeless tobacco: Not on file Substance and Sexual Activity Alcohol use: Not on file Drug use: Not on file Sexual activity: Not on file ALLERGIES No Known Allergies Review of Systems Constitutional: Negative for chills and fever. Respiratory: Positive for cough and shortness of breath. Cardiovascular: Positive for chest pain. Negative for palpitations and leg swelling. Gastrointestinal: Negative for constipation, diarrhea, nausea and vomiting. Genitourinary: Positive for flank pain. Physical Exam Vitals [02/24/24 1837] BP Pulse Temp Temp src Resp SpO2 Weight Height 116/81 (!) 96 36.4 ?C (97.5 ?F) Oral 22 (!) 94 % 115.7 kg (255 lb) -- Physical Exam Vitals and nursing note reviewed. Constitutional: Appearance: He is well-developed. Cardiovascular: Rate and Rhythm: Normal rate and regular rhythm. Heart sounds: Normal heart sounds. No murmur heard. No gallop. Pulmonary: Effort: Pulmonary effort is normal. No respiratory distress. Breath sounds: Wheezing present. No rales. Comments: Right lower lobe expiratory wheeze Abdominal: General: There is distension. Tenderness: There is no abdominal tenderness. There is left CVA tenderness. There is no right CVA tenderness, guarding or rebound. Comments: JAREN drain present in the left abdomen, entry site appears nonpurulent, not erythematous, minimal output from the drain Genitourinary: Testes: Right: Swelling not present. Left: Swelling not present. Neurological: General: No focal deficit present. Mental Status: He is alert and oriented to person, place, and time. DECISION SUPPORT - ED (all recorded) Pulmonary Embolism Row Name 02/24/24 1916 PERC Is pretest probability for PE > than 15% -- Age > 50 1 HR >= 100 0 spO2 on room air < 95% 1 History of prior PE or DVT 0 Recent Trauma or Surgery -- Hemoptysis? -- Exogenous Estrogen? -- Unilateral leg swelling -- PERC Score = -- If PERC Score > 0 - The PERC rule is not satisfied and cannot be used to rule out Pulmonary Embolism for this patient Proceed to [facility] Clinical signs and symptoms of DVT 0 PE is #1 Diagnosis, or equally likely 3 Heart (more content not included)... Normal [facility] ED Triage Noteon 02-24-2024 ED Triage Note HNO ID: [id number] Author: KAMINI DE LEÓN APRN.CNP Service: Emergency Medicine Author Type: Nurse Practitioner Type: ED Triage Notes Filed: 02/24/2024 18:38 Note Text: ED TRIAGE PROVIDER NOTE Patient Name: Elmer Arboleda Service Date: 02/24/24 BRIEF HPI: This is a 54 year old male who presents to the ED with urinary complications post nephrectomy. Procedure was done at [place] urologist [place]. He was seen at [place] ED and transferred here for urological evaluation. BRIEF EXAM: NAD Awake and Alert Non labored breathing INITIAL WORKUP AND DECISION MAKING: Orders Placed This Encounter No orders of the defined types were placed in this encounter. SIGNATURE: Kamini De León APRN.WILLIE Normal [facility] Emergency Department Summary on 02-24-2024 Emergency Department Summary [facility] Medical Records Department [address] [place] [address] Emergency Department Summary 02/24/24 MR#: [id number] Acct: [id number] Name: ELMER ARBOLEDA Rep #: [id number] : 1970 54 From: Matthew Trinh MD PCP: Dr. Damon Bui MD Status:REG ER Location: ED HPI HPI - GI History of Present Illness Chief Complaint: Complaint Informant: patient and spouse/S.O. Narrative Narrative: 54-year-old male recently had a partial nephrectomy for a tumor on the left complicated by a urinoma that was drained with a CT-guided JAREN drain placement, then 4 days ago he had ureteral stent placement in order to help drain the kidney and allow the urine leak to heal. Over the past 2 days he has developed pain and now swelling in the left flank that he did not have after the stent placement. He has a Clarke catheter in and there is good flow of nonbloody urine, and he has been emptying the JAREN drain 3 or 4 times a day, with yellow nonbloody urine in that as well despite this pain and swelling developing. Today he had some sweats when the pain worsened, but he has had no nausea, vomiting, or fevers that he knows of. No anterior abdominal pain. [facility] Medical History Wears glasses Cancer History of steroid therapy Arthritis History of renal disease High cholesterol Injury of head and neck Gastric reflux Smoker Injury of back Leg cramps History of pain when walking History of edema History of stress test Cardiology follow-up encounter Hypertension Pain Liver hemangioma Strain of right hip Lumbosacral radiculopathy Lumbosacral strain Arthritis of right hand Contusion of hand, right BBB (bundle branch block) Staphylococcal infection of skin Atherosclerotic heart disease of [place] coronary artery without angina pectoris Essential (primary) hypertension Tobacco use Obesity Acute non-ST segment elevation myocardial infarction HLD (hyperlipidemia) Home Medications ???Medication ???Instructions ???Recorded ???Last Taken ???Type albuterol sulfate 90 mcg/actuation 2 puff inhalation Q4H PRN PRN 06/19/18 03/28/19 Rx aerosol inhaler Wheezing ##1 aspirin 81 mg tablet,delayed 81 mg PO DAILY 06/28/18 01/21/24 History release (Adult Low Dose Aspirin) acetaminophen 500 mg tablet 1,000 mg PO Q8H PRN PRN Pain Score 03/28/19 03/28/19 History 1-02/28 atorvastatin 80 mg tablet 80 mg PO QHS #90 TABLETS 10/27/23 Unknown Rx carvedilol 6.25 mg tablet 6.25 mg PO BID for blood pressure 10/27/23 02/20/24 07:30 Rx #180 TABLETS lisinopril 10 mg tablet 10 mg PO DAILY #90 TABLETS 10/27/23 02/20/24 07:30 Rx isosorbide mononitrate 60 mg 60 mg PO DAILY #90 TABLETS 12/05/23 02/20/24 07:30 Rx tablet,extended release 24 hr gabapentin 300 mg capsule 300 mg PO TID PRN PRN pain 01/16/24 01/31/24 History nitroglycerin 0.4 mg sublingual 0.4 mg sublingual PRN PRN chest 01/17/24 Unknown History tablet pain pantoprazole 40 mg tablet,delayed 40 mg PO DAILY 01/17/24 02/20/24 07:30 History release ciprofloxacin HCl 500 mg tablet 500 mg PO DAILY #14 tabs 02/20/24 Unknown Rx (Cipro) oxycodone 5 mg tablet 5 mg PO Q6H PRN pain 7 days #20 02/20/24 Unknown Rx tabs Allergy/AdvReac Type Severity Reaction Status Date / Time No Known Allergies Allergy Verified 02/24/24 09:35 Family History Father CAD (coronary artery disease) Mother CVA (cerebral vascular accident) CAD (coronary artery disease) Surgical History History of coronary artery stent placement Hx of hand surgery History of fusion of cervical spine History of left heart catheterization (11/04/16) History of knee replacement History of carpal tunnel release Social History Smoking Status: Current every day smoker tobacco type: cigarettes alcohol intake: never substance use type: does not use 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 ROS ROS ED Constitutional Constitutional ED: Denies chills or fever(s) Eyes Eyes: Denies change in vision or diplopia ENT ENT ED: Denies rhinorrhea or sore throat Cardiovascular Cardiovascular: Denies chest pain or palpitations Respiratory/Chest Respiratory/Chest: Denies cough or dyspnea Gastrointestinal Gastrointestinal: Denies abdominal pain, diarrhea, nausea or vomiting Genitourinary Genitourinary ED: Reports as per HPI and flank pain; Denies dysuria or hematuria Musculoskeletal Musculoskeletal: Denies back pain or neck pain Integumentary Denies abscess or rash Neurologic Neurologic: Denies headache(s), paresthesias or weakness Psychiatric Psychiatric: Denies anxiety or (more content not included)... Normal [facility] HIGH SENSITIVITY TROPONIN T (INITIAL)on 02-24-2024 Troponin T.cardiac High sensitivity method [Mass/Vol] 25 ng/L High <12 [facility] Comment on above: Order Comment: Speci men Type: BLOOD SPECIMEN Ordering Facility: [facility] Address: [address] [place] [address] Performed By: #### 2 4321-2 #### [facility] CLIA [id number] [address] OF [facility] HIGH SENSITIVITY TROPONIN T (SECOND)on 02-24-2024 Troponin T.cardiac High sensitivity method [Mass/Vol] 16 ng/L High <12 [facility] Comment on above: Order Comment: Speci men Type: BLOOD SPECIMEN Ordering Facility: [facility] Address: [address] [place] [address] Performed By: #### 2 4321-2 #### [facility] CLIA [id number] [address] OF [facility] HIGH SENSITIVITY TROPONIN T (THIRD) 3 HRS AFTER INITIALon 02-24-2024 Troponin T.cardiac High sensitivity method [Mass/Vol] 17 ng/L High <12 [facility] Comment on above: Order Comment: Speci men Type: BLOOD SPECIMEN Ordering Facility: [facility] Address: [address] [place] [address] Performed By: #### L [id number] #### [facility] CLIA [id number] [address] [place] Magnesium SerPl-mCncon 02-23 Magnesium [Mass/Vol] 1.8 mg/dL Normal 1.7-2.3 [facility] Comment on above: Order Comment: Speci men Type: BLOOD SPECIMEN Ordering Facility: [facility] Address: [address] [place] [address] Performed By: #### 1 9123-9, 07670-1 #### [facility] CLIA [id number] [address] [place] Urinalysis complete pnl Uron 02-24-2024 Urinalysis complete panel (U) COLOR: Yellow CLARITY: Clear GLUCOSE, URINE: Negative BILIRUBIN, URINE: Negative KETONES, URINE: 1+ SPECIFIC GRAVITY, UR: >1.040 HEMOGLOBIN/BLOOD, UR: 3+ PH, URINE: 6.0 PROTEIN, URINE: 1+ UROBILINOGEN: Normal NITRITES: Negative LEUKEST: 250 Meredith/uL WBC, URINE: 11-25 /HPF RBC, URINE: >25 /HPF NON-SQUAMOUS EPITHELIAL CELLS: Few CULTURE, URINE: No growth (<1,000 CFU/ml) Abnormal [facility] Comment on above: Order Comment: Speci men Type: URINE SPECIMENOrdering Facility: [facility] Address: [address] [place] [address] Performed By: #### 2 4356-8 ####[facility] [id number] [address] [place] Wound Cultureon 02-22-2024 WC No growth aerobically. Normal [facility] Comment on above: Performed By: #### M 100.3000, M100.1999, M100.4001 ####[facility] [id number] [facility] [place], [address] Gram Stainon 02-21-2024 GS Gram Stain Rare White Blood Cells No organisms seen Normal [facility] Comment on above: Performed By: #### M 100.3000, M100.2000, M100.4001 ####[facility] [id number] [facility] [place], [address] Abdomen/Pelvis WITH Contrast on 02-20-2024 Abdomen/Pelvis WITH Contrast [facility] Imaging Services [address] [place] [address] Abdomen/Pelvis WITH Contrast MR#: [id number] Acct: [id number] Name: ELMER ARBOLEDA Rep #: [id number] : 1970 M 54 From: Carlos Alberto ventura MD PCP: Dr. Damon Bui MD Status: [facility] Study: Abdomen/Pelvis WITH Contrast Date of Exam: 06/14 Exam# [id number] Ordering [place]: [place] [id number] STUDY: CT ABDOMEN AND PELVIS WITH CONTRAST REASON FOR EXAM: Male, 54 years old. ACUTE POST PROCEDURAL PAIN RADIATION DOSAGE (If Supplied By Facility): CTDIvol = ( 18.96 ) mGy, DLP = ( 2593.29 ) mGycm TECHNIQUE: Transaxial images were obtained from the dome of the diaphragm to the symphysis pubis without oral contrast. IV 100mL Isovue-300 was administered. Sagittal and coronal images were reconstructed. Individualized dose optimization techniques were used for this CT. COMPARISON: Comparison is made with prior study November 30, 2023. FINDINGS: The visualized lung bases are unremarkable. Coronary artery calcification. Stable 8 signed by 5 cm multilobulated hypoechoic nodular density in the posterior aspect of the right lobe of the liver inferiorly and medially. There is peripheral filling suggestive of possible hemangioma. Similar-appearing enhancing nodular density seen in the central aspect of the right lobe of the liver. Stable small anterior medial cyst in the right lobe of the liver. Normal gallbladder and extrahepatic biliary system. Normal spleen. Normal pancreas. Normal bilateral adrenal glands. Normal right kidney. Postoperative changes are seen along the lateral aspect of the left kidney. There is a large 18.5 cm x 11 cm x 14.2 cm fluid collection in the left retroperitoneum. With the patient''s history of recent surgery, this most likely represents a urinoma. There is a small hiatal hernia. Normal small intestine. There are scattered colonic diverticula consistent with diverticulosis. The appendix is visualized and appears normal. Normal abdominal aorta. Normal inferior vena cava. Normal retroperitoneum. Normal urinary bladder. Normal abdominal wall. Stable 8mm sclerotic density in the left posterior aspect of the T10 vertebrae. CT/Abdomen/Pelvis WITH Contrast IMPRESSION: Status post partial nephrectomy along the lateral aspect of the left kidney with evidence of a 18.5 cm x 11 cm x 14.2 cm fluid collection in the left retroperitoneum suggestive of a postoperative urinoma. The remainder of the examination is unchanged. Electronically Signed: Carlos Alberto Burgess MD at 12:13 EDT Reading Location ID and State: [address] [place] [address] , Service support , CC: Dr. Dallas Chapin MD; Dr. Damon Bui MD Outsole Tacker: Signed Normal [facility] Discharge Instructionon Discharge Instruction [facility] Medical Records Department [address] [place] [address] Instructions for Home/Discharge Instructions 02/20/24 1644 MR#: [id number] Acct: [id number] Name: ELMER ARBOLDEA Rep #: [id number] : 1970 54 From: Dallas Chapin MD PCP: Dr. Damon Bui MD Status:REG [facility] Discharge Instructions Diet Discharge Diet: No restrictions and Light diet - advance as tolerated Activity Discharge Activity: May Not Drive and May Not Shower Weight Bearing Status: Weight bearing as tolerated Additional Activity Instructions:: no lifting Dressing / Incision Catheter: Clarke to leg bag and Clarke to large bag Drain: Trosper Additional Dressing/Incision Instructions:: JAREN drain care, keep to suction and keep dry keep track of JAREN output Follow Up Care Please Follow Up With: Dallas Chapin MD When: call [phone] for follow up appt. Test Results: Test results from this visit will be discussed in further detail at your follow-up appointment, if applicable. Discharge Plan Admission Primary Reason for Your Visit: urine leak Attending Provider: Dallas Chapin Primary Care Provider: Damon Bui Instructions Patient Instructions: Demian Chávez Drain Tube Dc, Post Op Drain Emptying Steps Print Language: Burkinan Discharge Orders/Prescriptions Prescriptions: New ciprofloxacin HCl [Cipro] 500 mg tablet 500 mg PO DAILY Qty: 14 0RF oxycodone 5 mg tablet 5 mg PO Q6H PRN (Reason: pain) 7 Days Qty: 20 0RF Continued aspirin [Adult Low Dose Aspirin] 81 mg tablet,delayed release (DR/EC) 81 mg PO DAILY gabapentin 300 mg capsule 300 mg PO TID PRN PRN (Reason: pain) albuterol sulfate 1 INHALER inhaler 2 puff inhalation Q4H PRN PRN (Reason: Wheezing) Qty: 1 0RF acetaminophen 500 MG tablet 1,000 mg PO Q8H PRN PRN (Reason: Pain Score 1-10/10) pantoprazole 40 mg tablet,delayed release (DR/EC) 40 mg PO DAILY Rx Instructions: TAKE 1 TABLET DAILY FOR INDIGESTION nitroglycerin 0.4 mg tablet, sublingual 0.4 mg sublingual PRN PRN (Reason: chest pain) Rx Instructions: DISSOLVE 1 TABLET UNDER TONGUE EVERY 5 MINUTES NEEDED FOR CHEST PAIN carvedilol 6.25 mg tablet 6.25 mg PO BID Qty: 180 3RF lisinopril 10 mg tablet 10 mg PO DAILY Qty: 90 3RF atorvastatin 80 mg tablet 80 mg PO QHS Qty: 90 3RF isosorbide mononitrate 60 mg tablet extended release 24 hr 60 mg PO DAILY Qty: 90 3RF Referrals / Follow Up: Dallas Chapin MD [Med Staff - Active Staff] - Damon Bui MD [Primary Care Provider] - Disposition Disposition (needs filled in before D/C Order can be placed): Home, Self Care 02/20/24 2063 Dallas Chapin MD CC: Dr. Damon Bui MD Signed [facility] MR/POSTOP.Koki 02-20-2024 MR/POSTOP.[facility] Medical Records Department [address] [place] [address] Anesthesia Postop Eval I 02/20/24 1651 MR#: [id number] Acct: [id number] Name: STEWARTELMER PRATT Alexus Rep #: [id number] : 1970 54 From: Susana Burkett CRNA PCP: Dr. Damon Bui MD Status:REG [facility] Y Race: C Location: [place] [address] Anesthesia: Postop Eval I Current Vital Signs Temperature: 97.3 F Pulse Rate: 100 Blood Pressure: 117/95 Respiratory Rate: 18 Pulse Ox: 95 Oxygen Delivery Method: Room Air Assessment Airway patent: Yes Spontaneous unlabored respirations: Yes Mental status: Awake and Calm nausea: No Vomiting: No Anesthesia Complication: No Fluid Hydration Crystalloid volume administer (ml): 250 Total IV fluid infused: 250 Progress Note Anesthesia document: Postop Eval 1 completed: Yes 02/20/241651 Date Susana Burkett LICENSED VETERINARY TECHNICIAN Cosigner Signature: Date CC: Signed Normal [facility] MR/[id number] 02-20-2024 [facility] Medical Records Department [address] [place] [address] Anesthesia Postop Eval II 02/20/24 1804 MR#: [id number] Acct: [id number] Name: ELMER ARBOLEDA Alexus Rep #: [id number] : 1970 54 From: Eddie Tracy MD PCP: Dr. Damon Bui MD Status:REG SD Y Race: C Location: [place] [address] Anesthesia Postop Eval I Sum Postop Eval Completion status Anesthesia document: Postop Eval 1 completed: Yes Anesthesia Postop Eval I Summary Anesthesia Postop Eval I Summary: Anesthesia Postop Eval I: Assessment Summary Airway patent Yes 02/20/24 16:52 LICENSED VETERINARY TECHNICIAN.SKOBY Spontaneous unlabored Yes 02/20/24 16:52 LICENSED VETERINARY TECHNICIAN.SKOBY respirations Mental status Awake,Calm 02/20/24 16:52 LICENSED VETERINARY TECHNICIAN.SKOBY nausea No 02/20/24 16:52 LICENSED VETERINARY TECHNICIAN.SKOBY Vomiting No 02/20/24 16:52 LICENSED VETERINARY TECHNICIAN.SKOBY Anesthesia Postop Eval I: Fluid Summary Crystalloid volume administer 250 02/20/24 16:52 LICENSED VETERINARY TECHNICIAN.SKOBY (ml) Colloids volume administered ( ml) Blood Product volume administered (ml) Total IV fluid infused 250 02/20/24 16:52 LICENSED VETERINARY TECHNICIAN.SKOBY Anesthesia Postop Eval I: Summary Notes Anesthesia Complication No 02/20/24 16:52 LICENSED VETERINARY TECHNICIAN.SKOBY Anesthesia Complication Comment: Post-operative progress note Anesthesia: Postop Eval II Evaluation Mental status: Awake and Calm Pain Level: 1 nausea: No Vomiting: No Complications Anesthesia Complication: No 02/20/24 1805 Date Eddie Tracy MD Cosigner Signature: Date CC: Signed Normal [facility] Operative Reporton 4 Operative Report [facility] Medical Records Department [address] [place] [address] Operative Report 02/20/24 1645 MR#: [id number] Acct: [id number] Name: ELMER ARBOLEDA Rep #: [id number] : 1970 54 From: Dallas Chapin MD PCP: Dr. Damon Bui MD Status:[facility] Location: [place] [address] Report of Operation Date of Procedure: 02/20/24 Pre-Operative Diagnosis: Urinoma and urine leak Post-Operative Diagnosis: The same Surgery/Procedure Performed:: Cystoscopy retrograde pyelogram and left stent placement Description of Surgical Findings:: Indication is a 54-year-old male who had a solid mass in the left kidney underwent a left robotic partial nephrectomy about 3 weeks ago he was discharged in good condition 2 days after the surgery he then presented to my office a week later was more pain than usual we decided to watch it and then he called back still having severe pain so we did a CAT scan of the follow-up and the CAT scan demonstrated he had a large urinoma consistent with a urine leak he underwent a CT-guided placement of a drain in the fluid pocket neck to the kidney and today working to place a stent and a Clarke catheter to decompress his urinary system to allow the leak to heal spontaneously Patient was taken back to the operating room after smooth induction of anesthesia he was placed supine on the table and is then placed in dorsolithotomy position. The urethro and penis were prepped and draped in usual sterile fashion placed lidocaine jelly into the urethra went into the bladder with a 21 Armenian rigid cystourethroscope the entire length urethra prostate was normal I then cannulated the left ureteral orifice with a wire and a Pollick catheter performed a retrograde pyelogram to see contrast going up to the kidney it filled the renal pelvis initially and then as a filled the mucousy contrast extra extravasating from the top of the upper pole of the left kidney where the leak was. I then advanced a wire and I coiled the wire in the kidney renal pelvis and then over the wire I placed a stent on the left side it was a 6 Armenian by 26 cm stent and then pulled the wire and the stent coiled in the kidney renal pelvis and in the bladder once the stent was in good position then we confirmed by fluoroscopy the stent was in the renal pelvis and also stent in the bladder and then I put a Clarke catheter in the bladder to decompress everything and the patient will go home with a Clarke catheter and the stent for at least 10 days to let this decompress and hopefully heal the urine leak he will be home sent home with antibiotics and instructions to take care of the JAREN drain and the Clarke catheter.. Surgeon: Dallas Chapin Type of Anesthesia: General Drains: jaren drain and stent and clarke Admit VTE Documentation VTE Present on Admission: No VTE Mechan Device Prophylaxis: SCD's VTE Pharm Prophylaxis ordered?: No 02/20/24 1521 Cosigner Signature (if applicable): CC: Dr. Dallas Chapin MD; Dr. Damon Bui MD Signed Normal [facility] Procedure Reporton 4 Procedure Report [facility] Medical Records Department [address] [place] [address] Procedure Report 02/20/24 1506 MR#: [id number] Acct: [id number] Name: ELMER ARBOLEDA Rep #: [id number] : 1970 54 From: Ursula Mcwilliams [employer] PCP: Dr. Damon Bui MD Status:[facility] Location: [place] [address] Procedure Report Date of Procedure: 02/20/24 Assessment Plan Assessment/Plan (1) Urinoma: PLAN: PROCEDURE: CT DIRECTED ABSCESS DRAINAGE, left abdominal urinoma ORDERING PROVIDER: Dr. Chapin INDICATION: Male, 54 years old. Urinoma. PROVIDER: EMMA Toussaint CONSENT: Written informed consent was obtained having explained the risks, benefits and alternatives in detail with the patient and who accepted the risks and agreed to proceed. Laboratory review and clinical assessment was performed. PRE-PROCEDURE SEDATION ASSESSMENT: Current history and physical dictated by referring physician and reviewed. No clinical changes since date of exam. Patient has a Mallampati Score of Class 2 and ASA Class of 3. PROCEDURAL SEDATION PROTOCOL: The Drugs used were: 3 mg Versed, IV, and 75 mcg Fentanyl, IV. The sedation time was: 42 minutes, starting at 1413 and terminated at 1455. The procedural sedation protocol was independently monitored by the department nurse. RADIATION DOSAGE (Supplied By Facility): CTDIvol = 38.89 mGy, DLP = 1102.09 mGy.cm Individualized dose optimization techniques were used for this CT. TECHNIQUE CT sections were made through the abdomen and pelvis revealing a urinoma occupying the left side of the abdominal cavity. The skin surface was prepped with chlorhexidine and draped in a sterile fashion. Puncture of this collection was performed with a 8 Armenian catheter and fluid was aspirated. Drainage catheter was then inserted into the collection and formed into position. Additional fluid was aspirated for a total of approximately 2000 cc of clear yellow colored fluid. The catheter was sutured into position to allow for continued drainage. Followup CT sections reveals good position of the catheter. IMPRESSION: CT directed drainage of a left abdominal urinoma using CT image guidance and image documentation as described. Procedural Sedation protocol utilized with independent monitoring by the department nurse. Procedures Radiology Radiology CT Procedures: 26069 Image guided catheter drainage 02/20/24 1518 Cosigner Signature (if applicable): CC: SETTER INDUCTION HEATING EQUIPMENTJason Mcwilliams; Dr. Dallas Chapin MD; Dr. Damon Bui MD Signed Normal [facility] Discharge Instructionon 01-20 Discharge Instruction [facility] Medical Records Department [address] [place] [address] Instructions for Home/Discharge Instructions 02/02/24 0759 MR#: [id number] Acct: [id number] Name: ELMER ARBOLEDA Rep #: [id number] : 1970 53 From: Dallas Chapin MD PCP: Dr. Damon Bui MD Status:ADM [facility] Discharge Instructions Diet Discharge Diet: No restrictions Activity May resume sexual activity in: No Restrictions Lifting Restrictions: no heavy lifting Additional Activity Instructions:: use OTC tylenol and Ibuprofen for pain prn Dressing / Incision Call your doctor if you observe: Fever of 101 or Higher Cleanse incision/area with: Soap Water Follow Up Care Please Follow Up With: Dallas Chapin MD Test Results: Test results from this visit will be discussed in further detail at your follow-up appointment, if applicable. Discharge Plan Admission Admit Date/Time: 01/31/24 15:10 Primary Reason for Your Visit: Left partial nephrectomy Attending Provider: Dallas Chapin Primary Care Provider: Damon Bui Discharge Orders/Prescriptions Prescriptions: Continued gabapentin 300 mg capsule 300 mg PO TID PRN PRN (Reason: pain) albuterol sulfate 1 INHALER inhaler 2 puff inhalation Q4H PRN PRN (Reason: Wheezing) Qty: 1 0RF acetaminophen 500 MG tablet 1,000 mg PO Q8H PRN PRN (Reason: Pain Score 1-10/10) pantoprazole 40 mg tablet,delayed release (DR/EC) 40 mg PO DAILY Rx Instructions: TAKE 1 TABLET DAILY FOR INDIGESTION nitroglycerin 0.4 mg tablet, sublingual 0.4 mg sublingual PRN PRN (Reason: chest pain) Rx Instructions: DISSOLVE 1 TABLET UNDER TONGUE EVERY 5 MINUTES NEEDED FOR CHEST PAIN carvedilol 6.25 mg tablet 6.25 mg PO BID Qty: 180 3RF lisinopril 10 mg tablet 10 mg PO DAILY Qty: 90 3RF atorvastatin 80 mg tablet 80 mg PO QHS Qty: 90 3RF isosorbide mononitrate 60 mg tablet extended release 24 hr 60 mg PO DAILY Qty: 90 3RF Held aspirin [Adult Low Dose Aspirin] 81 mg tablet,delayed release (DR/EC) 81 mg PO DAILY Hold Instructions: Resume on 02/14/24. Referrals / Follow Up: Dallas Chapin MD [Med Staff - Active Staff] - Damon Bui MD [Primary Care Provider] - Disposition Disposition (needs filled in before D/C Order can be placed): Home, Self Care 02/02/24 9221 Dallas Chapin MD CC: Dr. Damon Bui MD Signed Normal [facility] Basic Metabolic Profile (BMP )on 02-01-2024 BUN/CRE 19.9 RATIO Normal 10-20 [facility] Comment on above: Performed By: #### L 501.58099, L506.0400 #### [facility] [address] [place], [address] CA,Total 8.7 mg/dL Normal 8.5-10.1 [facility] Comment on above: Performed By: #### L 501.16991, L506.0400 #### [facility] [address] [place], [address] Chloride [Moles/Vol] 106 mmol/L Normal 98-107 [facility] Comment on above: Performed By: #### L 501.41469, L506.0400 #### [facility] [address] [place], [address] CO2 [Moles/Vol] 24.0 mmol/L Normal 21.0-32.0 [facility] Comment on above: Performed By: #### L 501.51974, L506.0400 #### [facility] [address] [place], [address] Creatinine [Mass/Vol] 0.95 mg/dL Normal 0.70-1.30 [facility] Comment on above: Result Comment: The validity of the calculated GFR GFRAA in patients over 70 years has not been determined. Clinical correlation is essential. Performed By: #### L 501.34902, L506.0400 #### [facility] [address] [place], [address] ECRCL 120.73 ml/min Normal [facility] Comment on above: Performed By: #### L 501.71641, L506.0400 #### [facility] [address] [place], [address] EST GFR - AA 106 mL/min Normal >60 [facility] Comment on above: Result Comment: Afri can Trinidadian GFR Calc Performed By: #### L 501.18271, L506.0400 #### [facility] [address] [place], [address] GAP 5 Normal 5-15 [facility] Comment on above: Performed By: #### L 501.36966, L506.0400 #### [facility] [address] [place], [address] GFR/1.73 sq M.predicted among non-blacks MDRD (S/P/Bld) [Vol rate/Area] 88 mL/min/{1.73_m2} Normal >60 [facility] Comment on above: Result Comment: Non- GFR Calc Performed By: #### L 501.57615, L506.0400 #### [facility] [address] [place], [address] Glucose [Mass/Vol] 141 mg/dL High 74-106 [facility] Comment on above: Result Comment: Fast ing Glucose result greater than or equal to 126 mg/dL suggests DIABETES MELLITUS per A.D.A. criteria. Performed By: #### L 501.46828, L506.0400 #### [facility] [address] [place], [address] Potassium [Moles/Vol] 4.4 mmol/L Normal 3.5-5.1 [facility] Comment on above: Performed By: #### L 501.13613, L506.0400 #### [facility] [address] [place], [address] Sodium [Moles/Vol] 135 mmol/L Low 136-145 [facility] Comment on above: Performed By: #### L 501.09432, L506.0400 #### [facility] [address] [place], [address] Urea nitrogen [Mass/Vol] 19 mg/dL High 7-18 [facility] Comment on above: Performed By: #### L 501.45149, L506.0400 #### [facility] [address] [place], [address] CBC-Complete Blood Cnt No Di ffon 02-01-2024 Erythrocyte distribution width (RBC) [Ratio] 12.4 % Normal 11.6-14.6 [facility] Comment on above: Performed By: #### L 501.43234, L506.0400 #### [facility] [address] [place], [address] Hematocrit (Bld) [Volume fraction] 40.6 % Normal 40-54 [facility] Comment on above: Performed By: #### L 501.54241, L506.0400 #### [facility] [address] [place], [address] Hemoglobin (Bld) [Mass/Vol] 13.1 g/dL Normal 13.0-16.5 [facility] Comment on above: Performed By: #### L 501.87967, L506.0400 #### [facility] [address] [place], [address] MCH (RBC) [Entitic mass] 30.2 pg Normal 27.0-32.0 [facility] Comment on above: Performed By: #### L 501.92261, L506.0400 #### [facility] [address] [place], [address] MCHC (RBC) [Mass/Vol] 32.3 g/dL Normal 32-36 [facility] Comment on above: Performed By: #### L 501.81737, L506.0400 #### [facility] [address] [place], [address] MCV (RBC) [Entitic vol] 93.5 fL Normal 80-94 [facility] Comment on above: Performed By: #### L 501.16769, L506.0400 #### [facility] [address] [place], [address] Platelet mean volume (Bld) [Entitic vol] 10.5 fL Normal 6.2-12.0 [facility] Comment on above: Performed By: #### L 501.57939, L506.0400 #### [facility] [address] [place], [address] Platelets (Bld) [#/Vol] 191 10*3/uL Normal 150-450 [facility] Comment on above: Performed By: #### L 501.07848, L506.0400 #### [facility] [address] [place], [address] RBC (Bld) [#/Vol] 4.34 10*6/uL Low 4.6-6.2 [facility] Comment on above: Performed By: #### L 501.29425, L506.0400 #### [facility] [address] [place], [address] RDW SD 42.7 fl Normal 35.1-43.9 [facility] Comment on above: Performed By: #### L 501.55366, L506.0400 #### [facility] [address] [place], [address] WBC (Bld) [#/Vol] 13.4 10*3/uL High 4.4-11.0 [facility] Comment on above: Performed By: #### L 501.37001, L506.0400 #### [facility] [address] [place], [address] Discharge Instructionon 01-20 Discharge Instruction [facility] Medical Records Department [address] [place] [address] Instructions for Home/Discharge Instructions 01/31/24 1053 MR#: [id number] Acct: [id number] Name: ELMER ARBOLEDA Rep #: [id number] : 1970 53 From: Dallas Chapin MD PCP: Dr. Dmaon Bui MD Status:REG [facility] [place] Discharge Instructions Diet Discharge Diet: No restrictions Activity Discharge Activity: May Not Drive (while taking narcotic pain medications.) Lifting Restrictions: no lifting for 6 weeks. Dressing / Incision Call your doctor if you observe: Fever of 101 or Higher Follow Up Care Please Follow Up With: Dallas Chapin MD When: Call [phone] for an appointment Test Results: Test results from this visit will be discussed in further detail at your follow-up appointment, if applicable. Discharge Plan Admission Primary Reason for Your Visit: Left partial nephrectomy Attending Provider: Dallas Chapin Primary Care Provider: Damon Bui Instructions Print Language: Burkinan Discharge Orders/Prescriptions Prescriptions: Continued gabapentin 300 mg capsule 300 mg PO TID PRN PRN (Reason: pain) albuterol sulfate 1 INHALER inhaler 2 puff inhalation Q4H PRN PRN (Reason: Wheezing) Qty: 1 0RF acetaminophen 500 MG tablet 1,000 mg PO Q8H PRN PRN (Reason: Pain Score 1-10/10) pantoprazole 40 mg tablet,delayed release (DR/EC) 40 mg PO DAILY Rx Instructions: TAKE 1 TABLET DAILY FOR INDIGESTION nitroglycerin 0.4 mg tablet, sublingual 0.4 mg sublingual PRN PRN (Reason: chest pain) Rx Instructions: DISSOLVE 1 TABLET UNDER TONGUE EVERY 5 MINUTES NEEDED FOR CHEST PAIN carvedilol 6.25 mg tablet 6.25 mg PO BID Qty: 180 3RF lisinopril 10 mg tablet 10 mg PO DAILY Qty: 90 3RF atorvastatin 80 mg tablet 80 mg PO QHS Qty: 90 3RF isosorbide mononitrate 60 mg tablet extended release 24 hr 60 mg PO DAILY Qty: 90 3RF Held aspirin [Adult Low Dose Aspirin] 81 mg tablet,delayed release (DR/EC) 81 mg PO DAILY Hold Instructions: Resume on 02/14/24. Referrals / Follow Up: Dallas Chapin MD [Med Staff - Active Staff] - Damon Bui MD [Primary Care Provider] - Disposition Disposition (needs filled in before D/C Order can be placed): Home, Self Care 01/31/24 1053 Dallas Chapin MD CC: Dr. Damon Bui MD Signed [facility] MR/POSTOP.[facility] 01-31-2024 MR/POSTOP.[facility] Medical Records Department [address] [place] [address] Anesthesia Postop Eval I 01/31/24 1120 MR#: [id number] Acct: [id number] Name: ELMER ARBOLEDA Rep #: [id number] : 1970 53 From: Santino Villegas PCP: Dr. Damon Bui MD Status:ADM IN Y Race: C Location: [place] [address] Anesthesia: Postop Eval I Current Vital Signs Temperature: 97.1 F Pulse Rate: 72 Blood Pressure: 85/57 Respiratory Rate: 16 Pulse Ox: 90 Oxygen Delivery Method: Nasal Cannula Oxygen Flow Rate (L/min): 4 Assessment Airway patent: Yes Spontaneous unlabored respirations: Yes Mental status: Awake nausea: No Vomiting: No Anesthesia Complication: No Fluid Hydration Crystalloid volume administer (ml): 1,400 Total IV fluid infused: 1,400 Progress Note Anesthesia document: Postop Eval 1 completed: Yes 01/31/24 1122 Date Santino Hawkinsbettewaldemar Signature: Date CC: Signed Normal [facility] MR/[id number] 01-31-2024 [facility] Medical Records Department [address] [place] [address] Anesthesia Postop Eval II 01/31/24 1241 MR#: [id number] Acct: [id number] Name: ELMER ARBOLEDA Rep #: [id number] : 1970 53 From: Jori Larios MD PCP: Dr. Damon Bui MD Status:ADM IN Y Race: C Location: [place] [id number] Anesthesia Postop Eval I Sum Postop Eval Completion status Anesthesia document: Postop Eval 1 completed: Yes Anesthesia Postop Eval I Summary Anesthesia Postop Eval I Summary: Anesthesia Postop Eval I: Assessment Summary Airway patent Yes 01/31/24 11:22 [email or web address] Spontaneous unlabored Yes 01/31/24 11:22 [email or web address] respirations Mental status Awake 01/31/24 11:22 [email or web address] nausea No 01/31/24 11:22 [email or web address] Vomiting No 01/31/24 11:22 [email or web address] Anesthesia Postop Eval I: Fluid Summary Crystalloid volume administer 1,400 01/31/24 11:22 [email or web address] (ml) Colloids volume administered ( ml) Blood Product volume administered (ml) Total IV fluid infused 1,400 01/31/24 11:22 [email or web address] Anesthesia Postop Eval I: Summary Notes Anesthesia Complication No 01/31/24 11:22 [email or web address] Anesthesia Complication Comment: Post-operative progress note Anesthesia: Postop Eval II Evaluation Mental status: Awake Pain Level: 0 nausea: No Vomiting: No 01/31/24 1241 Date Jori Arita Signature: Date CC: Signed Normal [facility] Operative Reporton 4 Operative Report [facility] Medical Records Department [address] [facility] [place] [address] Operative Report 01/31/24 1050 MR#: [id number] Acct: [id number] Name: ELMER ARBOLEDA Alexus Rep #: [id number] : 1970 53 From: Dallas Chapin MD PCP: Dr. Damon Bui MD Status:[facility] Location: [place] [address] Report of Operation Date of Procedure: 01/31/24 Pre-Operative Diagnosis: Left renal mass Post-Operative Diagnosis: The same Surgery/Procedure Performed:: Laparoscopic robotic assisted left partial nephrectomy Description of Surgical Findings:: Patient presented to [facility] for a laparoscopic robotic assisted left partial nephrectomy. We talked about the options of management for the patient's renal mass. The patient had a renal mass. We discussed with the patient that there is always a possible metastatic disease development after this procedure and the patient understands that more treatments such as chemotherapy or oral chemotherapy may be necessary for further development of metastatic disease which may not be curable. We discussed the risks of the procedure including the risk of general anesthetic, bleeding, infection, blood transfusion, formation of hernias, recurrence of cancer in the local area, development of lymphoceles, chylous ascites, and lymph fluid collection in the renal bed. After full discussion with the patient, the patient was marked, and the patient was taken back to the operating room. Patient was taken back to the operating room was placed for supine on the table and underwent general endotracheal intubation. A Clarke catheter was placed into the bladder. The patient side was recognized and marked. A timeout procedure was performed. I identified the patient the side of the surgery and the surgery that was planned to be performed. Once the patient was under general anesthetic then the patient was placed in modified lateral flank position on the patient and I had the patient's. I then infiltrated the skin with 1/2 percent Marcaine and a small incision in the skin and use a Veress needle to introduce the Veress needle into the peritoneal cavity and filled the peritoneal cavity with CO2 gas. I then placed the camera trocar under direct visualization. I then placed a right arm robotic trocar. Then if necessary scissors were used to dissect any adhesions. And then the left arm trocar was placed and a fourth robotic trocar was placed. After the trocars were placed I placed an air seal port between the #1 arm and the camera for the assistant curator to use during the case. Then the robot was docked and I placed scissors and prograsp and the robotic arms and proceeded first by incising the white line of Toldt and reflecting the colon off the kidney I started superiorly above the kidney reflecting the spleen of the kidney and worked all the way inferiorly after the colon was completely reflected off the kidneys fascia was grabbed and elevated and we started reflecting the mesentery of the colon off the kidney until I was able to get underneath the kidney and the inferior tail of the Gerota's fascia and I could see the gonadal vein and the ureter I went underneath the gonadal vein and the ureter and then start tracing up towards the hilum of the kidney. At this point then the fourth arm was docked and used the long Fenestrated grasper on the fourth arm to allow retraction of the kidney superiorly this allowed me to use the right and left arm to then continue the meticulous dissection toward the renal hilum it came across the gonadal vein and this was taken with clips. I dissected until I encountered the renal vein and saw bound pulse of the renal artery. A cross lumbar vein was then transected and ligated with clips. Then behind the renal vein I dissected extensive and meticulous dissection was done to identify the main renal artery. The renal artery was then prepared for temporary bulldog placement by complete dissection of the main renal artery. I then proceeded with the dissection of the kidney and proceeded with identifying the left renal mass. First the Gerota fascia was incised over the area of the renal mass and then dissected down to the capsule of the kidney and then reflected the fat off the kidney all the way superiorly until I was able to get all the fat off the kidney surrounding the mass. Then we used endoscopic ultrasound an ultrasound probe was dropped into the patient's abdomen using the ProGrasp I then carefully did ultrasonography of the kidney to identify the renal mass. Once the mass was identified then I circumferentially scored around the mass edges making sure the edges were there rescored were clear of any tumor inferior to the ultrasound. Then once the tumor was identified the ultrasound confirmed the location and all the edges of the tumor were scored, Then we went for the dissection of the tumor using sharp dissection l (more content not included)... Normal [facility] Specimen Level Von 0 01-31-2024 Surgery Specimen Level V Patient Age/Sex Location Account Attending Physician ELMER ARBOLEDA/Mai MS3 [id number] Dr. Dallas Chapin MD Specimen: [id number] Received: 01/31/24 Status: ALEXANDRE Alcocer Num: [id number] Spec Type: KIDNEY Subm Dr: Dr. Dallas Chapin MD HEADER OPERATION: Laparoscopic robotic partial nephrectomy PRE-OP DIAGNOSIS: Left renal mass TISSUE SUBMITTED: Left renal mass, ruptured on removal MICROSCOPIC DIAGNOSIS Left renal mass, partial nephrectomy: Clear cell renal cell carcinoma. Mature adipose tissue, free of carcinoma. See cancer synoptic report below. AM.mr 02/02/2024 COMMENT RENAL CANCER SUMMARY Procedure - Partial nephrectomy Specimen laterality - Left kidney Tumor size - 4.0 x 2.0 x 1.5cm Tumor focality - Single focus of carcinoma Histologic type - Clear cell renal cell carcinoma Sarcomatoid features- Not identified Rhabdoid features- Not identified Associated epithelial lesions - None Histologic grade - Grade 1 (G1) Necrosis- Not present Tumor extension- Tumor confined to kidney Tumor configuration - Cystic Margins - Uninvolved by carcinoma Lymph vascular invasion - Not identified Regional lymph nodes - No lymph nodes found Non-neoplastic kidney- Mild chronic inflammation NOTE: The tumor has a cystic component. PATHOLOGIC STAGE: p1a Nx Mx The above summary is in compliance with College of [place] Pathology (CAP) Cancer Protocols Checklist and [place] Joint Committee on Cancer (AJCC), Staging Manual, 8th Ed. Case has been reviewed in consultation with Dr. Contreras who concurs with the above diagnosis. IDC:SJ Patient Age/Sex Location Account Attending Physician ELMER ARBOLEDA 53/M MS3 [id number] Dr. Dallas Chapin MD MICROSCOPIC DESCRIPTION Slides are reviewed. GROSS DESCRIPTION Received in fixative is one container labeled with the patient's name and designated Left renal mass. The specimen consists of an irregular portion of kidney measuring 4.0 x 3.0 x 2.5cm. Also present in the container is a detached piece of adipose tissue measuring 4.5 x 2.5 x 1.0cm. Also present in the container are multiple blood clots mixed with a fragment of black stone. The blood clot measures 1.5 x 1.0 x 0.1cm and the black stone measures 0.4cm in greatest dimension. Presumed parenchymal resection margin is inked black. The rest of the specimen is inked blue. Sections reveal a multilobulated cystic mass measuring 4.0 x 2.0 x 1.5cm. A section of the detached adipose tissue do not reveal any mass lesions. Rn Ccu sections are submitted in nine cassettes as follows: 1-8- partial nephrectomy specimen from one end to another, entirely submitted, 9- detached piece of adipose tissue. 02/01/2024 TC:0 [facility]:[id number] Patient Age/Sex Location Account Attending Physician ELMER ARBOLEDA 53/M MS3 [id number] Dr. Dallas Chapin MD Signed (signature on file) Dr. Art Theodore DO 02/02/24 1302 Normal [facility] Comment on above: Performed By: #### P SUV ####[facility] [address] [place], [address] Basic Metabolic Profile (BMP )on 01-19-2024 BUN/CRE 16.7 RATIO Normal 10-20 [facility] Comment on above: Performed By: #### L 501.5425 #### [facility] [address] [place], [address] CA,Total 9.1 mg/dL Normal 8.5-10.1 [facility] Comment on above: Performed By: #### L 501.5425 #### [facility] [address] [place], [address] Chloride [Moles/Vol] 110 mmol/L High 98-107 [facility] Comment on above: Performed By: #### L [id number] #### [facility] [address] [place], [address] CO2 [Moles/Vol] 26.0 mmol/L Normal 21.0-32.0 [facility] Comment on above: Performed By: #### L 501.5425 #### [facility] [address] [place], [address] Creatinine [Mass/Vol] 1.02 mg/dL Normal 0.70-1.30 [facility] Comment on above: Result Comment: The validity of the calculated GFR GFRAA in patients over 70 years has not been determined. Clinical correlation is essential. Performed By: #### L 501.5425 #### [facility] [address] [place], [address] EST GFR - AA 98 mL/min Normal >60 [facility] Comment on above: Result Comment: Afri can Trinidadian GFR Calc Performed By: #### L 501.5425 #### [facility] [address] [place], [address] GAP 3 Low 5-15 [facility] Comment on above: Performed By: #### L 501.5425 #### [facility] [address] [place], [address] GFR/1.73 sq M.predicted among non-blacks MDRD (S/P/Bld) [Vol rate/Area] 81 mL/min/{1.73_m2} Normal >60 [facility] Comment on above: Result Comment: Non- GFR Calc Performed By: #### L 501.5425 #### [facility] [address] [place], [address] Glucose [Mass/Vol] 123 mg/dL High 74-106 [facility] Comment on above: Result Comment: Fast ing Glucose result from 100 to 125 mg/dL suggests IMPAIRED HOMEOSTASIS per A.D.A. criteria. Performed By: #### L 501.5425 #### [facility] [address] [place], [address] Potassium [Moles/Vol] 4.0 mmol/L Normal 3.5-5.1 [facility] Comment on above: Result Comment: Mode rate Hemolysis, Result may be falsely increased. Performed By: #### L 501.5425 #### [facility] [address] [place], [address] Sodium [Moles/Vol] 139 mmol/L Normal 136-145 [facility] Comment on above: Performed By: #### L 501.5425 #### [facility] [address] [place], [address] Urea nitrogen [Mass/Vol] 17 mg/dL Normal 7-18 [facility] Comment on above: Performed By: #### L 501.5425 #### [facility] [address] [place], [address] CBC-Complete Blood Cnt No Di ffon 01-19-2024 Erythrocyte distribution width (RBC) [Ratio] 12.3 % Normal 11.6-14.6 [facility] Comment on above: Performed By: #### L 501.5425 #### [facility] [address] [place], [address] Hematocrit (Bld) [Volume fraction] 44.5 % Normal 40-54 [facility] Comment on above: Performed By: #### L 501.5425 #### [facility] [address] [place], [address] Hemoglobin (Bld) [Mass/Vol] 14.9 g/dL Normal 13.0-16.5 [facility] Comment on above: Performed By: #### L 501.5425 #### [facility] [address] [place], [address] MCH (RBC) [Entitic mass] 30.2 pg Normal 27.0-32.0 [facility] Comment on above: Performed By: #### L 501.5425 #### [facility] [address] [place], [address] MCHC (RBC) [Mass/Vol] 33.5 g/dL Normal 32-36 [facility] Comment on above: Performed By: #### L 501.5425 #### [facility] [address] [place], [address] MCV (RBC) [Entitic vol] 90.1 fL Normal 80-94 [facility] Comment on above: Performed By: #### L 501.5425 #### [facility] [address] [place], [address] Platelet mean volume (Bld) [Entitic vol] 10.0 fL Normal 6.2-12.0 [facility] Comment on above: Performed By: #### L 501.5425 #### [facility] [address] [place], [address] Platelets (Bld) [#/Vol] 226 10*3/uL Normal 150-450 [facility] Comment on above: Performed By: #### L 501.5425 #### [facility] [address] [place], [address] RBC (Bld) [#/Vol] 4.94 10*6/uL Normal 4.6-6.2 [facility] Comment on above: Performed By: #### L 501.5425 #### [facility] [address] [place], [place], [address] RDW SD 40.0 fl Normal 35.1-43.9 [facility] Comment on above: Performed By: #### L 501.5425 #### [facility] [address] [place], [place], [address] WBC (Bld) [#/Vol] 8.3 10*3/uL Normal 4.4-11.0 [facility] Comment on above: Performed By: #### L 501.5425 #### [facility] [address] [place], [place], [address] 12 Lead EKG performed by [facility] on 01-16-2024 12 Lead EKG performed by [facility] [address] [place] [address] 12 Lead EKG performed by [facility] 01/16/24 1315 MR#: [id number] Acct: [id number] Name: ELMER ARBOLEDA Rep #: [id number] : 1970 53 From: Tiffany Dyson NP [employer] Attending Dr: Tiffany Dyson [employer] Status: DEP A MB Ordering Dr: Tiffany Dyson [employer] Date: 01/16/24 [place] [facility] [place]: M C Admitted: BMS/12 Lead EKG performed by [facility] ECG Report Interpretation ---Sinus Rhythm Low voltage in limb leads. -Nonspecific QRS widening. - Extensive anterior-lateral infarct Old. -Anterolateral ST-elevation -repolarization variant. ABNORMAL Electronically signed on 01/23/2024 at 15:59 by Albert [employer] Version [id number] 01/23/24 1601 Date Tiffany Dyson NP [employer]CTION [employer] CC: Dr. Damon Bui MD Date Dictated: 01/16/241314 Date Transcribed: 01/16/241314 Outsole Tacker: EDDIE Signed [facility] Cardiology Visit Reporton Cardiology Visit Report [facility] [address] [place] [address] OFFICE VISIT Date of Service: 01/16/24 MR#: [id number] Acct: [id number] Name: ELMER ARBOLEDA Rep #: [id number] : 1970 Provider: JUANI chong Age/Sex: 53/M Location: [facility] Status: Signed HPI HPI History of Present Illness Details: ELMER ARBOLEDA, is a 53 M who presents to the office today for a cardiovascular follow-up visit. He is a gentleman with a history of coronary artery disease status post angioplasty and stenting of the right coronary artery in 2015. He also has a history of hypertension, hyperlipidemia, and tobacco abuse. His last catheterization in 2016 demonstrated no obstructive coronary lesions. He was admitted to the hospital in March of 2019 with chest discomfort. He ruled out for myocardial infarction it was atypical he underwent stress test with no evidence of ischemia 7 metabolic equivalents. From a cardiac standpoint, the patient is doing well. He denies any palpitations, chest pain, pressure or heaviness. He denies SOB, Orthopnea, and PND. He does not have bleeding issues; no blood in urine, stool or nosebleeds. He denies any decrease in energy level, myalgias, or claudication. He does not have edema, or sudden weight gain. He does have occasional lightheadedness with quick positional changes. He is attributing this to his pain medication/gabapentin. He denies dizziness, syncopal or near syncopal episodes, and headaches. He continues to smoke 1 pack every day. Intake Vital Signs 10/11/23 09:31 12/06/23 14:33 01/16/24 12:55 01/16/24 13:00 Height 6 ft 6 ft 6 ft 6 ft Weight: 263 lb BMI 35.6 BP 110/72 Blood Pressure Location Lt brachial Position Sitting Respiration 20 H Pulse 79 Pulse Source Monitor Pulse Oximetry (%) 95 Intake Visit Reasons: 1 Y FU Lead Oxide Mill Tender Required: No Is patient in pain?: No Allergies No Known Allergies Allergy (Verified 01/16/24 12:55) Medications ???Medication ???Instructions ???Recorded ???Confirmed ???Type albuterol sulfate 90 mcg/actuation 2 puff inhalation Q4H PRN PRN 06/19/18 01/16/24 Rx aerosol inhaler Wheezing ##1 aspirin 81 mg tablet,delayed 81 mg PO DAILY 06/28/18 01/16/24 History release (Adult Low Dose Aspirin) acetaminophen 500 mg tablet 1,000 mg PO Q8H PRN PRN Pain Score 03/28/19 01/16/24 History -02/28 cyclobenzaprine 10 mg tablet 10 mg PO TID PRN muscle spasm #20 01/16/23 01/16/24 Rx tabs pantoprazole 40 mg tablet,delayed See Rx Instructions .Route 03/02/23 01/16/24 Rx release .COMPLEX #90 tabs atorvastatin 80 mg tablet 80 mg PO QHS #90 TABLETS 10/27/23 01/16/24 Rx carvedilol 6.25 mg tablet 6.25 mg PO BID for blood pressure 10/27/23 01/16/24 Rx #180 TABLETS lisinopril 10 mg tablet 10 mg PO DAILY #90 TABLETS 10/27/23 01/16/24 Rx isosorbide mononitrate 60 mg 60 mg PO DAILY #90 TABLETS 12/05/23 01/16/24 Rx tablet,extended release 24 hr nitroglycerin 0.4 mg sublingual See Rx Instructions .Route 01/12/24 01/16/24 Rx tablet .COMPLEX #25 tabs gabapentin 300 mg capsule 300 mg PO DAILY 01/16/24 01/16/24 History Nurse's Note: Patient is unsure of his medication list. FORMERLY [facility], [facility]–1983 Medical History Liver hemangioma Strain of right hip Lumbosacral radiculopathy Lumbosacral strain Arthritis of right hand Contusion of hand, right BBB (bundle branch block) Staphylococcal infection of skin Atherosclerotic heart disease of [place] coronary artery without angina pectoris Essential (primary) hypertension Tobacco use Obesity Acute non-ST segment elevation myocardial infarction HLD (hyperlipidemia) Surgical History History of fusion of cervical spine History of left heart catheterization (11/04/16) History of knee replacement History of carpal tunnel release Family History (Reviewed 01/16/24 @ 13:04 by Tiffany Dyson [employer], [employer]) Father CAD (coronary artery disease) Mother CVA (cerebral vascular accident) CAD (coronary artery disease) Social History (Reviewed 01/16/24 @ 13:04 by Tiffany Dyson [employer], [employer]) Smoking Status: Current every day smoker tobacco type: cigarettes alcohol intake: never substance use type: does not use 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 [facility] Lipid Profileon 01-16-2024 Cholesterol [Mass/Vol] 120 mg/dL Normal 200 [facility] Comment on above: Result Comment: <200 mg/dL Desirable 200-240 mg/dL Borderline >240 mg/dL High Risk Performed By: #### L [id number] #### [facility] [address] [place], [address] Cholesterol in HDL [Mass/Vol] 41 mg/dL Normal [facility] Comment on above: Result Comment: The drugs N-Acetylcysteine and Metamizole may falsely depress this assay. Reference Range HDL <40 mg/dL Low HDL Cholesterol HDL >or= 60 mg/dL High HDL Cholesterol Performed By: #### L [id number] #### [facility] [address] [place], [address] Cholesterol in LDL [Mass/Vol] 53 mg/dL Normal 0-130 [facility] Comment on above: Performed By: #### L [id number] #### [facility] [address] [place], [address] Cholesterol in VLDL [Mass/Vol] 26 mg/dL Normal 5-40 [facility] Comment on above: Performed By: #### L [id number] #### [facility] [address] [place], [address] Triglyceride [Mass/Vol] 132 mg/dL Normal [facility] Comment on above: Result Comment: The drugs N-Acetylcysteine and Metamizole may falsely depress this assay. Serum Triglycerides Reference Interval Normal <150 mg/dL Borderline high 150 - 199 mg/dL High 200 - 499 mg/dL Very High > or = 500 mg/dL Performed By: #### L [id number] #### [facility] [address] [place], [address] Liver Profileon 01-16-2024 Albumin [Mass/Vol] 3.7 g/dL Normal 3.2-5.0 [facility] Comment on above: Performed By: #### L [id number] #### [facility] [address] [place], [address] ALK P 114 U/L Normal 45-117 [facility] Comment on above: Performed By: #### L [id number] #### [facility] [address] [place], [address] ALT [Catalytic activity/Vol] 41 U/L Normal 16-61 [facility] Comment on above: Performed By: #### L [id number] #### [facility] [address] [place], [address] AST [Catalytic activity/Vol] 20 U/L Normal 15-37 [facility] Comment on above: Performed By: #### L [id number] #### [facility] [address] [place], [address] Bilirubin [Mass/Vol] 1.40 mg/dL High 0.20-1.00 [facility] Comment on above: Result Comment: For patients on eltrombopag therapy, use of Dimension [place] TBIL is not recommended. Performed By: #### L [id number] #### [facility] [address] [place], [place], [address] Bilirubin.direct [Mass/Vol] 0.31 mg/dL High 0.00-0.30 [facility] Comment on above: Performed By: #### L [id number] #### [facility] [address] [place], [address] Globulin (S) [Mass/Vol] 3.3 g/dL Normal 2.2-4.2 [facility] Comment on above: Performed By: #### L [id number] #### [facility] [address] [place], [address] T PROT 7.0 g/dL Normal 6.4-8.2 [facility] Comment on above: Performed By: #### L [id number] #### [facility] [address] [place], [address] Bone Scan Whole Bodyon 01-14 Bone Scan Whole Body [facility] Imaging Services [address] [place] [address] Bone Scan Whole Body MR#: [id number] Acct: [id number] Name: ELMER ARBOLEDA Rep #: [id number] : 1970 M 53 From: Damir Baker PCP: Dr. Damon Bui MD Status: [facility] Study: Bone Scan Whole Body Date of Exam: 01/15/24 Exam# [id number] Ordering [place]: [place] [id number] CLINICAL: 53-year-old male with history of renal cell carcinoma. WHOLE BODY 99m Tc MDP RADIONUCLIDE BONE SCINTIGRAPHY COMPARISON: None available FINDINGS: Following the intravenous administration of 26.6 mCi of 99m Tc MDP, whole body bone images reveal: 1. Increased tracer uptake is noted in the 11th rib posteriorly on the right. 2. Facilitated radiopharmaceutical concentration is noted in the acromioclavicular compartments of both shoulders, the glenohumeral compartment of the left shoulder, the bilateral wrists and hands, the ninth and 10th thoracic vertebra posteriorly on the right, the dorsal medial compartments of both ankles. 3. Enhanced radiotracer is defined in the distal left femoral diaphysis. 4. The remaining skeletal structures are scintigraphically unremarkable with normal-appearing renal images and urinary bladder activity identified. Relatively intense uptake is noted in the primarily medial compartment of the left knee articulation. The presumed asymptomatic right knee arthroplasty appears relatively scintigraphically unremarkable. There is increased uptake noted in the left anterior chest wall at the costochondral junction consistent with trauma-focal inflammation. NM/Bone Scan Whole Body IMPRESSION: 1. The increase in tracer uptake noted in the right 11th posterior rib and distal left femoral diaphysis likely represent previous trauma-fracture. Plain film radiography correlation may be of benefit. 2. Degenerative arthritis is defined in the bilateral shoulders, right and left wrists, the hands bilaterally, the lower thoracic spine and bilateral ankle articulations. 3. Large articulation synovitis, internal derangement is demonstrated in the left knee. 4. There is no definitive scintigraphic evidence of skeletal metastatic disease on the current examination. Electronically Signed: Damir Peña DO at 9:40 EDT Reading Location ID and State: [facility] [place] Tel , Service support , CC: Dr. Dallas Chapin MD; Dr. Damon Bui MD Outsole Tacker: Signed [facility] MR/BMS.IMBon 12-06-2023 MR/BMS.IMB [facility] [address] [facility] [address] [place] [address] OFFICE VISIT Date of Service: 12/06/23 MR#: [id number] Acct: [id number] Name: ELMER ARBOLEDA Rep #: [id number] : 1970 Provider: Dr. Damon medeiros MD Age/Sex: 53/M Location: [facility] Status: Signed Intake Vital Signs 10/11/23 09:31 12/06/23 14:33 Height 6 ft 6 ft Weight: 261 lb 8 oz 268 lb BMI 35.4 36.3 BP 108/74 124/68 H Blood Pressure Location Lt brachial Lt brachial Position Sitting Sitting Respiration 18 16 Pulse 75 74 Pulse Source Monitor Monitor Temp 98.4 F 98.6 F Temp Source Temporal Temporal Pulse Oximetry (%) 91 93 Oxygen Delivery Method room air room air Intake Visit Reasons: Go over recent scans Chief Complaint: go over scans Lead Oxide Mill Tender Required: No Accompanied by: Self Is patient in pain?: No Allergies No Known Allergies Allergy (Verified 12/06/23 14:28) Medications ???Medication ???Instructions ???Recorded ???Confirmed ???Type albuterol sulfate 90 mcg/actuation 2 puff inhalation Q4H PRN PRN 06/19/18 12/06/23 Rx aerosol inhaler Wheezing ##1 aspirin 81 mg tablet,delayed 81 mg PO DAILY 06/28/18 12/06/23 History release (Adult Low Dose Aspirin) acetaminophen 500 mg tablet 1,000 mg PO Q8H PRN PRN Pain Score 03/28/19 12/06/23 History 1-02/28 nitroglycerin 0.4 mg sublingual See Rx Instructions .Route 07/25/22 12/06/23 Rx tablet .COMPLEX #25 tabs cyclobenzaprine 10 mg tablet 10 mg PO TID PRN muscle spasm #20 01/16/23 12/06/23 Rx tabs pantoprazole 40 mg tablet,delayed See Rx Instructions .Route 03/02/23 12/06/23 Rx release .COMPLEX #90 tabs atorvastatin 80 mg tablet 80 mg PO QHS #90 TABLETS 10/27/23 12/06/23 Rx carvedilol 6.25 mg tablet 6.25 mg PO BID for blood pressure 10/27/23 12/06/23 Rx #180 TABLETS lisinopril 10 mg tablet 10 mg PO DAILY #90 TABLETS 10/27/23 12/06/23 Rx isosorbide mononitrate 60 mg 60 mg PO DAILY #90 TABLETS 12/05/23 12/06/23 Rx tablet,extended release 24 hr PFSH Medical History (Updated 12/06/23 @ 15:[address] Damon Bui MD) Liver hemangioma Strain of right hip Lumbosacral radiculopathy Lumbosacral strain Arthritis of right hand Contusion of hand, right BBB (bundle branch block) Staphylococcal infection of skin Atherosclerotic heart disease of [place] coronary artery without angina pectoris Essential (primary) hypertension Tobacco use Obesity Acute non-ST segment elevation myocardial infarction HLD (hyperlipidemia) Surgical History History of fusion of cervical spine History of left heart catheterization (11/04/16) History of knee replacement History of carpal tunnel release Family History Father CAD (coronary artery disease) Mother CVA (cerebral vascular accident) CAD (coronary artery disease) Social History Smoking Status: Current every day smoker tobacco type: cigarettes alcohol intake: never substance use type: does not use 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 See my previous note about the original MRI. We received the result of the MRI which suggested follow-up imaging regarding cystic lesion, liver and partially visualized cystic lesion, left midpole of the kidney that was done in the orthopedics office on their MRI machine. This took some time to actually get this report. Once it was received, rearrange CT scan of which the insurance company originally denied. After review with radiology reviewer at the insurance company they agreed to abdominal CT with contrast. This showed hemangioma, benign of the liver. In regards to the lesion on the kidney: IMPRESSION: 5 cm left renal lesion suspicious for possible multicystic malignancy as above, to include renal cell carcinoma. T10 left posterior vertebral body subtle 8 mm sclerotic lesion, to include possible metastatic process. I asked the patient to come in today to further review. He is a long-term smoker. Given the nature of the kidney lesion I have referred him to urology and we again reviewed this in detail. He is agreeable to see urology. He is not having any blood in the urine, difficulty in urination, has normal stream and no other concerns that way. We discussed that if this turns out to be malignant, there were no lymph nodes identified which would be favorable. In regards to the above mention of T10 left posterior verteb (more content not included)... Normal [facility] Abdomen W/WO IV Contraston 0 11-30-2023 Abdomen W/WO IV Contrast [facility] Imaging Services [address] [place] [address] Abdomen W/WO IV Contrast MR#: [id number] Acct: [id number] Name: ELMER ARBOLEDA Rep #: [id number] : 1970 M 53 From: Nav Peck MD PCP: Dr. Damon Bui MD Status: REG CLI Study: Abdomen W/WO IV Contrast Date of Exam: 4 Exam# [id number] Ordering [place]: [place] [id number] INDICATION: R hepatic lobe lesion, left complex renal cyst -- Multiphasic CT to evaluate lesions liver, left kid COMPARISON: None provided. IV Contrast dosage and agent: 100 cc Isovue-300 IV. A radiation dose optimization technique was used for this scan. RADIATION DOSAGE (If Supplied By Facility): CTDIvol/DLP = ( 25.55 ) / ( 3093.83 ) mGy/mGycm FINDINGS: Multiphase serial CT axial images through the abdomen only, pelvis excluded, with coronal and sagittal reformatted series. Noncontrast, arterial, venous, and delayed axial series provided. PANCREAS: No peripancreatic fat stranding. BOWEL/MESENTERY: No dilated bowel loops. No significant free fluid. No free air. GALLBLADDER: No pericholecystic fat stranding. LIVER/STOMACH: There is a large multilobulated hypoattenuating posterior hepatic lesion measuring up to 8 x 5 cm, with peripheral filling of contrast which fills in on delayed imaging which appears most consistent with hemangioma. Similar appearing subtle 3 cm central hepatic lobe lesion, with similar enhancement characteristics. Anterior hepatic cyst. URINARY COLLECTING SYSTEM/ KIDNEYS: No obstructing ureteral calculus. Hypoattenuating left 5 cm interpolar renal lesion containing heterogeneously enhancing soft tissue components. APPENDIX: Normal caliber gas containing appendix. LUNG BASES: Unremarkable. BONES: T10 left posterior vertebral body subtle [address]/Abdomen W/WO IV Contrast IMPRESSION: 5 cm left renal lesion suspicious for possible multicystic malignancy as above, to include renal cell carcinoma. T10 left posterior vertebral body subtle 8 mm sclerotic lesion, to include possible metastatic process. 8 cm and 3 cm lesions with enhancement characteristics consistent with hepatic hemangiomas. Electronically Signed: aNv Peck MD at 23:25 EDT , CC: Dr. Damon Bui MD Outsole Tacker: Signed [facility] CREATININE FINGERSTICKon CREATININE WB < 1.0 Normal 0.70-1.30 [facility] Comment on above: Performed By: #### L [id number], L506.0400 #### [facility] [address] [place], [address] EGFR WB > 60.0000 Normal >60 [facility] Comment on above: Performed By: #### L 501.86963, L506.0400 #### [facility] [address] [facility] [place], [address] MR/BMS.Bon 10-11-2023 MR/BMS.B [facility] [address] [place] [address] OFFICE VISIT Date of Service: 10/11/23 MR#: [id number] Acct: [id number] Name: ELMER ARBOLEDA Rep #: [id number] : 1970 Provider: Dr. Damon medeiros MD Age/Sex: 53/M Location: [facility] Status: Signed with Addenda ADDENDUM by Dr. Damon Bui MD on 11/14/23 at 1221 HPI Details: ELMER ARBOLEDA, is a 53 M who presents to the office today for Assessment and Plan Assessment and Plan (1) Liver lesion: Status: Acute (2) Obesity (BMI 30-39.9): Status: Chronic (3) Essential (primary) hypertension: Status: Chronic (4) Atherosclerotic heart disease of [place] coronary artery without angina pectoris: Status: Chronic (5) Tobacco use: Status: Chronic (6) Lumbar radiculopathy: Status: Acute (7) Kidney lesion: Status: Acute Plan Details Additional Comments: Addendum: Today we received the MRI from [facility] regarding liver lesion and reportedly left kidney complex cyst. Both of these need evaluated. Radiology recommended multiphasic CT scan abdomen and pelvis. Order placed. 11/14/23 1221 Date Damon Bui MD cc: * Signed Intake Vital Signs 09/13/23 16:11 10/11/23 09:31 Height 6 ft 6 ft Weight: 261 lb 8 oz BMI 35.4 BP 108/74 Blood Pressure Location Lt brachial Position Sitting Respiration 18 Pulse 75 Pulse Source Monitor Temp 98.4 F Temp Source Temporal Pulse Oximetry (%) 91 Oxygen Delivery Method room air Intake Visit Reasons: Annual/Physical Chief Complaint: annual Lead Oxide Mill Tender Required: No Accompanied by: Is patient in pain?: Yes (back pain) Pain scale (1-10): 7 Allergies No Known Allergies Allergy (Verified 10/11/23 09:24) Medications ???Medication ???Instructions ???Recorded ???Confirmed ???Type albuterol sulfate 90 mcg/actuation 2 puff inhalation Q4H PRN PRN 06/19/18 10/11/23 Rx aerosol inhaler Wheezing ##1 aspirin 81 mg tablet,delayed 81 mg PO DAILY 06/28/18 10/11/23 History release (Adult Low Dose Aspirin) acetaminophen 500 mg tablet 1,000 mg PO Q8H PRN PRN Pain Score 03/28/19 10/11/23 History 1-02/28 nitroglycerin 0.4 mg sublingual See Rx Instructions .Route 07/25/22 10/11/23 Rx tablet .COMPLEX #25 tabs lisinopril 10 mg tablet 10 mg PO DAILY #90 tabs 10/03/22 10/11/23 Rx atorvastatin 80 mg tablet 80 mg PO QHS #90 tabs 10/24/22 10/11/23 Rx isosorbide mononitrate 60 mg See Rx Instructions .Route 11/11/22 10/11/23 Rx tablet,extended release 24 hr .COMPLEX #90 tabs carvedilol 6.25 mg tablet 6.25 mg PO BID blood pressure #180 11/15/22 10/11/23 Rx tabs cyclobenzaprine 10 mg tablet 10 mg PO TID PRN muscle spasm #20 01/16/23 10/11/23 Rx tabs pantoprazole 40 mg tablet,delayed See Rx Instructions .Route 03/02/23 10/11/23 Rx release .COMPLEX #90 tabs PFSH Medical History Strain of right hip Lumbosacral radiculopathy Lumbosacral strain Arthritis of right hand Contusion of hand, right BBB (bundle branch block) Staphylococcal infection of skin Atherosclerotic heart disease of [place] coronary artery without angina pectoris Essential (primary) hypertension Tobacco use Obesity Acute non-ST segment elevation myocardial infarction HLD (hyperlipidemia) Surgical History History of fusion of cervical spine History of left heart catheterization (11/04/16) History of knee replacement History of carpal tunnel release Family History Father CAD (coronary artery disease) Mother CVA (cerebral vascular accident) CAD (coronary artery disease) Social History Smoking Status: Current every day smoker tobacco type: cigarettes alcohol intake: never substance use type: does not use 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 I last saw January 16, 2023 for symptoms that were consistent with lumbar radiculopathy, as per the following excerpt ELMER ARBOLEDA, is a 52 M who presents to the office today for low back pain with lumbar radicular symptoms. Started insidiously perhaps almost 2 weeks ago now. Low back pain, right-sided. He works at a [employer]. He has been having some massage therapy there which gives him some relief for a few hours. He went to urgent care about a week ago, had x-rays showing multilevel lumbar arthritic changes, disc space narrowing. He has osteoarthritic changes bilateral hips but this is not behaving as hip pain per se. There is no anterior hip discomfor (more content not included)... Normal [facility] Emergency Department Summary on 09-13-2023 Emergency Department Summary [facility] Medical Records Department [address] [place] [address] Emergency Department Summary 09/13/23 MR#: [id number] Acct: [id number] Name: ELMER ARBOLEDA Rep #: [id number] : 1970 53 From: Wellington Sage DO PCP: Dr. Damon Bui MD Status:DEP ER Location: ED HPI History of Present Illness Chief Complaint: Back PFSH PFSH Medical History Acute non-ST segment elevation myocardial infarction Arthritis of right hand Atherosclerotic heart disease of [place] coronary artery without angina pectoris BBB (bundle branch block) Contusion of hand, right Essential (primary) hypertension HLD (hyperlipidemia) Lumbosacral radiculopathy Lumbosacral strain Obesity Staphylococcal infection of skin Strain of right hip Tobacco use Home Medications albuterol sulfate 90 mcg/actuation aerosol inhaler 2 puff inhalation Q4H PRN PRN Wheezing ##1 06/19/18 [Rx Last Taken 03/28/19] celecoxib 200 mg capsule 200 mg PO DAILY 06/19/18 [History Last Taken 03/28/19] aspirin 81 mg tablet,delayed release (Adult Low Dose Aspirin) 81 mg PO DAILY 06/28/18 [History Last Taken 03/28/19] acetaminophen 500 mg tablet 1,000 mg PO Q8H PRN PRN Pain Score 1-02/2803/28/19 [History Last Taken 03/28/19] nitroglycerin 0.4 mg sublingual tablet See Rx Instructions .Route .COMPLEX #25 tabs 07/25/22 [Rx Last Taken Unknown] lisinopril 10 mg tablet 10 mg PO DAILY #90 tabs 10/03/22 [Rx Last Taken Unknown] atorvastatin 80 mg tablet 80 mg PO QHS #90 tabs 06/05/23 [Rx Last Taken Unknown] isosorbide mononitrate 60 mg tablet,extended release 24 hr See Rx Instructions .Route .COMPLEX #90 tabs 11/11/22 [Rx Last Taken Unknown] carvedilol 6.25 mg tablet 6.25 mg PO BID blood pressure #180 tabs 11/15/22 [Rx Last Taken Unknown] prednisone 10 mg tablet 10 mg PO DIRECTED #30 tabs 01/09/23 [Rx Last Taken Unknown] cyclobenzaprine 10 mg tablet 10 mg PO TID PRN muscle spasm #20 tabs 01/16/23 [Rx Last Taken Unknown] pantoprazole 40 mg tablet,delayed release See Rx Instructions .Route .COMPLEX #90 tabs 03/02/23 [Rx Last Taken Unknown] oxycodone-acetaminophen 5 mg-325 mg tablet (Percocet) 1 tab PO Q6H PRN pain 3 days #12 tabs 09/13/23 [Rx Last Taken Unknown] Allergy/AdvReac Type Severity Reaction Status Date / Time No Known Allergies Allergy Verified 09/13/23 16:14 Family History (Reviewed 05/08/23 @ 11:06 by Tiffany Dyson [employer], [employer]-C) Father CAD (coronary artery disease) Mother CVA (cerebral vascular accident) CAD (coronary artery disease) Surgical History History of carpal tunnel release History of fusion of cervical spine History of knee replacement History of left heart catheterization (11/04/16) Social History Smoking Status: Current every day smoker tobacco type: cigarettes alcohol intake: never substance use type: does not use 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 States he was getting of his car he noted severe back pain. No trauma or falls. Denies recent surgery to the back. Denies fully catheterization. States he was supposed to follow-up with a surgeon at the end of 2022 but never scheduled an appointment. Patient denies any saddle anesthesia, urinary tension, bowel or bladder incontinence, lower extremity weakness, fever or IV drug use, no recent spinal manipulation or surgery, no recent urinary catheterization. REVIEW OF SYSTEMS: All other systems reviewed and are negative except as noted in the history of present illness. At least 10 review of systems reviewed and are negative except as noted in history of present illness. PHYSICAL EXAM: Nursing triage notes reviewed, Vital signs reviewed Constitutional: please see mdm HENT: MMM Eyes: Pupils equal round and reactive to light, Extraocular muscles intact Neck: No stridor, no JVD, full neck ROM Lungs: Clear to auscultation, No wheezing or rales. No increased work of breathing, no conversational dyspnea, no accessory muscle use, no nasal flaring. No respiratory distress noted Heart: Regular rate and rhythm, No murmurs, No rubs and No gallops, 2+ distal pulses (radial, femoral, posterior tibial) in all extremities Abdomen: Soft, there is no tenderness, rigidity, rebound or guarding, no obvious peritoneal signs, no (more content not included)... Normal [facility] IR NERVE BLOCKon 04-16-2023 IR NERVE BLOCK ORIGINAL EXAMINATION: IR CERVICAL THORACIC FACET NERVE BLOCK LEVEL 111/ 10:41 am FLUORO (sec): 5 AIR KERMA DOSE: 3 mGy HISTORY: ORDERING SYSTEM PROVIDED HISTORY: Reason for Exam: L3-4 far lateral disc herniation IMPRESSION: Documentation of fluoroscopy. Please see intraoperative notes for additional details. Interpreted by: Shelbi Lagos MD Preliminary Report By: Shelbi Lagos MD Electronically signed By Shelbi Lagos MD Dictated Date: 04/16/2023 1:25:18 PM Prelim Date: 04/16/2023 1:25:34 PM Sign Date: 04/16/2023 1:25:34 PM Ordering Provider: ZAK MUNIZ [facility] ([place]) Absolute lymphocyte countOrd ered By: Mariana Allen on 01-06-2023 Lymphocytes Auto (Unsp spec) [#/Vol] 1.79 10*3/uL 0.83-4.51 [facility] Basophil percentageOrdered B y: Mariana Allen on 01-06-2023 Basophils/100 WBC (Bld) 0.6 % 0-1 [facility] Eosinophils/100 WBC (Bld) 5.2 % 0-5 [facility] Neutrophils (Bld) [#/Vol] 5.5 10*3/uL 2.0-7.7 [facility] Neutrophils/100 WBC (Bld) 61.7 % 47-70 [facility] WBC (Bld) [#/Vol] 8.9 10*3/uL 4.4-11.0 [facility] Blood erythrocytes count (nu mber/volume)Ordered By: Mariana Allen on 01-06-2023 RBC (Bld) [#/Vol] 5.27 10*6/uL 4.6-6.2 [facility] Blood hemoglobin measurement (mass/volume)Ordered By: Mariana Allen on 01-06-2023 Hemoglobin (Bld) [Mass/Vol] 16.1 g/dL 13.0-16.5 [facility] Blood lymphocytes/100 leukoc ytesOrdered By: Mariana Allen on 01-06-2023 Lymphocytes/100 WBC (Bld) 20.1 % 19-41 [facility] Blood monocytes/100 leukocyt esOrdered By: Mariana Allen on 01-06-2023 Monocytes/100 WBC (Bld) 11.5 % 0-10 [facility] Blood platelet mean volumeOr dered By: Mariana Allen on 01-06-2023 Platelet mean volume (Bld) [Entitic vol] 10.3 fL 6.2-12.0 [facility] Determination of erythrocyte mean corpuscular volume (MCV)Ordered By: Mariana Allen on 01-06-2023 MCV (RBC) [Entitic vol] 92.8 fL 80-94 [facility] Erythrocyte sedimentation ra teOrdered By: Mariana Allen on 01-06-2023 ESR (Bld) [Velocity] 8 mm/h 0-20 [facility] Hematocrit Auto (Bld) [Volum e fraction]Ordered By: Mariana Allen on 01-06-2023 Hematocrit (Bld) [Volume fraction] 48.9 % 40-54 [facility] Laboratory - Hematology and Cell countsOrdered By: Mariana Allen on 01-06-2023 Erythrocyte distribution width (RBC) [Entitic vol] 41.5 fL 35.1-43.9 [facility] Erythrocyte distribution width (RBC) [Ratio] 12.1 % 11.6-14.6 [facility] Immature granulocytes/100 WBC (Bld) 0.900 % 0.0-0.9 [facility] Comment on above: IG% - Immature Granu locytes (promyelocytes, myelocytes and metamyelocytes) > 1% indicates that a LEFT SHIFT is Present. MCH (RBC) [Entitic mass] 30.6 pg 27.0-32.0 [facility] Nucleated RBC/100 WBC (Bld) [Ratio] 0 % 0-5 [facility] MCHC Auto (RBC) [Mass/Vol]Or dered By: Mariana Allen on 01-06-2023 MCHC (RBC) [Mass/Vol] 32.9 g/dL 32-36 [facility] Platelets bldOrdered By: Mady Allen on 01-06-2023 Platelets (Bld) [#/Vol] 212 10*3/uL 150-450 [facility] Serum or plasma C reactive p rotein measurement (mass/volume)Ordered By: Mariana Allen on 01-06-2023 CRP [Mass/Vol] mg/L 0.0-3.0 [facility] Comment on above: C-Reactive Protein ( CRP) provides useful information for thediagnosis, therapy and monitoring of inflammatory processesand associated diseases. For the evaluation of Relative Riskfor Cardiovascular Disease, a High Sensitivity CRP (HSCRP)should be ordered. Basophil percentageOrdered B y: Tiffany Dyson on 11-15-2022 Bilirubin [Mass/Vol] 1.50 mg/dL 0.20-1.00 [facility] Comment on above: For patients on eltr ombopag therapy, use of Dimension [place] TBIL is not recommended. Cholesterol [Mass/Vol] 114 mg/dL <200 [facility] Comment on above: <200 mg/dL Desirable 200-240 mg/dL Borderline >240 mg/dL High Risk Protein [Mass/Vol] 7.4 g/dL 6.4-8.2 [facility] Triglyceride [Mass/Vol] 159 mg/dL <199 [facility] Comment on above: The drugs N-Acetylcy steine and Metamizole may falsely depress this assay.Serum Triglycerides Reference Interval Normal <150 mg/dL Borderline high 150 - 199 mg/dL High 200 - 499 mg/dL Very High > or = 500 mg/dL Direct bilirubinOrdered By: Tiffany Dyson on 11-15-2022 Bilirubin.direct [Mass/Vol] 0.33 mg/dL 0.00-0.30 [facility] Laboratory - Chemistry and C hemistry - challengeOrdered By: Tiffany Dyson on 11-15-2022 ALP [Catalytic activity/Vol] 128 U/L 45-117 [facility] ALT [Catalytic activity/Vol] 46 U/L 16-61 [facility] Globulin (S) [Mass/Vol] 3.5 g/dL 2.2-4.2 [facility] Serum or plasma albumin barbara urement (mass/volume)Ordered By: Tiffany Dyson on 11-15-2022 Albumin [Mass/Vol] 3.9 g/dL 3.2-5.0 [facility] Serum or plasma cholesterol in HDL measurement (mass/volume)Ordered By: Tiffany Dyson on 11-15-2022 Cholesterol in HDL [Mass/Vol] 37 mg/dL >40 [facility] Comment on above: The drugs N-Acetylcy steine and Metamizole may falsely depress this assay. Reference Range HDL <40 mg/dL Low HDL Cholesterol HDL >or= 60 mg/dL High HDL Cholesterol Serum or plasma cholesterol in VLDL measurement (mass/volume)Ordered By: Tiffany Dyson on 11-15-2022 Cholesterol in VLDL [Mass/Vol] 32 mg/dL 5-40 [facility] Serum or plasma low density lipoprotein (LDL) cholesterol measurement (mass/volume)Ordered By: Tiffany Dyson on 11-15-2022 Cholesterol in LDL [Mass/Vol] 45 mg/dL 0-130 [facility] Thin prep Papanicolaou smear with manual screeningOrdered By: Tiffany Dyson on 11-15-2022 Thin prep Papanicolaou smear with manual screening 23 U/L 15-37 [facility] Basophil percentageon 2021 Bilirubin [Mass/Vol] 0.90 mg/dL 0.20-1.00 [facility] Work Phone: Comment on above: For patients on eltr ombopag therapy, use of Dimension [place] TBIL is not recommended. Cholesterol [Mass/Vol] 124 mg/dL <200 [facility] Work Phone: Comment on above: <200 mg/dL Desirable 200-240 mg/dL Borderline >240 mg/dL High Risk Protein [Mass/Vol] 6.8 g/dL 6.4-8.2 [facility] Work Phone: Triglyceride [Mass/Vol] 120 mg/dL [facility] Work Phone: Comment on above: The drugs N-Acetylcy steine and Metamizole may falsely depress this assay.Serum Triglycerides Reference Interval Normal <150 mg/dL Borderline high 150 - 199 mg/dL High 200 - 499 mg/dL Very High > or = 500 mg/dL Direct bilirubinon 2 Bilirubin.direct [Mass/Vol] 0.20 mg/dL 0.00-0.30 [facility] Work Phone: Laboratory - Chemistry and C hemistry - challengeon 10-27-2021 ALP [Catalytic activity/Vol] 122 U/L 45-117 [facility] Work Phone: ALT [Catalytic activity/Vol] 43 U/L 16-61 [facility] Work Phone: Globulin (S) [Mass/Vol] 3.1 g/dL 2.2-4.2 [facility] Work Phone: Serum or plasma albumin barbara urement (mass/volume)on 10-27-2021 Albumin [Mass/Vol] 3.7 g/dL 3.2-5.0 [facility] Work Phone: Serum or plasma cholesterol in HDL measurement (mass/volume)on 10-27-2021 Cholesterol in HDL [Mass/Vol] 40 mg/dL [facility] Work Phone: Comment on above: The drugs N-Acetylcy steine and Metamizole may falsely depress this assay. Reference Range HDL <40 mg/dL Low HDL Cholesterol HDL >or= 60 mg/dL High HDL Cholesterol Serum or plasma cholesterol in VLDL measurement (mass/volume)on 10-27-2021 Cholesterol in VLDL [Mass/Vol] 24 mg/dL 5-40 [facility] Work Phone: Serum or plasma low density lipoprotein (LDL) cholesterol measurement (mass/volume)on 10-27-2021 Cholesterol in LDL [Mass/Vol] 60 mg/dL 0-130 [facility] Work Phone: Thin prep Papanicolaou smear with manual screeningon 10-27-2021 Thin prep Papanicolaou smear with manual screening 17 U/L 15-37 [facility] Work Phone: FLUOROSCOPY IN OR/PAIN MGTon 02-01-2021 FLUOROSCOPY IN OR/PAIN MGT FLUOROSCOPY IN OR/PAIN MGT Ordering Physician: Zak Muniz DO 02/01/2021 9:50 AM FLUOROSCOPY Clinical Statement: Spinal stenosis Comparison: None FINDINGS: 6 spot fluoroscopic images were saved demonstrating instrumentation and anterior cervical discectomy and fusion at C5-6. A total of 16 seconds fluoroscopy time was utilized. Please see the ordering clinician's report for full details. IMPRESSION: Documentation of fluoroscopy. This report was electronically signed by Luz Maria Toribio MD 02/01/2021 10:22 AM Reported By: LUZ MARIA TORIBIO M.D. Signed By: LUZ MARIA TORIBIO M.D. 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 Anterior discectomy/osteophytect devan C5-C6 2. Anterior interbody fusion utilizing 6 mm x 14 mm PEEK cage and demineralized bone matrix 3. Anterior plate fixation with 19 mm [place] plate and 14 mm screws 4. Fluoroscopic guidance and interpretation 5. Intraoperative somatosensory and motor evoked response monitoring Anesthesia: General endotracheal Estimated Blood Loss: 20 mL IV Fluids: See anesthesia record Urine Output: Not measured Complications: None apparent Findings/Specimens: Disc C5-C6 Procedure Details: This is a 50-year-old male with intractable neck pain and right upper extremity radiculitis. X-rays show advanced spondylosis at C5-C6 greater than the remainder of the cervical spine. MRI showed moderate to severe spinal canal stenosis and right foraminal stenosis at C5-C6. There is a myelomalacia lesion of the spinal cord at the C5-C6 level. There is a smaller disc bulge at the C6-C7 to the right. EMG showed C5-C6 changes on the right. Having failed to improve with nonsurgical care he elected to proceed with surgical intervention. I greeted the patient in the preop holding area. The surgical site was marked. All questions were answered to his satisfaction. The patient was brought to the operating room placed under satisfactory general endotracheal anesthesia. He was positioned in supine position on the operating table bony prominences well-padded. Baseline somatosensory and motor evoked responses were documented prior to extension of the cervical spine. A folded sheet was placed under the shoulders to extend the cervical spine. The aspect of the cervical region was then prepped using ChloraPrep and draped in a sterile fashion. Using lateral C-arm fluoroscopy and a metallic marker the C5-C6 disc levels identified. This level was marked in the skin. A straight incision was made beginning in the midline extending laterally to the left over the C5-C6 disc. The incision was carried down through the subcutaneous fat to the platysma muscle. The platysma muscle was elevated isolated and incised in line with the skin incision. The anterior border the sternocleidomastoid muscle was identified. The interval between it and the strap muscles was developed bluntly. The oblique head of the omohyoid muscle was identified and the dissection was carried out caudal to it. The trachea and esophagus were retracted to the right. The carotid sheath was identified and protected laterally to the left. An 18- gauge spinal needle was placed in what was felt to be the C5-C6 disc space. Lateral C arm image confirmed this to be the C5-C6 level. The medial borders longus coli muscle were elevated subperiosteally and shadow line retractor blades were placed under the longus coli muscle to maintain this exposure. [place] distraction pins in the bodies of C5 and C6. The needle was then cut out of the disc. Anterior osteophytes were removed. I was then able to slightly distract the disc space through the [place] pins. A total discectomy was carried out utilizing a combination of curettes and pituitary rongeurs. Once the soft portion of the disc was removed a 4 mm bur on a TPS drill was used to render the endplates parallel and thin the posterior osteophytes. Once the osteophytes were thinned I was able to get a 5 oh angled curette behind the osteophytes to release the posterior longitudinal ligament. The osteophytes were resected followed by removal of the posterior longitudinal ligament. The neural foramen were decompressed bilaterally by resecting the posterior aspect of the uncinate process. The neural foramen were probed with a small ball-tipped nerve hook and found to be free of tension or compression. The distraction on the disc was then removed. The [place] pins were removed. A 6 mm sizing template was used and found to be the ideal height and width for the interbody cage. Final endplate preparation was carried out with a 6 mm rasp. The cage was placed on the back table. 1/2 cc of demineralized bone matrix was placed in the center of the cage. The disc space was copiously irrigated with saline solution. The cage was impacted into the disc space and countersunk below the anterior margin of the vertebra. A 19 mm [place] plate was selected and placed across the C5-C6 disc space. 14 mm self drilling self-tapping screws were used to affix the plat (more content not included)... Normal [facility] SURG 02-01-2021 SURG --- Patient: ELMER ARBOLEDA SPECIMEN: [id number] Collection Date: 02/01/21 Received: 02/01/21 Status: ALEXANDRE Wagner DrGwendolyn: Zak Muniz DO Ph# Othr. Dr.: MISCELLANEOUS DOCTOR Material for Examination: A CERVICAL DISC PRE-OP DIAGNOSIS: CERVICAL SPONDYLOSIS POST-OP DIAGNOSIS: SAME SURGICAL PROCEDURE: ANTERIOR CERVICAL DISCECTOMY AND FUSION C5-6 WITH INTERBODY CAGE AND ANTERIOR PLATE DIAGNOSIS A. Cervical disc, anterior cervical discectomy: Fragments of degenerated fibrocartilage, consistent with clinical diagnosis and procedure. GROSS DESCRIPTION The specimen is received in formalin and labeled with the patient's name, ID and designated cervical disc, are multiple fragments of cheema-white cartilage 3.0 x 2.5 x 0.6 cm in aggregate. Rn Ccu sections are submitted in cassette A1. MICROSCOPIC DESCRIPTION [place] stained slide examined. COPIES TO: Zak Muniz DO MISCELLANEOUS DOCTOR Signed Verified/Reviewed by DONYA VELASQUEZ MD 02/03/21 This dictation was created using voice recognition software. Phonetic and/or minor grammatical errors may exist. [facility] NAME: ELMER ARBOLDEA Pathology and Laboratory Medicine UNIT#: [id number] LOC: [facility] Perinatal Director: Alia Kim M.D. ROOM/BED: [employer] [facility] : 70 AGE/SEX: 50/M ORD.DR. Muniz,Zak M DO END OF REPORT Normal [facility] ROUTINE COVIDon 01-30-2021 SARS-CoV-2 (COVID-19) RNA DULCE MARIA+probe Ql (Unsp spec) Negative Normal NEGATIVE [facility] Comment on above: Result Comment: Nega tive results do not preclude SARS-CoV-2 infection and should not be used as the sole basis for patient management decisions. Negative results must be combined with clinical observations, patient history, and epidemiological information. This test has been authorized by the FDA under the Emergency Use Authorization (EUA) for use by authorized laboratories. This test was performed by PCR. Performed By: #### L [id number] #### [facility] [address] [place] [address] [facility] Anion gap [Moles/Vol] 10 mmol/L Normal 5-16 [facility] Comment on above: Order Comment: Campu s: M Performed By: #### L [id number], [id number] #### [facility] [address] [place] [address] Calcium [Mass/Vol] 9.8 mg/dL Normal 8.5-10.5 [facility] Comment on above: Order Comment: Campu s: M Result Comment: NOTE NEW NORMAL RANGE DUE TO REAGENT CHANGE Performed By: #### L [id number], [id number] #### [facility] [address] [place] [address] Chloride [Moles/Vol] 106 mmol/L Normal 98-107 [facility] Comment on above: Order Comment: Campu s: M Performed By: #### L 500.23230, L500.19329 #### [facility] [address] [place] [address] CO2 [Moles/Vol] 24.0 mmol/L Normal 21-32 [facility] Comment on above: Order Comment: Campu s: M Performed By: #### L [id number], [id number] #### [facility] [address] [place] [address] Creatinine [Mass/Vol] 0.84 mg/dL Normal 0.5-1.4 [facility] Comment on above: Order Comment: Campu s: M Result Comment: NOTE NEW NORMAL RANGE DUE TO REAGENT CHANGE Patients receiving either N-Acetylcysteine (NAC) or Metamizole prior to venipuncture, may have falsely depressed results. Performed By: #### L 500.38234, [id number] #### [facility] [address] [place] [address] Glucose [Mass/Vol] 107 mg/dL High 70-100 [facility] Comment on above: Order Comment: Campu s: M Result Comment: 70-1 00- Normal Fasting; 100-125 Impaired Fasting; greater than 126 on more than one result- Diabetes. ADA guidelines. Results may be falsely elevated after the administration of Sulfapyridine. Results may be falsely depressed after the administration of Sulfasalazine. Performed By: #### L 500.09226, L500.83626 #### [facility] [address] [place] [address] Potassium [Moles/Vol] 4.9 mmol/L Normal 3.5-5.1 [facility] Comment on above: Order Comment: Campu s: M Result Comment: Slig ht Hemolysis, Result may be affected. Performed By: #### L 500.18331, L500.47415 #### [facility] [address] [place] [address] Sodium [Moles/Vol] 140 mmol/L Normal 136-145 [facility] Comment on above: Order Comment: Campu s: M Performed By: #### L 500.04617, L500.63769 #### [facility] [address] [place] [address] Urea nitrogen [Mass/Vol] 24 mg/dL Normal 7-26 [facility] Comment on above: Order Comment: Campu s: M Performed By: #### L 500.94507, L500.00525 #### [facility] [address] [place] [address] Urea nitrogen/Creatinine [Mass ratio] 29 mg/mg High 15-24 [facility] Comment on above: Order Comment: Campu s: M Performed By: #### L 500.67809, [id number] #### [facility] [address] [place] [address] CBC W/DIFFon 01-18-2021 BASO ABS 0.10 K/CU MM Normal 0-0.[facility] Comment on above: Order Comment: Campu s: M Performed By: #### L 550.62107, L200.94108 #### [facility] [address] [place] [address] Basophils/100 WBC (Bld) 1.5 % Normal 0-2 [facility] Comment on above: Order Comment: Campu s: M Performed By: #### L 550.84258, L200.60963 #### [facility] [address] [place] [address] EOS ABS 0.40 K/CU MM Normal 0-0.5 [facility] Comment on above: Order Comment: Campu s: M Performed By: #### L 550.07980, [id number] #### [facility] [address] [place] [address] Eosinophils/100 WBC (Bld) 7.7 % High 0-5 [facility] Comment on above: Order Comment: Campu s: M Performed By: #### L 550.59090, L200.03683 #### [facility] [address] [place] [address] Erythrocyte distribution width (RBC) [Ratio] 12.0 % Normal 11-14.5 [facility] Comment on above: Order Comment: Campu s: M Performed By: #### L 550.84570, L200.63044 #### [facility] [address] [place] [address] Hematocrit (Bld) [Volume fraction] 50.3 % Normal 41.0-53.0 [facility] Comment on above: Order Comment: Campu s: M Performed By: #### L 550.57893, L200.32059 #### [facility] [address] [place] [address] Hemoglobin (Bld) [Mass/Vol] 16.8 g/dL Normal 13.5-17.5 [facility] Comment on above: Order Comment: Campu s: M Performed By: #### L 550.28297, L200.40112 #### [facility] [address] [place] [address] IMMATR GRAN ABS 0.00 K/CU MM Normal Less than 2 [facility] Comment on above: Order Comment: Campu s: M Performed By: #### L [id number], L200.57339 #### [facility] [address] [place] [address] IMMATURE GRAN % 0.7 % Normal Less than 2 [facility] Comment on above: Order Comment: Campu s: M Performed By: #### L [id number], L200.71749 #### [facility] [address] [place] [address] LYMPH ABS 1.20 K/CU MM Normal 0.9-4.4 [facility] Comment on above: Order Comment: Campu s: M Performed By: #### L 550.85914, L200.50079 #### [facility] [address] [place] [address] Lymphocytes/100 WBC (Bld) 22.8 % Normal 20-40 [facility] Comment on above: Order Comment: Campu s: M Performed By: #### L 550.31272, L200.21648 #### [facility] [address] [place] [address] MCHC (RBC) [Mass/Vol] 33.4 g/dL Normal 32.0-36.0 [facility] Comment on above: Order Comment: Campu s: M Performed By: #### L 550.19688, L200.44975 #### [facility] [address] [place] [address] MCV (RBC) [Entitic vol] 92.0 fL Normal 80.0-99.0 [facility] Comment on above: Order Comment: Campu s: M Performed By: #### L 550.09135, L200.89556 #### [facility] [address] [place] [address] MONO ABS 1.00 K/CU MM Normal 0.1-1.1 [facility] Comment on above: Order Comment: Campu s: M Performed By: #### L 550.71242, L200.00771 #### [facility] [address] [place] [address] Monocytes/100 WBC (Bld) 18.0 % High 2-10 [facility] Comment on above: Order Comment: Campu s: M Performed By: #### L 550.39670, L200.41797 #### [facility] [address] [place] [address] NEUTROPHIL ABS 2.70 K/CU MM Normal 2.0-8.3 [facility] Comment on above: Order Comment: Campu s: M Performed By: #### L 550.53019, L200.59331 #### [facility] [address] [place] [address] Neutrophils/100 WBC (Bld) 49.3 % Normal 45-75 [facility] Comment on above: Order Comment: Campu s: M Performed By: #### L 550.42764, L200.20922 #### [facility] [address] [place] [address] Nucleated RBC/100 WBC (Bld) [Ratio] 0.0 % Normal Less than 1 [facility] Comment on above: Order Comment: Campu s: M Performed By: #### L 550.74141, L200.97485 #### [facility] [address] [place] [address] Platelet mean volume (Bld) [Entitic vol] 10.2 fL Normal 9.4-12.4 [facility] Comment on above: Order Comment: Campu s: M Performed By: #### L 550.89252, L200.06370 #### [facility] [address] [place] [address] PLT 196 K/CU MM Normal 150-450 [facility] Comment on above: Order Comment: Campu s: M Performed By: #### L 550.51870, L200.87477 #### [facility] [address] [place] [address] RBC 5.47 M/CU MM Normal 4.50-6.00 [facility] Comment on above: Order Comment: Campu s: M Performed By: #### L 550.06195, L200.74088 #### [facility] [address] [place], [place] [id number] WBC 5.4 K/CUMM Normal 4.5-11.0 [facility] Comment on above: Order Comment: Campu s: M Performed By: #### L 550.12430, L200.15451 #### [facility] [address] [place] [address] GFR ESTon 01-18-2021 IF AMER Greater than 60 Normal [facility] Comment on above: Order Comment: Campu s: M Performed By: #### L 500.55086, L500.16424 #### [facility] [place] [address] IF non-AFR AMER Greater than 60 Normal [facility] Comment on above: Order Comment: Campu s: M Performed By: #### L 500.50492, L500.92824 #### [facility] [address] [place], [place] [address] HGB A1C GLYCOHBon 01-18-2021 HbA1c (Bld) [Mass fraction] 5.9 % Normal 4.3-6.0 [facility] Comment on above: Order Comment: Armandou s: M Performed By: #### L 550.98864, L200.35871 #### [facility] [address] [place] [address] MRSA PCRon 01-18-2021 MRSA PCR Negative Normal NEGATIVE [facility] Comment on above: Order Comment: Campu s: M Result Comment: PLEA SE NOTE: TESTING DONE BY PCR TECHNOLOGY. Performed By: #### L 770.91225 #### [facility] [address] [place], [place] [address] SA PCR Positive High NEGATIVE [facility] Comment on above: Order Comment: Campu s: M Result Comment: PLEA SE NOTE: TESTING DONE BY PCR TECHNOLOGY. Performed By: #### L 770.02165 #### [facility] [address] [place], [place] [address] PBNP TESTon 01-18-2021 Natriuretic peptide B (Bld) [Mass/Vol] 75 pg/mL Normal 0-125 [facility] Comment on above: Order Comment: Campu s: M Result Comment: NT-p roBNP results of less than 300 pg/ml likely rules out acute congestive heart failure with 99% predictive value. NOTE: These cuttoff points are suggested for ACUTE CHF DIAGNOSIS only Less than 50 years Greater than 450 pg/ml 50-75 years Greater than 900 pg/ml Greater than 75 years Greater than 1800 pg/ml NOTE NEW NORMAL RANGE Performed By: #### L 500.36278 #### [facility] [address] [place] [address]# [phone] CR Hand Complete 3+ Views Le f[place] 01-05-2017 CR Hand Complete 3+ Views Left Patient Name: ELMER ARBOLEDA Diagnostic Radiology Exam Date/Time 01/05/2017 14:45:00 EDT Exam CR Hand Complete 3+ Views Left Ordering Physician MD WILFRIDO, HARMEET Mayers Accession Number [id number] CPT4 Codes 19076 () Reason For Exam left hand pain Report Left hand: 01/05/2017. Clinical Information: Pain. Findings: 3 views of the left hand reveal the bones to be well mineralized. There is no evidence of fracture or dislocation. No erosive or destructive changes are seen. No radiopaque foreign bodies or subcutaneous emphysema is identified. Impression: No acute process. Report Dictated on Final Dictating Physician: MD DEL ANGEL RISA Signed Date and Time: 01/05/2017 3:23 pm Signed by: MD DEL ANGEL RISA Transcribed Date and Time: 01/05/2017 3:34 Normal [facility] Vital Signs Date Time Vital Sign Value Performing Clinician Facility 09-13-2023 18:31-0400 Body temperature 97 [degF] [facility] 09-13-2023 18:31-0400 Diastolic blood pressure 89 mm[Hg] [facility] 09-13-2023 18:31-0400 Heart rate 61 /min [facility] 09-13-2023 18:31-0400 Respiratory rate 14 /min [facility] 09-13-2023 18:31-0400 SaO2% (BldA) [Mass fraction] 100 % [facility] 09-13-2023 18:31-0400 Systolic blood pressure 127 mm[Hg] [facility] 09-13-2023 16:11-0400 Body height 182.88 cm [facility] 09-13-2023 16:11-0400 Body mass index (BMI) [Ratio] 35.2 kg/m2 [facility] 09-13-2023 16:11-0400 Body weight 117.93 kg [facility] 01-16-2023 09:55-0400 Body height 182.[address] Damon Bui Work Phone: [facility] 01-16-2023 09:55-0400 Body mass index (BMI) [Ratio] 35.3 kg/m2 Dr. Damon Bui Work Phone: [facility] 01-16-2023 09:55-0400 Body temperature 97.9 [degF] Dr. Damon Bui Work Phone: [facility] 01-16-2023 09:55-0400 Body weight 118.[address] Damon Bui Work Phone: [phone] [address] 01-16-2023 09:55-0400 Diastolic blood pressure 87 mm[Hg] Dr. Damon Bui Work Phone: [facility] 01-16-2023 09:55-0400 Heart rate 81 /min Dr. Damon Bui Work Phone: [facility] 01-16-2023 09:55-0400 Respiratory rate 18 /min Dr. Damon Bui Work Phone: [facility] 01-16-2023 09:55-0400 SaO2% (BldA) [Mass fraction] 96 % Dr. Damon Bui Work Phone: [facility] 01-16-2023 09:55-0400 Systolic blood pressure 132 mm[Hg] Dr. Damon Bui Work Phone: [facility] 01-09-2023 09:57-0400 Body height 182.[address] Damon Bui Work Phone: [facility] 01-09-2023 09:57-0400 Body mass index (BMI) [Ratio] 35.6 kg/m2 Dr. Damon Bui Work Phone: [facility] 01-09-2023 09:57-0400 Body temperature 97.6 [degF] Dr. Damon Bui Work Phone: [facility] 01-09-2023 09:57-0400 Body weight 119.[address] Damon Bui Work Phone: [facility] 01-09-2023 09:57-0400 Diastolic blood pressure 83 mm[Hg] Dr. Damon Bui Work Phone: [facility] 01-09-2023 09:57-0400 Heart rate 89 /min Dr. Damon Bui Work Phone: [facility] 01-09-2023 09:57-0400 Respiratory rate 16 /min Dr. Damon Bui Work Phone: [facility] 01-09-2023 09:57-0400 SaO2% (BldA) [Mass fraction] 94 % Dr. Damon Bui Work Phone: [facility] 01-09-2023 09:57-0400 Systolic blood pressure 125 mm[Hg] Dr. Damon Bui Work Phone: [facility] 11-15-2022 08:47-0400 Body height 182.[address] Damon Bui Work Phone: [facility] 11-15-2022 08:47-0400 Body mass index (BMI) [Ratio] 35.8 kg/m2 Dr. Damon Bui Work Phone: [facility] 11-15-2022 08:47-0400 Body weight 119.[address] Damon Bui Work Phone: [facility] 11-15-2022 08:47-0400 Diastolic blood pressure 65 mm[Hg] Dr. Damon Bui Work Phone: [facility] 11-15-2022 08:47-0400 Heart rate 83 /min Dr. Damon Bui Work Phone: [facility] 11-15-2022 08:47-0400 Respiratory rate 18 /min Dr. Damon Bui Work Phone: [facility] 11-15-2022 08:47-0400 SaO2% (BldA) [Mass fraction] 93 % Dr. Damon Bui Work Phone: [facility] 11-15-2022 08:47-0400 Systolic blood pressure 113 mm[Hg] Dr. Damon Bui Work Phone: [facility] 10-21-2021 10:45-0400 Diastolic blood pressure 75 mm[Hg] Dr. Damon Bui Work Phone: [facility] Work Phone: 10-21-2021 10:45-0400 Systolic blood pressure 112 mm[Hg] Dr. Damon Bui Work Phone: [facility] Work Phone: 10-21-2021 08:39-0400 Body height 182.[address] Damon Bui Work Phone: [facility] Work Phone: 10-21-2021 08:39-0400 Body mass index (BMI) [Ratio] 34.5 kg/m2 Dr. Damon Bui Work Phone: [facility] Work Phone: 10-21-2021 08:39-0400 Body weight 115.[address] Damon Bui Work Phone: [facility] Work Phone: 10-21-2021 08:39-0400 Heart rate 82 /min Dr. Damon Bui Work Phone: [facility] Work Phone: 10-21-2021 08:39-0400 Respiratory rate 16 /min Dr. Damon Bui Work Phone: [facility] Work Phone: 10-21-2021 08:39-0400 SaO2% (BldA) [Mass fraction] 94 % Dr. Damon Bui Work Phone: [facility] Work Phone: 10-05-2021 07:07-0400 Body height 182.[address] ANGÉLICA BORJAS DO [facility] 10-05-2021 07:07-0400 Body temperature 97.52 [degF] DR ANGÉLICA BORJAS DO [facility] 10-05-2021 07:07-0400 Body weight 120.[address] ANGÉLICA BORJAS DO [facility] 10-05-2021 07:07-0400 Body weight 36.02 kg/m2 DR ANGÉLICA BORJAS DO [facility] 10-05-2021 07:07-0400 diastolic 86 mm[Hg] DR ANGÉLICA BORJAS DO [facility] 10-05-2021 07:07-0400 Heart rate 64 /min DR ANGÉLICA BORJAS DO [facility] 10-05-2021 07:07-0400 Respiratory rate 18 /min DR ANGÉLICA BORJAS DO [facility] 10-05-2021 07:07-0400 systolic 130 mm[Hg] DR ANGÉLICA BORJAS DO [facility] Encounters Encounter Date Encounter Type Care Provider Facility Start: 09-02-2024 End: 09-02-2024 molly Bui Facility:[facility] Start: 07-11-2024 End: 07-11-2024 ambulatory Rod FISHER Facility:[facility] Start: 07-11-2024 End: 07-11-2024 ambulatory Rod FISHER Facility:[facility] Start: 06-20-2024 End: 06-20-2024 ambulatory Damon Bui Facility:[facility] Start: 06-17-2024 End: 06-18-2024 ambulatory Damon Bui Facility:[facility] Start: 05-30-2024 End: 05-30-2024 ambulatory Rod FISHER Facility:[facility] Start: 04-26-2024 End: 04-26-2024 ambulatory Dallas Chapin Facility:[facility] Start: 04-09-2024 End: 04-09-2024 Emergency department patient visit Carlos Villegas Facility:[facility] Start: 03-04-2024 ambulatory Dallas Chapin Faci lity:[facility] Start: 03-04-2024 End: 03-04-2024 ambulatory Dallas Chapin Facility:[facility] Start: 03-01-2024 End: 03-01-2024 Emergency department patient visit Damon Bui Facility:[facility] Start: 02-24-2024 End: 02-26-2024 Evaluation and management of inpatient YVROSE ICKES II Facility:[facility] Start: 02-24-2024 End: 02-24-2024 Emergency department patient visit Damon Bui Facility:[facility] Start: 02-20-2024 ambulatory Dallas Chapin Faci lity:[facility] Start: 02-20-2024 End: 02-20-2024 ambulatory Dallas Chapin Facility:[facility] Start: 01-31-2024 End: 02-02-2024 ambulatory Dallas Chapin Facility:[facility] Start: 01-16-2024 End: 01-16-2024 ambulatory Damon Bui Facility:[facility] Start: 01-16-2024 End: 01-16-2024 ambulatory Damon Bui Facility:[facility] Start: 01-15-2024 End: 01-15-2024 ambulatory Dallas Chapin Facility:[facility] Start: 12-06-2023 End: 12-06-2023 ambulatory Damon Bui Facility:[facility] Start: 11-30-2023 End: 11-30-2023 ambulatory Damonbenito Bui Facility:[facility] Start: 10-11-2023 End: 10-11-2023 ambulatory Damonbenito Loomisner Facility:[facility] Start: 09-19-2023 ambulatory ZAK MCCALLRAN Fa cility:[facility] Start: 09-13-2023 End: 09-13-2023 Emergency department patient visit [facility] Work Phone: Start: 04-05-2023 End: 04-06-2023 ambulatory ZAK MCCALLRAN Facility:[facility] Start: 04-05-2023 End: 04-05-2023 Patient encounter procedure ZAK Mai MUNIZ DO [facility] Start: 02-28-2023 End: 02-28-[address] Damon Bui Work Phone: [facility] Work Phone: Start: 02-28-2023 End: 02-28-[address] Damon Bui Work Phone: [facility] Work Phone: Start: 01-16-2023 End: 01-16-[address] Damon Bui Work Phone: [facility] Work Phone: Start: 01-09-2023 End: 01-09-[address] Damon Bui Work Phone: [facility] Work Phone: Start: 01-09-2023 End: 01-09-[address] Damon Bui Work Phone: [facility] Work Phone: Start: 01-06-2023 End: 01-06-[address] Damon Bui Work Phone: [facility] Work Phone: Start: 01-06-2023 End: 01-06-[address] Dam[facility] B[facility] Phone: [facility] Work Phone: Start: 11-15-2022 End: 11-15-[address] Damon Bui Work Phone: [facility] Work Phone: Start: 11-15-2022 End: 11-15-[address] Dam[facility] B[facility] Work [facility]: Start: 11-15-2022 End: 11-15-[address] Damon Bui Work Phone: [facility] Work Phone: Start: 10-27-2021 End: 10-27-[address] Damon Bui Work Phone: [facility] Start: 10-21-2021 End: 10-21-[address] Damon Bui Work Phone: [facility] Start: 10-05-2021 End: 10-05-[address] ANGÉLICA BORJAS DO [facility] Start: 01-05-2017 Ambulatory [facility] Procedures Date Procedure Procedure Detail Performing Clinician Start: 02-28-2023 MRI of lumbar spine Dr. Damon Bui Work Phone: Start: 01-09-2023 Plain x-ray of pelvi s and lower extremity Dr. Damon Bui Work Phone: Start: 01-09-2023 X-ray of lumbar spin e, two or three views Dr. Damon Bui Work Phone: Start: 02-01-[address] ANGÉLICA BORJAS DO Start: 05-22-2016 Aortic stent (physic al object) DR ANGÉLICA BORJAS DO Start: 03-04-2016 History of placement of stent for coronary artery disease History of coronary artery stent placement Dr. Damon Bui Work Phone: Start: 05-22-[address] ANGÉLICA BORJAS DO Comment on above: right total knee rep lacement Start: 05-22-[address] ANGÉLICA BORJAS DO Comment on above: right partial Start: 05-22-2008 Cyst (disorder) DR CHIP OBRJAS DO Comment on above: removal from tailbon e Start: 05-22-[address] ANGÉLICA BORJAS DO Comment on above: left pinky reattachm ent Plan of Treatment Date Care Activity Detail Author Start: 09-13-2023 [facility] Start: 01-16-2023 Patient referral [facility] Work Phone: Patient Education ED Herniated I ntervertebral Disk [facility] Work Phone: Patient referral [facility] Work Phone: Payers Date Payer Category Payer Self-pay [id number] 2012 Unknown [id number] 1970 Unknown [id number] 2.16.8 40.1.124524.3.579.2.627 1970 Unknown [id number] 2.16.8 40.1.377901.3.579.2.627 1970 Unknown [id number] 2.16.8 40.1.034756.3.579.2.627 Unknown Unknown [id number] 2.16.8 40.1.226166.3.579.2.462 Unknown [id number] 2.16.8 40.1.583918.3.579.2.462 Unknown [id number] 2.16.8 40.1.895139.3.579.2.462 Unknown [id number] 2.16.8 40.1.321154.3.579.2.462 Unknown [id number] 2.16.8 40.1.661431.3.579.2.462 Unknown [id number] 2.16.8 40.1.135989.3.579.2.462 Unknown [id number] 2.16.8 40.1.041775.3.579.2.462 Unknown [id number] 2.16.8 40.1.930901.3.579.2.462 Unknown [id number] 2.16.8 40.1.102141.3.579.2.462 Unknown [id number] 2.16.8 40.1.165365.3.579.2.462 Unknown [id number] 2.16.8 40.1.493857.3.579.2.462 Unknown [id number] 2.16.8 40.1.478563.3.579.2.462 Unknown [id number] 2.16.8 40.1.414958.3.579.2.462 Unknown [id number] 2.16.8 40.1.729877.3.579.2.462 Unknown [id number] 2.16.8 40.1.600924.3.579.2.462 Unknown [id number] 2.16.8 40.1.723637.3.579.2.462 Unknown [id number] 2.16.8 40.1.247184.3.579.2.462 Unknown [id number] 2.16.8 40.1.836486.3.579.2.462 Unknown [id number] 2.16.8 40.1.349593.3.579.2.462 Unknown [id number] 2.16.8 40.1.002759.3.579.2.462 Unknown [id number] 2.16.8 40.1.698628.3.579.2.462 Unknown [id number] 2.16.8 40.1.596997.3.579.2.462 Unknown [id number] 2.16.8 40.1.027596.3.579.2.462 Unknown [id number] 2.16.8 40.1.035053.3.579.2.462 Social History Date Type Detail Facility Start: 10-05-2021 Tobacco smoking status Heavy tobacco smoker (finding) [facility] Start: 1970 Sex Assigned At Male A [facility] Start: 10-21-2021 End: 09-13-2023 Tobacco smoking status NHIS Unknown if ever smoked [facility] Start: 03-28-2019 None [facility] Start: 03-28-2019 Spouse/ Signif icant Other [facility] Start: 03-29-2019 Cigarettes [facility] Medical Equipment Procedure Code Equipment Code Equipment Origin al Text Equipment Identifier Dates PATTCEMENT 6191-1-010 FDA Start: 05-09-2017 TRIATHLON X3 PATELLA FDA Star t: 05-09-2017 TRIATHLON X3 TIB INSERT-PS FDA Start: 05-09-2017 DOUGH,CEMENT 6191-1-010 FDA Start: 05-09-2017 HEADED PINS FDA Start: 05-09-2017 HEADED PINS FDA Start: 05-09-2017 HEADLESS PINS FDA Start: 05-09-2017 PLUG,BONE SMALL FDA Start: 05-09-2017 TRIATHLON CEMENT ED STEMS FDA Start: 05-09-2017 TRIATHLON POST STABIL FEM COMP FDA Start: 05-09-2017 TRIATHLON UNIV T IB BASEPLATE FDA Start: 05-09-2017 DOUGH,CEMENT 6191-1-010 FDA Start: 05-09-2017 TRIATHLON X3 PATELLA FDA Star t: 05-09-2017 TRIATHLON X3 TIB INSERT-PS FDA Start: 05-09-2017 DOUGH,CEMENT 6191-1-010 FDA Start: 05-09-2017 HEADED PINS FDA Start: 05-09-2017 HEADED PINS FDA Start: 05-09-2017 HEADLESS PINS FDA Start: 05-09-2017 PLUG,BONE SMALL FDA Start: 05-09-2017 TRIATHLON CEMENT ED STEMS FDA Start: 05-09-2017 TRIATHLON POST STABIL FEM COMP FDA Start: 05-09-2017 TRIATHLON UNIV T IB BASEPLATE FDA Start: 05-09-2017 DOUGH,CEMENT 6191-1-010 FDA Start: 05-09-2017 TRIATHLON X3 PATELLA FDA Star t: 05-09-2017 TRIATHLON X3 TIB INSERT-PS FDA Start: 05-09-2017 DOUGH,CEMENT 6191-1-010 FDA Start: 05-09-2017 HEADED PINS FDA Start: 05-09-2017 HEADED PINS FDA Start: 05-09-2017 HEADLESS PINS FDA Start: 05-09-2017 PLUG,BONE SMALL FDA Start: 05-09-2017 TRIATHLON CEMENT ED STEMS FDA Start: 05-09-2017 TRIATHLON POST STABIL FEM COMP FDA Start: 05-09-2017 TRIATHLON UNIV T IB BASEPLATE FDA Start: 05-09-2017 DOUGH,CEMENT 6191-1-010 FDA Start: 05-09-2017 TRIATHLON X3 PATELLA FDA Star t: 05-09-2017 TRIATHLON X3 TIB INSERT-PS FDA Start: 05-09-2017 DOUGH,CEMENT 6191-1-010 FDA Start: 05-09-2017 HEADED PINS FDA Start: 05-09-2017 HEADED PINS FDA Start: 05-09-2017 HEADLESS PINS FDA Start: 05-09-2017 PLUG,BONE SMALL FDA Start: 05-09-2017 TRIATHLON CEMENT ED STEMS FDA Start: 05-09-2017 TRIATHLON POST STABIL FEM COMP FDA Start: 05-09-2017 TRIATHLON UNIV T IB BASEPLATE FDA Start: 05-09-2017 DOUGH,CEMENT 6191-1-010 FDA Start: 05-09-2017 TRIATHLON X3 PATELLA FDA Star t: 05-09-2017 TRIATHLON X3 TIB INSERT-PS FDA Start: 05-09-2017 DOUGH,CEMENT 6191-1-010 FDA Start: 05-09-2017 HEADED PINS FDA Start: 05-09-2017 HEADED PINS FDA Start: 05-09-2017 HEADLESS PINS FDA Start: 05-09-2017 PLUG,BONE SMALL FDA Start: 05-09-2017 TRIATHLON CEMENT ED STEMS FDA Start: 05-09-2017 TRIATHLON POST STABIL FEM COMP FDA Start: 05-09-2017 TRIATHLON UNIV T IB BASEPLATE FDA Start: 05-09-2017 DOUGH,CEMENT 6191-1-010 FDA Start: 05-09-2017 TRIATHLON X3 PATELLA FDA Star t: 05-09-2017 TRIATHLON X3 TIB INSERT-PS FDA Start: 05-09-2017 DOUGH,CEMENT 6191-1-010 FDA Start: 05-09-2017 HEADED PINS FDA Start: 05-09-2017 HEADED PINS FDA Start: 05-09-2017 HEADLESS PINS FDA Start: 05-09-2017 PLUG,BONE SMALL FDA Start: 05-09-2017 TRIATHLON CEMENT ED STEMS FDA Start: 05-09-2017 TRIATHLON POST STABIL FEM COMP FDA Start: 05-09-2017 TRIATHLON UNIV T IB BASEPLATE FDA Start: 05-09-2017 Functional Status Date Assessment Result Facility 10-05-2021 Functional Status [facility] Mental Status Date Assessment Result Facility 10-05-2021 Mental Status [facility] Clinical Notes 03-04-2016 to 06-18-2024 Note Date & Type Note Facility 06-18-2024 Note [facility] Medical Records Department [address] [place] [address] Discharge Summary 06/18/24 1141 MR#: [id number] Acct: [id number] Name: ELMER ARBOLEDA Rep #: [id number] : 1970 54 From: Fransico Cassidy DO PCP: Dr. Damon Bui MD Status:DIS NICOLASA Location: [facility] [id number] Providers Date of Admission: 06/17/24 Date of Discharge: 06/18/24 Primary Care Physician: Dr. Damon Bui MD Reason For Visit: ACUTE INFLUENZA A WITH RESPIRATORY INSUFFICIENCY Diagnosis Discharge Diagnosis (1) Influenza A: Status: Acute Code(s): J10.1 - Influenza due to other identified influenza virus with other respiratory manifestations (2) Respiratory insufficiency: Status: Acute Code(s): R06.89 - Other abnormalities of breathing (3) Tobacco abuse: Status: Acute Code(s): Z72.0 - Tobacco use (4) Obesity (BMI 30-39.9): Status: Acute Code(s): E66.9 - Obesity, unspecified (5) History of coronary artery stent placement: Status: Acute Code(s): Z95.5 - Presence of coronary angioplasty implant and graft (6) Essential (primary) hypertension: Status: Chronic Code(s): I10 - Essential (primary) hypertension Plan 1. Acute influenza A infection #2 hypoxia secondary to influenza A #3 coronary artery disease #4 essential hypertension Medications at Discharge Home Medications aspirin 81 mg tablet,delayed release (Adult Low Dose Aspirin) 81 mg PO DAILY 06/28/18 acetaminophen 500 mg tablet 1,000 mg PO Q8H PRN Pain Score 1-02/2803/28/19 atorvastatin 80 mg tablet 80 mg PO QHS #90 TABLETS 10/27/23 carvedilol 6.25 mg tablet 6.25 mg PO BID for blood pressure #180 TABLETS 10/27/23 lisinopril 10 mg tablet 10 mg PO DAILY #90 TABLETS 10/27/23 isosorbide mononitrate 60 mg tablet,extended release 24 hr 60 mg PO DAILY #90 TABLETS 12/05/23 gabapentin 300 mg capsule 300 mg PO TID PRN pain 01/16/24 nitroglycerin 0.4 mg sublingual tablet 0.4 mg sublingual PRN PRN chest pain 01/17/24 pantoprazole 40 mg tablet,delayed release 40 mg PO DAILY for indigestion #90 TABLETS 03/04/24 dibucaine 1 % rectal ointment [address] TID PRN hemorrhoids #28.4 grams 06/13/24 albuterol sulfate 90 mcg/actuation aerosol inhaler 2 puff inhalation Q4H PRN Wheezing 06/17/24 oseltamivir 75 mg capsule 75 mg PO BID #9 caps 06/18/24 prednisone 20 mg tablet 40 mg (2 x 20 mg) PO DAILY #14 tabs 06/18/24 Hospital Course Operations None Procedures None Summary of Care Provided Minutes Spent on Discharge: 30 Hospital Course: This 54-year-old white male was seen in emergency room at [facility] with a chief complaint of shortness of breath, productive cough, fever and nausea. His symptoms had started 24 hours prior. Labs obtained showed a normal CBC, patient's chemistry profile was remarkable for a sodium of 133 but was otherwise normal, patient's TSH was low at 0.142. Chest x-ray was obtained and showed no acute findings. Patient's pulse ox in the emergency room was noted to be 88% and he was placed on supplemental oxygen. Testing was positive for influenza A. Patient was placed in observation status on MedSurg 3, his oxygen was able to be weaned off and he was placed on Tamiflu. On 06/18/2024, patient was seen and examined: On examination he appeared in good health and spirits. Vital signs as documented. Skin warm and dry and without overt rashes. Neck without JVD, neck was supple, trachea midline, thyroid was normal. Lungs clear bilaterally, normal air movement was noted. Heart exam notable for regular rhythm, normal sounds and absence of murmurs, rubs or gallops. Abdomen unremarkable and without evidence of organomegaly, masses, or abdominal aortic enlargement. Bowel sounds are present, abdomen is not distended. Extremities nonedematous, no cyanosis was noted, no clubbing was noted. Neuro: Cranial nerves II through XII are grossly intact, no focal motor deficits were noted, sensation to light touch and pinprick intact, motor exam 5/5 throughout. Psych: Patient is alert and oriented x3, he does not appear anxious or depressed, he does not appear agitated. Patient was discharged home in stable condition on 06/18/2024 Weight / BMI Weight Weight: 116.7 kg Body Mass Index (BMI) 34.8 ABG / Lab / Microbiology Data 06/18/24 07:06 06/18/24 07:06 Laboratory: Laboratory Results - last 24 hr 06/17/24 15:20: TSH 0.142 L 06/17/24 19:37: Troponin I High Sens 18 06/17/24 23:10: Troponin I High Sens 14 06/18/24 07:06: WBC 3.7 L, RBC 4.91, Hgb 13.3, Hct 41.6, MCV 84.7, MCH 27.1, MCHC 32.0, RDW Std Deviation 49.6 H, RDW Coeff of Ivan 15.9 H, Plt Count 171, MPV 9.9, Immature Gran % (Auto) 0.500, Neut % (Auto) 60.4, Lymph % (Auto) 19.3, Randall % (Auto) 18.5 H, Eos % (Auto) 0.8, Baso % (Auto) 0.5, Absolute Neuts (auto) 2.3, Absolute Lymphs (auto) 0.72 L, Nucleated RBC % 0, Sodium 136, Potassium (more content not included)... [facility] 04-26-2024 Note [facility] Medical Records Department [address] [place] [address] History Physical Exam 04/26/24 1146 MR#: [id number] Acct: [id number] Name: ELMER ARBOLEDA Rep #: [id number] : 1970 54 From: Dallas Chapin MD PCP: Dr. 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 FORMERLY [facility], [facility] Medical History (Updated 04/17/24 @ 00:01 by Background Daemon) Hx of malignant carcinoid tumor of kidney Wears glasses Cancer Arthritis History of renal disease High cholesterol Injury of head and neck Gastric reflux Smoker Injury of back Leg cramps History of pain when walking History of edema History of stress test Cardiology follow-up encounter Hypertension Pain Liver hemangioma Strain of right hip Lumbosacral radiculopathy Lumbosacral strain Arthritis of right hand Contusion of hand, right BBB (bundle branch block) Staphylococcal infection of skin Atherosclerotic heart disease of [place] coronary artery without angina pectoris Essential (primary) hypertension Tobacco use Obesity Acute non-ST segment elevation myocardial infarction HLD (hyperlipidemia) Home Medications ???Medication ???Instructions ???Recorded ???Last Taken ???Type albuterol sulfate 90 mcg/actuation 2 puff inhalation Q4H PRN PRN 06/19/18 03/28/19 Rx aerosol inhaler Wheezing ##1 aspirin 81 mg tablet,delayed 81 mg PO DAILY 06/28/18 04/12/24 History release (Adult Low Dose Aspirin) acetaminophen 500 mg tablet 1,000 mg PO Q8H PRN PRN Pain Score 03/28/19 03/28/19 History 1-02/28 atorvastatin 80 mg tablet 80 mg PO QHS #90 TABLETS 10/27/23 Unknown Rx carvedilol 6.25 mg tablet 6.25 mg PO BID for blood pressure 10/27/23 04/26/24 Rx #180 TABLETS lisinopril 10 mg tablet 10 mg PO DAILY #90 TABLETS 10/27/23 04/26/24 Rx isosorbide mononitrate 60 mg 60 mg PO DAILY #90 TABLETS 12/05/23 04/26/24 Rx tablet,extended release 24 hr gabapentin 300 mg capsule 300 mg PO TID PRN PRN pain 01/16/24 01/31/24 History nitroglycerin 0.4 mg sublingual 0.4 mg sublingual PRN PRN chest 01/17/24 Unknown History tablet pain pantoprazole 40 mg tablet,delayed 40 mg PO DAILY for indigestion #90 03/04/24 04/26/24 Rx release TABLETS Allergy/AdvReac Type Severity Reaction Status Date / Time No Known Allergies Allergy Verified 04/26/24 10:38 Family History Father CAD (coronary artery disease) Mother CVA (cerebral vascular accident) CAD (coronary artery disease) Surgical History (Updated 04/15/24 @ 08:43 by Kira Browning) History of cystoscopy History of coronary artery stent placement Hx of hand surgery History of fusion of cervical spine History of left heart catheterization (11/04/16) History of knee replacement History of carpal tunnel release Social History Smoking Status: Current every day smoker tobacco type: cigarettes alcohol intake: never substance use type: does not use 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 Dallas Chapin MD; Dr. Damon Bui MD Signed [facility] 03-01-2024 Note [facility] Medical Records Department [address] [place] [address] Consultation 03/01/24 1113 MR#: [id number] Acct: [id number] Name: ELMER ARBOLEDA Alexus Rep #: [id number] : 1970 54 From: Dallas Chapin MD PCP: Dr. Damon Bui MD Status:REG ER Location: ED Consult Date of Consult: 03/01/24 Reason for Consult 54-year-old male history of a renal mass which was cancer he underwent a partial nephrectomy, unfortunately developed a urine leak after the surgery and had a nephrostomy tube put in and then he was transferred to [facility] I was out of town and he had a larger tube put in which is draining much better however he can call me this morning he feels like he is has some more accumulation of fluid inside and on repeat CAT scan he does have a rim of urine fluid that is not being drained by the other nephrostomy tube so organ to have him come back to place the tube on Monday, there is no radiologist available to do the tube today I do not think it is an emergency situation I will do need to transfer him to another hospital have a tube put in but I have an arrangement done to have an outpatient procedure on Monday to have a guided placement of a another nephrostomy tube into that second urine spot. With drainage of both the spots and with the stent in and a Clarke catheter drainage were hoping to get him cured and get those urine leak to heal on its own spontaneously with drainage. Patient was agreeable with this plan he can go home and I will put an order and talk to radiology about having come back for a CT-guided placement of a drainage tube 03/01/24 1115 Cosigner Signature (if applicable): CC: Dr. Damon Bui MD Signed [facility] 02-26-2024 Note HNO ID: [id number] Author: EDD HORTON DO Service: Hospital Medicine Author Type: Physician Type: Progress Notes Filed: 02/27/2024 18:46 Note Text: Documentation Query Please provide a diagnosis associated with the above clinical indicators Hypoxia onlyOther bronchitis This document will become part of the patient's medical record. [facility] 02-26-2024 Note HNO ID: [id number] Author: EDD HORTON DO Service: Hospital Medicine Author Type: Physician Type: Progress Notes Filed: 02/27/2024 18:46 Note Text: Documentation Query Please clarify status of pneumonia Diagnosis Ruled Out This document will become part of the patient's medical record. [facility] 02-26-2024 Note HNO ID: [id number] Author: RANDAL GOFF MD Service: Urology Author Type: Resident Type: Plan of Care Filed: 02/26/2024 17:25 Note Text: Urology Plan of Care Pt evaluated at bedside in NAD s/p urinoma drain exchange. Per IR report, exchange was successful and up-sized. Pt good to dc from Urology's standpoint. Pt has outpatient follow-up with his original urologist on Monday. Please call/text or Epic message with non-urgent questions/concerns and otherwise page the urology resident vice president for instruction if needed Randal Goff MD Urology PGY-3 February 26, 2024 5:[address] [facility] 02-26-2024 Note HNO ID: [id number] Author: RAVINDRA BARRERA RN Service: Care Management Author Type: Registered Nurse Type: Care Mgt Initial Assessment Filed: 02/26/2024 16:10 Note Text: CARE MANAGEMENT: ASSESSMENT AND DISCHARGE PLAN SERVICE DATE: February 26, 2024 SERVICE TIME: 4:07 PM PCP: Damon Bui MD Primary Contact: Extended Emergency Contact Information Primary Emergency Contact: Melodie Medrano Address: [address] [place] [address] [address] [facility] Mobile Relation: None Admission Status: Inpatient Insurance Provider: GENIE GUAN PPOlivia OOS Discharge Planning requested by: Per Department Practice Potential Transition Plans No Services Indicated Advance Directives Current Advance Directive: None Plugger Man Attempted to Assist with AD Completion: Yes Action: Patient Unwilling Current Living Arrangements and Support Lives with: Spouse/significant other Type of Residence: Private Residence (House) Does the patient have to climb stairs at home?: Yes Support: Other: See Comment How do you manage to accomplish the following: Independent: Ambulation;Bathe/Shower;Dress;Gertrude ls/Meal Prep;Going to the bathroom;Medication Management;Transportation to appointments/community;Not Applicable: Infant/Child Current Services/Equipment Current Post-Acute Service(s): None Discharge Planning Patient Goal(s): General wellness [place] of Choice Explained: [place] of Choice Given: No Reason Not Given: Patient refused Are you interested in bedside delivery of your medications? No Discharge Planning Participant(s): Patient Patient/Family Comments: Caregiver Assessment: Caregiver is ready, willing and able to meet the patient's needs as recommended by the inter-professional team: No Caregiver needed Transport at Discharge: Transportation Arrangements: Car Needs Prior to Discharge: Needs Prior to Discharge: Ready for Discharge Post-Acute Discharge Plan: Functional:Independent prior to admission , lives in multi level home with bedroom and bathroom on second floor Transportation: pt's able to provide transportation at dc Equipment Prior to Admission: none Support: pt's able to assist Pharmacy: [facility] PCP: Damon Bui Spoke with pt for the above initial assessment, pt going to IR today for drain placement, pt going home with clarke; pt has no skilled needs at dc SIGNATURE: Ravindra Barrera RN PATIENT NAME: Elmer Arboleda DATE: February 26, 2024 TIME: 4:07 PM CONTACT #: [id number] [facility] 02-26-2024 Note HNO ID: [id number] Author: KYLEE CAPUTO MD Service: Urology Author Type: Physician Type: Progress Notes Filed: 02/26/2024 10:47 Note Text: UROLOGY PROGRESS NOTE PATIENT NAME: Elmer Arboleda DATE OF : 1970 ADMISSION DATE: 02/24/2024 6:39 PM Subjective No acute events overnight. Hypotension yesterday, resolved. Reports he felt fine during that episode Pain still present where fluid is building up from drain malfunction JAREN with minimal clear output (5cc) Clarke with yellow urine Objective VS: BP 118/65 Pulse 80 Temp 36.8 ?C (98.2 ?F) (Oral) Resp 18 Ht 167.6 cm (5' 6) Wt 115.7 kg (255 lb) SpO2 91% BMI 41.16 kg/m? I AND O - 24hr: Intake/Output Summary (Last 24 hours) at 02/26/2024 0653 Last data filed at 02/26/2024 0558 Gross per 24 hour Intake 10 ml Output 1405 ml Net -1395 ml Physical Exam: General: Neck: Resp: Abdomen: No acute distress Supple Normal effort Soft, non-tender, nondistended : Clarke with yellow urine, IR JAREN drain with serous scant output Labs and Imaging Studies LABS: BMP: Glucose Date Value 02/25/2024 110 mg/dL 01/18/2021 107 MG/DL Potassium Date Value 02/25/2024 3.7 mmol/L 01/18/2021 4.9 MMOL/L Sodium Date Value 02/25/2024 135 mmol/L 01/18/2021 140 MMOL/L Chloride Date Value 02/25/2024 101 mmol/L 01/18/2021 106 MMOL/L CO2 Date Value 02/25/2024 24 mmol/L 01/18/2021 24.0 MMOL/L Creatinine Date Value 02/25/2024 0.76 mg/dL 01/18/2021 0.84 MG/DL BUN Date Value 02/25/2024 12 mg/dL 01/18/2021 24 MG/DL Anion Gap Date Value 02/25/2024 10 mmol/L 01/18/2021 10 MMOL/L Calcium (MG/DL) Date Value 01/18/2021 9.8 Calcium, Total (mg/dL) Date Value 02/25/2024 8.5 CBC: Hemoglobin Date Value 02/26/2024 12.3 g/dL 01/18/2021 16.8 G/DL Hematocrit (%) Date Value 02/26/2024 36.2 01/18/2021 50.3 WBC Date Value 02/26/2024 11.20 k/uL 01/18/2021 5.4 K/CUMM Platelet Count Date Value 02/26/2024 331 k/uL 01/18/2021 196 K/CU MM Urinalysis: Specific Trosper, Ur Date Value Ref Range Status 02/24/2024 >1.040 (H) 1.005 - 1.030 Final Glucose, Urine Date Value Ref Range Status 02/24/2024 Negative Trace, Negative Final Bilirubin, Urine Date Value Ref Range Status 02/24/2024 Negative Negative Final Ketones, Urine Date Value Ref Range Status 02/24/2024 1+ (A) Negative, Trace Final Hemoglobin/Blood,Ur Date Value Ref Range Status 02/24/2024 3+ (A) Negative, Trace Final Protein, Urine Date Value Ref Range Status 02/24/2024 1+ (A) Trace, Negative Final Nitrites Date Value Ref Range Status 02/24/2024 Negative Negative Final WBC, Urine Date Value Ref Range Status 02/24/2024 11-25 /HPF (A) 0-5 /HPF Final Urine Culture: No results found for: URCUL RADIOLOGY: Assessment and Plan Problem List Bronchitis (POA: Yes) Pararenal urinoma (POA: Status not on file) ASSESSMENT: 54 year old male with left renal mass s/p L partial nephrectomy complicated by left urinoma with stent placement and drain placement. He now presents with worsening flank pain and reaccumulation of fluid despite drain being in appropriate position PLAN: - Maintain clarke. Discharge home with clarke. - Maintain stent - Maintain drain - INR 1.1 - Hold any DVT PPX if necessary until after IR procedure - IR today for drain placement - Leukocytosis stable, continue antibiotics, trend - Urine culture in process - both clarke and stent in place Karuna Crum MD Urology PGY-5 02/26/2024 6:59 AM Page vice president for instruction resident with questions Attending Note I have seen examined and evaluated the patient and discussed the case with the resident physician. I agree with the assessment and plan as documented in the resident?s note. Signature: Kylee Caputo MD Date: 02/26/2024 Time: 10:[address] [facility] 02-25-2024 Note HNO ID: [id number] Author: EDD HORTON DO Service: Hospital Medicine Author Type: Physician Type: Progress Notes Filed: 02/25/2024 13:37 Note Text: Pt was seen on morning rounds today. He was admitted earlier this morning. On gentle fluids, abx, pain meds prn. Urology following. Planning for jaren drain exchange/adjustment tomorrow. [facility] 02-25-2024 Note HNO ID: [id number] Author: TO JOHN MD Service: Urology Author Type: Resident Type: Progress Notes Filed: 02/25/2024 16:32 Note Text: Attestation signed by To John MD at 02/25/2024 4:32 PM I saw and evaluated the patient. Discussed with the resident and agree with resident's findings and plan as documented in the resident's note. To John MD UROLOGY PROGRESS NOTE PATIENT NAME: Elmer Arboleda DATE OF : 1970 ADMISSION DATE: 02/24/2024 6:39 PM Subjective No acute events overnight. Pain present JAREN with minimal clear output (10-15cc) On NC this AM Clarke with yellow urine Objective VS: BP 111/69 Pulse 81 Temp 36.4 ?C (97.5 ?F) (Oral) Resp 16 Wt 115.7 kg (255 lb) SpO2 94% I AND O - 24hr: Intake/Output Summary (Last 24 hours) at 02/25/2024 0613 Last data filed at 02/25/2024 0426 Gross per 24 hour Intake 1250 ml Output 460 ml Net 790 ml Physical Exam: General: Neck: Resp: Abdomen: No acute distress Supple Normal effort Soft, non-tender, nondistended : Clarke with yellow urine, IR JAREN drain with serous scant output Labs and Imaging Studies LABS: BMP: Glucose Date Value 02/25/2024 110 mg/dL 01/18/2021 107 MG/DL Potassium Date Value 02/25/2024 3.7 mmol/L 01/18/2021 4.9 MMOL/L Sodium Date Value 02/25/2024 135 mmol/L 01/18/2021 140 MMOL/L Chloride Date Value 02/25/2024 101 mmol/L 01/18/2021 106 MMOL/L CO2 Date Value 02/25/2024 24 mmol/L 01/18/2021 24.0 MMOL/L Creatinine Date Value 02/25/2024 0.76 mg/dL 01/18/2021 0.84 MG/DL BUN Date Value 02/25/2024 12 mg/dL 01/18/2021 24 MG/DL Anion Gap Date Value 02/25/2024 10 mmol/L 01/18/2021 10 MMOL/L Calcium (MG/DL) Date Value 01/18/2021 9.8 Calcium, Total (mg/dL) Date Value 02/25/2024 8.5 CBC: Hemoglobin Date Value 02/25/2024 12.0 g/dL 01/18/2021 16.8 G/DL Hematocrit (%) Date Value 02/25/2024 36.2 01/18/2021 50.3 WBC Date Value 02/25/2024 11.84 k/uL 01/18/2021 5.4 K/CUMM Platelet Count Date Value 02/25/2024 309 k/uL 01/18/2021 196 K/CU MM Urinalysis: Specific Trosper, Ur Date Value Ref Range Status 02/24/2024 >1.040 (H) 1.005 - 1.030 Final Glucose, Urine Date Value Ref Range Status 02/24/2024 Negative Trace, Negative Final Bilirubin, Urine Date Value Ref Range Status 02/24/2024 Negative Negative Final Ketones, Urine Date Value Ref Range Status 02/24/2024 1+ (A) Negative, Trace Final Hemoglobin/Blood,Ur Date Value Ref Range Status 02/24/2024 3+ (A) Negative, Trace Final Protein, Urine Date Value Ref Range Status 02/24/2024 1+ (A) Trace, Negative Final Nitrites Date Value Ref Range Status 02/24/2024 Negative Negative Final WBC, Urine Date Value Ref Range Status 02/24/2024 11-25 /HPF (A) 0-5 /HPF Final Urine Culture: No results found for: URCUL RADIOLOGY: Assessment and Plan Problem List Bronchitis (POA: Yes) ASSESSMENT: 54 year old male with left renal mass s/p L partial nephrectomy complicated by left urinoma with stent placement and drain placement. He now presents with worsening flank pain and reaccumulation of fluid despite drain being in appropriate position PLAN: - Maintain clarke - Maintain stent - Maintain drain - Check INR - Discussed with IR. As of now, no urgent cases so will give diet today and make NPO after midnight - Leukocytosis improving, continue antibiotics, trend Karuna Crum MD Urology PGY-5 02/25/2024 7:55 AM Page vice president for instruction resident with questions [facility] 02-20-2024 Note [facility] Medical Records Department [address] [place] [address] History Physical Exam 02/20/24 1643 MR#: [id number] Acct: [id number] Name: ELMER ARBOLEDA Rep #: [id number] : 1970 54 From: Dallas Chapin MD PCP: Dr. Damon Bui MD Status:[facility] Location: [place] [address] HPI - General General Date of Service: 02/20/24 Chief Complaint: Urine leak HPI Narrative ELMER ARBOLEDA, is a 54 M who presents back to my office today with severe pain we have a CAT scan that demonstrated he had a large urinoma and ureteral leak he had a partial nephrectomy 3 weeks for a cancer of the kidney and he is developed the postop urine leak today we placed the drain percutaneously by radiology and IR placed a stent and a Clarke catheter to decompress the kidney system and hopefully the leak will heal on its own with decompression. [facility]LY [facility] Medical History Wears glasses Cancer History of steroid therapy Arthritis History of renal disease High cholesterol Injury of head and neck Gastric reflux Smoker Injury of back Leg cramps History of pain when walking History of edema History of stress test Cardiology follow-up encounter Hypertension Pain Liver hemangioma Strain of right hip Lumbosacral radiculopathy Lumbosacral strain Arthritis of right hand Contusion of hand, right BBB (bundle branch block) Staphylococcal infection of skin Atherosclerotic heart disease of [place] coronary artery without angina pectoris Essential (primary) hypertension Tobacco use Obesity Acute non-ST segment elevation myocardial infarction HLD (hyperlipidemia) Home Medications ???Medication ???Instructions ???Recorded ???Last Taken ???Type albuterol sulfate 90 mcg/actuation 2 puff inhalation Q4H PRN PRN 06/19/18 03/28/19 Rx aerosol inhaler Wheezing ##1 aspirin 81 mg tablet,delayed 81 mg PO DAILY 06/28/18 01/21/24 History release (Adult Low Dose Aspirin) acetaminophen 500 mg tablet 1,000 mg PO Q8H PRN PRN Pain Score 03/28/19 03/28/19 History 1-02/28 atorvastatin 80 mg tablet 80 mg PO QHS #90 TABLETS 10/27/23 Unknown Rx carvedilol 6.25 mg tablet 6.25 mg PO BID for blood pressure 10/27/23 02/20/24 07:30 Rx #180 TABLETS lisinopril 10 mg tablet 10 mg PO DAILY #90 TABLETS 10/27/23 02/20/24 07:30 Rx isosorbide mononitrate 60 mg 60 mg PO DAILY #90 TABLETS 12/05/23 02/20/24 07:30 Rx tablet,extended release 24 hr gabapentin 300 mg capsule 300 mg PO TID PRN PRN pain 01/16/24 01/31/24 History nitroglycerin 0.4 mg sublingual 0.4 mg sublingual PRN PRN chest 01/17/24 Unknown History tablet pain pantoprazole 40 mg tablet,delayed 40 mg PO DAILY 01/17/24 02/20/24 07:30 History release ciprofloxacin HCl 500 mg tablet 500 mg PO DAILY #14 tabs 02/20/24 Unknown Rx (Cipro) oxycodone 5 mg tablet 5 mg PO Q6H PRN pain 7 days #20 02/20/24 Unknown Rx tabs Allergy/AdvReac Type Severity Reaction Status Date / Time No Known Allergies Allergy Verified 02/20/24 12:29 Family History Father CAD (coronary artery disease) Mother CVA (cerebral vascular accident) CAD (coronary artery disease) Surgical History History of coronary artery stent placement Hx of hand surgery History of fusion of cervical spine History of left heart catheterization (11/04/16) History of knee replacement History of carpal tunnel release Social History Smoking Status: Current every day smoker tobacco type: cigarettes alcohol intake: never substance use type: does not use 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 Vital Signs Vital Signs Vital Signs: 02/20/24 13:34 02/20/24 13:34 02/20/24 14:12 Temperature Temperature Source Pulse Rate 71 71 Respiratory Rate 17 26 H Respiratory Effort Normal Non-Labored Respiratory Pattern Normal Blood Pressure 98/70 123/83 H Blood Pressure Mean 79 Blood Pressure Source Monitor Blood Pressure Position Semi-Fowlers Blood Pressure Location Right Arm Baseline BP 98/70 Pulse Ox 94 Oxygen Delivery Method Room Air Room Air Oxygen Flow Rate (L/min) EtCo2 (Normal 35-45 , high quality CPR 10-20 ROSC>/=40mmHg 32 33 02/20/24 14:15 02/20/24 14:20 02/20/24 14:25 Temperature Temperature Source Pulse Rate 71 80 79 Respiratory Rate 24 H 18 19 H Respiratory Effort Respiratory Pattern Blood Pressure 123/81 H 114/84 H 112/82 H Blood Pressure Mean Blood Pressure Source Blood Pressure Position Blood Pressure Location Baseline BP Pulse Ox Oxygen Delivery Method Room Air Room Air Nasal Cannula (more content not included)... [facility] 02-02-2024 Note [facility] Medical Records Department [address] [place] [address] Discharge Summary 02/02/24 0756 MR#: [id number] Acct: [id number] Name: ELMER ARBOLEDA Rep #: [id number] : 1970 53 From: Dallas Chapin MD PCP: Dr. Damon Bui MD Status:ADM NICOLASA Location: [facility] [place] [id number] Providers Date of Admission: 01/31/24 Date of Discharge: 02/02/24 Primary Care Physician: Dr. Damon Bui MD Reason For Visit: Lap Robotic Partial Nephrectomy Medications at Discharge Home Medications albuterol sulfate 90 mcg/actuation aerosol inhaler 2 puff inhalation Q4H PRN PRN Wheezing ##1 06/19/18 aspirin 81 mg tablet,delayed release (Adult Low Dose Aspirin) 81 mg PO DAILY 06/28/18 acetaminophen 500 mg tablet 1,000 mg PO Q8H PRN PRN Pain Score 1-02/2803/28/19 atorvastatin 80 mg tablet 80 mg PO QHS #90 TABLETS 10/27/23 carvedilol 6.25 mg tablet 6.25 mg PO BID for blood pressure #180 TABLETS 10/27/23 lisinopril 10 mg tablet 10 mg PO DAILY #90 TABLETS 10/27/23 isosorbide mononitrate 60 mg tablet,extended release 24 hr 60 mg PO DAILY #90 TABLETS 12/05/23 gabapentin 300 mg capsule 300 mg PO TID PRN PRN pain 01/16/24 nitroglycerin 0.4 mg sublingual tablet 0.4 mg sublingual PRN PRN chest pain 01/17/24 pantoprazole 40 mg tablet,delayed release 40 mg PO DAILY 01/17/24 Hospital Course Summary of Care Provided Hospital Course: pt had a left partial nephrectomy, discharge on post op day # 2 in stable condition, masha reg diet, vital stable, passing flatus. Physical Exam Const alert and oriented x3 General Appearance: cooperative HEENT normocephalic and head/scalp atraumatic Eyes PERRL and EOMs intact bilaterally Neck supple, no JVD and no carotid bruits Resp normal respiratory effort, normal air movement and clear to auscultation bilaterally Cardio regular rate and no murmurs GI normal to inspection, nondistended, normoactive bowel sounds and soft to palpation Extremity normal capillary refill General Extremity: no tenderness to palpation of joints or extremities; Negative for edema Skin no rashes or lesions noted and no wounds General Skin Exam: no breakdown Neuro CN's II-XII intact bilaterally Psych affect normal Appearance: appropriate Weight / BMI Weight Weight: 120.9 kg Body Mass Index (BMI) 36.1 ABG / Lab / Microbiology Data 02/01/24 06:52 02/01/24 06:52 D/C Instructions Discharge Diet: No restrictions May resume sexual activity in: No Restrictions Lifting Restrictions: no heavy lifting Call your doctor if you observe: Fever of 101 or Higher Cleanse incision/area with: Soap Water Please Follow Up With: Dallas Chapin MD When: Call [phone] for an appointment Meaningful Use Info Meaningful Use Meaningful Use Diagnoses (Choose all that apply): None applicable Ischemic Stroke Statin Dosing Therapy Reference: STATIN DOSE THERAPY REFERENCE: * Patients > 75 years receive moderate or high dose statin therapy. * Patients 75 years or YOUNGER should receive HIGH intensity statin dose unless contraindicated. You will be required to document reason for non-treatment if statin daily dose does not meet guidelines. HIGH DOSE STATIN THERAPY DAILY Atorvastatin > than or = to 40 mg Rosuvastatin > than or = to 20 mg Amlodipine + Atorvastatin > than or = to 2.5/40 mg Ezetimibe + Simvastatin 10/80 mg Simvastatin 80mg Discharge Plan Admission Admit Date/Time: 01/31/24 15:10 Primary Reason for Your Visit: Left partial nephrectomy Attending Provider: Dallas Chapin Primary Care Provider: Damon Bui Discharge Orders/Prescriptions Prescriptions: Continued gabapentin 300 mg capsule 300 mg PO TID PRN PRN (Reason: pain) albuterol sulfate 1 INHALER inhaler 2 puff inhalation Q4H PRN PRN (Reason: Wheezing) Qty: 1 0RF acetaminophen 500 MG tablet 1,000 mg PO Q8H PRN PRN (Reason: Pain Score 1-10/10) pantoprazole 40 mg tablet,delayed release (DR/EC) 40 mg PO DAILY Rx Instructions: TAKE 1 TABLET DAILY FOR INDIGESTION nitroglycerin 0.4 mg tablet, sublingual 0.4 mg sublingual PRN PRN (Reason: chest pain) Rx Instructions: DISSOLVE 1 TABLET UNDER TONGUE EVERY 5 MINUTES NEEDED FOR CHEST PAIN carvedilol 6.25 mg tablet 6.25 mg PO BID Qty: 180 3RF lisinopril 10 mg tablet 10 mg PO DAILY Qty: 90 3RF atorvastatin 80 mg tablet 80 mg PO QHS Qty: 90 3RF isosorbide mononitrate 60 mg tablet extended release 24 hr 60 mg PO DAILY Qty: 90 3RF Held aspirin [Adult Low Dose Aspirin] 81 mg tablet,delayed release (DR/EC) 81 mg PO DAILY Hold Instructions: Resume on 02/14/24. Referrals / Follow Up: Dallas Chapin MD [Med Staff - Active Staff] - Damon Bui MD [Primary Care Provider] - Disposition Disposition (needs filled in before D/C Order can be placed): Home, Self (more content not included)... [facility] 01-31-2024 Note [facility] Medical Records Department [address] [place] [address] History Physical Exam 01/31/24820 MR#: [id number] Acct: [id number] Name: ELMER ARBOLEDA Rep #: [id number] : 1970 53 From: Dallas Chapin MD PCP: Dr. Damon Bui MD Status:[facility] Location: [place] [address] HPI - General General Date of Service: 01/31/24 Chief Complaint: Left renal mass HPI Narrative ELMER ARBOLEDA, is a 53 M who presents for a left partial nephrectomy for a solid left renal mass. FORMERLY [facility], 1928–1983 Medical History (Updated 01/17/24 @ 09:14 by Kria Browning) Wears glasses Cancer History of steroid therapy Arthritis History of renal disease High cholesterol Injury of head and neck Gastric reflux Smoker Injury of back Leg cramps History of pain when walking History of edema History of stress test Cardiology follow-up encounter Hypertension Pain Liver hemangioma Strain of right hip Lumbosacral radiculopathy Lumbosacral strain Arthritis of right hand Contusion of hand, right BBB (bundle branch block) Staphylococcal infection of skin Atherosclerotic heart disease of [place] coronary artery without angina pectoris Essential (primary) hypertension Tobacco use Obesity Acute non-ST segment elevation myocardial infarction HLD (hyperlipidemia) Home Medications ???Medication ???Instructions ???Recorded ???Last Taken ???Type albuterol sulfate 90 mcg/actuation 2 puff inhalation Q4H PRN PRN 06/19/18 03/28/19 Rx aerosol inhaler Wheezing ##1 aspirin 81 mg tablet,delayed 81 mg PO DAILY 06/28/18 01/21/24 History release (Adult Low Dose Aspirin) acetaminophen 500 mg tablet 1,000 mg PO Q8H PRN PRN Pain Score 03/28/19 03/28/19 History 1-02/28 atorvastatin 80 mg tablet 80 mg PO QHS #90 TABLETS 10/27/23 Unknown Rx carvedilol 6.25 mg tablet 6.25 mg PO BID for blood pressure 10/27/23 01/31/24 04:30 Rx #180 TABLETS lisinopril 10 mg tablet 10 mg PO DAILY #90 TABLETS 10/27/23 01/31/24 04:30 Rx isosorbide mononitrate 60 mg 60 mg PO DAILY #90 TABLETS 12/05/23 Unknown Rx tablet,extended release 24 hr gabapentin 300 mg capsule 300 mg PO TID PRN PRN pain 01/16/24 Unknown History nitroglycerin 0.4 mg sublingual 0.4 mg sublingual PRN PRN chest 01/17/24 Unknown History tablet pain pantoprazole 40 mg tablet,delayed 40 mg PO DAILY 01/17/24 01/31/24 04:30 History release Allergy/AdvReac Type Severity Reaction Status Date / Time No Known Allergies Allergy Verified 01/31/24 06:25 Family History (Reviewed 01/16/24 @ 13:04 by Tiffany Dyson [employer], [employer]) Father CAD (coronary artery disease) Mother CVA (cerebral vascular accident) CAD (coronary artery disease) Surgical History (Updated 01/17/24 @ 09:14 by Kira Browning) History of coronary artery stent placement Hx of hand surgery History of fusion of cervical spine History of left heart catheterization (11/04/16) History of knee replacement History of carpal tunnel release Social History Smoking Status: Current every day smoker tobacco type: cigarettes alcohol intake: never substance use type: does not use 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 Dallas Chapin MD; Dr. Damon Bui MD Signed [facility] 04-05-2023 Note Stephanie Blanco RN: SIGN, AUTHOR, PERFORM Event Display: IR Procedure Record Authored Date: IR Procedure Record Summary Primary Physician: ZAK MUNIZ DO Finalized Date/Time: 04/05/23 10:27:53 Pt. Name: ELMER ARBOLEDA/Sex: 1970 Male Med Rec #: [id number] Physician: Financial #: [id number] Pt. Type: O Room/Bed: / Admit/Disch: 04/05/23 10:01:00 - Institution: Allergies identified in patient's electronic medical record at time of printing on 04/05/23 Entry 1 Substance NKA Reaction Type Allergy Last Modified By: LOLY Urena 10/05/21 07:11:09 Case Attendance- IR Entry 1 Entry 2 Entry 3 Case Attendee ZAK MUNIZ Brittaney RN Hershberger, Terra L Linderman Operator Role Performed Primary Surgeon Barber Instructor 1 Scrub Technologist Details Time In 04/05/23 10:10:00 04/05/23 10:09:00 04/05/23 10:09:00 Time Out 04/05/23 10:20:00 04/05/23 10:20:00 04/05/23 10:20:00 Procedure/Preference IR Nerve Block (SN) IR Nerve Block (SN) IR Nerve Block (SN) Card Last Modified By: Stephanie Blanco RN, Brittaney RN Magee, Brittaney RN 04/05/23 10:16:14 04/05/23 10:16:14 04/05/23 10:16:14 Radiology Procedures- IR Entry 1 Procedure/Preference IR Nerve Block (SN) Actual Procedure IR NERVE BLOCK SN Card Primary Procedure Yes Primary Surgeon ZAK MUNIZ DO Anesthesia/Sedation Local Type Additional Procedure Times Start 04/05/23 10:10:00 Stop 04/05/23 10:16:00 Specialty Service SN Radiology Procedure EBL 1 mL Last Modified By: Stephanie Blanco RN 04/05/23 10:16:15 Radiology Procedure Details - IR Entry 1 Radiology Sedation Case Times Sedation Total Time 0 Radiology - Fluid/Drainage Radiology Contrast Contrast Used? No Radiology Flouroscopy Fluoroscopy Used? Yes Fluoro Dose (mGy) 3.26 Fluoro Time 5 seconds Radiology Local Local Used? Yes Local Type: lidocaine 1 percent Local Dose 8 cc Radiology Procedure Site Site/Location l3-l4 right root nerve Site Condition No complications block Dressing Type Bandaids Technologist Notes injection mixture: 4 ml bupivicaine, 1 ml (80mg) depomedrol Last Modified By: Stephanie Blanco RN 04/05/23 10:16:54 General Case Data - IR Entry 1 Case Information Room AH IR 16 Case Level IR Level 2 Wound Class None Specialty SN Radiology Procedure ASA Class None Diagnosis Preop Diagnosis l3-l4, lateral disc Postop Same As Preop Yes herniation Postop Diagnosis l3-l4, lateral disc herniation Last Modified By: Stephanie Blanco RN 04/05/23 10:12:46 Procedure Case Times- IR Entry 1 Patient In Procedure Patient In OR 04/05/23 10:09:00 Patient Out of OR 04/05/23 10:20:00 Procedure Start/Stop Procedure Start Time 04/05/23 10:10:00 Procedure Stop Time 04/05/23 10:16:00 Last Modified By: Stephanie Blanco RN 04/05/23 10:16:12 Immediate Post Procedure Note - IR Entry 1 Immediate Post Yes Procedure Note displayed for Physician to review Closure Technique Closure Technique Other than Primary Last Modified By: Stephanie Blanco RN 04/05/23 10:12:20 Immediate Post Procedure Note - IR Signed By: ZAK MUNIZ DO 04/05/23 10:20 Allergy Information- IR Entry 1 Allergies Reviewed? Yes Allergies Reviewed Patient With Last Modified By: Stephanie Blanco RN 04/05/23 10:10:44 Radiology Protocols/Time Out- IR Entry 1 Preprocedure Clinician Verifies Correct patient ID When Clinically Confirmation of correct using name & date Indicated side(s) and site(s), or MRN, Accurate Correct diagnostic and procedure, complete radiology tests Informed Consent, H & P available update immediately prior to procedure, if applicable OR/Procedure Room/Bedside Time 04/05/23 10:10:00 Clinician Verifies Correct patient identity including EMR & records using name and date or medical record number, Accurate procedure consent form, Correct patient position, Necessary equipment is available When Applicable Confirmation correct Team Members ZAK MUNIZ DO, side and site marked, Present for Time Out Stephanie Blanco RN, Relevant images and Shira Gayle results are properly Linderman Operator labeled and appropriately displayed, Alcohol based prep dry Instrument Sterility Procedure IR Nerve Block (SN) Last Modified By: Stephanie Blanco RN 04/05/23 10:11:37 Skin Prep- IR Entry 1 Procedure IR Nerve Block (SN) Skin Prep Prep Area Back Side Right By ZAK MUNIZ DO Prep Agents Chloraprep Hair Removal Method N/A Last Modified By: Stephanie Blanco RN 04/05/23 10:12:12 Patient Positioning- IR Entry 1 Procedure IR Nerve Block (SN) Body Position OP Prone Feet Uncrossed? Yes Pressure Points Yes Checked Last Modified By: Stephanie Blanco RN 04/05/23 10:12:18 Radiology Procedure Plan - IR Entry 1 Radiology - Nursing Care Plan Outcome Statement The patient Outcome Statement The patient receives demonstrates knowledge Cont. appropriate of the expected medication(s), safely responses to the administered during the operative/invasive perioperative/invasive procedure., The period., The patient is patient's value system, free from signs and lifestyle, ethnicity, symptoms of injury and culture are caused by extraneous considered, respected, objects (equipment, and incorporated in the instrumentation, perioperative plan of sponges, or sharps). care., The patient is free from signs and symptoms of infection. Radiology - Action Plan Outcomes Met? Yes Nail Expert Stephanie Blanco RN Completing Procedure Plan Last Modified By: Stephanie Blanco RN 04/05/23 10:12:30 Case Comments <None> Finalized By: Stephanie Blanco RN Document Signatures Signed By: Stephanie Blanco RN 04/05/23 10:27 [facility] 04-05-2023 Note IR Procedure Record Summary Primary Physician: ZAK MUNIZ DO Finalized Date/Time: 04/05/23 10:27:53 Pt. Name: ELMER ARBOLEDA Diego/Sex: 1970 Male Med Rec #: [id number] Physician: Financial #: [id number] Pt. Type: O Room/Bed: / Admit/Disch: 04/05/23 10:01:00 - Institution: Allergies identified in patient's electronic medical record at time of printing on 04/05/23 Entry 1 Substance NKA Reaction Type Allergy Last Modified By: LOYL Urena 10/05/21 07:11:09 Case Attendance- IR Entry 1 Entry 2 Entry 3 Case Attendee ZAK MUNIZ Brittaney RN Hershberger, Terra L Linderman Operator Role Performed Primary Surgeon Barber Instructor 1 Scrub Technologist Details Time In 04/05/23 10:10:00 04/05/23 10:09:00 04/05/23 10:09:00 Time Out 04/05/23 10:20:00 04/05/23 10:20:00 04/05/23 10:20:00 Procedure/Preference IR Nerve Block (SN) IR Nerve Block (SN) IR Nerve Block (SN) Card Last Modified By: Stephanie Blanco RN, Brittaney RN Magee, Brittaney RN 04/05/23 10:16:14 04/05/23 10:16:14 04/05/23 10:16:14 Radiology Procedures- IR Entry 1 Procedure/Preference IR Nerve Block (SN) Actual Procedure IR NERVE BLOCK SN Card Primary Procedure Yes Primary Surgeon ZAK MUNIZ DO Anesthesia/Sedation Local Type Additional Procedure Times Start 04/05/23 10:10:00 Stop 04/05/23 10:16:00 Specialty Service SN Radiology Procedure EBL 1 mL Last Modified By: Stephanie Blanco RN 04/05/23 10:16:15 Radiology Procedure Details - IR Entry 1 Radiology Sedation Case Times Sedation Total Time 0 Radiology - Fluid/Drainage Radiology Contrast Contrast Used? No Radiology Flouroscopy Fluoroscopy Used? Yes Fluoro Dose (mGy) 3.26 Fluoro Time 5 seconds Radiology Local Local Used? Yes Local Type: lidocaine 1 percent Local Dose 8 cc Radiology Procedure Site Site/Location l3-l4 right root nerve Site Condition No complications block Dressing Type Bandaids Technologist Notes injection mixture: 4 ml bupivicaine, 1 ml (80mg) depomedrol Last Modified By: Stephanie Blanco RN 04/05/23 10:16:54 General Case Data - IR Entry 1 Case Information Room AH IR 16 Case Level IR Level 2 Wound Class None Specialty SN Radiology Procedure ASA Class None Diagnosis Preop Diagnosis l3-l4, lateral disc Postop Same As Preop Yes herniation Postop Diagnosis l3-l4, lateral disc herniation Last Modified By: Stephanie Blanco RN 04/05/23 10:12:46 Procedure Case Times- IR Entry 1 Patient In Procedure Patient In OR 04/05/23 10:09:00 Patient Out of OR 04/05/23 10:20:00 Procedure Start/Stop Procedure Start Time 04/05/23 10:10:00 Procedure Stop Time 04/05/23 10:16:00 Last Modified By: Stephanie Blanco RN 04/05/23 10:16:12 Immediate Post Procedure Note - IR Entry 1 Immediate Post Yes Procedure Note displayed for Physician to review Closure Technique Closure Technique Other than Primary Last Modified By: Stephanie Blanco RN 04/05/23 10:12:20 Immediate Post Procedure Note - IR Signed By: ZAK MUNIZ DO 04/05/23 10:20 Allergy Information- IR Entry 1 Allergies Reviewed? Yes Allergies Reviewed Patient With Last Modified By: Stephanie Blanco RN 04/05/23 10:10:44 Radiology Protocols/Time Out- IR Entry 1 Preprocedure Clinician Verifies Correct patient ID When Clinically Confirmation of correct using name & date Indicated side(s) and site(s), or MRN, Accurate Correct diagnostic and procedure, complete radiology tests Informed Consent, H & P available update immediately prior to procedure, if applicable OR/Procedure Room/Bedside Time 04/05/23 10:10:00 Clinician Verifies Correct patient identity including EMR & records using name and date or medical record number, Accurate procedure consent form, Correct patient position, Necessary equipment is available When Applicable Confirmation correct Team Members ZAK MUNIZ DO, side and site marked, Present for Time Out Stephanie Blanco RN, Relevant images and Shira Gayle results are properly Linderman Operator labeled and appropriately displayed, Alcohol based prep dry Instrument Sterility Procedure IR Nerve Block (SN) Last Modified By: Stephanie Blanco RN 04/05/23 10:11:37 Skin Prep- IR Entry 1 Procedure IR Nerve Block (SN) Skin Prep Prep Area Back Side Right By ZAK MUNIZ DO Prep Agents Chloraprep Hair Removal Method N/A Last Modified By: Stephanie Blanco RN 04/05/23 10:12:12 Patient Positioning- IR Entry 1 Procedure IR Nerve Block (SN) Body Position OP Prone Feet Uncrossed? Yes Pressure Points Yes Checked Last Modified By: Stephanie Blanco RN 04/05/23 10:12:18 Radiology Procedure Plan - IR Entry 1 Radiology - Nursing Care Plan Outcome Statement The patient Outcome Statement The patient receives demonstrates knowledge Cont. appropriate of the expected medication(s), safely responses to the administered during the operative/invasive perioperative/invasive procedure., The period., The patient is patient's value system, free from signs and lifestyle, ethnicity, symptoms of injury and culture are caused by extraneous considered, respected, objects (equipment, and incorporated in the instrumentation, perioperative plan of sponges, or sharps). care., The patient is free from signs and symptoms of infection. Radiology - Action Plan Outcomes Met? Yes Nail Expert Stephanie Blanco RN Completing Procedure Plan Last Modified By: Stephanie Blanco RN 04/05/23 10:12:30 Case Comments Finalized By: Stephanie Blanco RN Document Signatures Signed By: Stephanie Blanco RN 04/05/23 10:27 [facility] 04-05-2023 History and physical note Date of Service April 05, 2023 History and Physical Update I have examined the patient; reviewed the History and Physical and there are no changes to the History and Physical unless noted below. Digitally Signed by ZAK MUNIZ DO on 04/05/2023 07:21 AM [facility] 10-05-2021 Evaluation + Plan note Extrac levar from: Title:IR pre procedure H&P Author:WONG OCONNOR PA-C Date:10/05/21 IR PREPROCEDURE H&P UPDATE IF A HISTORY AND PHYSICAL EXAMINATION HAS BEEN COMPLETED PRIOR TO ADMISSION TO THE HOSPITAL, AN UPDATED EXAMINATION MUST BE COMPLETED AND DOCUMENTED WITHIN 24 HOURS AFTER ADMISSION OR REGISTRATION BUT BEFORE A SURGICAL PROCEDURE. I have examined the patient, reviewed the H&P, and there are no changes unless noted below: Last dose of Plavix was 10/04/2021 The most recent H&P/Office Note has been performed on 09/22/2021 and can be found on paper, which has been scanned into the [facility] PACS/RIS system. _ [facility] 05-17-2022 Hospital Discharge instructions Patient Education 10/05/2021 09:02:18 Radiology- Procedure/Biopsy 09/04/2019(CUSTOM) [facility] Radiology Procedure/Biopsy Discharge Instructions Interventional Radiology [facility] Imaging Services [address] [place] [address] Today, you had a MRI Shoulder Arthogram___. This procedure/biopsy was done to help your doctordiagnose and treat the signs and symptoms you have been experiencing. These instructions should be followed after your procedure to reduce the chance of experiencing complications. Please follow the instructions below to reduce the chance of experiencing complications. Diet: Resume your normal diet as tolerated. Drink extra fluids. Activity: Rest for the remainder of the day. You may resume your normal activity tomorrow. You may bathe/shower after 24 hours. Do not soak or submerge site (including swimming or hot tubs) until a scab forms. No heavy lifting, pushing, or straining. Dressing: Check the site for bleeding. Apply pressure to the site if bleeding excessively and call your physician. Change the band aid as needed; it can be removed after 24 hours. Keep the site dry at all times until a scab forms over the site. Pain Control: The puncture site may be sore for 1 to 2 days following the procedure. [id number] pain medication should be used for pain or discomfort. Please check with the physician who ordered this procedure for you for their specific recommendations. If your pain is not relieved or becomes more severe, notify the physician who sent you for this procedure. If you were sedated for this procedure: Avoid alcoholic beverages for 24 hours after your procedure. Do not drive or operate heavy machinery for 24 hours after your procedure. Do not make any legal decisions for 24 hours after your procedure. Medication: Please resume on . When to seek medical help: Lightheadedness, dizziness, or fainting. Severe pain or swelling. Severe nausea or vomiting. Infection: fever greater than 101 degrees, chills, redness, warmth, swelling, bleeding, or pus frompuncture site. If you experience any of these issues during the first 24 hours, please follow the instruction below: 8:00 am- 5:00 pm call [phone] After 5:00 pm call [phone] After 24 hours, contact the physician who ordered this procedure for you. Obtaining test results: Please make an appointment with your doctor to obtain your test results. They are usually availablewithin 4 to 7 business days. Do not assume everything is normal if you have not heard from your doctor or medical facility. It is important for you to follow up on all of your test results. Special Instructions: [facility] 10-14-2016 Evaluation note* Diagnosis Onset Date Resolution Status History of coronary artery stent placement February acute Essential (primary) hypertension chronic HLD (hyperlipidemia) [facility] Work Phone: [phone] 550-823210-14-2016 Evaluation note* Diagnosis Onset Date Resolution Status History of coronary artery stent placement February acute Essential (primary) hypertension chronic HLD (hyperlipidemia) chronic Tobacco use chronic [facility] Work Phone: [phone]) 892-743610-14-2016 Evaluation note* Diagnosis Onset Date Resolution Status History of coronary artery stent placement February acute Essential (primary) hypertension chronic HLD (hyperlipidemia) chronic Tobacco use chronic Lumbosacral radiculopathy [place] Lumbosacral strain acute Strain of right hip acute [facility] Work Phone: [phone] Evaluation note* Diagnosis Onset Date Resolution Status History of coronary artery stent placement February acute Essential (primary) hypertension chronic HLD (hyperlipidemia) chronic Tobacco use chronic Lumbosacral radiculopathy [place] Lumbosacral strain acute Strain of right hip acute Low back pain acute Lumbar radiculopathy acute [facility] Work Phone: Evaluation noteNo assessment information available [facility] Work Phone: Hospital course Narrative No data available for this section [facility] Hospital Discharge instructions No data available for this section [facility] Hospital Discharge instructions Additional Instructions Thank you for trusting us with your care today! Your presentation today is likely secondary to herniated disc. Please take Tylenol (2 pills, 650 mg), ibuprofen (2 pills, 400 mg) every 6 hours as needed for pain and fever control. If this above regimen does not control your pain please take Percocet as often every 6 hours for breakthrough pain. Please return to the emergency department if your symptoms change or worsen. Specifically develop bowel or bladder incontinence, urinary retention, loss of movement or sensation in the legs. Please follow with your orthopedic surgery for further outpatient evaluation and management.[facility] Work Phone: Progress note No data available for this section [facility] Summary Purpose Family History No Family History Records Found Relationship Condition Age at Onset Recorded Date/T mark father Coronary artery disease Unknown mother Cerebrovascular accident (CVA) Unknown Coronary artery disease Unknown Advance Directives No Advanced Directives Records Found Advance Directive Response Recorded Date/ Time Advance Directives No July 22 4:51pm Living Will No December 05, 2020 10:03am Power of Sales Development Director No December 05 10:03am Advance Directive Response Recorded Date/ Time Advance Directives No January 13, 2023 9:31am Living Will No January 13 9:31am Power of Sales Development Director No January 13, 023 9:31am Advance Directive Response Recorded Date/ Time Advance Directives No January 13, 2023 9:31am Living Will No September 13, 2023 5:17pm Power of Sales Development Director No September 12 5:17pm Chief Complaint and Reason for Visit Chief Complaint 9-10 M FU INT LABS Reason for Visit History of coronary artery stent placement Essential (primary) hypertension HLD (hyperlipidemia) Chief Complaint 1 y fu PT NEEDS TUES EORDER Reason for Visit History of coronary artery stent placement Essential (primary) hypertension HLD (hyperlipidemia) Tobacco use Chief Complaint 1 y fu PT NEEDS TUES EORDER RT SIDE LOWER BACK PAIN Reason for Visit History of coronary artery stent placement Essential (primary) hypertension HLD (hyperlipidemia) Tobacco use Lumbosacral radiculopathy Lumbosacral strain Strain of right hip Chief Complaint 1 y fu PT NEEDS TUES EORDER RT SIDE LOWER BACK PAIN RT Hip pain LUMBAR SPINAL STENOSIS/RADICULOPATHY Reason for Visit History of coronary artery stent placement Essential (primary) hypertension HLD (hyperlipidemia) Tobacco use Lumbosacral radiculopathy Lumbosacral strain Strain of right hip Low back pain Lumbar radiculopathy Chief Complaint BACK PAIN Additional Source Comments (unrecognized sect ion and content) No Status Records FoundNo Status Records FoundNo Status Records FoundNo Status Records FoundNo Status Records Found INFORMATION SOURCE (unrecogn ized section and content) DATE CREATED AUTHOR 11/15/2017 [facility] DATE CREATED AUTHOR AUTHOR'S ORGANIZ ATION 02/17/2021 [facility] [place] DATE CREATED AUTHOR AUTHOR'S ORGANIZ ATION 09/20/2023 [facility] ([place]) DATE CREATED AUTHOR AUTHOR'S ORGANIZ ATION 09/02/2024 [facility] DATE CREATED AUTHOR AUTHOR'S ORGANIZ ATION 10/27/2024 [facility] Care Team (unrecognized sect ion and content) Team Status: Active Member Role Status Dates Dr. Kana Barreto DO Family Provider Active Dr. Damon Bui MD Primary Care Provider Active Team Status: Inactive Member Role Status Dates Dr. Damon Bui MD Primary Care Provider, Referri ng Provider Active Tiffany Dyson [employer], [employer] Attending Provider Active Team Status: Inactive Member Role Status Dates Dr. Damon Bui MD Primary Care Provider Active Tiffany Dyson [employer], [employer] Attending Provider, Referring P rovider Active Team Status: Inactive Member Role Status Dates Dr. Damon Bui MD Primary Care Provider, Referri ng Provider Active Brady FISHER PA Attending Provider Active Team Status: Inactive Member Role Status Dates Dr. Damon Bui MD Primary Care Provider Active NATALIA Augustine Attending Provider, Referring Provide r Active Team Status: Active Member Role Status Dates Dr. Damon Bui MD Primary Care Provider Active NATALIA Mayes Attending Provider, Referring Pr ovider Active Team Status: Inactive Member Role Status Dates Dr. Damon Bui MD Primary Care Provider Active NATALIA Mayes Attending Provider, Referring Pr ovider Active Team Status: Inactive Member Role Status Dates Dr. Damon Bui MD Primary Care Provider, Attendi ng Provider Active Team Status: Inactive Member Role Status Dates Dr. Damon Bui MD Primary Care Provider Active Dr. Zak Hung DO Attending Provider, Referring P rovider Active Team Status: Inactive Member Role Status Dates Dr. Damon Bui MD Primary Care Provider Active Dr. Wellington Sage DO Emergency Provider Active Goals (unrecognized section and content) Goals may be documented in a n alternate section FOR RECORDS PERTAINING TO PATIENTS WHO ARE OR HAVE BEEN ENROLLED IN A CHEMICAL DEPENDENCY/SUBSTANCEABUSE PROGRAM, SOME INFORMATION MAY BE OMITTED. This clinical summary was aggregated from multiple sources. Caution should be exercised in using it in the provision of clinical care. This summary normalizes information from multiple sources, and as a consequence, information in this document may materially change the coding, format and clinical context of patient data. In addition, data may be omitted in some cases. CLINICAL DECISIONS SHOULD BE BASED ON THE PRIMARY CLINICAL RECORDS. [facility] provides no warranty or guarantee of the accuracy or completeness of information in this document.
--- NOTE | 2024-11-05 18:35 | STRESSREP_ITS ---
Stress Test Report Pharmacologic myocardial perfusion stress test. 54-year-old man with a history of coronary artery disease Resting EKG demonstrates sinus rhythm with a left bundle branch block with a rate of 62 bpm. Resting blood pressure is 120/78 mmHg. 0.4 mg of regadenoson was infused per usual protocol followed by rapid intravenous saline flush inject ion. Continuous EKG monitoring was performed. The maximum heart rate was 107 bpm which was 64 of max impacted heart rate the maximum workload was 1 metabolic equivalent. At rest there were no ST or T wave changes noted to suggest ischemia and at peak infusion nonspecific ST changes were noted which did not meet the criteria for ischemia. No clinical angina is noted. The final blood pressure was 120/70 mmHg. Myocardial perfusion protocol. 14.5 mCi of technetium 99m sestamibi was injected at rest. 0.4 mg of regadenoson was infused per usual protocol. At peak infusion 44.2 mCi of techne tium 99m sestamibi was injected stress images were obtained stress and rest images were reconstructed and compared in the short axis vertical long and horizontal long axis. Gated images were also obtained. Perfusion SPECT analysis: Review of the stress images demonstrate normal uptake of tracer noted in all areas of the myocardium except for small portion of the anteroseptal wall with reduced perfusion. This could be due to the left bundle branch block abnormality. The rest images demonstrate a similar pattern. No areas of reversibility to suggest ischemia is noted. Gated SPECT analysis: The gated ejection fraction is 64%. Conclusion: Normal pharmacologic myocardial perfusion stress test. Preserved ejection fraction. Left bundle branch block pattern is noted. With anteroseptal perfusion defect.
== END | disposition home or self-care (01) ==
LOC: CVS 06:24
PROVIDERS: PCP Internal Medicine; Referring Provider Nurse Practitioner Gerontology; Visit Provider Nurse Practitioner Gerontology
DX: I25.10 Atherosclerotic heart disease of native coronary artery without angina pectoris (principal)
CPT/HCPCS: 78452; 93017; A9500; A4216; J2785

== ENCOUNTER → 2024-12-09 | Outpatient (CLI) | payer BC, SELFPAY ==
[2024-12-09 10:52] LABS: AST(SGOT) 25 U/L (<=37); Alanine Aminotransfer ALT/SGPT 35 U/L (<=46); Albumin, Serum 4.3 g/dL (3.5-5.0); Alkaline Phosphatase 138 U/L (40-129); Bilirubin, Direct 0.40 mg/dL (0.00-0.30); Cholesterol 121 mg/dL (<=200); Globulin 2.5 g/dL (2.2-4.2); Low Density Lipoprotein Calc. 48 mg/dL; Triglycerides 158 mg/dL; Very Low Density Lipoprotein 32 mg/dL (5-40); cholesterol:hdl ratio screen 2.94
[2024-12-09 11:33] LABS: Anion Gap 13 (5-15); BUN 16 mg/dL (4-19); BUN/Creat Ratio 21.1 RATIO (10-20); Calcium,Total 9.4 mg/dL (7.6-11.0); Carbon Dioxide 22.1 mmol/L (21.0-32.0); Chloride 104 mmol/L (98-108); Glucose 101 mg/dL (70-99); PSA,Total - Annual Screen 0.23 ng/mL (0.02-4.00); Potassium 4.6 mmol/L (3.3-5.1)
== END | disposition home or self-care (01) ==
LOC: LAB 09:24
PROVIDERS: Nurse Practitioner Gerontology; PCP Internal Medicine; Referring Provider Urology; Visit Provider Urology
DX: Z12.5 Encounter for screening for malignant neoplasm of prostate (principal); C64.2 Malignant neoplasm of left kidney, except renal pelvis; E78.00 Pure hypercholesterolemia, unspecified
CPT/HCPCS: 36415; 80048; 80061; 80076; 84153; G0103

== ENCOUNTER → 2024-12-23 | Outpatient (CLI) | payer BC, SELFPAY ==
--- NOTE | 2024-12-23 17:50 | CT_ITS ---
PROCEDURE: ABDOMEN WITH IV CONTRAST 12/23/2024 REASON FOR EXAM: MALIGNANT NEOPLASM OF KIDNEY Left renal carcinoma. TECHNIQUE: ABDOMEN WITH IV CONTRAST. Multiplanar Sagittal and Coronal images were obtained. One or more dose reduction techniques were used (e.g., Automated exposure control, adjustment of the mA and/or kV according to patient size, use of iterative reconstruction technique. CONTRAST: Isovue 370 VOLUME: 100 mL RADIATION DOSE SUMMARY: CTDlvol: 16 point 67 mGy DLP: 964.86 mGycm COMPARISON: Prior study dated April 09, 2024. FINDINGS: Lung bases: Lung bases are clear. Coronary artery calcification. Liver: Diffuse fatty infiltration. Stable 6.8 cm x 3.5 cm heterogeneous enhancement in the posterior inferior medial aspect of the right lobe of the liver suggestive of an hepatic hemangioma. This is unchanged. A similar-appearing 1.2 cm hemangioma is seen in the central aspect of the medial right lobe of the liver. Gallbladder: Unremarkable Spleen: Normal size. Pancreas: Normal size without evidence of mass surrounding inflammation or ductal dilation. Adrenals: Unremarkable Kidneys: Normal right kidney. Stable postoperative changes seen in the mid lateral aspect of the left kidney with prior partial nephrectomy. The previously seen double-J stent catheter is not seen at this time. Mild residual left perinephric stranding. Bowel: Sigmoid diverticulosis. Lymph nodes: No retroperitoneal lymph nodes are seen. Vasculature: Atherosclerotic calcification of the aorta and major branches. Peritoneum / Retroperitoneum: Unremarkable Bones: Degenerative changes of the spine. Straightening of the normal lumbar lordosis. CT/Abdomen WITH IV Contrast IMPRESSION: Stable examination. Reading Location: [id number]
== END | disposition home or self-care (01) ==
PROVIDERS: PCP Internal Medicine; Referring Provider Urology; Visit Provider Urology
DX: C64.2 Malignant neoplasm of left kidney, except renal pelvis (principal)
CPT/HCPCS: 74160; Q9967